=== PATIENT | male | born 1955 | race Caucasian/White ===

== ENCOUNTER 2022-12-28 07:20 | Emergency (ER) | payer MEDICARE, SELFPAY ==
[2022-12-28] VITALS (40 sets, daily range): BP systolic 107–147; BP diastolic 65–103; PULSE 97; RESP 18; TEMP 36.5–36.9; O2SAT 88–98
--- NOTE | ~2022-12-28 | XR_ITS ---
Portable chest x-ray Comparison: 05/01/2015 Clinical History: Difficulty swallowing Findings: Lungs are clear, without focal consolidation or pleural effusion. Possible COPD. Cardiomed iastinal silhouette is stable. Bones and soft tissues are unremarkable. Impression: Clear lungs. Possible COPD. Reviewed, dictated and finalized at location . Impression: Clear lungs. Possible COPD.
--- NOTE | ~2022-12-28 | CT_ITS ---
CT scan of the Neck Technique: 2.5 mm axial scans were obtained through the neck after intravenous administration of 75 c c Omnipaque 350. Coronal and sagittal reconstructions of the neck were obtained. Dose reduction techn ique was used on this scan by utilizing automated exposure control and iterative reconstruction techn ique. The dose-length product (DLP) was 557.41 mGy-cm. Clinical History: Difficulty following. 2 days status post neck surgery. Findings: There is soft tissue gas/emphysema at the anterior neck in the midline and left neck, from the level of the thyroid gland extending superiorly to the level of the hyoid bone, both deep and superficial t o the left sternocleidomastoid muscle. Parotid and submandibular glands are unremarkable. Parapharyng eal fat preserved bilaterally. No definite cervical lymphadenopathy identified. There is prominent re tropharyngeal fluid (axial images 46-62, sagittal image 44 for example). No soft tissue mass evident. The thyroid gland appears normal. Images of the lung apices reveal no abnormalities. Impression: Prominent retropharyngeal fluid, which exerts mass effect upon the posterior aspect of the oropharynx /larynx, which are narrowed. This could reflect reactive fluid due to recent surgery. No prominent pe ripheral enhancement evident, however abscess is an additional consideration. Correlate clinically fo r signs/symptoms of infection. Soft tissue gas in the left neck and anterior neck, consistent with sequelae recent surgery. Reviewed, dictated and finalized at [facility]. Impression: Prominent retropharyngeal fluid, which exerts mass effect upon the posterior as pect of the oropharynx/larynx, which are narrowed. This could reflect reactive fluid due to recent surgery. No prominent peripheral enhancement evident, howev er abscess is an additional consideration. Correlate clinically for signs/sympt oms of infection. Soft tissue gas in the left neck and anterior neck, consistent with sequelae re cent surgery.
--- NOTE | 2022-12-28 07:33 | ED.GENADULT ---
HPI - General Adult General Chief complaint: Unspecified Stated complaint: difficulty swallowing Time Seen by Provider: 12/28/22 07:32 Source: patient and family Mode of arrival: ambulatory Limitations: no limitations History of Present Illness HPI narrative: 67 years old white male came to the emergency room with difficulty swallowing since having surgery 2 days ago, got worse at 6:00 this morning. Patient is able to swallow his saliva without difficulty also was able to swallow some fluids with difficulty. Patient status post cervical disc surgery 2 days ago. He denies any fever, chills, nausea, vomiting, difficulty breathing or painful swallowing. Patient currently on Crivitz and Flexeril. Related Data Home Medications Medication Instructions Recorded Confirmed albuterol sulfate 90 mcg/actuation 1 inh inhalation Q4H 05/05/22 05/09/22 aerosol inhaler (ProAir HFA) amitriptyline 25 mg tablet 25 mg PO QHS 05/05/22 05/09/22 aspirin 81 mg chewable tablet 81 mg PO DAILY 05/05/22 05/09/22 diclofenac sodium 75 mg 75 mg PO BID 05/05/22 05/09/22 tablet,delayed release ezetimibe 10 mg tablet (Zetia) 10 mg PO DAILY 05/05/22 05/09/22 fenofibrate 160 mg tablet 160 mg PO DAILY 05/05/22 05/09/22 fluticasone 500 mcg-salmeterol 50 1 inh inhalation Q12H 05/05/22 05/09/22 mcg/dose blistr powdr for inhalation (Advair Diskus) hydrochlorothiazide 25 mg tablet 25 mg PO DAILY 05/05/22 05/09/22 insulin degludec 200 unit/mL (3 20 unit subcut DAILY 05/05/22 05/09/22 mL) subcutaneous pen (Tresiba FlexTouch U-200 insulin) losartan 100 mg tablet 100 mg PO DAILY 05/05/22 05/09/22 metformin 1,000 mg tablet 1,000 mg PO DAILY 05/05/22 05/09/22 metoprolol succinate 50 mg 50 mg PO DAILY 05/05/22 05/09/22 tablet,extended release 24 hr omeprazole 40 mg capsule,delayed 40 mg PO DAILY 05/05/22 05/09/22 release quetiapine 50 mg tablet 50 mg PO QHS 05/05/22 05/09/22 rosuvastatin 40 mg tablet 40 mg PO DAILY 05/05/22 05/09/22 semaglutide 0.25 mg or 0.5 mg (2 0.25 mg subcut WEEKLY 05/05/22 05/09/22 mg/1.5 mL) subcutaneous pen injector (Ozempic) Allergies Allergy/AdvReac Type Severity Reaction Status Date / Time glimepiride Allergy Mild Rash Verified 12/28/22 07:45 Penicillins Allergy Mild Rash Verified 12/28/22 07:45 trazodone Allergy Mild Vomiting Verified 12/28/22 07:45 Review of Systems Review of Systems: All systems reviewed & are unremarkable except as noted in HPI and below PMFSH Past Medical History Medical History COPD (chronic obstructive pulmonary disease) Diabetes Fatty liver GERD (gastroesophageal reflux disease) Hyperlipidemia Kidney stone Obesity Surgical History Surgical History Colon polyp H/O heart artery stent H/O knee surgery Family History Family History Other Heart disease Social History Social History (Updated 12/28/22 @ 14:06 by Lisa Torres NP) Social History: 3c Smoking status: Current every day smoker Alcohol intake: never Substance use: never Substance use type: does not use Lack of Transportation: No Lack of Food: Never True Current Housing: I Have Housing Concerned About Future Housing: No Difficulty Paying Gas/Electric Bills: No Difficulty Paying for Meds: No Currently Unemployed: No Education: Decline to Answer Difficulty w/ Childcare or Family Care: Decline to Answer Living arrangements: with family Occupation/Education: occupation Exam Narrative: General appearance: Well-developed, well-nourished Skin: Normal color Head: Normocephalic, nontraumatic Eyes: Clear conjunctiva ENT: Oropharynx normal, ears normal, nose normal Neck: Supple, surgical scar left side of lower neck anteriorly, swelling, dry and clean Chest and respiratory: Airway patent, no respiratory distress, no access
[2022-12-28 07:53] LABS: Basophils Percent Auto 0.5 % (0.2-1.2); Eosinophils Absolute Auto 0.1 K/mm3 (0-0.3); Eosinophils Percent Auto 0.6 % (0-4.4); Hematocrit 40.5 % (42.0-52.0); Hemoglobin 13.6 g/dL (14.0-18.0); Immature Granulocyte Absolute 0.05 K/mm3 (0.00-0.031); Immature Granulocyte Percent A 0.6 % (0-0.5); Lymphocytes Absolute Auto 2.02 K/mm3 (0.9-3.2); Mean Corpuscular HGB Conc 33.6 g/dl (32-36); Mean Corpuscular Hemoglobin 29.6 pg (26-34); Mean Corpuscular Volume 88.2 fl (80-100); Mean Platelet Volume 11.2 fl (7.4-10.4); Monocytes Absolute Auto 0.9 K/mm3 (0.1-0.6); Monocytes Percent Auto 10.5 % (2.6-8.5); Neutrophils Absolute Auto 5.7 K/mm3 (1.3-6.7); Neutrophils Percent Auto 64.8 % (45.5-73.1); Platelet Count Result 155 k/mm3 (150-375); Red Blood Count 4.59 M/mm3 (4.6-6.20); Red Cell Distribution Width 12.8 % (11.5-14.5); White Blood Count 8.8 K/mm3 (4.5-10.0)
[2022-12-28] MEDS: MORPHINE SULFATE (*CRX) 4 MG/ML INJ IV PUSH (07:59)
[2022-12-28] MEDS: ONDANSETRON INJ 4 MG/2 ML VIAL IV PUSH ×2 (07:59→17:05)
[2022-12-28 08:04] LABS: Alanine Aminotransferase 25 U/L (6-50); Albumin Level 4.2 g/dL (3.5-5.1); Alkaline Phosphatase 63 U/L (38-126); Anion Gap 9 mmol/L (8-16); Aspartate Amino Transferase 28 U/L (17-59); Bilirubin,Total 0.5 mg/dL (0.2-1.3); Blood Urea Nitrogen 19 mg/dL (9-20); Calcium 10.2 mg/dL (8.4-10.2); Carbon Dioxide 32 mmol/L (22-30); Chloride 93 mmol/L (98-107); Estimated CRCL calculation 91 ml/min; Estimated Glomerular Filt Rate > 60; Glucose 220 mg/dL (65-110); Potassium 3.7 mmol/L (3.4-5.0); Sodium 134 mmol/L (137-145)
[2022-12-28 10:57] LABS: Glucose Point of Care 228 mg/dl (65-105)
--- NOTE | 2022-12-28 14:05 | PM.IMHP ---
H&P: HPI History of Present Illness Date/Time: 12/28/22 14:05 [facility] Past Medical History Medical History COPD (chronic obstructive pulmonary disease) Diabetes Fatty liver GERD (gastroesophageal reflux disease) Hyperlipidemia Kidney stone Obesity Surgical History Surgical History Colon polyp H/O heart artery stent H/O knee surgery Family History Family History Other Heart disease Social History Social History (Updated 12/28/22 @ 14:06 by Lisa Torres NP) Social History: 3c Smoking status: Current every day smoker Alcohol intake: never Substance use: never Substance use type: does not use Lack of Transportation: No Lack of Food: Never True Current Housing: I Have Housing Concerned About Future Housing: No Difficulty Paying Gas/Electric Bills: No Difficulty Paying for Meds: No Currently Unemployed: No Education: Decline to Answer Difficulty w/ Childcare or Family Care: Decline to Answer Living arrangements: with family Occupation/Education: occupation Meds Home Medications and Allergies Home Medications Medication Instructions Recorded Confirmed Type albuterol sulfate 90 mcg/actuation 1 inh inhalation Q4H 05/05/22 05/09/22 History aerosol inhaler (ProAir HFA) amitriptyline 25 mg tablet 25 mg PO QHS 05/05/22 05/09/22 History aspirin 81 mg chewable tablet 81 mg PO DAILY 05/05/22 05/09/22 History diclofenac sodium 75 mg 75 mg PO BID 05/05/22 05/09/22 History tablet,delayed release ezetimibe 10 mg tablet (Zetia) 10 mg PO DAILY 05/05/22 05/09/22 History fenofibrate 160 mg tablet 160 mg PO DAILY 05/05/22 05/09/22 History fluticasone 500 mcg-salmeterol 50 1 inh inhalation Q12H 05/05/22 05/09/22 History mcg/dose blistr powdr for inhalation (Advair Diskus) hydrochlorothiazide 25 mg tablet 25 mg PO DAILY 05/05/22 05/09/22 History insulin degludec 200 unit/mL (3 20 unit subcut DAILY 05/05/22 05/09/22 History mL) subcutaneous pen (Tresiba FlexTouch U-200 insulin) losartan 100 mg tablet 100 mg PO DAILY 05/05/22 05/09/22 History metformin 1,000 mg tablet 1,000 mg PO DAILY 05/05/22 05/09/22 History metoprolol succinate 50 mg 50 mg PO DAILY 05/05/22 05/09/22 History tablet,extended release 24 hr omeprazole 40 mg capsule,delayed 40 mg PO DAILY 05/05/22 05/09/22 History release quetiapine 50 mg tablet 50 mg PO QHS 05/05/22 05/09/22 History rosuvastatin 40 mg tablet 40 mg PO DAILY 05/05/22 05/09/22 History semaglutide 0.25 mg or 0.5 mg (2 0.25 mg subcut WEEKLY 05/05/22 05/09/22 History mg/1.5 mL) subcutaneous pen injector (Ozempic) gabapentin 300 mg capsule 300 mg PO DIRECTED #120 tabs 05/09/22 Rx Allergies Allergy/AdvReac Type Severity Reaction Status Date / Time glimepiride Allergy Mild Rash Verified 12/28/22 07:45 Penicillins Allergy Mild Rash Verified 12/28/22 07:45 trazodone Allergy Mild Vomiting Verified 12/28/22 07:45 Vital Signs Vital Signs - 24 hr 12/28/22 07:27 12/28/22 07:47 12/28/22 08:02 Temperature 36.5 C Pulse Rate 97 Respiratory Rate 18 Blood Pressure 124/71 120/70 118/66 Pulse Oximetry 98 95 95 Oxygen Delivery Room Air 12/28/22 10:30 Temperature 36.9 C Pulse Rate Respiratory Rate Blood Pressure Pulse Oximetry Oxygen Delivery H&P: Results Labs Labs: Short CBC 12/28/22 Range/Units 07:45 WBC 8.8 (4.5-10.0) K/mm3 Hgb 13.6 L (14.0-18.0) g/dL Hct 40.5 L (42.0-52.0) % Plt Count 155 (150-375) k/mm3 BMP 12/28/22 07:45 Sodium 134 L Potassium 3.7 Chloride 93 L Carbon Dioxide 32 H BUN 19 Creatinine 0.90 Glucose 220 H Calcium 10.2 Liver Function 12/28/22 Range/Units 07:45 Total Bilirubin 0.5 (0.2-1.3) mg/dL AST 28 (17-59) U/L ALT 25 (6-50) U/L Alkaline Phosphatase 63 (
[2022-12-28] MEDS: VANCOMYCIN 1,250 MG/NS 250 ML 1,250 MG/250 ML BAG 166.67 MG IVPB (15:03)
--- NOTE | 2022-12-28 16:51 | WPDNEUROSGCN ---
Assessment and Plan Assessment and plan (1) Status post cervical spinal fusion: Code(s): Z98.1 - Arthrodesis status Status: Acute (2) Difficulty in swallowing: Qualifiers: Dysphagia type: oropharyngeal phase Qualified Code(s): R13.12 - Dysphagia, oropharyngeal phase Code(s): R13.10 - Dysphagia, unspecified Status: Acute Plan Mr. Pettit is a 67-year-old male who had an ACDF C4-5 two days ago at [facility] with Dr. Marshall who presents with a sore throat and some difficulty swallowing. He describes being unable to swallow fried chicken and rice as well as having some difficulty with liquids. He does not have any shortness of breath or difficulty breathing, and he is currently on room air. He does have some swelling at the surgical site which is expected this soon after surgery. While his CT scan does show prevertebral swelling and a hypodense fluid collection around the hardware, I believe this likely represents some residual irrigation. I do not see any hyperdensity within the fluid or soft tissue that would be concerning for a hematoma. He is able to swallow liquids. I do think it is reasonable to observe him overnight and start him on decadron 4mg q 6 hours for the edema. I do not believe that he needs ICU monitoring given that he does not have any airway concerns at this time. Dr. Marshall is aware and has been updated about his condition Consult date: 12/28/22 HPI: Cat Pettit is a 67 year old male who underwent ACDF C4-5 two days ago at [facility] by Dr. Marshall for pre-operative right arm radicular pain who presented to the ER this morning with concern for swallowing difficulty. The patient was discharged from [facility] yesterday. Since surgery, he describes difficulty swallowing foods like fried chicken and rice. This morning, he felt he was having difficulty with fluids as well. He complains of a sore throat and diffuse soreness throughout the body. His right arm pain has resolved, but he currently feels some pain into the left shoulder. He denies any shortness of breath or difficulty breathing. PMFSH Past Medical History Medical History COPD (chronic obstructive pulmonary disease) Diabetes Fatty liver GERD (gastroesophageal reflux disease) Hyperlipidemia Kidney stone Obesity Surgical History Surgical History Colon polyp H/O heart artery stent H/O knee surgery Family History Family History Other Heart disease Social History Social History (Updated 12/28/22 @ 14:06 by Lisa Torres NP) Social History: 3c Smoking status: Current every day smoker Alcohol intake: never Substance use: never Substance use type: does not use Lack of Transportation: No Lack of Food: Never True Current Housing: I Have Housing Concerned About Future Housing: No Difficulty Paying Gas/Electric Bills: No Difficulty Paying for Meds: No Currently Unemployed: No Education: Decline to Answer Difficulty w/ Childcare or Family Care: Decline to Answer Living arrangements: with family Occupation/Education: occupation Meds Home Medications and Allergies Home Medications Medication Instructions Recorded Confirmed Type albuterol sulfate 90 mcg/actuation 1 inh inhalation Q4H 05/05/22 05/09/22 History aerosol inhaler (ProAir HFA) amitriptyline 25 mg tablet 25 mg PO QHS 05/05/22 05/09/22 History aspirin 81 mg chewable tablet 81 mg PO DAILY 05/05/22 05/09/22 History diclofenac sodium 75 mg 75 mg PO BID 05/05/22 05/09/22 History tablet,delayed release ezetimibe 10 mg tablet (Zetia) 10 mg PO DAILY 05/05/22 05/09/22 History fenofibrate 160 mg tablet 160 mg PO DAILY 05/05/22 05/09/22 History fluticasone 500 mcg-salmeterol 50 1 inh inhalation Q12H 05/05/22 05/09/22 History mcg/dose blistr powdr for
[2022-12-28] MEDS: HYDROmorphone HCL INJ (*CRX) 1 MG/ML SYR 2 MG IV PUSH (17:05)
[2022-12-28 17:17] LABS: Glucose Point of Care 300 mg/dl (65-105)
--- NOTE | 2022-12-28 17:38 | PC.NURSE ---
Report called to Jen Guerra.
== END 2022-12-29 00:23 | disposition short-term general hospital (02) ==
PROVIDERS: Emergency Provider Emergency Medicine; PCP Family Medicine Sports Medicine
DX: R13.10 Dysphagia, unspecified (principal); Z98.890 Other specified postprocedural states; Z98.1 Arthrodesis status; J44.9 Chronic obstructive pulmonary disease, unspecified; E11.9 Type 2 diabetes mellitus without complications; K21.9 Gastro-esophageal reflux disease without esophagitis; E78.5 Hyperlipidemia, unspecified; E66.9 Obesity, unspecified; Z68.31 Body mass index [BMI] 31.0-31.9, adult; F17.200 Nicotine dependence, unspecified, uncomplicated; Z95.5 Presence of coronary angioplasty implant and graft; Z87.442 Personal history of urinary calculi; Z86.010 Personal history of colon polyps; Z79.82 Long term (current) use of aspirin; Z79.84 Long term (current) use of oral hypoglycemic drugs; Z79.85 Long-term (current) use of injectable non-insulin antidiabetic drugs; Z79.4 Long term (current) use of insulin
CPT/HCPCS: 36415; 70491; 71045; 80053; 82948; 85025; 96365; 96366; 96375; 99285; J1100; J1170; J2270; J2405; J3370; Q9967

== ENCOUNTER 2023-01-10 16:09 | Outpatient (CLI) | payer MEDICARE, SELFPAY ==
--- NOTE | ~2023-01-10 | XR_ITS ---
Cervical Spine: AP, lateral, open-mouth views Clinical History: Arthrodesis Findings: There is anterior fusion hardware from C4-C5. There is mild reversal normal cervical lordos is. There is severe degenerative disc narrowing at C5-C6 and C6-C7. There is moderate to advanced deg enerative disc narrowing at C3-C4. Pre-vertebral soft tissues are unremarkable. Impression: Anterior fusion from C4 to C5. Moderate to advanced degenerative change, as above. Reviewed, dictated and finalized at location M. Impression: Anterior fusion from C4 to C5. Moderate to advanced degenerative change, as above.
== END 2023-01-10 16:10 | disposition home or self-care (01) ==
PROVIDERS: PCP Family Medicine Sports Medicine; Visit Provider Neurological Surgery
DX: M50.30 Other cervical disc degeneration, unspecified cervical region (principal); Z98.1 Arthrodesis status
CPT/HCPCS: 72040

== ENCOUNTER → 2023-01-11 10:54 | Outpatient (CLI) | payer MEDICARE, SELFPAY ==
--- NOTE | ~2023-01-11 | MR_ITS ---
EXAMINATION: MR cervical spine wo con DATE: 01/11/2023 11:36 INDICATION: Cervical arthrodesis. TECHNIQUE: Magnetic resonance imaging (MRI) of the cervical spine was performed without intravenous c ontrast. Sequences included sagittal T2-weighted FSE, sagittal T2-weighted FS FSE, sagittal T1-weight ed FSE, axial MERGE, and axial T2-weighted FSE. COMPARISON: Cervical spine radiographs 01/10/2023 FINDINGS: There is 3 degrees levocurvature of cervicothoracic spine. There is mild kyphosis of cervic al spine. There is mild chronic anterior wedging of T3 vertebral body. There are changes of anterior fusion procedure at C4-C5 with interbody device and anterior plate and screws. There is severely decr eased disc height at C5-C6 with interbody fusion. There is moderately decreased disc height at C6-C7. The spinal cord signal intensity is normal. The following disc levels are specifically discussed: C2-C3: The disc does not extend beyond the endplate margin. There is mild bilateral uncovertebral magnus nt osteoarthritis. There is severe right and mild left facet joint osteoarthritis. There is moderate right neural foraminal stenosis. There is no central canal stenosis. C3-C4: The disc is bulging. There is moderate and mild left uncovertebral joint osteoarthritis. There is severe right and moderate left facet joint osteoarthritis. There is severe right and mild left ne ural foraminal stenosis. There is mild central canal stenosis. C4-C5: There is severe bilateral uncovertebral joint hypertrophy. There is moderate bilateral facet j oint osteoarthritis. There is moderate bilateral neural foraminal stenosis. There is moderate central canal stenosis with ventral and dorsal indentation of spinal cord. C5-C6: The disc does not extend beyond the endplate margin. There is moderate bilateral uncovertebral joint hypertrophy. There is mild bilateral facet joint osteoarthritis. There is mild right and moder ate left neural foraminal stenosis. There is no central canal stenosis. C6-C7: The disc is bulging. There is severe bilateral uncovertebral joint osteoarthritis. There is mi ld bilateral facet joint osteoarthritis. There is moderate bilateral neural foraminal stenosis. There is mild central canal stenosis. C7-T1: There is a central extrusion. There is mild left uncovertebral joint osteoarthritis. There is severe bilateral facet joint osteoarthritis. There is mild bilateral neural foraminal stenosis. There is no central canal stenosis. IMPRESSION: 1. Anterior fusion procedure at C4-C5. 2. Severe cervical spondylosis. Reviewed, dictated and finalized at location A.
== END ==
PROVIDERS: PCP Family Medicine Sports Medicine; Visit Provider Neurological Surgery
DX: M47.892 Other spondylosis, cervical region (principal); Z98.1 Arthrodesis status
CPT/HCPCS: 72141

== ENCOUNTER 2024-09-18 09:48 | Inpatient (IN) | payer MEDICARE, SELFPAY ==
[2024-09-18] VITALS (25 sets, daily range): BP systolic 104–139; BP diastolic 54–74; PULSE 98–121; RESP 15–24; TEMP 36.3–36.6; O2SAT 91–99; BMI 31.4
--- NOTE | ~2024-09-18 | XR_ITS ---
EXAMINATION: XR chest 1V portable Exam Date/Time: 09/21/2024 16:32 CDT HISTORY: COUGH/SOB/HX OF COPD Comparison: 09/18/2024. RESULT: Lines, tubes, and devices: Cervical fusion hardware. Lungs and pleura: Subsegmental left basilar opacity with partial loss of the left hemidiaphragm shad ow. Cardiomediastinal silhouette: Stable. Other: No acute osseous or upper abdominal finding. IMPRESSION: Subsegmental left basilar atelectasis/consolidation. Reviewed, dictated and finalized at location K.
--- NOTE | ~2024-09-18 | XR_ITS ---
EXAMINATION: XR chest 2V 09/18/2024 11:46 INDICATION: Shortness of breath and cough PROCEDURE: 2 view chest COMPARISON: Comparison to multiple prior studies sequentially, with oldest reviewed study dated 09/2004. FINDINGS: The lungs are clear. The cardiomediastinal silhouette is within normal limits. There are no pleural effusions. There is no pneumothorax suspected. IMPRESSION: 1: NO ACUTE CARDIOPULMONARY DISEASE. Reviewed, dictated and finalized at location B.
--- NOTE | ~2024-09-18 | CT_ITS ---
Clinical Indication: Shortness of breath CT Scan of the Chest with Contrast: Technique: Contiguous sections were acquired throughout the chest after intravenous administration of 100 cc of Omnipaque 350. Dose reduction technique was used on this scan by utilizing automated expos ure control and iterative reconstruction technique. The dose-length product (DLP) was 751.09 mGy-cm. Findings: There is no evidence of any significant mediastinal, hilar or axillary lymphadenopathy. There is no f illing defect in the pulmonary arterial tree to suggest pulmonary embolus. There is no evidence of ao rtic dissection or aneurysm. There is no evidence of pleural or pericardial effusion. The lungs are clear. No pulmonary nodules or infiltrates are noted. Mild emphysema noted in the upper lobes. Images through the upper abdomen reveal no abnormalities. Impression: No evidence of pulmonary embolus, aortic dissection, or aortic aneurysm. Clear lungs. Mild bilateral upper lobe emphysema. Reviewed, dictated and finalized at [facility]. Impression: No evidence of pulmonary embolus, aortic dissection, or aortic aneurysm. Clear lungs. Mild bilateral upper lobe emphysema.
--- OUTSIDE RECORDS SUMMARY | 2024-09-18 10:22 | XMS_ITS | Data Portability ---
Author Organization [place] - [facility], Formerly [facility] Address [address] [place] [id number] Assessment No assessment recorded. Plan of Treatment Reminders Order Date Submit Date Provider Last Modified By Organization Details Last Modified Time Details Appointments None recorded. Lab urinalysis panel, auto 2022 023 [email or web address] [facility], [address] [place] [address], [address], 12:50:25 PT/PTT, plasma 2022 023 [facility], [address], [place], [address], 12:08:52 PT/INR [email or web address] [facility], [address], [place], [address], 14:09:40 CBC w/ auto diff [address] [facility], [address], [place], [address], 14:10:01 BMP, serum or plasma 2022 023 [facility], [address], [place], [address], 16:41:15 CBC w/ auto diff 2022 023 [facility], [address] [place], [address], 3 14:22:45 PT/INR 2022 023 [email or web address] [facility], [address] [place], [address], 3 12:31:10 urinalysis, complete 2022 023 [facility], [address] [place], [address], 3 19:45:05 CMP, serum or plasma 2022 023 [facility], [address] [place], [address], 3 19:45:06 SARS CoV 2 RNA panel, probe, respiratory specimen [address], [address] [place] [address], [address], 17:20:53 Referral None recorded. Procedures None recorded. Surgeries None recorded. Imaging None recorded. Medication Orders dexamethaso ne [address] [facility] [place], [place], [address] [place], [address], 2 16:51:14 Zithromax Z-Enoch [address] [facility] [place], [address] [place], [address], 1 16:31:55 ivermectin 3 mg tablet 2020 022 [place], [place], [address], [place], [address], 16:51:14 Patient TargetsNo targets recorded. Patient InstructionsNo instructions recorded. Reason for Referral None Reported. Results Created Date Observation Date Name Description Value Unit Range Abnormal Flag Note LastModifiedBy Organization Detail LastModifiedTime 01/11/20 21 01/10/2021 SARS CoV 2 RNA panel , probe , respi rator y speci men sars-cov-2 POSITI VE abnormal Not Available [address], [place], [address], 01/10/2021 15:40:57 11/22/19 23 11/21/2022 URINA LYSIS (COMP LETE) color Yellow Not Available [facility] [address] [place], [address], 11/21/2022 19:45:05 11/22/19 23 11/21/2022 URINA LYSIS (COMP LETE) clarity Clear Not Available [facility] [address] [place], [address], 11/21/2022 19:45:05 11/22/19 23 11/21/2022 URINA LYSIS (COMP LETE) leukocytes Negati ve negati ve Not Available [facility] [address] [place], [address], 11/21/2022 19:45:05 11/22/19 23 11/21/2022 URINA LYSIS (COMP LETE) nitrites Negati ve negati ve Not Available [facility] [address] [place], [address], 11/21/2022 19:45:05 11/22/19 23 11/21/2022 URINA LYSIS (COMP LETE) urobilinogen 0.2 E.U./d L mg/dL 0.2 - 1.0 Not Available [facility] [address] [place], [address], 11/21/2022 19:45:05 11/22/19 23 11/21/2022 URINA LYSIS (COMP LETE) protein Negati ve negati ve Not Available [facility] [address] [place], [address], 11/21/2022 19:45:05 11/22/19 23 11/21/2022 URINA LYSIS (COMP LETE) pH 6.0 5.0 - 8.0 Not Available [facility] [address] [place], [address], 11/21/2022 19:45:05 11/22/19 23 11/21/2022 URINA LYSIS (COMP LETE) blood Negati ve negati ve Not Available [facility] [address] [place], [address], 11/21/2022 19:45:05 11/22/19 23 11/21/2022 URINA LYSIS (COMP LETE) specific gravity 1.015 1.005 - 1.030 Not Available [facility] [address] [place], [address], 11/21/2022 19:45:05 11/22/19 23 11/21/2022 URINA LYSIS (COMP LETE) ketones Negati ve negati ve Not Available [facility] [address] [place], [address], 11/21/2022 19:45:05 11/22/19 23 11/21/2022 URINA LYSIS (COMP LETE) bilirubin Negati ve negati ve Not Available [facility] [address] [place], [address], 11/21/2022 19:45:05 11/22/19 23 11/21/2022 URINA LYSIS (COMP LETE) glucose Negati ve negati ve Not Available [facility] [address] [place], [address], 11/21/2022 19:45:05 11/22/19 23 11/21/2022 URINA LYSIS (COMP LETE) urine WBC 0-3 /hpf 0-trac e / hpf abnormal Not Available [facility] [address] [place], [address], 11/21/2022 19:45:05 11/22/19 23 11/21/2022 URINA LYSIS (COMP LETE) urine RBC None Seen /hpf 0-trac e / hpf Not Available [facility] [address] [place], [address], 11/21/2022 19:45:05 11/22/19 23 11/21/2022 URINA LYSIS (COMP LETE) urine epithelials 3-5 /hpf 0-trac e/ hpf abnormal Not Available [facility] [address] [place], [address], 11/21/2022 19:45:05 11/22/19 23 11/21/2022 URINA LYSIS (COMP LETE) urine bacteria None Seen /hpf negati ve Not Available [facility] [address] [place], [address], 11/21/2022 19:45:05 11/22/19 23 11/21/2022 URINA LYSIS (COMP LETE) urine casts None Seen /hpf negati ve Not Available [facility] [address] [place], [address], 11/21/2022 19:45:05 11/22/19 23 11/21/2022 URINA LYSIS (COMP LETE) urine crystals None Seen /hpf negati ve Not Available [facility] [address] [place], [address], 11/21/2022 19:45:05 11/22/19 23 11/21/2022 COMPR EHENS SAILAJA METAB OLIC PANEL (CMP) albumin 4.5 g/dL 3.5 - 5.0 Not Available [facility] [address] [place], [address], 11/21/2022 19:45:06 11/22/19 23 11/21/2022 COMPR EHENS SAILAJA METAB OLIC PANEL (CMP) chloride 95 mmol/ L 98 - 107 low Not Available [facility] [address] [place], [address], 11/21/2022 19:45:06 11/22/19 23 11/21/2022 COMPR EHENS SAILAJA METAB OLIC PANEL (CMP) creatinine 1.13 mg/dL 0.66 - 1.25 Not Available [facility] [address] [place], [address], 11/21/2022 19:45:06 11/22/19 23 11/21/2022 COMPR EHENS SAILAJA METAB OLIC PANEL (CMP) eco2 33 mmol/ L 22 - 30 high Not Available [facility] [address] [place], [address], 11/21/2022 19:45:06 11/22/19 23 11/21/2022 COMPR EHENS SAILAJA METAB OLIC PANEL (CMP) glucose 124 mg/dL 74 - 106 high Not Available [facility] [address] [place], [address], 11/21/2022 19:45:06 11/22/19 23 11/21/2022 COMPR EHENS SAILAJA METAB OLIC PANEL (CMP) potassium 4.30 mmol/ L 3.50 - 5.10 Not Available [facility] [address] [place], [address], 11/21/2022 19:45:06 11/22/19 23 11/21/2022 COMPR EHENS SAILAJA METAB OLIC PANEL (CMP) alkaline phos 74 U/L 38 - 126 Not Available [facility] [address] [place], [address], 11/21/2022 19:45:06 11/22/19 23 11/21/2022 COMPR EHENS SAILAJA METAB OLIC PANEL (CMP) sodium 140.0 mmol/ L 137.0 - 145.0 Not Available [facility] [address] [place], [address], 11/21/2022 19:45:06 11/22/19 23 11/21/2022 COMPR EHENS SAILAJA METAB OLIC PANEL (CMP) total bilirubin 0.5 mg/dL 0.2 - 1.3 Not Available [facility] [address] [place], [address], 11/21/2022 19:45:06 11/22/19 23 11/21/2022 COMPR EHENS SAILAJA METAB OLIC PANEL (CMP) total protein 7.2 g/dL 6.3 - 8.2 Not Available [facility] [address] [place], [address], 11/21/2022 19:45:06 11/22/19 23 11/21/2022 COMPR EHENS SAILAJA METAB OLIC PANEL (CMP) ALT 27 U/L 0 - 50 Not Available [facility] [address] [place], [address], 11/21/2022 19:45:06 11/22/19 23 11/21/2022 COMPR EHENS SAILAJA METAB OLIC PANEL (CMP) BUN/urea 18 mg/dL 9 - 20 Not Available [facility] [address] [place], [address], 11/21/2022 19:45:06 11/22/19 23 11/21/2022 COMPR EHENS SAILAJA METAB OLIC PANEL (CMP) eGFR 69 mL/mi n/1.7 3m2 >60 *eGFR Refer ence Value s Adri l: >60 mL/mi n/1.7 3m2 Abnor mal: < 60 mL/mi n/1.7 3m2 *eGFR Refer ence Value s Adri l: >60 mL/mi n/1.7 3m2 Abnor mal: < 60 mL/mi n/1.7 3m2 Not Available [facility] [address] [place], [address], 11/21/2022 19:45:06 11/22/19 23 11/21/2022 COMPR EHENS SAILAJA METAB OLIC PANEL (CMP) A/G ratio 1.7 (calc ) 1.0 - 2.5 Not Available [facility] [address] [place], [address], 11/21/2022 19:45:06 11/22/19 23 11/21/2022 COMPR EHENS SAILAJA METAB OLIC PANEL (CMP) globulin 2.7 g/dL_ (calc ) 1.9 - 3.7 Not Available [facility] [address] [place], [address], 11/21/2022 19:45:06 11/22/19 23 11/21/2022 COMPR EHENS SAILAJA METAB OLIC PANEL (CMP) calcium 10.3 mg/dL 8.9 - 10.7 Not Available [facility] [address] [place], [address], 11/21/2022 19:45:06 11/22/19 23 11/21/2022 COMPR EHENS SAILAJA METAB OLIC PANEL (CMP) AST 32 U/L 17 - 59 Not Available [facility] [address] [place], [address], 11/21/2022 19:45:06 11/22/19 23 11/21/2022 COMPR EHENS SAILAJA METAB OLIC PANEL (CMP) BUN/crea ratio 16 (calc ) 6 - 22 Not Available [facility] [address] [place], [address], 11/21/2022 19:45:06 11/22/19 23 11/22/2022 CBC (INCL UDES DIFF/ PLT) (REFL ) absolute basophils 83 cells /uL 0-200 normal Not Available [facility] [address] [place], [address], 11/22/2022 14:22:45 11/22/19 23 11/22/2022 CBC (INCL UDES DIFF/ PLT) (REFL ) absolute eosinophils 160 cells /uL 15-500 normal Not Available [facility] [address] [place], [address], 11/22/2022 14:22:45 11/22/19 23 11/22/2022 CBC (INCL UDES DIFF/ PLT) (REFL ) absolute lymphocytes 1815 cells /uL 850-39 00 normal Not Available [facility] [address] [place], [address], 11/22/2022 14:22:45 11/22/19 23 11/22/2022 CBC (INCL UDES DIFF/ PLT) (REFL ) absolute monocytes 572 cells /uL 200-95 0 normal Not Available [facility] [address] [place], [address], 11/22/2022 14:22:45 11/22/19 23 11/22/2022 CBC (INCL UDES DIFF/ PLT) (REFL ) absolute neutrophils 2871 cells /uL 1500-7 800 normal Not Available [facility] [address] [place], [address], 11/22/2022 14:22:45 11/22/19 23 11/22/2022 CBC (INCL UDES DIFF/ PLT) (REFL ) basophils 1.5 % normal Not Available [facility] [address] [place], [address], 11/22/2022 14:22:45 11/22/19 23 11/22/2022 CBC (INCL UDES DIFF/ PLT) (REFL ) eosinophils 2.9 % normal Not Available [facility] [address] [place], [address], 11/22/2022 14:22:45 11/22/19 23 11/22/2022 CBC (INCL UDES DIFF/ PLT) (REFL ) hematocrit 46.1 % 38.5-5 0.0 normal Not Available [facility] [address] [place], [address], 11/22/2022 14:22:45 11/22/19 23 11/22/2022 CBC (INCL UDES DIFF/ PLT) (REFL ) hemoglobin 15.0 g/dL 13.2-1 7.1 normal Not Available [facility] [address] [place], [address], 11/22/2022 14:22:45 11/22/19 23 11/22/2022 CBC (INCL UDES DIFF/ PLT) (REFL ) lymphocytes 33.0 % normal Not Available [facility] [address] [place], [address], 11/22/2022 14:22:45 11/22/19 23 11/22/2022 CBC (INCL UDES DIFF/ PLT) (REFL ) MCH 28.9 pg 27.0-3 3.0 normal Not Available [facility] [address] [place], [address], 11/22/2022 14:22:45 11/22/19 23 11/22/2022 CBC (INCL UDES DIFF/ PLT) (REFL ) MCHC 32.5 g/dL 32.0-3 6.0 normal Not Available [facility] [address] [place], [address], 11/22/2022 14:22:45 11/22/19 23 11/22/2022 CBC (INCL UDES DIFF/ PLT) (REFL ) MCV 88.8 fL 80.0-1 00.0 normal Not Available [facility] [address] [place], [address], 11/22/2022 14:22:45 11/22/19 23 11/22/2022 CBC (INCL UDES DIFF/ PLT) (REFL ) monocytes 10.4 % normal Not Available [facility] [address] [place], [address], 11/22/2022 14:22:45 11/22/19 23 11/22/2022 CBC (INCL UDES DIFF/ PLT) (REFL ) MPV 11.4 fL 7.5-12 .5 normal Not Available [facility] [address] [place], [address], 11/22/2022 14:22:45 11/22/19 23 11/22/2022 CBC (INCL UDES DIFF/ PLT) (REFL ) neutrophils 52.2 % normal Not Available [facility] [address] [place], [address], 11/22/2022 14:22:45 11/22/19 23 11/22/2022 CBC (INCL UDES DIFF/ PLT) (REFL ) platelet count 155 thous and/u L 140-40 0 normal Not Available [facility] [address] [place], [address], 11/22/2022 14:22:45 11/22/19 23 11/22/2022 CBC (INCL UDES DIFF/ PLT) (REFL ) RDW 13.2 % 11.0-1 5.0 normal Not Available [facility] [address] [place], [address], 11/22/2022 14:22:45 11/22/19 23 11/22/2022 CBC (INCL UDES DIFF/ PLT) (REFL ) red blood cell count 5.19 quirino on/uL 4.20-5 .80 normal Not Available [facility] [address] [place], [address], 11/22/2022 14:22:45 11/22/19 23 11/22/2022 CBC (INCL UDES DIFF/ PLT) (REFL ) white blood cell count 5.5 thous and/u L 3.8-10 .8 normal Not Available [facility] [address] [place], [address], 11/22/2022 14:22:45 11/22/19 23 11/22/2022 PROTH ROMBI N W/INR + PARTI AL THROM BOPLA STIN TIMES INR 1.0 normal Refer ence Range 0.9-1 .1 Moder ate-i ntens ity Warfa rin Thera py 2.0-3 .0 Highe r-int ensit y Warfa rin Thera py 3.0-4 .0 Not Available [facility] [address] [place], [address], 11/22/2022 14:22:45 11/22/19 23 11/22/2022 PROTH ROMBI N W/INR + PARTI AL THROM BOPLA STIN TIMES partial thromboplast in time, activated 29 sec 23-32 normal This test has not been valid ated for monit oring unfra ction ated hepar in thera py. For testi ng that is valid ated for this type of thera py, ponce talbot refer to the Hepar in Anti- Xa assay (test code 34904 ). For addit ional ponce lópez refer to http: //jaida Hester gnost ics.c om/fa q/FAQ 159 (This link is being provi ded for nimisha pina nal/e solange maravilla purpo ses only. ) Not Available [facility] [address] [place], [address], 11/22/2022 14:22:45 11/22/19 23 11/22/2022 PROTH ROMBI N W/INR + PARTI AL THROM BOPLA STIN TIMES PT 10.3 sec 9.0-11 .5 normal Not Available [facility] [address] [place], [address], 11/22/2022 14:22:45 03/29/20 23 03/29/2023 CBC WBC 5.4 x10(3 )/uL 2.6 - 8.8 Not Available [facility] [address] [place], [address], 03/29/2023 16:41:15 03/29/20 23 03/29/2023 CBC RBC 4.77 x10(6 )/uL 3.60 - 5.30 Not Available [facility] [address] [place], [address], 03/29/2023 16:41:15 03/29/2003/29/2023 CBC HGB 14.0 g/dL 11.3 - 15.7 Not Available [facility] [address] [place], [address], 03/29/2023 16:41:15 03/29/2003/29/2023 CBC HCT 41.7 % 32.6 - 47.5 Not Available [facility] [address] [place], [address], 03/29/2023 16:41:15 03/29/2003/29/2023 CBC MCV 87.4 fL 80.3 - 103.4 Not Available [facility] [address] [place], [address], 03/29/2023 16:41:15 03/29/2003/29/2023 CBC MCH 29.4 pg 26.0 - 34.4 Not Available [facility] [address] [place], [address], 03/29/2023 16:41:15 03/29/2003/29/2023 CBC MCHC 33.6 g/dL 31.8 - 36.3 Not Available [facility] [address] [place], [address], 03/29/2023 16:41:15 03/29/2003/29/2023 CBC platelet count 169 % 134 - 377 Not Available [facility] [address] [place], [address], 03/29/2023 16:41:15 03/29/2003/29/2023 CBC neut% 60.7 % 38.3 - 69.0 Not Available [facility] [address] [place], [address], 03/29/2023 16:41:15 03/29/2003/29/2023 CBC lymph% 28.8 % 17.5 - 47.9 Not Available [facility] [address] [place], [address], 03/29/2023 16:41:15 03/29/2003/29/2023 CBC mxd% 10.5 % 1.9 - 24.6 Not Available [facility] [address] [place], [address], 03/29/2023 16:41:15 03/29/2003/29/2023 CBC neut# 3.2 x10(3 )/uL 1.2 - 5.3 Not Available [facility] [address] [place], [address], 03/29/2023 16:41:15 03/29/2003/29/2023 CBC lymph# 1.6 x10(3 )/uL 0.8 - 2.7 Not Available [facility] [address], [address], 03/29/2023 16:41:15 03/29/2003/29/2023 CBC mxd# 0.6 x10(3 )/uL 0.1 - 1.5 Not Available [facility] [address] [place], [address], 03/29/2023 16:41:15 03/29/2003/29/2023 CBC RDW-SD 42.5 fL 33.4 - 49.2 Not Available [facility] [address] [place], [address], 03/29/2023 16:41:15 03/29/2003/29/2023 CBC RDW-CV 12.3 % 10.8 - 14.9 Not Available [facility] [address] [place], [address], 03/29/2023 16:41:15 03/29/2003/29/2023 CBC MPV 10.6 fL 8.1 - 12.4 Not Available [facility] [address] [place], [address], 03/29/2023 16:41:15 03/29/2003/29/2023 BASIC METAB LOLIC PANEL (BMP) sodium 138.1 mmol/ L 137.0 - 145.0 Not Available [facility] [address] [place], [address], 03/29/2023 16:41:15 03/29/2003/29/2023 BASIC METAB LOLIC PANEL (BMP) potassium 3.90 mmol/ L 3.50 - 5.10 Not Available [facility] [address] [place], [address], 03/29/2023 16:41:15 03/29/2003/29/2023 BASIC METAB LOLIC PANEL (BMP) chloride 101 mmol/ L 98 - 107 Not Available [facility] [address] [place], [address], 03/29/2023 16:41:15 03/29/2003/29/2023 BASIC METAB LOLIC PANEL (BMP) eco2 27 mmol/ L 22 - 30 Not Available [facility] [address] [place], [address], 03/29/2023 16:41:15 03/29/2003/29/2023 BASIC METAB LOLIC PANEL (BMP) BUN/urea 12 mg/dL 9 - 20 Not Available [facility] [address] [place], [address], 03/29/2023 16:41:15 03/29/20 23 03/29/2023 BASIC METAB LOLIC PANEL (BMP) creatinine 0.82 mg/dL 0.66 - 1.25 Not Available [facility] [address] [place], [address], 03/29/2023 16:41:15 03/29/2003/29/2023 BASIC METAB LOLIC PANEL (BMP) glucose 229 mg/dL 74 - 106 high Not Available [facility] [address] [place], [address], 03/29/2023 16:41:15 03/29/2003/29/2023 BASIC METAB LOLIC PANEL (BMP) calcium 10.0 mg/dL 8.9 - 10.7 Not Available [facility] [address] [place], [address], 03/29/2023 16:41:15 03/29/2003/29/2023 BASIC METAB LOLIC PANEL (BMP) eGFR 96 mL/mi n/1.7 3m2 >60 *eGFR Refer ence Value s Adri l: >60 mL/mi n/1.7 3m2 Abnor mal: < 60 mL/mi n/1.7 3m2 *eGFR Refer ence Value s Adri l: >60 mL/mi n/1.7 3m2 Abnor mal: < 60 mL/mi n/1.7 3m2 Not Available [facility] [address] [place], [address], 03/29/2023 16:41:15 03/29/20 23 03/30/2023 PROTH ROMBI N W/INR + PARTI AL THROM BOPLA STIN TIMES INR 0.9 normal Refer ence Range 0.9-1 .1 Moder ate-i ntens ity Warfa rin Thera py 2.0-3 .0 Highe r-int ensit y Warfa rin Thera py 3.0-4 .0 Not Available [facility] [address] [place], [address], 03/30/2023 12:08:52 03/29/2003/30/2023 PROTH ROMBI N W/INR + PARTI AL THROM BOPLA STIN TIMES partial thromboplast in time, activated 31 sec 23-32 normal This test has not been valid ated for monit oring unfra ction ated hepar in thera py. For testi ng that is valid ated for this type of thera py, ponce talbot refer to the Hepar in Anti- Xa assay (test code 99915 ). For addit ional ponce lópez e refer to http: //[facility] evelina gongora.José stDia [employer].c om/fa q/FAQ 159 (This link is being provi ded for nimisha pina nal/e [employer] purpo ses only. ) Not Available [facility] [address] [place], [address], 03/30/2023 12:08:52 03/29/2003/30/2023 PROTH ROMBI N W/INR + PARTI AL THROM BOPLA STIN TIMES PT 9.9 sec 9.0-11 .5 normal Not Available [facility] [address] [place], [address], 03/30/2023 12:08:52 03/29/2003/29/2023 urina lysis panel , auto glucose NEGATI VE normal Not Available [facility] [place], [address], 03/29/2023 10:36:30 03/29/2003/29/2023 urina lysis panel , auto bilirubin NEGATI VE normal Not Available [address], [address], 03/29/2023 10:36:30 03/29/2003/29/2023 urina lysis panel , auto ketone NEGATI VE normal Not Available [address], [address], 03/29/2023 10:36:30 03/29/2003/29/2023 urina lysis panel , auto specific gravity 1.020 normal Not Available [address], [address], 03/29/2023 10:36:30 03/29/2003/29/2023 urina lysis panel , auto blood NEGATI VE normal Not Available [address], [address], 03/29/2023 10:36:30 03/29/2003/29/2023 urina lysis panel , auto pH 5.5 normal Not Available [address], [address], 03/29/2023 10:36:30 03/29/2003/29/2023 urina lysis panel , auto protein NEGATI VE normal Not Available [address], [address], 03/29/2023 10:36:30 03/29/2003/29/2023 urina lysis panel , auto urobilinogen 0.2 E.U./ dL normal Not Available [address], [address], 03/29/2023 10:36:30 03/29/2003/29/2023 urina lysis panel , auto nitrite NEGATI VE normal Not Available [address], [address], 03/29/2023 10:36:30 03/29/2003/29/2023 urina lysis panel , auto leukocytes NEGATI VE normal Not Available [address], [address], 03/29/2023 10:36:30 03/29/2003/29/2023 urina lysis panel , auto color NOT ENTERE D normal Not Available [address], [address], 03/29/2023 10:36:30 03/29/2003/29/2023 urina lysis panel , auto clarity NOT ENTERE D normal Not Available [address], [address], 03/29/2023 10:36:30 Result Notes None recorded. Procedures Surgical History Date Name Laterality Status Provider Name and Address Organization Details Recorded Time reconstruction of anterior cruciate ligament of knee joint completed [facility] 01/10/2021 15:28:45 Imaging Results None recorded. Procedure Notes None recorded. Medical Equipment None Reported. Allergies Allergen ID Allergen Name Allergen Category Reaction Reaction Severity Criticality Documentation Date Start Date Code Code System Note Provider Name and Address Organization Details Recorded Time 19992 Product containin g penicilli n (product) medicatio n Not available Not available Not available 01/10/2021 47907 [id number] SNOMED Not Available Not Available Not Available 66063 glimepiri de medicatio n Not available Not available Not available 01/10/2021 24233 RxNorm Not Available Not Available Not Available Medications Name Sig Start Date Stop Date Status Note LastModified by Organization Details LastModified Time ivermectin 3 mg tablet Take 4 tablets every day by oral route for 5 days. 08/09/ 2021 06/20 /2022 completed Not Available Not Available Not Available metoprolol succinate ER 50 mg tablet,exte nded release 24 hr Take 1 tablet every day by oral route. active Not Available Not Available No t Available dexamethaso ne 6 mg tablet Take 1 tablet twice a day by oral route for 10 days. 11/21 completed Not Available Not Available Not Available Zithromax Z-Enoch 250 mg tablet TAKE 2 TABLETS (500 MG) BY ORAL ROUTE ONCE DAILY FOR 1 DAY THEN 1 TABLET (250 MG) BY ORAL ROUTE ONCE DAILY FOR 4 DAYS 2020 active Not Available Not Available Not Avai lable omeprazole 40 mg capsule,del ayed release Take 1 capsule every day by oral route. active Not Available Not Available No t Available losartan 100 mg tablet Take 1 tablet every day by oral route. active Not Available Not Available No t Available Zetia 10 mg tablet Take 1 tablet every day by oral route. active Not Available Not Available No t Available fenofibrate 160 mg tablet Take 1 tablet every day by oral route. active Not Available Not Available No t Available rosuvastati n active Not Available Not Available Not Available Seroquel 50 mg tablet Take 1 tablet every day by oral route. active Not Available Not Available No t Available hydrochloro thiazide 12.5 mg tablet Take 1 tablet every day by oral route. active Not Available Not Available No t Available Vascepa 1 gram capsule Take 2 capsules twice a day by oral route. active Not Available Not Available No t Available Jardiance 25 mg tablet Take 1 tablet every day by oral route. active Not Available Not Available No t Available Tresiba FlexTouch U-200 insulin 200 unit/mL (3 mL) subcutaneou s pen Inject 40 units every day by subcutane ous route. active Not Available Not Available No t Available albuterol sulf 90 mcg/actuati on breath activated powder inhaler,sen sor Inhale 2 puffs every 4 hours by inhalatio n route. active Not Available Not Available No t Available Paxlovid 300 mg (150 mg x 2)-100 mg tablets in a dose pack Take 1 tablet twice a day by oral route for 5 days. 2021 active Not Available Not Available Not Avai lable Vitals Date Recorded Body temperature Heart rate Oxygen saturation Oxygen saturation in Arterial blood by Pulse oximetry Respiratory rate Systolic blood pressure Diastolic blood pressure Provider Name and Address Organization Details Last Updated DateTime 97.6 [degF] 88 /min 95 % 95 % 18 /min 132 mm[Hg] 78 mm[Hg] Lilly Perez [facility] 15:56:59 Social History Question Answer Notes LastModified by Organizat ion Details LastModified Time Tobacco Smoking Status Current Every Day Smoker Brenda Winters [facility] 01/10/2021 15:34:23 Do You Have An Advance Directive? No Information not available 01/10/2021 What Is Your Level Of Alcohol Consumption? Moderate Information not available 01/10/2021 Do You Wear A Helmet When Biking? No Information not available 01/10/2021 Are You Blind Or Do You Have Difficulty Seeing? No Information not available 01/10/2021 Is Blood Transfusion Acceptable In An Emergency? Yes Information not available 01/10/2021 What Is Your Level Of Caffeine Consumption? Moderate Information not available 01/10/2021 In The 14 Days Before Symptom Onset, Have You Had Close Contact With A Laboratory-confir med COVID-19 While That Case Was Ill? No Information not available 01/10/2021 In The 14 Days Before Symptom Onset, Have You Had Close Contact With A Person Who Is Under Investigation For COVID-19 While That Person Was Ill? No Information not available 01/10/2021 Have You Been To An Area Known To Be High Risk For COVID-19? Yes Information not available 01/10/2021 Are You Currently Employed? No Retired Information not available 01/10/2021 Are You Deaf Or Do You Have Serious Difficulty Hearing? No Information not available 01/10/2021 What Type Of Diet Are You Following? REGULAR Information not available 01/10/2021 Have You Processed Blood Or Body Fluids From An Ebola Virus Disease Patient Without Appropriate PPE? No Information not available 01/10/2021 What Is The Highest Grade Or Level Of School You Have Completed Or The Highest Degree You Have Received? [id number] Information not available 01/10/2021 How Many Days Of Moderate To Strenuous Exercise, Like A Brisk Walk, Did You Do In The Last 7 Days? 0 Information not available 01/10/2021 Have You Ever Been Tested For Hepatitis C No Information not available 01/10/2021 Have You Had A Blood Transfusion Before 1991? No Information not available 01/10/2021 Have You Had Receiving Checker Dialysis? No Information not available 01/10/2021 Have You Ever Used Injectable Drugs, Even Once? No Information no t available 01/10/2021 Do You Have Tattoos Or Body Piercings? No Information not available 01/10/2021 Have You Had Close Contact With An Individual With Hepatitis C? No Information not available 01/10/2021 Have You Ever Had Sex For Drugs Or Money? No Information not available 01/10/2021 Have You Ever Had Unprotected Sex? Yes Information not available 01/10/2021 Have You Been Incarcerated For Longer Than 6 Months? No Information not available 01/10/2021 Have You Tested Positive For HIV? No Information no t available 01/10/2021 Do You Have A History Of Fist Fighting Or Combat Experience? No Information not available 01/10/2021 Medication List Reconciled Yes Information not available 01/10/2021 Sexual Orientation Straight Or Heterosexual Information not available 01/10/2021 Gender Identity Male Informat ion not available 01/10/2021 Do You Feel Safe Yes Informa tion not available 01/10/2021 What Was The Date Of Your Most Recent Tobacco Screening? 01/10/2021 Information not available 01/10/2021 How Many Children Do You Have? 2 Information not available 01/10/2021 What Is Your Relationship Status? Information not available 01/10/2021 Do You Use Your Seat Belt Or Car Seat Routinely? Yes Information not available 01/10/2021 Are You Sexually Active? No Information not available 01/10/2021 How Much Tobacco Do You Smoke? 1 PPD Information not available 01/10/2021 What Types Of Sporting Activities Do You Participate In? Golf Information not available 01/10/2021 Do You Feel Stressed (tense, Restless, Nervous, Or Anxious, Or Unable To Sleep At Night)? DI52294-3 Information not available 01/10/2021 Do You Use Any Illicit Or Recreational Drugs? No Information not available 01/10/2021 Do You Or Have You Ever Used Any Other Forms Of Tobacco Or Nicotine? No Information not available 01/10/2021 Sex: Male Functional Status Question Answer Note LastModified by Organizat ion Details LastModified Time Do you have difficulty walking or climbing stairs? No Information not available 01/10/2021 Do you have transportation difficulties? No Information not available 01/10/2021 Are you able to walk? YESWOREST Information not available 01/10/2021 Do you have difficulty doing errands alone? No Information not available 01/10/2021 Are you able to care for yourself? Yes Information n ot available 01/10/2021 Do you have difficulty dressing or bathing? No Information not available 01/10/2021 What is your exercise level? Occasional Information not available 01/10/2021 Mental Status Question Answer Note LastModified by Organization D etails LastModified Time Do you have difficulty concentrating, remembering or making decisions? No Information no t available 01/10/2021 Family History Relationship Description Onset Age of this Age Resolved Age Notes LastModified by Organization Details LastModified Time Father Malignant neoplastic disease tgrandstaff Not available 02/2021 15:29:34 Father Heart disease tgrandstaff Not available 02/2021 15:29:50 Father Hypercholest erolemia tgrandstaff Not available 02/2021 15:30:03 Sister Heart disease tgrandstaff Not available 02/2021 15:29:50 Mother Hypercholest erolemia tgrandstaff Not available 02/2021 15:30:03 Medical History Condition Response Other N Gout N Blood Diseases N Kidney Stones N Hyperthyroidism N Blood Transfusion N Depression N COPD N Incontinence N Edema N Endocrine Disorders Y Anxiety Disorder N Muscle, Joint, or Bone Problems N Obesity N Vision or Eye Problems N Arthritis N Auditory Hallucinations N Infertility N Cancer N Varicosities N Stroke N Headaches N Fibromyalgia N Kidney Disease N Abnormal Bleeding N Reproductive System Problems N Ear or Hearing Problems N Hospitalizations N Learning Disorder N Eating Disorder N Skin Problems N MRSA exposure N Constipation N Urinary Problems N Brain Injury N Visual Hallucinations N Tuberculosis N AIDS/HIV N Back Problems N Asthma N GERD/Reflux N Hepatitis N Pulmonary Embolism N Chronic Ear Infections N Chicken Pox N Autism Spectrum Disorder (ASD) N Thrombophilias N Thyroid Disease N Breast Cancer N Lung Disease N Hypothyroidism N Developmental or Behavioral Disorders N Defects or Inherited Disease N Breast Problem N Difficulty Swallowing N Anesthesia Complications N Deep Vein Thrombosis N Meniere's disease N Hearing Loss N Head Injury/Concussion N Congenital Anomalies N Abnormal Pap Smear N Endometriosis N Bladder or Kidney Problems N High Cholesterol N Liver Disease N Nervous System Disorder N Psychiatric/Mental Health Condition N Schizophrenia N Allergies/Hayfever N Parkinson's Disease N GI Problems N ADD/ADHD N Anemia N Colon Polyps N Heart Attack (SD) Y Diabetes Y Ovarian Cancer N Bedwetting N Seizures/Epilepsy N Amnesia N Congestive Heart Failure (CHF) N Eczema N Dementia N Diverticulitis N Abuse/Domestic Violence N Cardiovascular Y Tourette Syndrome N Hypertension N Pre-Eclampsia N Osteoporosis N Past Encounters Encounter ID Performer Location Encounter Start Date Encounter Closed Date Diagnosis/Indication Diagnosis SNOMED-CT Code Diagnosis ICD10 Code Diagnosis Note [id number] GERALD AKBAR CP JACQUARD LOOM [employer]EDDL[employer] TIER-PC, [employer], [facility] [address] [place] [address] 01/10/2021 14:45:53 01/10/2021 16:50:23 Suspected COVID-19 [id number] Z03.89 COVID-19 [id number] U07.1 Reviewed positive rapid COVID result with patientRev iewed HPI and physical exam findingsRe viewed current symptomsDi scussed red flags - patient has a pulse oximeter and will monitor his oxygen level.Advi sed attention to respirator y status, hydration, and observe for symptoms of blood clotsWill treat preventive ly as below due to comorbidit ies. Patient verbalizes understand ing that medication is being used off label for covid but verbalizes desire for medication .Advised Tylenol and increased water intake Reviewed symptoms that would necessitat e ER assessment Call, RTC, or go to ER for any new or worsening symptomsDi scussed quarantine guidelines Discussed contagious nature of illness - advised frequent handwashin g, using separate bathroom from others in household, cleaning of common surface areas, etcDiscuss ed expected course of illness and expected outcome Discussed counts include [facility] beds at the [facility] will contact patient for informatio n for contact tracing and will determine quarantine release date Patient verbalized understand ing of all the above and is agreeable to plan of care [id number] Nadiya Ornelas NP [facility] [address] [place] [address] 11/21/2022 10:06:22 11/22/2022 09:19:19 Pre-surgery testing [id number] Z01.89 [id number] GOPAL KWAN NP [facility] [address] [place] [address] 03/29/2023 09:47:49 03/29/2023 17:27:14 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 Health Concerns Section Related Observation LastModified by Organization Detai ls LastModified Time None Recorded Concern Status LastModified by Organization Details LastModified Time None Recorded Advance Directives Directive N: Payers Encounter Date Sequence Insurance Name Policy Number Policy Martinez Covered Member ID Martinez Member ID Guarantor Name 01/10/2021 1 MEDICARE [place]: [facility] Cat Pettit [id number] 1 Cat Pettit 01/10/2021 2 [employer] PLAN G Cat Pettit [id number] Cat Pettit 11/21/2022 1 MEDICARE [place]: [facility] Cat Pettit [id number] Cat Pettit 11/21/2022 2 [employer] (MEDICARE SUPPLEMENT) Cat Pettit [id number] Cat Pettit 03/29/2023 1 MEDICARE [place]: [employer] Cat Pettit [id number] 1 Cat Pettit 03/29/2023 2 [employer] (MEDICARE SUPPLEMENT) Cat Pettit [id number] Cat Pettit Notes Date Note Type Note Provider Name and Address Organization Details Recorded Time 01/10/2021 text/html Patient presents for a sick visit.His symptoms include a sore throat, cough, congestion, and body aches for the past 2 days.His has been sick as well.Denies any shortness of breath, chest pain, or fever.Unknown if they have been exposed to covid, had both pfizer vaccines. YOUSUF ALFONSO-PC , [employer], [facility] [address], [address], [facility] 01/10/2021 16:44:38
--- OUTSIDE RECORDS SUMMARY | 2024-09-18 10:22 | XMS_ITS | Clinical Summary ---
Author Organization [facility] Address [address] [place] [address] Care Team Providers Care Animal Technician Name Role Phone Devyn Dee MD Primary Care Provider Source Comments [facility],non-owned Affiliates and Associated Physician Practices is amultiple site organization consisting of ambulatory clinics and hospital sitesin [place], [place]. This disclosure is being madepursuant to the Care Everywhere program and may not contain all information available regarding this patient. Last updated 18.[facility] Allergies Active Allergy Reactions Criticality Noted Date Comments Glimepiride Rash Medium 04/27/2021 Penicillins Rash Medium 04/27/2021 Medications * Be aware that medications may not be up to date on this document. Alwaysverify current medications with the patient. albuterol HFA (PROVENTIL; VENTOLIN; PROAIR) 108 (90 Base) MCG/ACT inhaler Inhale 2 puffs by mouth every 6 hours as needed 04/12/20 21 Active vitamin D3 (CHOLECALCIFEROL) 125 MCG (5000 UT) capsule Take 5,000 Units by mouth once daily 04/06/20 20 Active dapagliflozin propanediol (FARXIGA) 10 MG tablet Take 10 mg by mouth once daily 10/20/19 21 Active ezetimibe (ZETIA) 10 MG tablet Take 10 mg by mouth once daily 03/09/20 21 Active fenofibrate (LOFIBRA) 160 MG tablet fenofibrate 160 mg tablet 12/10/19 20 Active hydroCHLOROthiazid e (MICROZIDE) 12.5 MG capsule Take 12.5 mg by mouth once daily 04/22/20 Active insulin degludec (TRESIBA FLEXTOUCH) 100 UNIT/ML pen Inject 46 Units subcutaneously once daily 10/21/19 21 Active losartan (COZAAR) 25 MG tablet Take 25 mg by mouth once daily 02/29/20 21 Active metFORMIN (GLUCOPHAGE) 1000 MG tablet Take 1,000 mg by mouth 2 times daily with morning and evening meal 12/25/19 21 Active metoprolol tartrate (LOPRESSOR) 25 MG tablet Take 50 mg by mouth once daily 09/03/19 21 Active omeprazole (PRILOSEC) 40 MG capsule Take 40 mg by mouth daily before breakfast 03/22/20 Active QUEtiapine (SEROQUEL) 50 MG tablet Take 50 mg by mouth at bedtime 04/06/20 20 Active rosuvastatin (CRESTOR) 40 MG tablet Take 40 mg by mouth once daily 03/09/20 21 Active OZEMPIC, 0.25 OR 0.5 MG/DOSE, 2 MG/1.5ML pen sunday09/07/19 Active umeclidinium (INCRUSE ELLIPTA) 62.5 MCG/INH inhaler Incruse Ellipta 62.5 mcg/actuation blister with device 10/19/19 Active umeclidinium (INCRUSE ELLIPTA) 62.5 MCG/INH inhaler Inhale 1 puff by mouth once daily Active oxyCODONE-acetamin ophen (PERCOCET) 5-325 MG tabletIndications: Primary osteoarthritis of right knee Take 1 (one) tablet by mouth every 4 hours as needed 15 tablet 05/04/20 21 Active acetaminophen (TYLENOL) 325 MG tabletIndications: Primary osteoarthritis of right knee Take 2 (two) tablets by mouth every 4 hours as needed for Fever (For temperature GREATER than 101 ) Maximum allowable Acetaminophen amount = 4 Grams (4000 mg) / 24 hours. 05/04/20 21 Active diazePAM (VALIUM) 5 MG tabletIndications: Primary osteoarthritis of right knee Take 0.5 (one-half) tablet by mouth 3 times daily as needed for Spasms 10 tablet 05/04/20 21 Active gabapentin (NEURONTIN) 300 MG capsuleIndications :Primary osteoarthritis of right knee Take 1 (one) capsule by mouth at bedtime 3 capsule 05/04/20 21 Active aspirin EC (ECOTRIN) 81 MG tablet Take 1 (one) tablet by mouth once daily Take after a meals, after finishing the 12 days of the other blood thinner ( xarelto) go back to the full dose of aspirin twice a day for 2.5 weeks, then back to the once daily full dose Aspirin. 30 tablet 05/04/20 21 Active rivaroxaban (XARELTO) 10 MG tabletIndications: Primary osteoarthritis of right knee Take 1 (one) tablet by mouth once daily 12 tablet 05/05/20 21 Active Active Problems Problem Noted Date Diagnosed Date Primary osteoarthritis of right knee 05/03/2021 Immunizations Immunization Administration Dates Next Due Insmed primary monoval ent 12+ yr 0.3mL Purple cap 08/20/2020,08/01/2020 Family History Medical History Relation Name Comments Cancer - Lung Father Diabetes - Type 2 Father Hypertension Father Diabetes - Type 2 Sister Hypertension Sister Relation Name Status Comments Father Sister Social History Tobacco Use Types Packs/Day Years Used Date Smoking Tobacco: Every Day Cigarettes 0.8 51 Started: 09/16/1973 Smokeless Tobacco: Never Tobacco Cessation:Ready to Q uit: No Alcohol Use Standard Drinks/Week Comments Yes 10 (1 standard drink = 0.6 oz pu re alcohol) AUDIT-C Answer Date Recorded Q1: How often do you have a drink containing alcohol? 4 or more times a week 05/03/2021 Q2: How many drinks containi ng alcohol do you have on a typical day when you are drinking? 5 or 6 Q3: How often do you have si x or more drinks on one occasion? Less than monthly 05/03/2021 Sex and Gender Information Value Date Recorded Sex Assigned at Not on file Legal Sex Male 6:57 AM ECOLOGICAL TECHNICAL OFFICER Gender Identity Not on file Sexual Orientation Not on file Last Filed Vital Signs Vital Sign Reading Time Taken Comments Blood Pressure 93/53 05/04/2021 11:32 AM ECOLOGICAL TECHNICAL OFFICER Pulse 66 05/04/2021 11:32 AM ECOLOGICAL TECHNICAL OFFICER Temperature 36.5 C (97.7 F) 05/04/2021 11:32 AM ECOLOGICAL TECHNICAL OFFICER Respiratory Rate 18 05/04/2021 11:32 AM ECOLOGICAL TECHNICAL OFFICER Oxygen Saturation 92% 05/04/2021 11:32 AM ECOLOGICAL TECHNICAL OFFICER Inhaled Oxygen Concentration - - Weight 113.4 kg (250 lb) 05/03/2021 9:25 AM ECOLOGICAL TECHNICAL OFFICER Height 185.4 cm (6' 1 ) 05/03/2021 9:25 AM ECOLOGICAL TECHNICAL OFFICER Body Mass Index 32.98 05/03/2021 9:25 AM ECOLOGICAL TECHNICAL OFFICER Plan of Treatment Health Maintenance Due Date Last Done Comments COLOGUARD (AGES 45-75) - COL ON CA SCREENING 1955 COLON MONITORING 1955 COLONOSCOPY - COLON CA SCREENING 1955 CT COLONOGRAPHY - COLON CA SCREENING 1955 Colorectal Cancer Screening 1955 FIT - COLON CA SCREENING 1955 FLEX SIG - COLON CA SCREENING 1955 HEPATITIS C SCREENING 10/25/1973 DTAP/TDAP/TD VACCINES (1 - Tdap) 10/29/1974 PNEUMOCOCCAL VACCINE 50+ (1 of 2 - PCV) 10/29/1974 LUNG CANCER SCREENING 10/29/2005 ZOSTER VACCINE (1 of 2) 10/29/2005 AAA SCREENING 10/29/2020 COVID-19 VACCINE (3 - 2023-2 5 season) 2024 08/20/2020, 08/01/2020 DEPRESSION SCREENING 06/04/2024 INFLUENZA VACCINE (Season Ended) 2025 Respiratory Syncytial Virus (RSV) Vaccine Pt: or over 60 yrs (1 - 1-dose 75+ series) 10/29/2030 HEPATITIS B VACCINE Aged Out No longe r eligible based on patient's age to complete this topic HIB VACCINE Aged Out No longer eligi ble based on patient's age to complete this topic HPV VACCINE Aged Out No longer eligi ble based on patient's age to complete this topic MENINGOCOCCAL (Group B) VACCINE SHARED DECISION-MAKING Aged Out No longer eligible based on patient's age to complete this topic MENINGOCOCCAL GROUPS A/C/Y/W VACCINE Aged Out No longer eligible b ased on patient's age to complete this topic Medical Devices Implanted Type Area Campus Monitor Device Identifier Shelf Expiration Date Model / Serial / Lot 8 Rt Cr Femoral Implanted:Qty: 1 on 05/03/2021 by Orion Grossman MD at [facility] Right: Knee [employer] 02/18/2026 [id number] / / [id number] 8x9mm Cs Tibial Bearing Insert Implanted:Qty: 1 on 05/03/2021 by Orion Grossman MD at [facility] Right: Knee [employer] 01/19/2026 [id number] / / [id number] Tibial Component Implanted:Qty: 1 on 05/03/2021 by Orion Grossman MD at [facility] Right: Knee [employer] 01/11/2026 [id number] / / [id number] Insurance MEDICARE AETNA Advance Directives * Full Code (Latest Code Status on File) Date Activated Date Inactivated Comments 05/03/2021 2:14 PM 05/04/2021 4:44 PM Care Teams Animal Technician Relationship Specialty Start Date End Date Devyn Dee MD [facility] [place] [address] PCP - General Family Medicine 05/03/21
--- OUTSIDE RECORDS SUMMARY | 2024-09-18 10:22 | XMS_ITS | Clinical Summary ---
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 Sewer Name Role Phone Adrien Branch MD Unavailable [phone] Matthew Mendenhall MD Primary Care Provider [phone] Allergies Active Allergy Reactions Criticality Noted Date Comments Atorvastatin Other (See comments),Muscle pain Medium 0 01/20/2014 Glimepiride Rash Medium 12/16/2018 Penicillins Rash Medium 11/21/2018 Medications PROAIR HFA 90 mcg/actuation inhaler Inhale 2 puffs 2 (two) times a day 11/02/19 19 Active ezetimibe (ZETIA) 10 mg tablet Take 1 tablet (10 mg total) by mouth daily 10/23/19 19 Active losartan (COZAAR) 100 mg tablet Take 1 tablet (100 mg total) by mouth daily 10/24/19 19 Active QUEtiapine (SEROquel) 50 mg tablet Take 1 tablet (50 mg total) by mouth daily 08/28/19 19 Active rosuvastatin (CRESTOR) 40 mg tablet Take 1 tablet (40 mg total) by mouth daily 11/15/19 19 Active aspirin 325 mg tablet Take 1 tablet (325 mg total) by mouth daily Active aclidinium (TUDORZA) 400 mcg/actuation inhaler Inhale 1 puff 2 (two) times a day Active diclofenac DR (VOLTAREN) 75 mg EC tablet Take 1 tablet (75 mg total) by mouth 2 (two) times a day 08/12/19 21 Active fenofibrate (TRIGLIDE) 160 mg tabletIndications :Hyperlipidemia associated with type 2 diabetes mellitus (HCC) Take 1 tablet (160 mg total) by mouth daily 90 tablet 3 05/02/20 21 Active Advair Diskus 500-50 mcg/dose diskus inhaler TAKE 1 PUFF TWICE A DAY 04/13/20 22 Active metoprolol XL (TOPROL-XL) 50 mg extended release tablet Take 1 tablet (50 mg total) by mouth daily 04/10/20 22 Active hydroCHLOROthiazi de (HYDRODIURIL) 25 mg tablet Take 1 tablet (25 mg total) by mouth daily 04/14/20 22 Active pen needle, diabetic (BD Ultra-Fine Edwige Pen Needle) 32 gauge x needleIndications :Type 2 diabetes mellitus with hyperglycemia, with long-term current use of insulin ([facility]) 4 x daily 360 each 3 05/01/20 22 Active omeprazole (PriLOSEC) 40 mg capsule Take by mouth daily 08/01/19 23 Active cyclobenzaprine (FLEXERIL) 10 mg tabletIndications :Cervical radiculopathy Take 1 tablet (10 mg total) by mouth 3 (three) times a day as needed for muscle spasms 90 tablet 2 09/14/19 23 Active traMADoL (ULTRAM) 50 mg tabletIndications :Cervical radiculopathy Take 1 tablet (50 mg total) by mouth 3 (three) times a day as needed for pain 21 tablet 09/14/19 23 Active lancets 33 gauge miscIndications:T ype 2 diabetes mellitus with hyperglycemia, with long-term current use of insulin ([facility]) One Touch Verio Lancets Use 4 times daily to check blood sugar Dx: E11.65 400 each 3 01/13/20 23 Active budesonide-formot Dave (Symbicort) 160-4.5 mcg/actuation inhaler Symbicort 160-4.5 mcg/actuatio n HFA aerosol inhaler Active cholecalciferol (VITAMIN D-3) 5,000 unit capsule Take by mouth 04/06/20 20 Active dapagliflozin propanediol (Farxiga) 10 mg tablet Farxiga 10 mg tablet Active Trelegy Ellipta 100-62.5-25 mcg inhaler INHALE 1 PUFF ONCE DAILY FOR 30 DAYS 03/27/20 24 Active insulin aspart niacinamide (FIASP) 100 unit/mL (3 mL) pen for injectionIndicati ons:Type 2 diabetes mellitus with hyperglycemia, with long-term current use of insulin ([facility]) Inject 10-20 Units under the skin 3 (three) times a day 54 mL 3 04/22/20 24 Active insulin degludec (TRESIBA) 200 unit/mL (3 mL) pen for injectionIndicati ons:Type 2 diabetes mellitus with hyperglycemia, with long-term current use of insulin ([facility]) Inject 0.2 mL (40 Units total) under the skin nightly 18 mL 3 04/22/20 24 025 Active tamsulosin (FLOMAX) 0.4 mg extended release capsule 07/29/19 25 Active blood glucose diagnostic stripIndications: Type 2 diabetes mellitus with hyperglycemia, with long-term current use of insulin ([facility]) One Touch Verio Test Strips Use to test blood sugar 4 times a day Dx: E11.65 400 strip 3 07/30/19 25 Active semaglutide (OZEMPIC) 1 mg/dose (4 mg/3 mL) pen injector injectionIndicati ons:type 2 diabetes mellitus Inject 1 mg under the skin every 7 days 9 mL 3 07/30/19 25 026 Active insulin lispro (HumaLOG) 100 unit/mL pen for injectionIndicati ons:Type 2 diabetes mellitus with hyperglycemia, with long-term current use of insulin ([facility]) Inject 10-20 Units under the skin 3 (three) times a day 54 mL 3 08/08/19 25 Active Dexcom G7 Bingo Manager miscIndications:T ype 2 diabetes mellitus with hyperglycemia, with long-term current use of insulin ([facility]) As directed 1 each 08/08/19 25 Active metFORMIN (GLUCOPHAGE) 1,000 mg tabletIndications :Type 2 diabetes mellitus with hyperglycemia, with long-term current use of insulin ([facility]) TAKE 1 TABLET BY MOUTH TWICE DAILY WITH MEALS 180 tablet 3 08/21/19 25 Active OneTouch Verio Flex meter miscIndications:T ype 2 diabetes mellitus with hyperglycemia, with long-term current use of insulin ([facility]) USE TO CHECK GLUCOSE 4 TIMES DAILY 1 each 08/21/19 25 Active metFORMIN (GLUCOPHAGE) 1,000 mg tabletIndications :Type 2 diabetes mellitus with hyperglycemia, with long-term current use of insulin ([facility]) TAKE 1 TABLET BY MOUTH TWICE DAILY WITH MEALS 180 tablet 07/04/19 025 Discontinued blood-glucose meter kitIndications:Ty pe 2 diabetes mellitus with hyperglycemia, with long-term current use of insulin (HCC) One Touch Verio Meter Use daily to check blood sugars Dx: E11.65 1 kit 07/30/19 025 Discontinued Active Problems Problem Noted Date Diagnosed Date Cervical radiculopathy 05/19/2022 Cervicalgia 05/19/2022 Degenerative disc disease, cervical 05/19/2022 Degenerative cervical spinal stenosis 05/19/2022 Insomnia secondary to chronic pain 05/19/2022 Class 1 obesity due to exces s calories with serious comorbidity and body mass index (BMI) of 34.0 to 34.9 in adult 03/08/2020 Assessment & Plan (04/14/2024 12:39 PM PANEL MACHINE SETTER): Chronic, worsening Discussed about healthy lifestyle habits advise to work on healthy diet, avoid processed foods , increase vegetables and protein and cut back on carb portions and also avoid fruit juices and regular soda and desserts Increase physical activity , recommend at least 150 min of aerobic activity per week and include resistance training 2 x weekly Assessment & Plan (10/17/2023 9:50 PM CDT): Counseled on healthy lifestyle habits Assessment & Plan (07/12/2023 8:03 AM PANEL MACHINE SETTER): Counseled on diet and exercise Assessment & Plan (09/04/2022 12:13 PM CDT): Chronic, worsening Discussed about healthy lifestyle habits advise to work on healthy diet, avoid processed foods , increase vegetables and protein and cut back on carb portions and also avoid fruit juices and regular soda and desserts Increase physical activity , recommend at least 150 min of aerobic activity per week and include resistance training 2 x weekly Assessment & Plan (06/15/2022 10:04 AM PANEL MACHINE SETTER): Chronic problem. Discussed healthy diet and importance of regular physical activity (20- 30min/day, 150min/wk). Assessment & Plan (05/01/2022 1:35 PM PANEL MACHINE SETTER): Chronic, worsening Discussed about healthy lifestyle habits advise to work on healthy diet, avoid processed foods , increase vegetables and protein and cut back on carb portions and also avoid fruit juices and regular soda and desserts Increase physical activity , recommend at least 150 min of aerobic activity per week and include resistance training 2 x weekly Assessment & Plan (07/11/2021 1:02 PM PANEL MACHINE SETTER): Chronic, improving with lifestyle modifications Discussed about healthy lifestyle habits advise to work on healthy diet, avoid processed foods , increase vegetables and protein and cut back on carb portions and also avoid fruit juices and regular soda and desserts Increase physical activity , recommend at least 150 min of aerobic activity per week and include resistance training 2 x weekly Assessment & Plan (05/02/2021 10:19 AM PANEL MACHINE SETTER): Chronic, slowly improving Counseled on diet and exercise Assessment & Plan (09/06/2020 8:36 PM CDT): Chronic, worsening Discussed about healthy lifestyle habits advise to work on healthy diet, avoid processed foods , increase vegetables and protein and cut back on carb portions and also avoid fruit juices and regular soda and desserts Increase physical activity , recommend at least 150 min of aerobic activity per week and include resistance training 2 x weekly Assessment & Plan (03/08/2020 1:31 PM CDT): Chronic, unchanged Discussed about healthy lifestyle habits advise to work on healthy diet, avoid processed foods , increase vegetables and protein and cut back on carb portions and also avoid fruit juices and regular soda and desserts Increase physical activity , recommend at least 150 min of aerobic activity per week and include resistance training 2 x weekly Hypertriglyceridemia 05/23/2019 Assessment & Plan (06/14/2022 3:30 PM PANEL MACHINE SETTER): Chronic problem, uncontrolled but improving. Component Latest Ref Rng & Units 11/21/2018 12/01/2019 11/16/2020 04/25/2022 Triglycerides <=149 mg/dL 422 (H) 287 (H) 279 (H) Continue current regimen: Rosuvastatin 40mg, fenofibrate 160mg daily, zetia 10mg daily. Discussed healthy diet and importance of regular physical activity (20- 30min/day, 150min/wk). Assessment & Plan (09/06/2020 8:36 PM CDT): Chronic, uncontrolled Advise low carb diet Advised weight loss On full-dose statin therapy C/w fenofibrate therapy Assessment & Plan (03/08/2020 1:28 PM CDT): Chronic, uncontrolled Advise low carb diet Advised weight loss On full-dose statin therapy C/w fenofibrate therapy Assessment & Plan (12/01/2019 3:21 PM CDT): Chronic, uncontrolled Advise low carb diet Advised weight loss On full-dose statin therapy - start Vascepa 1 g - oral Twice daily with meals ( for high triglycerides ) Vitamin D deficiency 05/23/2019 Assessment & Plan (07/30/2024 12:16 PM PANEL MACHINE SETTER): Chronic problem. Currently using liquid vitamin D x10 gtts but not certain of actual dose. Will repeat D level today as well as CMP (was left off when he had labs done recently). Verified that he uses [employer]. Aware to check results/results letter in [employer]. Will contact by phone if needed. Assessment & Plan (05/23/2019 9:13 AM PANEL MACHINE SETTER): Pt on replacement dose Will recheck levels Hypercalcemia 02/24/2019 Assessment & Plan (10/17/2023 9:49 PM CDT): Asymptomatic elevation in serum calcium levels Recheck ionized calcium levels, and further lab work has been ordered Assessment & Plan (03/08/2020 1:29 PM CDT): Recent work showed normal ionized calcium with normal PTH intact levels and Vitamin D 25 (OH) levels Assessment & Plan (12/01/2019 3:21 PM CDT): Recheck labs , further plans based on the results Advised good oral hydration Assessment & Plan (05/23/2019 9:10 AM PANEL MACHINE SETTER): Recheck labs , further plans based on the results Advised good oral hydration Assessment & Plan (02/24/2019 1:39 PM CDT): Noted random Hypercalcemia in last pt labs from November 2018 Ordered labs at that time, Pt did not get Them done Advised to do labs VAISHALI Advise good oral hydration Type 2 diabetes mellitus wit h hyperglycemia, with long-term current use of insulin 11/22/2018 Assessment & Plan (07/30/2024 12:15 PM PANEL MACHINE SETTER): Chronic problem, A1c near goal. A1c improved from 8.1% 04/14/24 to now 7.2%. Has not been checking BG TID nor wearing Dexcom. Discussed risk of hypoglycemia with new Ozempic added. Asked that he either check TID or wear CGM. Discussed that he may need to decrease insulin to avoid lows. He is to call if he notes low Bgs persistently or overnoc. Current medications: Metformin 1000 mg twice daily with meals Ozempic 0.5 mg SQ weekly Tresiba 40 units daily Fiasp pen 16 three times with meals + below correctional scale 151 - 200 + 2 units 201 - 250 + 4 units 251 - 300 + 6 units 301 - 350 + 8 units Over 351 + 10 units UTD on DM eye exam 11/07/22 no DMR UTD on labs Discussed with Cat Pettit: Strive for regular exercise (30min most days) and diet (get at least 4-5 servings of fruit and veggies daily, avoid processed foods, increase lean protein intake and decrease carb portions as well as fruit juices, regular soda & desserts). Watch carbs and simple sugars. Check the blood sugar: Dexcom G6. Check the feet daily for skin breakdown and infection. Assessment & Plan (04/14/2024 12:40 PM PANEL MACHINE SETTER): Chronic, uncontrolled, slight worsening Hemoglobin A1c 8.1% Goal A1c at least less than 7.5% without hypoglycemia Continue current dose of metformin insulin regimen Restart Ozempic 0.25 mg subQ weekly for 2 weeks then increase to 0.5 mg subQ weekly Gave samples Advised patient to cut back on feet has been insulin dose to 8-10 units with meals plus correctional sliding scale once he is off of steroids and restarted his Ozempic Up-to-date with eye exam Daily foot care Follow-up in 3 months Assessment & Plan (10/17/2023 9:49 PM CDT): Chronic, uncontrolled, stable A1c 7.3% goal A1c less than 7% without hypoglycemia Continue current insulin regimen, continue current dose of metformin and Mounjaro Counseled on healthy lifestyle habits Recommend annual dilated eye exam Reviewed and discussed patient's recent lab results Assessment & Plan (07/12/2023 8:04 AM PANEL MACHINE SETTER): Chronic, uncontrolled, slightly worsening A1c today - 7.3 % Counseled on diet and exercise Continue Metformin 1000 mg twice daily Tresiba 40 units daily Fiasp pen 8-10 units three times with meals + below correctional scale 151 - 200 + 2 units 201 - 250 + 4 units 251 - 300 + 6 units 301 - 350 + 8 units Over 351 + 10 units Gave Ozempic 0.5 gm SQ weekly samples ( sent script for Mounjaro 2.5 mg Sq weekly to pharmacy- advise pt to check the cost ) As tresiba and weekly GLP-1 agonist is high cost - if this continue to be a problem will plan to switch to soliqua Plan to switch CGM to freestyle Jeremy 3 Assessment & Plan (09/04/2022 12:14 PM CDT): Chronic problem, significant improvement in control A1c today - 6.7 % Counseled on diet and exercise Continue Metformin 1000 mg twice daily Increase to Ozempic 1 mg SQ weekly Decrease Tresiba to 40 units daily Decrease Fiasp pen 8-10 units three times with meals + below correctional scale 151 - 200 + 2 units 201 - 250 + 4 units 251 - 300 + 6 units 301 - 350 + 8 units Over 351 + 10 units If having overnight low and poultry 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 He had Fiasp SSI sent 04/2022 as BG were not decreasing. Has since greatly improved BG/A1c. To take Fiasp prior to eating. Current medications: Metformin 1000 mg bid Ozempic 0.5 mg SQ weekly Tresiba 52 units daily Fiasp pen 14 units three times with meals + below correctional scale 151 - 200 + 2 units 201 - 250 + 4 units 251 - 300 + 6 units 301 - 350 + 8 units Over 351 + 10 units Please have quantum send eye exam when you go again in October 2022. Reviewed CGM readings with Mr Wilver, great improvement. He watches Dexcom now when he eats to see what certain foods are doing to BG Assessment & Plan (05/01/2022 1:37 PM PANEL MACHINE SETTER): Chronic, out of control Worsening A1c 11.5 % Suspect post prandial hyperglycemia Counseled on diet and exercise Start Fiasp pen 10 units three times with meals + below correctional scale 151 - 200 + 2 units 201 - 250 + 4 units 251 - 300 + 6 units 301 - 350 + 8 units Over 351 + 10 units Continue rest all the meds the same Will try to get pt on Dexcom G 6 CGM advised good oral hydration Follow up in 6 weeks Assessment & Plan (07/11/2021 1:03 PM PANEL MACHINE SETTER): Chronic, improving control A1c today 6.2% No hypoglycemia noted Continue current medication regimen Labs before next appointment Annual dilated eye exam Advised to cut back on insulin by 5-10 units if having any blood sugars less than 80 Follow-up in 6 months Assessment & Plan (05/02/2021 10:18 AM PANEL MACHINE SETTER): Chronic, uncontrolled, improving slowly A1c - 7.7 % - c/w Ozempic 0.5 mg SQ weekly - increase Tresiba to 50 units SQ daily - continue rest all the meds same - increase physical activity - work on loosing some weight - keep up with your eye exam appt - follow up in 3 months Assessment & Plan (09/06/2020 8:35 PM CDT): Chronic, uncontrolled, worsening A1c - 8.2 % - start Ozempic 0.25 mg SQ weekly for 2 weeks than increase to 0.5 mg SQ weekly - continue rest all the meds same - increase physical activity -work on loosing some weight - keep up with your eye exam appt - do labs before next appt - fasting - follow up in 3 months Assessment & Plan (03/08/2020 1:27 PM CDT): Chronic, improving A1c 7.0% - Work Back on portion , carb controlled diet - increase physical activity - continue current medications - keep checking blood sugars twice a day before breakfast and before dinner Daily foot care - advise good oral hydration Follow-up in 6 months Assessment & Plan (12/01/2019 3:20 PM CDT): Chronic, worsening A1c 7.5% - Work Back on portion , carb controlled diet - increase physical activity And try to loose 10 lbs in next 3 months - continue current medications - start checking blood sugars twice a day before breakfast and before dinner Advised to make an eye doctor appointment Daily feet care - do labs Follow-up in 3 months Assessment & Plan (05/23/2019 9:09 AM PANEL MACHINE SETTER): Chronic, improving BS control A1c today - 6.1 % continue current medication regimen , except stop Januvia once done with supply Advised to work on portion controlled diet and increase physical activity and healthy weight loss Daily foot care atleast annual dilated eye exam Advised good oral hydration Follow up in 6 months with BS log Assessment & Plan (02/24/2019 1:37 PM CDT): Chronic, improving BS control A1c today - 6.0 % continue current medication regimen Advised to work on portion controlled diet and increase physical activity and healthy weight loss Daily foot care atleast annual dilated eye exam Advised good oral hydration Follow up in 4 months with BS log Assessment & Plan (12/16/2018 8:32 PM CDT): Chronic, improving BS control Noted post prandial hyperglycemia Increase Januvia to 100 mg oral daily Start Jardiance 25 mg oral daily C/w Tresiba 36 units SQ daily at bedtime and Metformin Advised to cut back on Insulin by 4 units if fasting BS are less than 90 Advised to work on portion controlled diet and increase physical activity and healthy weight loss Daily foot care atleast annual dilated eye exam Advised good oral hydration Follow up in 2 months with BS log Assessment & Plan (11/22/2018 7:12 PM CDT): Diabetes is worsening. - HbA1c - 9.9 % - - discussed about DM type 2, - patho physiology, short and jail complications of uncontrolled DM, diet and exercise , importance on of BS monitoring, medications options - discussed goal BS and A1c targets - advise to start checking BS - before Meals and bedtime - advise to work on healthy diet, avoid processed foods , increase vegetables and protein and cut back on carb portions and also avoid fruit juices and regular soda and desserts - Start Tresiba 36 units SQ daily at bedtime - Start glimepiride 2 mg oral twice daily With meals ( with breakfast and dinner ) - continue Metformin and Januvia - Start checking Blood sugars - 2 x daily - before breakfast and before dinner - advise good oral hydration - Do labs today - follow up in 4 weeks Reminded to bring in blood sugar diary at next visit. Dietary recommendations for ADA diet. Regular aerobic exercise. Discussed ways to avoid symptomatic hypoglycemia. Discussed sick day management. Discussed foot care. Reminded to get yearly retinal exam. Medication changes per orders. Diabetes will be reassessed in 1 month. Hypertension associated with diabetes 11/22/2018 Assessment & Plan (07/30/2024 11:47 AM PANEL MACHINE SETTER): Chronic problem. Controlled on current losartan 100mg daily, metoprolol XL 50mg daily, HCTZ 25mg daily. Assessment & Plan (04/14/2024 12:39 PM PANEL MACHINE SETTER): Chronic, well controlled Continue losartan, hydrochlorothiazide, metoprolol Assessment & Plan (10/17/2023 9:50 PM CDT): Chronic, well controlled Continue losartan, hydrochlorothiazide, metoprolol Assessment & Plan (07/12/2023 8:03 AM PANEL MACHINE SETTER): Chronic, well controlled Continue current medications Assessment & Plan (09/04/2022 12:13 PM CDT): Chronic, well controlled Continue current medications Assessment & Plan (06/15/2022 10:03 AM PANEL MACHINE SETTER): Chronic problem, well controlled on current regimen. No changes at this time Assessment & Plan (05/01/2022 1:36 PM PANEL MACHINE SETTER): Chronic, well controlled Continue current medications Assessment & Plan (07/11/2021 1:02 PM PANEL MACHINE SETTER): Chronic, well controlled Continue current medications Assessment & Plan (05/02/2021 10:18 AM PANEL MACHINE SETTER): Chronic, well controlled Continue current medications Assessment & Plan (09/06/2020 8:34 PM CDT): Chronic, well controlled Continue current medications Assessment & Plan (03/08/2020 1:27 PM CDT): Chronic, well controlled Continue current medications Assessment & Plan (12/01/2019 3:21 PM CDT): Chronic, well controlled Continue current medications Assessment & Plan (05/23/2019 9:11 AM PANEL MACHINE SETTER): Chronic, well controlled Continue current medications Assessment & Plan (02/24/2019 1:36 PM CDT): Chronic, well controlled Continue current medications Hyperlipidemia associated with type 2 diabetes uri dawson 11/22/2018 Assessment & Plan (07/30/2024 11:47 AM PANEL MACHINE SETTER): Chronic problem. Currently taking Rosuvastatin 40mg, fenofibrate 160mg daily, zetia 10mg daily. Last lipid panel: 07/28/24 LDL=8, QH=923. Assessment & Plan (04/14/2024 12:39 PM PANEL MACHINE SETTER): On Zetia and Crestor - on fenofibrate Assessment & Plan (10/17/2023 9:50 PM CDT): On Zetia and Crestor - on fenofibrate Assessment & Plan (07/12/2023 8:03 AM PANEL MACHINE SETTER): On Zetia and Crestor - on fenofibrate Advised low carb diet and increase physical activity and work on healthy weight loss Assessment & Plan (09/04/2022 12:13 PM CDT): On Zetia and Crestor - on fenofibrate Advised low carb diet and increase physical activity and work on healthy weight loss Assessment & Plan (06/14/2022 3:30 PM PANEL MACHINE SETTER): Chronic problem, LDL=7 when last checked 04/2022. Rosuvastatin 40mg, fenofibrate 160mg daily, zetia 10mg daily. Assessment & Plan (05/01/2022 1:36 PM PANEL MACHINE SETTER): On Zetia and Crestor High TG's - on fenofibrate Advised low carb diet and increase physical activity and work on healthy weight loss Assessment & Plan (07/11/2021 1:02 PM PANEL MACHINE SETTER): On Zetia and Crestor High TG's - on fenofibrate Advised low carb diet and increase physical activity and work on healthy weight loss Assessment & Plan (05/02/2021 10:18 AM PANEL MACHINE SETTER): On Zetia and Crestor High TG's - on fenofibrate Advised low carb diet and increase physical activity and work on healthy weight loss Assessment & Plan (09/06/2020 8:34 PM CDT): On Zetia and Crestor High TG's - on fenofibrate Advised low carb diet and increase physical activity and work on healthy weight loss Assessment & Plan (03/08/2020 1:28 PM CDT): On Zetia and Crestor High TG's - on fenofibrate Advised low carb diet and increase physical activity and work on healthy weight loss Assessment & Plan (12/01/2019 3:21 PM CDT): On Zetia and Crestor High TG's - added Vascepa Advised low carb diet and increase physical activity and work on healthy weight loss Assessment & Plan (05/23/2019 9:11 AM PANEL MACHINE SETTER): On Zetia and Crestor High TG's - recheck labs to follow up If still high TG 's than consider to add Vascepa Advised low carb diet and increase physical activity and work on healthy weight loss Assessment & Plan (02/24/2019 1:37 PM CDT): On Zetia and Crestor Encounters Date Type Department Care Team Description 08/19/2024 Telephone [facility] [address] [place] [phone] Karen Lauren NP Med Refill 08/15/2024 Telephone [facility] [address] [place] [phone] Silvio Nguyen MD Forms/questionnaires (Wendy ELMORE for CGM Supplies) 08/13/2024 Orders Only [facility] [address] [place] [phone] Jenni Justice MD 08/05/2024 Results Follow-Up [facility] [address] [place] [phone] Karen Lauren NP Hypercalcemia (Primary Dx); Type 2 diabetes mellitus with hyperglycemia, with long-term current use of insulin (HCC) 08/01/2024 Results Follow-Up [facility] [address] [phone] Silvio Nguyen MD 08/01/2024 Telephone [facility] [address] [place] [phone] Karen Lauren NP Forms/questionnaires (Wendy/) 07/30/2024 12:15 PM PANEL MACHINE SETTER Lab [facility] at [address] [phone] Hypertension associated with diabetes (HCC) (Primary Dx) 07/30/2024 12:04 PM PANEL MACHINE SETTER - 07/30/2024 11:59 PM PANEL MACHINE SETTER Hospital Encounter [address] [address] Vitamin D deficiency; Type 2 diabetes mellitus with hyperglycemia, with long-term current use of insulin (HCC) Discharge Disposition: Discharge to home or self care 07/30/2024 11:30 AM PANEL MACHINE SETTER Office Visit [facility] [address] [place] [phone] Karen Lauren NP Type 2 diabetes mellitus with hyperglycemia, with long-term current use of insulin (HCC) (Primary Dx); Hypertension associated with diabetes (HCC); Hyperlipidemia associated with type 2 diabetes mellitus (HCC); Vitamin D deficiency 07/28/2024 11:15 AM PANEL MACHINE SETTER Lab [facility] at [address] [phone] Hyperlipidemia associated with type 2 diabetes mellitus (HCC) (Primary Dx) 07/28/2024 11:09 AM PANEL MACHINE SETTER - 07/28/2024 11:59 PM PANEL MACHINE SETTER Hospital Encounter [address] [address] Type 2 diabetes mellitus with hyperglycemia, with long-term current use of insulin (HCC); Hyperlipidemia associated with type 2 diabetes mellitus (HCC); Hypertension associated with diabetes (HCC) Discharge Disposition: Discharge to home or self care from Last 3 Months Surgical History Surgery Date Site/Laterality Comments KNEE ARTHROSCOPY W/ ACL RECONSTRUCTION CORONARY ANGIOPLASTY KIDNEY STONE SURGERY BREAST LUMPECTOMY Right REPLACEMENT TOTAL KNEE Right NECK SURGERY 06/04/2022 - 06/03/2023 EYE SURGERY 06/04/2023 - 06/03/2024 Medical History Medical History Date Comments Type 2 diabetes mellitus (HCC) COPD (chronic obstructive pulmonary disease) (HC C) Hyperlipidemia Heart attack (HCC) ACL tear right Family History Medical History Relation Name Comments Diabetes Father Hypertension Father Lung cancer Father Diabetes Sister Hypertension Sister Relation Name Status Comments Father Sister Social History Tobacco Use Types Packs/Day Years Used Date Smoking Tobacco: Every Day Cigarettes Smokeless Tobacco: Never Alcohol Use Standard Drinks/Week Comments Yes 0 (1 standard drink = 0.6 oz pur e alcohol) PHQ-2 Answer Date Recorded PHQ-2 Total Score (If total score is 3 or more points, staff should administer the PHQ-9) 0 10/17/2023 Sex and Gender Information Value Date Recorded Sex Assigned at Not on file Legal Sex Male 2:27 AM PANEL MACHINE SETTER Gender Identity Not on file Sexual Orientation Not on file Obstetrics History Last Filed Vital Signs Vital Sign Reading Time Taken Comments Blood Pressure 108/60 07/30/2024 11:30 AM PANEL MACHINE SETTER Pulse 85 07/30/2024 11:30 AM PANEL MACHINE SETTER Temperature 36.2 C (97.1 F) 09/26/2022 1:59 PM CDT Respiratory Rate 16 07/30/2024 11:30 AM PANEL MACHINE SETTER Oxygen Saturation 96% 09/26/2022 2:20 PM CDT Inhaled Oxygen Concentration - - Weight 108.4 kg (239 lb) 07/30/2024 11:30 AM PANEL MACHINE SETTER Height 182.9 cm (6' 0.01 ) 07/30/2024 11:[address] Body Mass Index 32.41 07/30/2024 11:30 AM PANEL MACHINE SETTER Plan of Treatment Health Maintenance Due Date Last Done Comments Colon Cancer Screening-Colonoscopy 1955 Hepatitis C Screening 1955 Prostate Cancer Screening-PSA 1955 DTaP/Tdap/Td Vaccine (1 - Tdap) 10/29/1966 Hepatitis B Screening 10/29/1973 Pneumococcal vaccine 65+ (1 of 2 - PCV) 10/29/1974 Zoster Vaccine (1 of 2) 10/29/2005 Abdominal Aortic Aneurysm (A AA) Screen 10/29/2020 Well Visit 65+ 10/29/2020 Covid-19 Vaccine (4 - 2023-2 5 season) 2024 05/24/2021, 08/20/2020, 08/01/2020 Depression Screening 10/16/2024 10/17/2023, 09/13/2022, 09/13/2022, Additional history exists Fall Risk Assessment 10/16/2024 10/17/2023, 07/11/19 24 Hemoglobin A1C 01/27/2025 07/30/2024, 04/04, 10/17/2023, Additional history exists Influenza Vaccine (Season Ended) 2025 04/07/2020, 03/13/2019, 03/13/2019, Additional history exists Dilated Eye Exam 04/14/2025 04/14/2024, 11/2022, 10/05/2020, Additional history exists Foot Exam 04/14/2025 04/14/2024, 10/02, 07/11/2023, Additional history exists Albumin Creatinine Ratio, Urine 07/28/2025 07/28/2024, 07/11/2023, 04/25/2022, Additional history exists Lipid Panel 07/28/2025 07/28/2024, 12/2023, 04/25/2022, Additional history exists eGFR 07/30/2025 07/30/2024, 03/06, 07/11/2023, Additional history exists Goals Goal Patient Goal Type Associated Problems Recent Progress Patient-Stated? Author [facility] Meg Sage, JIM Note: Patient will describe how unrelieved pain will be managed. Procedures Procedure Name Priority Date/Time Associated Diagnosis Comments EGFR Routine 07/30/2024 12:04 PM PANEL MACHINE SETTER Type 2 diabetes mellitus with hyperglycemia, with long-term current use of insulin (HCC) COMPREHENSIVE METABOLIC PANEL Routine 07/30/2024 12:04 PM PANEL MACHINE SETTER Type 2 diabetes mellitus with hyperglycemia, with long-term current use of insulin (HCC) VITAMIN D 25 HYDROXY Routine 07/30/2024 12:04 PM PANEL MACHINE SETTER Vitamin D deficiency POCT GLUCOSE Routine 07/30/2024 11:35 AM PANEL MACHINE SETTER Type 2 diabetes mellitus with hyperglycemia, with long-term current use of insulin ([facility]) POCT HEMOGLOBIN A1C Routine 07/30/2024 1 1:35 AM PANEL MACHINE SETTER Type 2 diabetes mellitus with hyperglycemia, with long-term current use of insulin (HCC) ALBUMIN CREATININE RATIO, URINE Routine 07/28/2024 11:09 AM PANEL MACHINE SETTER Type 2 diabetes mellitus with hyperglycemia, with long-term current use of insulin (HCC) Hypertension associated with diabetes (HCC) THYROID FUNCTION CASCADE Routine 07/28/2024 10:19 AM PANEL MACHINE SETTER Type 2 diabetes mellitus with hyperglycemia, with long-term current use of insulin (HCC) LIPID PANEL Routine 07/28/2024 10:19 AM PANEL MACHINE SETTER Type 2 diabetes mellitus with hyperglycemia, with long-term current use of insulin (HCC) Hyperlipidemia associated with type 2 diabetes mellitus (HCC) HM DIABETES EYE EXAM Routine 04/14/2024 8:51 AM PANEL MACHINE SETTER from Last 3 Months or Most Recently Relevant to Health Maintenance Results * eGFR (07/30/2024 12:04 PM PANEL MACHINE SETTER) eGFR 69 >=60 mL/min/1. 73 m2 Comment: Interpretive Data Reference Interval Normal >/= 90 mL/min/1.73m2 Mildly decreased* 60 - 89 mL/min/1.73m2 Mildly to moderately decreased 45 - 59 mL/min/1.73m2 Moderately to severely decreased 30 - 44 mL/min/1.73m2 Severely decreased 15 - 29 mL/min/1.73m2 Kidney Failure < 15 mL/min/1.73m2 *Relative to young adult level Estimated glomerular filtration rate is determined by the 2020 CKD-EPI equation recommended by the National Kidney Foundation (A Unifying Approach to GFR Estimation: Recommendations of the NKF-ASK Task Force on Reassessing the Inclusion of Race in Diagnosing Kidney Disease, JASN 202). The CKD-EPI equation should not be used for patients with unstable renal function and has not been validated in children and those over 70. Current interpretive data was last reviewed 2021. Blood 07/30/2024 12:0 4 PM PANEL MACHINE SETTER 07/30/2024 8:26 PM PANEL MACHINE SETTER us Karen Lauren NP LAB BLOOD ORDERABLES Yamila l Result [facility] [id number] Department [place] [address] * (ABNORMAL) Vitamin D 25 hydroxy (07/30/2024 12:04 PM PANEL MACHINE SETTER) Vitamin D 25-OH 98(H) 30 - 80 ng/mL Blood 07/30/2024 12:0 4 PM PANEL MACHINE SETTER 07/30/2024 8:06 PM PANEL MACHINE SETTER us Karen Lauren SEWER DIGGER LAB BLOOD ORDERABLES Yamila l Result [facility] [address] Department [place] [address] * (ABNORMAL) Comprehensive metabolic panel (07/30/2024 12:04 PM PANEL MACHINE SETTER) Sodium 139 135 - 145 mmol/L Potassium, pl 4.2 3.3 - 4.9 mmol/L [facility] Chloride 98 97 - 110 mmol/L [facility] CO2 27 22 - 32 mmol/L [facility] Anion gap 14 2 - 15 mmol/L [facility] BUN 23 6 - 25 mg/dL [facility] Creatinine 1.15 0.80 - 1.30 mg/dL [facility] Glucose 88 70 - 199 mg/dL [facility] Comment: Interpretive Data Fasting glucose >/= 126 mg/dl is diagnostic for diabetes. Fasting is defined as no caloric intake for at least 8 hours. Fasting glucose between 100 mg/dl to 125 mg/dl is diagnostic of prediabetes. In a patient with classic symptoms of hyperglycemia or hyperglycemic crisis, a random glucose >/= 200 mg/dl is diagnostic for diabetes. In the absence of unequivocal hyperglycemia, results should be confirmed by repeat testing. The classification and Diagnosis of Diabetes Diabetes Care 202; 46: S19-S40. Current interpretive data was last revised 2022. Calcium 11.4(H) 8.5 - 10.3 mg/dL [facility] Bilirubin, total 0.6 0.1 - 1.2 mg/dL [facility] Protein, pl 7.6 6.5 - 8.5 g/dL [facility] Albumin 4.6 3.5 - 5.0 g/dL [facility] Alk phos 70 40 - 130 Units/L [facility] ALT 16 7 - 55 Units/L [facility] AST 25 10 - 50 Units/L [facility] Blood 07/30/2024 12:0 4 PM PANEL MACHINE SETTER 07/30/2024 8:06 PM PANEL MACHINE SETTER us Karen Lauren SEWER DIGGER LAB BLOOD ORDERABLES Yamila l Result [facility] [id number] Department [place] [address] * (ABNORMAL) POCT hemoglobin A1c (07/30/2024 11:35 AM PANEL MACHINE SETTER) Hemoglobin A1C, POC 7.2 4.0 - 5.6 % Blood 07/30/2024 11:3 5 AM PANEL MACHINE SETTER us Karen Lauren SEWER DIGGER POINT OF CARE TEST ORDERA BLES Final Result * POCT glucose (07/30/2024 11:35 AM PANEL MACHINE SETTER) Pathologist [facility] Glucose Blood, POC 109 mg/dL Blood 07/30/2024 11:3 5 AM PANEL MACHINE SETTER us Karen Lauren SEWER DIGGER POINT OF CARE TEST ORDERA BLES Final Result * Albumin Creatinine Ratio, Urine (07/28/2024 11:09 AM PANEL MACHINE SETTER) Pathologist [facility] Albumin Ur <12.0 mg/L Comment: Interpretive Data No reference range established. Current interpretive data was last revised 2018. Creatinine Ur 195.3 mg/dL [facility] Comment: Interpretive Data No reference range established. Current interpretive data was last revised 2018. Albumin Creatinine Ratio, Ur <20 1 - 29 mg/g [facility] Urine 07/28/2024 11:0 9 AM PANEL MACHINE SETTER 07/28/2024 9:41 PM PANEL MACHINE SETTER us Silvio Siddiqui MD LAB URINE ORDERABLE S Final Result [facility] [id number] Department [place] [address] * Thyroid Function [place] (07/28/2024 10:19 AM PANEL MACHINE SETTER) TSH 2.36 0.30 - 4.20 mcIUnit/mL Blood 07/28/2024 10:1 9 AM PANEL MACHINE SETTER 07/28/2024 9:41 PM PANEL MACHINE SETTER Silvio Siddiqui MD LAB BLOOD ORDERABLE S Final Result Performing Organization Address [facility] Co de Phone Number [facility] [id number] Department [place] [address] * (ABNORMAL) Lipid panel (07/28/2024 10:19 AM PANEL MACHINE SETTER) Cholesterol 81 30 - 199 mg/dL Comment: Interpretive Data Ages < or = 19 years Acceptable: <170 mg/dL Borderline high: 170-199 mg/dL High: >or= 200 mg/dL Ages > or = 20 years Desirable: <200 mg/dL Borderline high: 200-239 mg/dL High: >or= 240 mg/dL Literature References: 1. Expert Panel on Integrated Guidelines for Cardiovascular Health and Risk Reduction in Children and Adolescents. Pediatrics 2011;128:S213 2. NCEP Expert Panel. Circulation 2004;110:227 Current Interpretive Data was last revised on 2018. Triglycerides 296(H) <=149 mg/dL [facility] Comment: Interpretive Data Ages < or = 9 years Acceptable: <75 mg/dL Borderline high: 75-99 mg/dL High: >or= 100 mg/dL Ages 10 to 20 years Acceptable: <90 mg/dL Borderline high: 90-129 mg/dL High: >or= 130 mg/dL Ages > or = 20 years Desirable: <150 mg/dL Borderline high: 150-199 mg/dL High: 200-499 mg/dL Very high: >or= 499 mg/dL Literature References: 1. Expert Panel on Integrated Guidelines for Cardiovascular Health and Risk Reduction in Children and Adolescents. Pediatrics 2011;128:S213 2. NCEP Expert Panel. Circulation 2004;110:227 Current Interpretive Data was last revised on 2018. HDL 31(L) >=40 mg/dL [facility] Comment: Interpretive Data Ages < or = 19 years Acceptable: >45 mg/dL Borderline low: 40-45 mg/dL Low: <40 mg/dL Ages > or = 20 years Desirable: >or= 60 mg/dL Low: <40 mg/dL Literature References: 1. Expert Panel on Integrated Guidelines for Cardiovascular Health and Risk Reduction in Children and Adolescents. Pediatrics 2011;128:S213 2. NCEP Expert Panel. Circulation 2004;110:227 Current Interpretive Data was last revised on 2018. LDL, calculated 8 <=129 mg/dL [facility] Comment: Interpretive Data Ages < or = 19 years Acceptable: <110 mg/dL Borderline high: 110-129 mg/dL High: >or= 130 mg/dL Ages > or = 20 years Optimal: <100 mg/dL Near optimal: 100-129 mg/dL Borderline high: 130-159 mg/dL High: >160 mg/dL Calculated using the Francisco Javier LDL-C estimating equation. This equation was implemented on 2024. Prior to this date LDL-C was estimated using the Friedewald equation. Literature References: 1. Expert Panel on Integrated Guidelines for Cardiovascular Health and Risk Reduction in Children and Adolescents. Pediatrics 2011;128:S213 2. NCEP Expert Panel. Circulation 2004;110:227 3. Francisco Javier Mullins et al. ALISTAIR Cardiol. 2020 October 02;5(5):540-548. doi: 10.1001/jamacardio.2020.0013 Current Interpretive Data was last revised on 2024. Non-HDL Cholesterol 50 mg/dL [facility] Comment: Interpretive Data Ages < or = 19 years Acceptable: <120 mg/dL Borderline high: 120-144 mg/dL High: >145 mg/dL Ages > or = 20 years When triglycerides are >200 mg/dL, Non-HDL cholesterol is a secondary target of therapy with treatment goals that are 30 mg/dL greater than the LDL cholesterol target. Literature References: 1. Expert Panel on Integrated Guidelines for Cardiovascular Health and Risk Reduction in Children and Adolescents. Pediatrics 2011;128:S213 2. NCEP Expert Panel. Circulation 2004;110:227 Current Interpretive Data was last revised on 2018. Chol/HDL ratio 3 [facility] Blood 07/28/2024 10:1 9 AM PANEL MACHINE SETTER 07/28/2024 9:41 PM PANEL MACHINE SETTER Silvio Siddiqui MD LAB BLOOD ORDERABLE S Final Result [facility] [address] Department [place] [address] * DIABETES EYE EXAM (04/14/2024 8:51 AM PANEL MACHINE SETTER) us Historical Provider HEALTH MAINTENANCE Final Result from Last 3 Months or Most Recently Relevant to Health Maintenance Insurance MEDICARE [employer] Care Teams Hand Shoes Sewer Relationship Specialty Start Date End Date Matthew Mendenhall MD [address] [place] [address] PCP - General Family Medicine 10/17/23 Adrien Branch MD [address] [place] [address] [address] Anesthesiologist Pain Management 05/19/22
--- OUTSIDE RECORDS SUMMARY | 2024-09-18 10:22 | XMS_ITS | Encounter Summary ---
Author Organization [facility] Healthcare Address [address] [place] [address] Care Team Providers Care Stained Glass Installer Name Role Phone Adrien Branch MD Unavailable [phone] Matthew Mendenhall MD Primary Care Provider [phone] Encounter Details Date Type Department Care Team (Late st Contact Info) Description 08/01/2024 Results Follow-Up [facility] [id number] [place] [phone] [place] [id number] [address] Social History Tobacco Use Types Packs/Day Years [...] on file Legal Sex Male 2: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 Author [facility] No Meg Sage, RN Note: Patient will describe how unrelieved pain will be managed. documented as of this encounter Visit Diagnoses Not on filedocumented in this encounter Care Teams Stained Glass Installer Relationship Specialty Start Date End Date Matthew Mendenhall MD [facility] [place] [address] PCP - General Family Medicine 10/17/23 Adrien Branch MD [address] [place] [id number] Anesthesiologist Pain Management 05/19/22 documented as of this encounter
--- OUTSIDE RECORDS SUMMARY | 2024-09-18 10:22 | XMS_ITS | Referral Summary ---
Author Organization [facility] Physician Office Building [address] [place] [id number] Care Team Providers Care Sales Representative Groceries Name Role Phone Adrien Branch MD Unavailable [phone] Matthew Mendenhall MD Primary Care Provider [phone] Encounters Date Type Department Care Team Description 08/19/2024 Telephone [facility] Diabetes and Endocrinology [address] [place] [phone] Karen Lauren NP Med Refill 08/15/2024 Telephone [facility] Diabetes and Endocrinology [address] [place] [phone] Silvio Nguyen MD [facility] 08/13/2024 Orders Only [facility] Diabetes and Endocrinology [address] [place] [phone] ProviderJenni MD 08/05/2024 Results Follow-Up [facility] Diabetes and Endocrinology [address] [place] [phone] Karen Lauren NP Hypercalcemia (Primary Dx); Type 2 diabetes mellitus with hyperglycemia, with long-term current use of insulin (HCC) 08/01/2024 Results Follow-Up [facility] [id number] [place] [address] [address] [address] Silvio Nguyen MD 08/01/2024 Telephone [facility] Diabetes and Endocrinology [address] [place] [phone] Karen Lauren NP Forms/questionnaires ([employer]/) 07/30/2024 12:04 PM PATIENT CARE SECRETARY - 07/30/2024 11:59 PM PATIENT CARE SECRETARY Hospital Encounter [address] [address] Vitamin D deficiency; Type 2 diabetes mellitus with hyperglycemia, with long-term current use of insulin (HCC) Discharge Disposition: Discharge to home or self care 07/30/2024 12:15 PM PATIENT CARE SECRETARY Lab [facility] Outpatient Lab at [address] [phone] Hypertension associated with diabetes (HCC) (Primary Dx) 07/30/2024 11:30 AM PATIENT CARE SECRETARY Office Visit [facility] Diabetes and Endocrinology [address] [place] [phone] Karen Lauren NP Type 2 diabetes mellitus with hyperglycemia, with long-term current use of insulin (HCC) (Primary Dx); Hypertension associated with diabetes (HCC); Hyperlipidemia associated with type 2 diabetes mellitus (HCC); Vitamin D deficiency 07/28/2024 11:09 AM PATIENT CARE SECRETARY - 07/28/2024 11:59 PM PATIENT CARE SECRETARY Hospital Encounter [address] [address] Type 2 diabetes mellitus with hyperglycemia, with long-term current use of insulin (HCC); Hyperlipidemia associated with type 2 diabetes mellitus (HCC); Hypertension associated with diabetes (HCC) Discharge Disposition: Discharge to home or self care 07/28/2024 11:15 AM PATIENT CARE SECRETARY Lab [facility] Outpatient Lab at [address] [phone] Hyperlipidemia associated with type 2 diabetes mellitus (HCC) (Primary Dx) from Last 3 Months Allergies Active Allergy Reactions Criticality Noted Date [...] with long-term current use of insulin (HCC) 4 x daily 360 each 3 05/01/20 [...] hyperglycemia, with long-term current use of insulin ([facility]) One Touch Verio Lancets Use 4 times daily to check blood sugar Dx: E11.65 400 each 3 01/13/20 23 Active budesonide-formot Dave (Symbicort) 160-4.5 mcg/actuation inhaler Symbicort 160-4.5 mcg/actuatio n HFA aerosol inhaler Active cholecalciferol (VITAMIN D-3) 5,000 unit capsule Take by mouth 04/06/20 Active dapagliflozin propanediol (Farxiga) 10 mg tablet Farxiga 10 mg tablet Active Trelegy Ellipta 100-62.5-25 mcg inhaler INHALE 1 PUFF ONCE DAILY FOR 30 DAYS 03/27/20 24 Active insulin aspart niacinamide (FIASP) 100 unit/mL (3 mL) pen for injectionIndicati ons:Type 2 diabetes mellitus with hyperglycemia, with long-term current use of insulin ([facility]) Inject 10-20 Units under the skin 3 (three) times a day 54 mL 3 04/22/20 24 Active insulin degludec (TRESIBA) 200 unit/mL (3 mL) pen for injectionIndicati ons:Type 2 diabetes mellitus with hyperglycemia, with long-term current use of insulin ([facility]) Inject 0.2 mL (40 Units total) under the skin nightly 18 mL 3 04/22/20 24 025 Active tamsulosin (FLOMAX) 0.4 mg extended release capsule 07/29/19 25 Active blood glucose diagnostic stripIndications: Type 2 diabetes mellitus with hyperglycemia, with long-term current use of insulin ([facility]) One Touch Verio Test Strips Use to [...] hyperglycemia, with long-term current use of insulin ([facility]) Inject 10-20 Units under the skin 3 (three) times a day 54 mL 3 08/08/19 25 Active Dexcom G7 Frog Catcher miscIndications:T ype 2 diabetes mellitus with hyperglycemia, with long-term current use of insulin ([facility]) As directed 1 each 08/08/19 25 Active metFORMIN (GLUCOPHAGE) 1,000 mg tabletIndications :Type 2 diabetes mellitus with hyperglycemia, with long-term current use of insulin ([facility]) TAKE 1 TABLET BY MOUTH TWICE DAILY WITH MEALS 180 tablet 3 08/21/19 25 Active OneTouch Verio Flex meter miscIndications:T ype 2 diabetes mellitus with hyperglycemia, with long-term current use of insulin ([facility]) USE TO CHECK GLUCOSE 4 TIMES DAILY 1 each 08/21/19 25 Active metFORMIN (GLUCOPHAGE) 1,000 mg tabletIndications :Type 2 diabetes mellitus with hyperglycemia, with long-term current use of insulin ([facility]) TAKE 1 TABLET BY MOUTH TWICE DAILY WITH MEALS 180 tablet 07/04/19 25 025 Discontinued blood-glucose meter kitIndications:Ty pe 2 diabetes mellitus with hyperglycemia, with long-term current use of insulin ([facility]) One Touch Verio Meter Use daily to check blood sugars Dx: E11.65 1 kit 07/30/19 25 025 Discontinued Active Problems Problem Noted Date Diagnosed Date Cervical radiculopathy 05/19/2022 Cervicalgia 05/19/2022 Degenerative disc disease, cervical 05/19/2022 Degenerative cervical spinal stenosis 05/19/2022 Insomnia secondary to chronic pain 05/19/2022 Class 1 obesity due to exces s calories with serious comorbidity and body mass index (BMI) of 34.0 to 34.9 in adult 03/08/2020 Assessment & Plan (04/14/2024 12:39 PM PATIENT CARE SECRETARY): Chronic, worsening Discussed about healthy lifestyle habits [...] habits Assessment & Plan (07/12/2023 8:03 AM PATIENT CARE SECRETARY): Counseled on diet and exercise Assessment & [...] weekly Assessment & Plan (06/15/2022 10:04 AM PATIENT CARE SECRETARY): Chronic problem. Discussed healthy diet and importance of regular physical activity (20- 30min/day, 150min/wk). Assessment & Plan (05/01/2022 1:35 PM PATIENT CARE SECRETARY): Chronic, worsening Discussed about healthy lifestyle habits [...] weekly Assessment & Plan (07/11/2021 1:02 PM PATIENT CARE SECRETARY): Chronic, improving with lifestyle modifications Discussed about [...] weekly Assessment & Plan (05/02/2021 10:19 AM PATIENT CARE SECRETARY): Chronic, slowly improving Counseled on diet and [...] 05/23/2019 Assessment & Plan (06/14/2022 3:30 PM PATIENT CARE SECRETARY): Chronic problem, uncontrolled but improving. Component Latest [...] 05/23/2019 Assessment & Plan (07/30/2024 12:16 PM PATIENT CARE SECRETARY): Chronic problem. Currently using liquid vitamin D x10 gtts but not certain of actual dose. Will repeat D level today as well as CMP (was left off when he had labs done recently). Verified that he uses mychart. Aware to check results/results letter in [facility]. Will contact by phone if needed. Assessment & Plan (05/23/2019 9:13 AM PATIENT CARE SECRETARY): Pt on replacement dose Will recheck levels [...] hydration Assessment & Plan (05/23/2019 9:10 AM PATIENT CARE SECRETARY): Recheck labs , further plans based on [...] 11/22/2018 Assessment & Plan (07/30/2024 12:15 PM PATIENT CARE SECRETARY): Chronic problem, A1c near goal. A1c improved [...] infection. Assessment & Plan (04/14/2024 12:40 PM PATIENT CARE SECRETARY): Chronic, uncontrolled, slight worsening Hemoglobin A1c 8.1% [...] results Assessment & Plan (07/12/2023 8:04 AM PATIENT CARE SECRETARY): Chronic, uncontrolled, slightly worsening A1c today - [...] 10 units If having overnight low and attendant lodging facilities low blood sugars decrease your tresiba dose by 4-6 units If having low blood sugars during day time, your short acting insulin by 2-4 units Assessment & Plan (06/15/2022 10:43 AM PATIENT CARE SECRETARY): Chronic problem, not controlled at this time [...] October 2022. Reviewed CGM readings with Mr Pettit, great improvement. He watches Dexcom now when he eats to see what certain foods are doing to BG Assessment & Plan (05/01/2022 1:37 PM PATIENT CARE SECRETARY): Chronic, out of control Worsening A1c 11.5 [...] weeks Assessment & Plan (07/11/2021 1:03 PM PATIENT CARE SECRETARY): Chronic, improving control A1c today 6.2% No hypoglycemia noted Continue current medication regimen Labs before next appointment Annual dilated eye exam Advised to cut back on insulin by 5-10 units if having any blood sugars less than 80 Follow-up in 6 months Assessment & Plan (05/02/2021 10:18 AM PATIENT CARE SECRETARY): Chronic, uncontrolled, improving slowly A1c - 7.7 [...] months Assessment & Plan (05/23/2019 9:09 AM PATIENT CARE SECRETARY): Chronic, improving BS control A1c today - [...] type 2, - patho physiology, short and retirement complications of uncontrolled DM, diet and exercise [...] 11/22/2018 Assessment & Plan (07/30/2024 11:47 AM PATIENT CARE SECRETARY): Chronic problem. Controlled on current losartan 100mg daily, metoprolol XL 50mg daily, HCTZ 25mg daily. Assessment & Plan (04/14/2024 12:39 PM PATIENT CARE SECRETARY): Chronic, well controlled Continue losartan, hydrochlorothiazide, metoprolol Assessment & Plan (10/17/2023 9:50 PM CDT): Chronic, well controlled Continue losartan, hydrochlorothiazide, metoprolol Assessment & Plan (07/12/2023 8:03 AM PATIENT CARE SECRETARY): Chronic, well controlled Continue current medications Assessment & Plan (09/04/2022 12:13 PM CDT): Chronic, well controlled Continue current medications Assessment & Plan (06/15/2022 10:03 AM PATIENT CARE SECRETARY): Chronic problem, well controlled on current regimen. No changes at this time Assessment & Plan (05/01/2022 1:36 PM PATIENT CARE SECRETARY): Chronic, well controlled Continue current medications Assessment & Plan (07/11/2021 1:02 PM PATIENT CARE SECRETARY): Chronic, well controlled Continue current medications Assessment & Plan (05/02/2021 10:18 AM PATIENT CARE SECRETARY): Chronic, well controlled Continue current medications Assessment & Plan (09/06/2020 8:34 PM CDT): Chronic, well controlled Continue current medications Assessment & Plan (03/08/2020 1:27 PM CDT): Chronic, well controlled Continue current medications Assessment & Plan (12/01/2019 3:21 PM CDT): Chronic, well controlled Continue current medications Assessment & Plan (05/23/2019 9:11 AM PATIENT CARE SECRETARY): Chronic, well controlled Continue current medications Assessment & Plan (02/24/2019 1:36 PM CDT): Chronic, well controlled Continue current medications Hyperlipidemia associated with type 2 diabetes uri [email or web address] 11/22/2018 Assessment & Plan (07/30/2024 11:47 AM PATIENT CARE SECRETARY): Chronic problem. Currently taking Rosuvastatin 40mg, fenofibrate 160mg daily, zetia 10mg daily. Last lipid panel: 07/28/24 LDL=8, ID=[id number]. Assessment & Plan (04/14/2024 12:39 PM PATIENT CARE SECRETARY): On Zetia and Crestor - on fenofibrate Assessment & Plan (10/17/2023 9:50 PM CDT): On Zetia and Crestor - on fenofibrate Assessment & Plan (07/12/2023 8:03 AM PATIENT CARE SECRETARY): On Zetia and Crestor - on fenofibrate Advised low carb diet and increase physical activity and work on healthy weight loss Assessment & Plan (09/04/2022 12:13 PM CDT): On Zetia and Crestor - on fenofibrate Advised low carb diet and increase physical activity and work on healthy weight loss Assessment & Plan (06/14/2022 3:30 PM PATIENT CARE SECRETARY): Chronic problem, LDL=7 when last checked 04/2022. Rosuvastatin 40mg, fenofibrate 160mg daily, zetia 10mg daily. Assessment & Plan (05/01/2022 1:36 PM PATIENT CARE SECRETARY): On Zetia and Crestor High TG's - on fenofibrate Advised low carb diet and increase physical activity and work on healthy weight loss Assessment & Plan (07/11/2021 1:02 PM PATIENT CARE SECRETARY): On Zetia and Crestor High TG's - on fenofibrate Advised low carb diet and increase physical activity and work on healthy weight loss Assessment & Plan (05/02/2021 10:18 AM PATIENT CARE SECRETARY): On Zetia and Crestor High TG's - [...] loss Assessment & Plan (05/23/2019 9:11 AM PATIENT CARE SECRETARY): On Zetia and Crestor High TG's - recheck labs to follow up If still high TG 's than consider to add Vascepa Advised low carb diet and increase physical activity and work on healthy weight loss Assessment & Plan (02/24/2019 1:37 PM CDT): On Zetia and Crestor Social History Tobacco Use Types Packs/Day Years [...] on file Legal Sex Male 2:27 AM PATIENT CARE SECRETARY Gender Identity Not on file Sexual Orientation Not on file Last Filed Vital Signs Vital Sign Reading Time Taken Comments Blood Pressure 108/60 07/30/2024 11:30 AM PATIENT CARE SECRETARY Pulse 85 07/30/2024 11:30 AM PATIENT CARE SECRETARY Temperature 36.2 C (97.1 F) 09/26/2022 1:59 PM CDT Respiratory Rate 16 07/30/2024 11:30 AM PATIENT CARE SECRETARY Oxygen Saturation 96% 09/26/2022 2:20 PM CDT Inhaled Oxygen Concentration - - Weight 108.4 kg (239 lb) 07/30/2024 11:30 AM PATIENT CARE SECRETARY Height 182.9 cm (6' 0.01 ) 07/30/2024 11:[address] Body Mass Index 32.41 07/30/2024 11:30 AM PATIENT CARE SECRETARY Plan of Treatment Not on file Goals Goal Patient Goal Type Associated Problems Recent Progress Patient-Stated? Author [facility] No Meg Sage, JIM Note: Patient will describe how unrelieved pain will be managed. Procedures Procedure Name Priority Date/Time Associated Diagnosis Comments EGFR Routine 07/30/2024 12:04 PM PATIENT CARE SECRETARY Type 2 diabetes mellitus with hyperglycemia, with long-term current use of insulin ([facility]) COMPREHENSIVE METABOLIC PANEL Routine 07/30/2024 12:04 PM PATIENT CARE SECRETARY Type 2 diabetes mellitus with hyperglycemia, with long-term current use of insulin ([facility]) VITAMIN D 25 HYDROXY Routine 07/30/2024 12:04 PM PATIENT CARE SECRETARY Vitamin D deficiency POCT GLUCOSE Routine 07/30/2024 11:35 AM PATIENT CARE SECRETARY Type 2 diabetes mellitus with hyperglycemia, with long-term current use of insulin ([facility]) POCT HEMOGLOBIN A1C Routine 07/30/2024 1 1:35 AM PATIENT CARE SECRETARY Type 2 diabetes mellitus with hyperglycemia, with long-term current use of insulin ([facility]) ALBUMIN CREATININE RATIO, URINE Routine 07/28/2024 11:09 AM PATIENT CARE SECRETARY Type 2 diabetes mellitus with hyperglycemia, with long-term current use of insulin ([facility]) Hypertension associated with diabetes ([facility]) THYROID FUNCTION CASCADE Routine 07/28/2024 10:19 AM PATIENT CARE SECRETARY Type 2 diabetes mellitus with hyperglycemia, with long-term current use of insulin (HCC) LIPID PANEL Routine 07/28/2024 10:19 AM PATIENT CARE SECRETARY Type 2 diabetes mellitus with hyperglycemia, with long-term current use of insulin (HCC) Hyperlipidemia associated with type 2 diabetes mellitus (HCC) HM DIABETES EYE EXAM Routine 04/14/2024 8:51 AM PATIENT CARE SECRETARY from Last 3 Months or Most Recently Relevant to Health Maintenance Results * eGFR (07/30/2024 12:04 PM PATIENT CARE SECRETARY) eGFR 69 >=60 mL/min/1. 73 m2 Comment: [...] of Race in Diagnosing Kidney Disease, JASN 2020). The CKD-EPI equation should not be used for patients with unstable renal function and has not been validated in children and those over 70. Current interpretive data was last reviewed 2021. Blood 07/30/2024 12:0 4 PM PATIENT CARE SECRETARY 07/30/2024 8:26 PM PATIENT CARE SECRETARY us Karen Lauren NP LAB BLOOD ORDERABLES Yamila van Result DORI [id number] Department [place] [address] * (ABNORMAL) Vitamin D 25 hydroxy (07/30/2024 12:04 PM PATIENT CARE SECRETARY) Vitamin D 25-OH 98(H) 30 - 80 ng/mL Blood 07/30/2024 12:0 4 PM PATIENT CARE SECRETARY 07/30/2024 8:06 PM PATIENT CARE SECRETARY us Karen Lauren NP LAB BLOOD ORDERABLES Yamila van Result DORI [id number] Department [place] [address] * (ABNORMAL) Comprehensive metabolic panel (07/30/2024 12:04 PM PATIENT CARE SECRETARY) Pathologist [facility] Sodium 139 135 - 145 mmol/L Potassium, pl 4.2 3.3 - 4.9 mmol/L [facility] Chloride 98 97 - 110 mmol/L [facility] CO2 27 22 - 32 mmol/L [facility] Anion gap 14 2 - 15 mmol/L [facility] BUN 23 6 - 25 mg/dL [facility] Creatinine 1.15 0.80 - 1.30 mg/dL [facility] Glucose 88 70 - 199 mg/dL [facility] Comment: Interpretive Data Fasting glucose >/= 126 [...] classification and Diagnosis of Diabetes Diabetes Care 2021; 46: S19-S40. Current interpretive data was last revised 2022. Calcium 11.4(H) 8.5 - 10.3 mg/dL [facility] Bilirubin, total 0.6 0.1 - 1.2 mg/dL [facility] Protein, pl 7.6 6.5 - 8.5 g/dL [facility] Albumin 4.6 3.5 - 5.0 g/dL [facility] Alk phos 70 40 - 130 Units/L [facility] ALT 16 7 - 55 Units/L [facility] AST 25 10 - 50 Units/L [facility] Blood 07/30/2024 12:0 4 PM PATIENT CARE SECRETARY 07/30/2024 8:06 PM PATIENT CARE SECRETARY us Karen Lauren ACID LEVELER LAB BLOOD ORDERABLES Yamila l Result DORI ECHEVARRIA [id number] [place] [address] * (ABNORMAL) POCT hemoglobin A1c (07/30/2024 11:35 AM PATIENT CARE SECRETARY) [facility] Hemoglobin A1C, POC 7.2 4.0 - 5.6 % Blood 07/30/2024 11:3 5 AM PATIENT CARE SECRETARY us Karen Lauren ACID LEVELER POINT OF CARE TEST ORDERA BLES Final Result * POCT glucose (07/30/2024 11:35 AM PATIENT CARE SECRETARY) [facility] Glucose Blood, POC 109 mg/dL Blood 07/30/2024 11:3 5 AM PATIENT CARE SECRETARY us Karen Lauren NP POINT OF CARE TEST ORDERA BLES Final Result * Albumin Creatinine Ratio, Urine (07/28/2024 11:09 AM PATIENT CARE SECRETARY) [facility] Albumin Ur <12.0 mg/L Comment: Interpretive Data No reference range established. Current interpretive data was last revised 2018. Creatinine Ur 195.3 mg/dL [facility] Comment: Interpretive Data No reference range established. Current interpretive data was last revised 2018. Albumin Creatinine Ratio, Ur <20 1 - 29 mg/g [facility] Urine 07/28/2024 11:0 9 AM PATIENT CARE SECRETARY 07/28/2024 9:41 PM PATIENT CARE SECRETARY us Silvio Siddiqui MD LAB URINE ORDERABLE S Final Result DORI ECHEVAR[facility]A [id number] Department of [employer] [place], [place] [id number] * Thyroid Function [place] (07/28/2024 10:19 AM PATIENT CARE SECRETARY) TSH 2.36 0.30 - 4.20 mcIUnit/mL Blood 07/28/2024 10:1 9 AM PATIENT CARE SECRETARY 07/28/2024 9:41 PM PATIENT CARE SECRETARY us Silvio Siddiqui MD LAB BLOOD ORDERABLE S Final Result DORI [id number] Department [place] [address] * (ABNORMAL) Lipid panel (07/28/2024 10:19 AM PATIENT CARE SECRETARY) Cholesterol 81 30 - 199 mg/dL Comment: [...] on 2018. Triglycerides 296(H) <=149 mg/dL [facility] EC[facility]VARRIA Comment: Interpretive Data Ages [...] on 2024. Non-HDL Cholesterol 50 mg/dL [facility] Comment: Interpretive Data Ages < [...] revised on 2018. Chol/HDL ratio 3 [facility] Blood 07/28/2024 10:1 9 AM PATIENT CARE SECRETARY 07/28/2024 9:41 PM PATIENT CARE SECRETARY us Supraja Artur Siddiqui Siddiqui MD LAB BLOOD ORDERABLE S Final Result DORI [facility]VAR[facility]A [id number] Department [place] [address] * DIABETES EYE EXAM (04/14/2024 8:51 AM PATIENT CARE SECRETARY) Historical Provider HEALTH MAINTENANCE Final Result from Last 3 Months or Most Recently Relevant to Health Maintenance Insurance MEDICARE [employer] S[employer] Care Teams Sales Representative Groceries Relationship Specialty Start Date End Date Matthew Mendenhall MD [facility] [place] [address] PCP - General Family Medicine 10/17/23 Adrien Branch MD [address] [facility] [address] [place] [address] [place] [id number] Anesthesiologist Pain Management 05/19/22
--- OUTSIDE RECORDS SUMMARY | 2024-09-18 10:25 | XMS_ITS | Clinical Summary ---
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 06/01/2022 Active omeprazole (PRILOSEC) 40 MG capsule Take 1 capsule (40 mg total) by mouth daily. 08/01/2022 Active losartan (COZAAR) 100 MG tablet Take 1 tablet (100 mg total) by mouth daily. Active albuterol sulfate HFA 108 (90 Base) MCG/ACT inhaler Inhale 2 puffs into the lungs every 6 (six) hours as needed for Wheezing. Active rosuvastatin (CRESTOR) 40 MG tablet Take 1 tablet (40 mg total) by mouth nightly at bedtime. Active tamsulosin (FLOMAX) 0.4 MG Cap Take 1 capsule (0.4 mg total) by mouth daily. Active insulin degludec (TRESIBA FLEXTOUCH) 200 UNIT/ML injection (PEN) Inject 30 Units into the skin nightly at bedtime. Active metoprolol succinate ER (TOPROL-XL) 50 MG 24 hr tablet Take 1 tablet (50 mg total) by mouth daily. Active SEROQUEL 50 MG tablet Take 1 tablet (50 mg total) by mouth nightly at bedtime. Active semaglutide (OZEMPIC 0.25/0.5 MG/DOSE) 2 MG/1.5ML injection (PEN) Inject 0.25 mg into the skin every 7 days. Active Fluticasone-Ume clidin-Vilant (TRELEGY ELLIPTA) 100-62.5-25 MCG/ACT AEROSOL POWDER, BREATH ACTIVATED Active ezetimibe (ZETIA) 10 MG tablet Take 1 tablet (10 mg total) by mouth daily. Active Active Problems Problem Noted Date Diagnosed Date Spondylosis without myelopat hy or radiculopathy, cervical region 04/16/2023 Difficulty swallowing 12/29/2022 Dysphagia 12/28/2022 Cervical spondylosis 12/26/2022 Immunizations Immunization Administration Dates Next Due Fluad influenza vaccine, Jordan drivalent (aIIV4), Inactivated, adjuvanted, preservative free, 0.5 mL,IM use 04/26/2022 Influenza Adult (Generic) 04/07/2020,03/2019,04/23/2018,2016,04/05/2016,04/08/2015 PFIZER COVID-19 (ORIGINAL FORMULATION, PURPLE CAP) mRNA, LNP-S, PF, 30 MCG/0.3 ML DOSE 05/24/2021,08/20/2020,08/01/2020 Pneumococcal (Prevnar 20) 04/26/2022 Family History Medical History Relation Comments Cancer Father lung Heart Father Relation Status Comments Father Mother Alive Social History Tobacco Use Types Packs/Day Years Used Date Smoking Tobacco: Every Day Cigarettes Smokeless Tobacco: Never Tobacco Cessation:Ready to Q uit: Not Asked; Counseling Given: Not Answered Alcohol Use Standard Drinks/Week Comments Yes 20 (1 standard drink = 0.6 oz pu re alcohol) [facility] Utilities Answer Date Recorded In the past 12 months has e [employer], [employer], oil, or water [employer] P[employer] threatened to shut off services in your home? No 04/16/2023 Humiliation, Afraid, Rape, and Kick questionnair e Answer Date Recorded Within the last year, have y ou been afraid of your partner or ex-partner? No 04/16/2023 Within the last year, have y ou been humiliated or emotionally abused in other ways by your partner or ex-partner? No Within the last year, have y ou been kicked, hit, slapped, or otherwise physically hurt by your partner or ex-partner? No 04/16/2023 Within the last year, have y ou been raped or forced to have any kind of sexual activity by your partner or ex-partner? No 04/16/2023 Social Connection and Isolation Panel [NHANES] A nswer Date Recorded In a typical week, how many times do you talk on the phone with family, friends, or neighbors? Twice a week 12/28/2022 How often do you get together with friends or re latives? Once a week 12/28/2022 How often do you attend latter day or moravian serv ices? Never 12/28/2022 Do you belong to any clubs o r organizations such as latter day groups, unions, fraternal or athletic groups, or school groups? No 12/28/2022 How often do you attend meet ings of the clubs or organizations you belong to? Never 12/28/2022 Are you , , di vorced, , never , or living with a partner? 12/28/2022 AUDIT-C Answer Date Recorded Q1: How often do you have a drink containing alc ohol? 2-3 times a week 12/28/2022 Q2: How many drinks containi ng alcohol do you have on a typical day when you are drinking? 1 or 2 12/28/2022 Q3: How often do you have si x or more drinks on one occasion? Never 12/28/2022 Overall Financial Resource Strain (CARDIA) Answe r Date Recorded How hard is it for you to pa y for the very basics like food, housing, medical care, and heating? Not hard at all 04/16/2023 [facility] - Occupational Stress Questionnaire Answer Date Recorded Do you feel stress - tense, restless, nervous, or anxious, or unable to sleep at night because your mind is troubled all the time - these days? Not at all 04/16/2023 Exercise Vital Sign Answer Date Recorde d On average, how many days pe r week do you engage in moderate to strenuous exercise (like a brisk walk)? 0 days 04/16/2023 On average, how many minutes do you engage in exercise at this level? 0 min 04/16/2023 Hunger Vital Sign Answer Date Recorded Within the past 12 months, y ou worried that your food would run out before you got the money to buy more. Never true 04/16/20 23 Within the past 12 months, t he food you bought just didn't last and you didn't have money to get more. Never true 04/16/2023 PRAPARE - Transportation Answer Date Re corded In the past 12 months, has l ack of transportation kept you from medical appointments or from getting medications? No 04/04 In the past 12 months, has l ack of transportation kept you from meetings, work, or from getting things needed for daily living? No 04/16/2023 Housing Stability Vital Sign Answer Billy e Recorded In the last 12 months, was t here a time when you were not able to pay the mortgage or rent on time? No 04/16/2023 In the last 12 months, how many places have you lived? 1 04/16/2023 In the last 12 months, was t here a time when you did not have a steady place to sleep or slept in a alf (including now)? No 04/16/2023 Sex and Gender Information Value Date Recorded Sex Assigned at Not on file Legal Sex Male 10:46 PM CDT Gender Identity Not on file Sexual Orientation Not on file Last Filed Vital Signs Vital Sign Reading Time Taken Comments Blood Pressure 113/53 04/17/2023 12:16 PM [employer] Pulse 80 04/17/2023 12:16 PM [employer] Temperature 36.7 C (98.1 F) 04/17/2023 12:16 PM [employer] Respiratory Rate 18 04/17/2023 12:1 6 PM [employer] Oxygen Saturation 98% 04/17/2023 12: 16 PM [employer] Inhaled Oxygen Concentration - - Weight 107.2 kg (236 lb 5.3 oz) 04/16/2023 7:45 AM [employer] Height 185.4 cm (6' 1 ) 04/16/2023 7:45 AM [employer] Body Mass Index 31.18 04/16/2023 7:45 AM [employer] Plan of Treatment Health Maintenance Due Date Last Done Comments Colorectal Cancer Screening Colonoscopy (10 Years) 1955 Hepatitis C 10/29/1973 DTaP, Tdap and Td Vaccines ( 1 - Tdap) 10/29/1974 Zoster Vaccines (1 of 2) 10/29/2005 Annual Medicare Wellness Visit 10/29/2020 COVID-19 Vaccine (4 - 2023-2 5 season) 2024 05/24/2021, 08/20/2020, 08/01/2020 RSV Immunization or 60+ Years (1 - 1-dose 75+ series) 10/29/2030 Pneumococcal Vaccine: 50+ Years Completed 04/26/2022 Meningococcal B Vaccine Aged Out No l onger eligible based on patient's age to complete this topic Meningococcal Vaccine Aged Out No sola vivek eligible based on patient's age to complete this topic RSV Immunizations Under 20 Months Aged Out No longer eligible b ased on patient's age to complete this topic Goals Goal Patient Goal Type Associated Problems Recent Progress Patient-Stated? 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 Devices Implanted Type Area Glass Cut Off Supervisor Device Identifier Shelf Expiration Date Model / Serial / Lot Graft Bone I Factor 1cc Allograft Putty Syringe - [id number] Implanted:Qty : 1 on 12/26/2022 by Gabby Marshall MD at [facility] Bone N/A: Spine Cervical [employer] [id number] 05/03/2025 700-010 / / [id number] Tamra 39-Rf-Yh-Tamra Implanted:Qty : 1 on 04/16/2023 by Gabby Marshall MD at [facility] Tamra N/A: Spine Cervical [employer] TAMRA 26-CC-PB -TAMRA / / Surgalign 26 Set Screw Implanted:Qty : 6 on 04/16/2023 by Gabby Marshall MD at [facility] Screw N/A: Spine Cervical [employer] 26-SETSC REW / / [id number] Screw Implanted:Qty : 6 on 04/16/2023 by Gabby Marshall MD at [facility] Screw N/A: Spine Cervical [employer] 26-PA-35 -14 / / Tissue Surgiflo 8ml - [id number] Implanted:Qty : 1 on 12/26/2022 by Gabby Marshall MD at [facility] Sealant N/A: Spine Cervical [employer] 02/02/2024 2991 / / [id number] Agent Hemostatic Thrombin Sterile Kit Matrix Surgiflo 8ml - [id number] Implanted:Qty : 2 on 04/16/2023 by Gabby Marshall MD at [facility] Sealant N/A: Spine Cervical [employer] 05/03/2024 2994 / / [id number] Cervical Cage Implanted:Qty : 1 on 12/26/2022 by Gabby Marshall MD at [facility] N/A: Spine Cervical 20-0608 / / Description:ZAVATION Plate Implanted:Qty : 1 on 12/26/2022 by Gabby Marshall MD at [facility] N/A: Spine Cervical 30-0114 / / Description:zavation Variable Screw Implanted:Qty : 2 on 12/26/2022 by Gabby Marshall MD at [facility] N/A: Spine Cervical 31-4014 / / Description:zavation Fixed Screw Implanted:Qty : 2 on 12/26/2022 by Gabby Marshall MD at [facility] N/A: Spine Cervical 32-4014 / / Description:zavation Insurance MEDICARE AET[employer] Advance Directives * Full Code (Latest Code Status on File) Date Activated Date Inactivated Comments 12/28/2022 8:50 PM 12/29/2022 8:39 PM Care Teams 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
--- OUTSIDE RECORDS SUMMARY | 2024-09-18 10:25 | XMS_ITS | CONTINUITY OF CARE DOCUMENT ---
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 , reversible with bronchodilators active Joseph Rios MD Shortness of breath active Vito Ibarra HTN essential--echo EF 50%, DD, 11/2020 active Joseph Rios MD Tobacco abuse active Joseph Rios MD Hyperaldosteronism completed - Joseph Rios MD Diabetes mellitus active Joseph Rios MD Obesity active Joseph Rios MD CAD Cath 2013 patent cypher stent distal rca , 20% LAD, 30% d1, ef 55% active Joseph Rios MD ENCOUNTERS Date Type Provider Location Encounter Diag nosis - In-person encounter Office Visit Joseph Rios MD [facility] - In-person encounter Office Visit Joseph Rios MD [facility] - In-person encounter Office Visit Joseph Rios MD [facility] HTN essential--echo EF 50%, DD, 11/2020 - In-person encounter Office Visit Joseph Rios MD [facility] - In-person encounter Office Visit Joseph Rios MD [facility] - In-person encounter Office Visit Joseph Rios MD [facility] - In-person encounter Office Visit Joseph Rios MD [facility] Diabetes mellitusObesity - In-person encounter Office Visit Joseph Rios MD [facility] - In-person encounter Office Visit Joseph Rios MD [facility] Hyperaldosteronism - In-person encounter Office Visit Joseph Rios MD [facility] - In-person encounter Office Visit Joseph Rios MD [facility] - In-person encounter Office Visit Joseph Rios MD [facility] - In-person encounter Office Visit Joseph Rios MD [facility] CAD Cath 2013 patent cypher stent distal rca , 20% LAD, 30% d1, ef 55%HTN essential--echo EF 50%, DD, 11/2020Tobacco abuse VITAL SIGNS Date Observation Value Provider Body Mass Index (Ratio) 30.55 kg/m2 Susanne Jiménez blood pressure, cuff size regular Ja rr blood pressure, diastolic 78 mm[Hg] Ja rret blood pressure, systolic 128 mm[Hg] Jar ret pulse rate 88 /min Bart y respiratory rate E&M 12 /min Bart oxygen saturation, oximetry 97 % Bart weight E&M 238 [lb_av] Bart y height E&M 74 [in_i] Bart Jeisonerda y Body Mass Index (Ratio) 32.94 kg/m2 Storm Rios MD blood pressure, diastolic 99 mm[Hg] Li nkLogic blood pressure, systolic 136 mm[Hg] Maria M kLogic blood pressure, diastolic 99 mm[Hg] St debbie Emeterio blood pressure, systolic 136 mm[Hg] Sta cy Emeterio oxygen saturation, oximetry 96 % Lizeth Emeterio pulse rate 99 /min Lizeth Emeterio weight E&M 256.6 [lb_av] Lizeth Emetreio respiratory rate E&M 18 /min Lizeth D marjan height E&M 74 [in_i] Lizeth Emeterio Body Mass Index (Ratio) 32.99 kg/m2 Storm Rios MD blood pressure, diastolic 84 mm[Hg] Li nkLogic blood pressure, systolic 122 mm[Hg] Maria M kLogic blood pressure, diastolic 84 mm[Hg] Ca therine Nampa blood pressure, systolic 122 mm[Hg] Cat herine [place] oxygen saturation, oximetry 96 % Mally [place]ampa respiratory rate E&M 18 /min Catheri ne Torrey pulse rate 99 /min Mally Torrey weight E&M 257 [lb_av] Mally Torrey height E&M 74 [in_i] Mally [place]ampa Body Mass Index (Ratio) 34.92 kg/m2 Storm Rios MD blood pressure, cuff size large Ke rri Gruenenfeldnatalia blood pressure, diastolic 68 mm[Hg] Ke rri Gruenenfelder blood pressure, systolic 122 mm[Hg] Ker ri Troyuenenfeldnatalia oxygen saturation, oximetry 98 % Miriam Bandanenfelder respiratory rate E&M 16 /min Miriam Duane ruenenfelder pulse rate 101 /min Miriam Solonenfe lder weight E&M 272 [lb_av] Miriam Solonenfe lder height E&M 74 [in_i] Miriam Troykortneynenfe er Body Mass Index (Ratio) 33.51 kg/m2 Storm Rios MD blood pressure, cuff size large Ke rri Troyuenenfeldnatalia blood pressure, diastolic 70 mm[Hg] Ke rri Solonenfeldnatalia blood pressure, systolic 120 mm[Hg] Michaela ri Jessy oxygen saturation, oximetry 96 % Miriam Jessy respiratory rate E&M 18 /min Miriam Zepeda aleksnfelder pulse rate 84 /min Miriam Riberae [facility] weight E&M 261 [lb_av] Miriam Troykortneyperlaantione [facility] height E&M 74 [in_i] Miriam Soloperlaantione [facility] Body Mass Index (Ratio) 32.74 kg/m2 Storm Rios MD blood pressure, cuff size regular Cy irlanda Amaya blood pressure, diastolic 70 mm[Hg] Cy irlanda Amaya blood pressure, systolic 124 mm[Hg] Terri Amaya oxygen saturation, oximetry 97 % Shannan Amaya respiratory rate E&M 16 /min Shannan Amaya pulse rate 75 /min Shannan van weight E&M 255 [lb_av] Shannan Hydebel l height E&M 74 [in_i] Shannan Dominguez l Body Mass Index (Ratio) 33.94 kg/m2 Storm Rios MD blood pressure, diastolic 72 mm[Hg] Marco Munoz blood pressure, systolic 120 mm[Hg] Maggi Munoz pulse rate 77 /min Davina Munoz oxygen saturation, oximetry 97 % Davina Munoz respiratory rate E&M 20 /min Davina Munoz weight E&M 264.4 [lb_av] Davina Munoz blood pressure, cuff size regular Marco Munoz height E&M 74 [in_i] Davina Munoz Body Mass Index (Ratio) 33.64 kg/m2 Storm Rios MD blood pressure, diastolic 76 mm[Hg] Opal Chapman blood pressure, systolic 150 mm[Hg] Kim Chapman oxygen saturation, oximetry 97 % Mera Chapman respiratory rate E&M 18 /min Myrna Chapman pulse rate 44 /min Mera meade weight E&M 262 [lb_av] Mera meade height E&M 74 [in_i] Mera meade Body Mass Index (Ratio) 35.82 kg/m2 Storm Rios MD blood pressure, resting No Елена Chapman blood pressure, diastolic 89 mm[Hg] Opal Chapman blood pressure, systolic 154 mm[Hg] Kim Chapman oxygen saturation, oximetry 98 % Mera Chapman respiratory rate E&M 18 /min Myrna Chapman pulse rate 81 /min Mera Patel ednaon weight E&M 279.0 [lb_av] Mera Gabriel lilia height E&M 74 [in_i] Mera meade blood pressure, diastolic 86 mm[Hg] Opal Chapman blood pressure, systolic 150 mm[Hg] Kim Chapman pulse rate 91 /min Mera meade oxygen saturation, oximetry 98 % Mera Chapman respiratory rate E&M 16 /min Myrna Chapman Body Mass Index (Ratio) 33.40 kg/m2 Елена Chapman weight E&M 260.2 [lb_av] Mera rodrigues Body Mass Index (Ratio) 32.09 kg/m2 Skinner i Jessy blood pressure, diastolic 88 mm[Hg] Ke rri Jessy blood pressure, systolic 149 mm[Hg] Ker ri Jessy pulse rate 16 /min Miriam Michael lder oxygen saturation, oximetry 97 % Miriam Jessy respiratory rate E&M 16 /min Miriam G janice weight E&M 250 [lb_av] Miriam Solonemohinie lder Body Mass Index (Ratio) 31.97 kg/m2 Anea aimee Robbin blood pressure, diastolic 92 mm[Hg] An eatris Robbin blood pressure, systolic 155 mm[Hg] Ane atris Robbin pulse rate 83 /min Aneatris Robbin oxygen saturation, oximetry 98 % Aneatris Robbin respiratory rate E&M 17 /min Aneatri s Robbin weight E&M 249 [lb_av] Aneatris Brown height E&M 74 [in_i] Sai Siegel ALLERGIES Allergy Name Onset Date Reaction Criticality Status GLIMEPRIDE Low Criticality active LIPITOR muscle aches Low Criticality active PCN High Criticality active RESULTS Date Observation Value Provider Reference Range Interpretation Location mean platelet volume 11.5 fL [facility] 7.5-12.5 Normal platelet count 199 THOUSAND/UL [facility] 140-400 Normal red blood cell distribution width 12.4 % [facility] 11.0-15.0 Normal mean corpuscular hemoglobin concentration, RBC 32.7 G/DL [facility] 32.0-36.0 Normal mean corpuscular hemoglobin, RBC 29.4 pg [facility] 27.0-33.0 Normal mean corpuscular volume, RBC 89.8 fL [facility] 80.0-100.0 Normal hematocrit, blood 48.3 % [facility] 38.5-50.0 Normal hemoglobin electrophoresis, blood 15.8 [facility] 13.2-17.1 Normal erythrocyte (RBC) count 5.38 MILLION/UL [facility] 4.20-5.80 Normal leukocyte (white blood cells) count, blood 5.7 THOUSAND/UL [facility] 3.8-10.8 Normal alanine aminotransferase (SGPT), serum 66 1/L [facility] 9-46 High aspartate aminotransferase (SGOT), serum 47 1/L [facility] 10-35 High alkaline phosphatase, serum 63 1/L [facility] 35-144 Normal bilirubin, serum, total 0.5 mg/dL [facility] 0.2-1.2 Normal albumin/globulin ratio, serum 1.8 (calc) [facility] 1.0-2.5 Normal globulins, serum, total 2.6 G/DL (CALC) [facility] 1.9-3.7 Normal albumin, serum 4.7 g/dL [facility] 3.6-5.1 Normal protein, total, serum 7.3 g/dL [facility] 6.1-8.1 Normal calcium, serum 10.9 mg/dL [facility] 8.6-10.3 High carbon dioxide, venous blood 29 mmol/L [facility] 20-32 Normal chloride, serum 98 mmol/L [facility] 98-110 Normal potassium, serum 4.0 mmol/L [facility] 3.5-5.3 Normal sodium, serum 136 mmol/L [facility] 135-146 Normal urea nitrogen/creatinine ratio, serum NOT APPLICABLE (calc) [facility] 6-22 Estimated Glomerular Filtration Rate (calc) 87 mL/min/{1.73_ m2} LinkLogic > OR = 60 Normal creatinine, serum 1.04 mg/dL [facility] 0.70-1.25 Normal urea nitrogen, blood 15 mg/dL [facility] 7-25 Normal blood glucose, random 155 mg/dL [facility] 65-99 High cholesterol, non-HDL, total 73 MG/DL (CALC) [facility] <130 Normal cholesterol/HDL ratio, serum, percent 3.1 (calc) [facility] <5.0 Normal LDL cholesterol, serum 39 MG/DL (CALC) [facility] Normal triglyceride, serum, fasting 287 mg/dL [facility] <150 High HDL cholesterol, serum 35 mg/dL [facility] > OR = 40 Low cholesterol, serum 108 mg/dL [facility] <200 Normal ferritin, serum 97 ng/mL [facility] 24-380 Normal basophils as percent of blood leukocytes 1.4 % [facility] Normal eosinophils as percent of blood leukocytes 1.6 % [facility] Normal monocyte count, blood 8.6 % [facility] Normal lymphocyte count, blood 27.5 % [facility] Normal neutrophils as percent of blood leukocytes 60.9 % [facility] Normal basophils, absolute, manual 113 cells/mcL [facility] 0-200 Normal eosinophils, absolute, manual 130 cells/mcL [facility] 15-500 Normal monocytes, absolute, manual 697 cells/mcL [facility] 200-950 Normal lymphocytes, absolute 2228 CELLS/UL [facility] 850-3900 Normal Absolute Neutrophil count 4933 cells/mcL [facility] 0823-3049 Normal mean platelet volume 12.2 fL [facility] 7.5-12.5 Normal platelet count 189 THOUSAND/UL [facility] 140-400 Normal red blood cell distribution width 12.2 % [facility] 11.0-15.0 Normal mean corpuscular hemoglobin concentration, RBC 33.6 G/DL [facility] 32.0-36.0 Normal mean corpuscular hemoglobin, RBC 30.2 pg [facility] 27.0-33.0 Normal mean corpuscular volume, RBC 89.8 fL [facility] 80.0-100.0 Normal hematocrit, blood 47.3 % [facility] 38.5-50.0 Normal hemoglobin electrophoresis, blood 15.9 [facility] 13.2-17.1 Normal erythrocyte (RBC) count 5.27 MILLION/UL [facility] 4.20-5.80 Normal leukocyte (white blood cells) count, blood 8.1 THOUSAND/UL [facility] 3.8-10.8 Normal alanine aminotransferase (SGPT), serum 31 1/L [facility] 9-46 Normal aspartate aminotransferase (SGOT), serum 29 1/L [facility] 10-35 Normal alkaline phosphatase, serum 60 1/L [facility] 35-144 Normal bilirubin, serum, total 0.7 mg/dL [facility] 0.2-1.2 Normal albumin/globulin ratio, serum 1.8 (calc) [facility] 1.0-2.5 Normal globulins, serum, total 2.6 G/DL (CALC) [facility] 1.9-3.7 Normal albumin, serum 4.8 g/dL [facility] 3.6-5.1 Normal protein, total, serum 7.4 g/dL [facility] 6.1-8.1 Normal calcium, serum 11.2 mg/dL [facility] 8.6-10.3 High carbon dioxide, venous blood 28 mmol/L [facility] 20-32 Normal chloride, serum 99 mmol/L [facility] 98-110 Normal potassium, serum 4.3 mmol/L [facility] 3.5-5.3 Normal sodium, serum 138 mmol/L [facility] 135-146 Normal urea nitrogen/creatinine ratio, serum NOT APPLICABLE (calc) [facility] 6-22 Estimated Glomerular Filtration Rate (calc) 102 mL/min/{1.73_ m2} Link[facility]ic > OR = 60 Normal creatinine, serum 0.92 mg/dL [facility] 0.70-1.25 Normal urea nitrogen, blood 16 mg/dL [facility] 7-25 Normal blood glucose, random 113 mg/dL [facility] 65-99 High iron saturation percent, serum 27 % (CALC) [facility] 20-48 Normal iron binding capacity, total 458 MCG/DL (CALC) [facility] 250-425 High iron, serum 125 ug/dL [facility] 50-180 Normal thyroid stimulating hormone, serum 1.49 u[IU]/mL [facility] 0.40-4.50 Normal free thyroxine index 2.2 [facility] 1.4-3.8 Normal thyroxine, serum, total 8.0 ug/dL [facility] 4.9-10.5 Normal triiodothyronine resin uptake 28 % [facility] 22-35 Normal cholesterol, non-HDL, total 96 MG/DL (CALC) [facility]ic <130 Normal cholesterol/HDL ratio, serum, percent 3.3 (calc) [facility]ic <5.0 Normal LDL cholesterol, serum 57 MG/DL (CALC) LinkLogic Normal triglyceride, serum, fasting 367 mg/dL [facility]ic <150 High HDL cholesterol, serum 42 mg/dL LinkLogic > OR = 40 Normal cholesterol, serum 138 mg/dL [facility]ic <200 Normal hemoglobin A1C, blood, as % of total hemoglobin 9.3 % [facility] LDL cholesterol, serum 97 mg/dL [facility] leukocyte esterase, urine, by dipstick NEGATIVE LinkLogic NEGATIVE Normal nitrite, urine, semiquantitative NEGATIVE LinkLogic NEGATIVE Normal protein, urine, semiquantitative (dipstick) NEGATIVE [facility] NEGATIVE Normal blood in urine (hemoglobin) by dipstick NEGATIVE Link[facility]ic NEGATIVE Normal ketones, urine, by test strip NEGATIVE [facility]ic NEGATIVE Normal bilirubin, urine NEGATIVE Link[facility]ic NEGATIVE Normal glucose, urine, semiquantitative 2+ LinkLogic NEGATIVE Abnormal pH, urine, semiquantitative 6.0 LinkLogic 5.0-8.0 Normal specific gravity, urine 1.013 [facility] 1.001-1.035 Normal appearance, urine CLEAR [facility] CLEAR Normal urine color YELLOW [facility]Logic YELLOW Normal hemoglobin A1C, blood, as % of total hemoglobin 8.8 % OF TOTAL HGB [facility] <5.7 High basophils as percent of blood leukocytes 1.1 % [facility] Normal eosinophils as percent of blood leukocytes 2.2 % [facility] Normal monocyte count, blood 8.9 % [facility] Normal lymphocyte count, blood 33.8 % [facility] Normal neutrophils as percent of blood leukocytes 54 % [facility] Normal basophils, absolute, manual 41 cells/mcL [facility] 0-200 Normal eosinophils, absolute, manual 81 cells/mcL [facility] 15-500 Normal monocytes, absolute, manual 329 cells/mcL [facility] 200-950 Normal lymphocytes, absolute 1251 CELLS/UL [facility] 850-3900 Normal Absolute Neutrophil count 1998 cells/mcL [facility] 1860-1458 Normal 2018/09 /11 mean platelet volume 11.3 fL [facility] 7.5-12.5 Normal platelet count 159 THOUSAND/UL [facility] 140-400 Normal red blood cell distribution width 12.1 % [facility] 11.0-15.0 Normal mean corpuscular hemoglobin concentration, RBC 34.9 G/DL [facility] 32.0-36.0 Normal mean corpuscular hemoglobin, RBC 30.3 pg [facility] 27.0-33.0 Normal mean corpuscular volume, RBC 86.9 fL [facility] 80.0-100.0 Normal hematocrit, blood 41.0 % [facility] 38.5-50.0 Normal hemoglobin electrophoresis, blood 14.3 [facility] 13.2-17.1 Normal erythrocyte (RBC) count 4.72 MILLION/UL [facility]Log[facility] 4.20-5.80 Normal leukocyte (white blood cells) count, blood 3.7 THOUSAND/UL [facility] 3.8-10.8 Low alanine aminotransferase (SGPT), serum 87 1/L [facility] 9-46 High aspartate aminotransferase (SGOT), serum 60 1/L [facility] 10-35 High alkaline phosphatase, serum 97 1/L [facility] 40-115 Normal bilirubin, serum, total 0.5 mg/dL [facility] 0.2-1.2 Normal albumin/globulin ratio, serum 1.7 (calc) [facility] 1.0-2.5 Normal globulins, serum, total 2.7 G/DL (CALC) [facility] 1.9-3.7 Normal albumin, serum 4.5 g/dL [facility] 3.6-5.1 Normal protein, total, serum 7.2 g/dL [facility] 6.1-8.1 Normal calcium, serum 10.5 mg/dL [facility] 8.6-10.3 High carbon dioxide, venous blood 28 mmol/L [facility] 20-32 Normal chloride, serum 99 mmol/L [facility] 98-110 Normal potassium, serum 4.1 mmol/L [facility] 3.5-5.3 Normal sodium, serum 135 mmol/L [facility] 135-146 Normal urea nitrogen/creatinine ratio, serum NOT APPLICABLE (calc) [facility] 6-22 Estimated Glomerular Filtration Rate (calc) 107 mL/min/{1.73_ m2} Link[facility] > OR = 60 Normal creatinine, serum 0.88 mg/dL [facility] 0.70-1.25 Normal urea nitrogen, blood 13 mg/dL [facility] 7-25 Normal blood glucose, random 226 mg/dL [facility] 65-99 High cholesterol, non-HDL, total 191 MG/DL (CALC) [facility] <130 High cholesterol/HDL ratio, serum, percent 5.2 (calc) [facility] <5.0 High LDL cholesterol, serum 139 MG/DL (CALC) [facility] High triglyceride, serum, fasting 335 mg/dL [facility] <150 High HDL cholesterol, serum 45 mg/dL [facility] >40 Normal cholesterol, serum 236 mg/dL [facility] <200 High red blood cell distribution width, size density 41.9 fL [facility] - immature granulocytes, percentage of total cells, blood 0.3 % [facility] - nucleated red blood cells as percent of blood leukocytes 0.0 % [facility] - red blood cell (erythrocyte) count, per high power field 0.0 10*3/UL LinkLog[facility] - eosinophils as percent of blood leukocytes 3.1 % [facility] - neutrophils as percent of blood leukocytes 58.4 % [facility] - Absolute Neutrophils 3.4 CELLS/UL [facility] 1.5 - 7.8 basophils as percent of blood leukocytes 1.4 % [facility] - Absolute Basophils 0.1 CELLS/UL [facility] 0.0 - 0.2 monocytes as percent of blood leukocytes 11.0 % [facility] - Absolute Monocytes 0.6 CELLS/UL [facility] 0.2 - 1.0 lymphocytes as percent of blood leukocytes 25.8 % [facility] - Absolute Lymphocytes 1.5 CELLS/UL [facility] 0.9 - 3.9 mean platelet volume 12.2 (?) LinkLogic - platelet count 207.0 THOUSAND/UL [facility] 100.0 - 400.0 mean corpuscular hemoglobin concentration, RBC 35.4 G/DL [facility] 31.0 - 38.0 mean corpuscular hemoglobin, RBC 32.9 pg [facility] 25.0 - 35.0 mean corpuscular volume, RBC 92.9 fL [facility] 75.0 - 100.0 hematocrit, blood 45.5 % [facility] 35.0 - 55.0 hemoglobin, blood 16.1 g/dL [facility] 11.5 - 16.5 erythrocyte count, whole blood 4.9 MILLION/UL [facility] 3.5 - 5.5 hemoglobin A1C, blood, as % of total hemoglobin 9.0 % [facility] 4.0 - 6.0 High very low density lipoproteins 79.0 mg/dL [facility] 5.0 - 40.0 High LDL/HDL (low-density lipoprotein/high-de nsity lipoprotein) ratio 3.9 RATIO [facility] - HDL cholesterol, serum 38.0 mg/dL [facility] 35.0 - 55.0 cholesterol, serum 267.0 mg/dL [facility] 0.0 - 200.0 High Triglycerides-direc t 395.0 mg/dL [facility] 0.0 - 150.0 High anion gap, serum 18.7 Link[facility] - albumin/globulin ratio, serum 2.5 g/dL [facility] 1.1 - 2.5 High globulin, serum 3.2 [facility] 2.3 - 3.8 urea nitrogen/creatinine ratio, serum 11.8 [facility] - Estimated Glomerular Filtration Rate (calc) 72.8 (?) [facility] 59.0 - chloride, serum 94.3 mmol/L [facility] 98.0 - 107.0 Low potassium, serum 4.5 mmol/L [facility] 3.5 - 5.1 sodium, serum 139.0 mmol/L [facility] 136.0 - 145.0 creatinine, serum 1.1 mg/dL [facility] 0.7 - 1.2 carbon dioxide, venous blood 26.0 mmol/L [facility] 22.0 - 29.0 albumin, serum 4.4 g/dL [facility] 3.5 - 5.2 calcium, serum 10.7 mg/dL [facility] 8.6 - 10.2 High aspartate aminotransferase (SGOT), serum 31.0 1/L [facility] 0.0 - 40.0 alkaline phosphatase, serum 166.0 1/L [facility] 40.0 - 130.0 High alanine aminotransferase (SGPT), serum 55.0 1/L [facility] 0.0 - 41.0 High protein, total, serum 7.6 g/dL [facility] 6.6 - 8.7 urea nitrogen, blood 13.0 mg/dL [facility] 6.0 - 20.0 Glucose Urine 267.0 mg/dL [facility] 74.0 - 99.0 High bilirubin, serum, total 0.5 mg/dL [facility] 0.0 - 1.2 HISTORY OF MEDICATION USE Medication Status Instructions Dates Provider Indications Com ments Symbicort 160-4.5 mcg/actuation HFA aerosol inhaler active INHALE 2 PUFFS BY MOUTH TWICE DAILY Joseph Rios MD rosuvastatin 40 mg tablet active Take 1 tablet by mouth every evening 07/24 Miriam Jiménez Fiasp FlexTouch U-100 Insulin 100 unit/mL (3 mL) insulin pen active Akash Conrad Ozempic 1 mg/dose (4 mg/3 mL) pen injector active Akash Conrad Trelegy Ellipta 100-62.5-25 mcg blister with device active Akash Conrad nicotine 21 mg/24 hr patch 24 hour active 1 patch to skin once a day 06/18 Akash Conrad rosuvastatin 40 mg tablet completed TAKE 1 TABLET DAILY AT BEDTIME 08/23 - 07/24 Miriam Jiménez hydrochlorothiazi de 12.5 mg capsule active TAKE 1 CAPSULE BY MOUTH EVERY DAY 07/15 Miriam Jiménez Farxiga 10 mg tablet active Akash Conrad quetiapine 50 mg tablet active TAKE 1 TABLET BY MOUTH ONCE A DAY Akash Conrad albuterol sulfate 90 mcg/actuation HFA aerosol inhaler active Akash Conrad fenofibrate 160 mg tablet active 1 tablet once a day 10/18 Miriam Jiménez Incruse Ellipta 62.5 mcg/actuation blister with device completed once a day 10/18 - 07/24 Akash Conrad Ozempic 0.25 mg or 0.5 mg(2 mg/1.5 mL) pen injector completed inject 0.25mg subcutaneously once weekly x4 weeks, then increase to 0.5mg subcutaneously weekly reduces risk of major CV events 10/18 - 07/24 Akash Conrad Vascepa 1 gram capsule completed 2 capsule by mouth twice a day 06/08 - 06/19 Joseph Rios MD [facility] STARTING MONTH BOX completed TAKE DIRECTED PER PACKAGE INSTRUCTIONS 06/06 - Miriam Jiménez cholecalciferol (vitamin D3) 125 mcg (5,000 unit) capsule active 1 tablet by mouth once a day 06/06 Miriam Jiménez VITAMIN C TABLET CHEWABLE active 2 once a day 06/06 Miriam Jiménez Tresiba FlexTouch U-100 100 unit/mL (3 mL) insulin pen active Inject 3 unit once a day Shannan Amaya Jardiance 25 mg tablet completed once a day - 06/19 Miriam Jiménez Crestor 40 mg tablet completed Take 1 tablet every night 09/02 - 08/23 nEid Urban ProAir HFA 90 mcg/actuation HFA aerosol inhaler active Use as needed 07/29 Davina Munoz #25, 90 days supply, Prescribed by BALTAZAR PAL, Filled 07/29/2018 Trulicity 0.75 mg/0.5 mL pen injector active Inject once a week 08/14 Davina Tammy #2, 28 days supply, Prescribed by ADAM, Filled 08/14/2018 hydrochlorothiazi de 12.5 mg capsule completed Take 1 tablet once a day 07/24 - 07/15 Jasmyne Hutton RN Called into [facility] in [place] [phone] Zetia 10 mg tablet completed 1 tablet every night 02/12 - 07/29 Vineet Vargas RN CHANTIX STARTING MONTH RADHA 0.5 MG X 11 & 1 MG X 42 ORAL TABLET completed One Pack. Take as directed. 10/01 - 08/27 Davina Munoz losartan 100 mg tablet active Take 1 tablet by mouth once a day 08/08 Joseph Rios MD Patient needs appt metformin 1,000 mg tablet active twice a day Mera Chapman JANUVIA 100 MG ORAL TABLET completed once daily - Mera Chapman VICODIN TABLET completed 5-325 mg as needed - Mera Chapman FLEXERIL 10 MG completed as needed - Miriam Jiménez IBUPROFEN 800 MG ORAL TABLET completed as needed - Joseph Rios MD Seroquel 50 mg tablet active once a day 06/06 Miriam Jiménez LEVAQUIN 500 MG ORAL TABLET completed ONE TABLET DAILY 02/16 - 02/23 Jasmyne Tejada ZITHROMAX Z-RADHA 250 MG ORAL TABLET completed TAKE DIRECTED 02/16 - 005 Miriam Jiménez MELOXICAM 7.5 MG ORAL TABLET completed 1tab twice daily - 0 Mera Chapman TRICOR 145 MG ORAL TABLET completed one tab daily - 08/08 Joseph Rios MD MAGNESIUM 250 MG ORAL TABLET completed one tab daily - 0 Mera Chapman ZOLPIDEM TARTRATE ER 12.5 MG ORAL TABLET EXTENDED RELEASE completed one tab at bedtime - Mera Chapman CALCIUM + D3 TABLET completed one tab daily - Mera Chapman PRAVACHOL 80 MG ORAL TABLET completed one tab daily at bedtime 02/12 - 09/02 Esperanza Crowe RN metoprolol succinate 50 mg tablet extended release 24 hr active 1 tablet once a day 0 Miriam Jiménez aspirin 325 mg tablet active 1 tablet once a day Mally Torrey omeprazole 40 mg capsule,delayed release(DR/EC) active 1 tablet once a day Mally Nampa HYDROCODONE-ACETA MINOPHEN TABLET completed prn - 0 Miriam Jiménez NAPROSYN 500 MG ORAL TABLET completed 1 tab twice daily - 0 Miriam Jiménez CYCLOBENZAPRINE HCL 10 MG ORAL TABLET completed 1 tab 3x daily - 0 Mera Chapman SOCIAL HISTORY Date Observation Value Provider alcohol use, average drinks per day 2 /d [facility] alcohol use yes [facility] smoking, year quit 2020 [facility] number of years as a smoker 40 a [facility] smoking, date started 1976 Akash Akira [facility] smoking history, tot al pack/year 42 [facility] smoking history, tot al pack/day 1 ppd [facility] cigarette use yes [facility] smoking status Former smoker Akash Beck i social history E&M S moking History: Edilson connell is a former smoker. Joseph Rios MD smoking, year quit 2020 Lizethrizwana Hawkins is number of years as a smoker 40 a Lizeth Storm smoking, date started 1976 Lizethrizwana Storm smoking history, tot al pack/year 42 Lizethrizwana Storm smoking history, tot al pack/day 1 ppd Lizethrizwana Storm cigarette use yes Lizethrizwana Storm smoking status Former smoker Lizethrizwana Storm social history reviewed E&M revi ewed - no changes required Joseph Rios MD smoking, year quit 2020 Mally Torrey number of years as a smoker 40 a Mally [place]ampa smoking, date started 1976 Cather ine Torrey smoking history, tot al pack/year 42 Mally Torrey smoking history, tot al pack/day 1 ppd Mally [place] cigarette use yes Mally Torrey smoking status Former smoker Mally Ot is social history reviewed E&M revi ewed - no changes required Akash Conrad social history E&M S moking History: Edilson connell is a former smoker. Joseph Rios MD social history reviewed E&M revi ewed - no changes required Joseph Rios MD number of years as a smoker 40 a Miriam Jiménez smoking history, tot al pack/day 1 ppd Miriam Owener smoking, year quit 2020 Miriam steve cigarette use yes Miriam sanchez smoking status Former smoker Miriam lopezer social history E&M S moking History: Edilson connell currently smokes every day. P becki has been counseled to quit. Nash Sathish social history reviewed E&M revi ewed - no changes required Nash Bower smoking/tobacco cess ation, patient education and counseling yes Miriam Jiménez number of years as a smoker 42 a Miriam Jiménez smoking, date started 1976 Miriam Owennatalia smoking history, tot al pack/year 42 Miriam Owener smoking history, tot al pack/day 1 Miriam Owener cigarette use yes Miriam sanchez smoking status Current every day smoker K mary jo Jiménez social history reviewed E&M revi ewed - no changes required Joseph Rios MD social history reviewed E&M revi ewed - no changes required Joseph Rios MD smoking/tobacco cess ation, patient education and counseling yes Shannan Amaya number of years as a smoker 42 a Joseph Rios MD smoking, date started 1976 Susie Amaya smoking history, tot al pack/year 42 Shannan Amaya smoking history, tot al pack/day 1 Joseph Rios MD cigarette use yes Shannan chew smoking status Current every day smoker C jefferson Amaya smoking history, tot al pack/year 42 Esperanza Crowe RN social history E&M S moking History: Edilson connell currently smokes every day. P becki has been counseled to quit. Joseph Rios MD social history reviewed E&M revi ewed - no changes required Joseph Rios MD alcohol use, average drinks per day 2 /d Davina Munoz smoking/tobacco cess ation, patient education and counseling yes Davina Munoz alcohol use yes Davina Munoz number of years as a smoker 30 a Davina Munoz smoking, date started 1976 Davina Vázquezby smoking history, tot al pack/year 40 Davina Vázquezby smoking history, tot al pack/day 1/2 Davina Vázquezby cigarette use yes Davina Vázquezby smoking status Current every day smoker Soledad Munoz social history E&M Smoking Histo ry: P atjackelyn currently smokes every day. P atjackelyn has been counseled to quit. Joseph Rios MD social history reviewed E&M revi ewed - no changes required Joseph Rios MD alcohol use, average drinks per day 2 /d Mear Chapman smoking/tobacco cess ation, patient education and counseling yes Mera Chapman alcohol use yes Mera bishopon number of years as a smoker 30 a Mera Chapman smoking, date started 1976 Ashley Riosenson smoking history, tot al pack/year 40 Mera Chapman smoking history, tot al pack/day 1/2 Joseph Rios MD cigarette use yes Mera rodrigues smoking status Current every day smoker M Raymundo Chapman social history reviewed E&M revi ewed - no changes required Joseph Rios MD alcohol use, average drinks per day 2 /d Mera Chapman smoking/tobacco cess ation, patient education and counseling yes Mera Chapman alcohol use yes Mera Patel nson number of years as a smoker 30 a Mera Riosenson smoking, date started 1976 ЕленаEl denisse Chapman smoking history, tot al pack/year 40 Mera Chapman smoking history, tot al pack/day 1 Mera Chapman cigarette use yes Mera Rios enson smoking status Current every day smoker M arLeticia Chapman smoking history, tot al pack/year 40 Joseph Rios MD social history reviewed E&M revi ewed - no changes required Joseph Rios MD alcohol use, average drinks per day 2 /d Mera Chapman smoking/tobacco cess ation, patient education and counseling yes Mera Chapman alcohol use yes Mera Sweeney nson number of years as a smoker 30 a Mera Chapman smoking, date started 1976 Ashley Chapman smoking history, tot al pack/year 38 Mera Chapman smoking history, tot al pack/day 1 Mera Chapman cigarette use yes Mera rodrigues smoking status Current every day smoker M Raymundo Chapman smoking history, tot al pack/year 38 Joseph Rios MD social history reviewed E&M revi ewed - no changes required Joseph Rios MD smoking/tobacco cess ation, patient education and counseling yes Joseph Rios MD alcohol use, average drinks per day 2 /d Miriam Jiménez alcohol use yes Miriam palacios number of years as a smoker 30 a Miriam Jiménez smoking history, tot al pack/day 1 Miriam Jiménez cigarette use yes Miriam sanchez smoking status Current every day smoker K mary jo Jessy social history reviewed E&M revi ewed - no changes required Joseph Rios MD smoking/tobacco cess ation, patient education and counseling yes Joseph Rios MD smoking, date started 1976 Gregorio Siegel smoking history, tot al pack/day 1 Sai Siegel cigarette use yes Sai Siegel smoking status Current every day smoker A vikash Siegel FUNCTIONAL STATUS Date Observation Value Provider HRA, CV Assess/Plan, Angina (inactive) Management Plan continue current therapy Akash Conrad HRA, CV Assess/Plan, Angina (inactive) Management Plan continue current therapy Akash Conrad HRA, CV Assess/Plan, Angina (inactive) Management Plan continue current therapy Joseph Rios MD HRA, CV Assess/Plan, Angina (inactive) Management Plan continue current therapy Joseph Rios MD HRA, CV Assess/Plan, Angina (inactive) Management Plan continue current therapy Joseph Rios MD HRA, CV Assess/Plan, Angina (inactive) Management Plan continue current therapy Joseph Rios MD FAMILY HISTORY Family Member Condition Mother Family History Unkno wn Father Family History of Hy pertension: INSURANCE PROVIDERS Payer name Policy type / Coverage type [place] red libertarian ID [place] [employer] Medicare [employer] S[employer]IOR [employer] 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 [id number] [place] [id number] ADVANCE DIRECTIVES Name Date DISCUSSED - NO DECISION MADE TREATMENT PLAN Date Name Performer [id number],SAkash i [id number],SAkash i [id number],S, Akash Beck i [id number],S, Akash Beck i [id number],SAkash i [id number],SJoseph MD [id number],SJoseph MD [id number],BJoseph MD [id number],SJoseph MD [id number],SJoseph MD [id number],SAkash i [id number],SAkash i [id number],S, Akash Ahmedza i [id number],S, Akash Ahmedza i [id number],S, Akash Ahmedza i Cardiology Akash Ahmedzai Cardiology Akash Ahmedzai Cardiology Akash Ahmedzai Cardiology Akash Ahmedzai Cardiology Akash Ahmedzai Cardiology Akash Ahmedzai Telehealth Akash Ahmedzai Telehealth Akash Ahmedzai Telehealth Akash Ahmedzai Telehealth Akash Ahmedzai Telehealth Akash Ahmedzai Cardiology Joseph Rios MD Cardiology Joseph Rios MD Cardiology Joseph Rios MD Cardiology Joseph Rios MD Cardiology Joseph Rios MD Cardiology Akahs Ahmedzai Cardiology Akash Ahmedzai Cardiology Akash Ahmedzai Cardiology Akash Ahmedzai Cardiology Akash Ahmedzai Cardiology Follow up Joseph perkins MD Cardiology Follow up Joseph perkins MD Cardiology Follow up Joseph perkins MD Cardiology Follow up Joseph perkins MD Cardiology Follow up Joseph perkins MD Telehealth Joseph Rios MD Telehealth Joseph Rios MD Telehealth Joseph Rios MD Telehealth Joseph Rios MD Telehealth Joseph Rios MD Cardiology Follow up Joseph perkins MD Cardiology Follow up Joseph perkins MD Cardiology Follow up Joseph perkins MD Cardiology Follow up Joseph perkins MD TeleHealth imyd - 6 month visit Joseph Rios MD TeleHealth imyd - 6 month visit Joseph Rios MD TeleHealth imyd - 6 month visit Joseph Rios MD TeleHealth imyd - 6 month visit Joseph Rios MD TeleHealth imyd - 6 month visit Joseph Rios MD Cardiology follow up Joseph perkins MD Cardiology follow up Joseph perkins MD Cardiology follow up :Last HgA1c 6.0% per patient. Joseph Rios MD Cardiology follow up :LDL in August was 94. Switched from Pravachol to Rosuvastatin (goal is LDL below 70). Will request recent labwork. Joseph Rios MD Cardiology follow up :Down 10 lb s. Joseph Rios MD Cardiology follow up :Encouraged pt to quit. Joseph Rios MD Cardiology:The Patie nt was reencouraged to stop smoking. Joseph Rios MD Cardiology Joseph Rios MD Cardiology Joseph Rios MD Cardiology Joseph Rios MD Cardiology Joseph Rios MD Cardiology Joseph Rios MD Cardiology Joseph Rios MD Cardiology Joseph Rios MD Cardiology Joseph Rios MD Cardiology Joseph Rios MD Cardiology:Counseled to quit smo mayur. Start Chantix. Joseph Rios MD Cardiology Josehp Rios MD Cardiology Joseph Rios MD Cardiology Joseph Rios MD Cardiology Joseph Rios MD Cardiology Joseph Rios MD Cardiology:increase metoprolol t o once daily Joseph Rios MD Cardiology:1/2-3/4 pack Joseph mayo MD Cardiology Joseph Rios MD Cardiology:uses inhaler occasion ally , counselled Joseph Rios MD Cardiology Joseph Rios MD Hospital Follow up : H is updated medication list for this problem includes: Metoprolol Tartrate 25 Mg Tabs (Metoprolol tartrate) ..... 1/2 tab daily Aspirin 325 Mg Tabs (Aspirin) ..... One tab. daily BP today: 149/88 P rior BP: 155/92 (01/20/2014) Joseph Rios MD Hospital Follow up : H is updated medication list for this problem includes: Tricor 145 Mg Tabs (Fenofibrate) ..... One tab daily Pravastatin Sodium 40 Mg Tabs (Pravastatin sodium) ..... One tab daily Metoprolol Tartrate 25 Mg Tabs (Metoprolol tartrate) ..... 1/2 tab daily Aspirin 325 Mg Tabs (Aspirin) ..... One tab. daily Joseph Rios MD Hospital Follow up : H is updated medication list for this problem includes: Magnesium 250 Mg Tabs (Magnesium) ..... One tab daily Calcium + D3 Tabs (Calcium carb-cholecalciferol tabs) ..... One tab daily Metoprolol Tartrate 25 Mg Tabs (Metoprolol tartrate) ..... 1/2 tab daily Aspirin 325 Mg Tabs (Aspirin) ..... One tab. daily Joseph Rios MD follow up: H is updated medication list for this problem includes: Metoprolol Tartrate 25 Mg Tabs (Metoprolol tartrate) ..... 1/2 tab daily Aspirin 325 Mg Tabs (Aspirin) ..... One tab. daily Joseph Rios MD follow up Joseph Rios MD Date Name Stress Regadenoson Stress Regadenoson CBC (H/H, RBC, INDIC ES, WBC, PLT) LIPID PANEL COMPREHENSIVE METABO LIC PANEL, W/EGFR Complete Echo IRON AND TOTAL IRON BINDING CAPACITY FERRITIN CBC (INCLUDES DIFF/P LT) TSH, free T4, total T3 LIPID PANEL COMPREHENSIVE METABO LIC PANEL, W/EGFR Arterial Duplex Bi-L ower EX URINALYSIS, REFLEX TSH, 3RD GENERATION W/REFLEX TO FT4 HEMOGLOBIN A1c CBC (INCLUDES DIFF/P LT) LIPID PANEL B TYPE NATRIURETIC P EPTIDE (BNP) COMPREHENSIVE METABO LIC PANEL, W/EGFR HEMOGLOBIN A1c LIPID PANEL COMPREHENSIVE METABO LIC PANEL W/EGFR CBC (INCLUDES DIFF/P LT) DLCO Order - [id number] FRC Order - [id number] FVC Order - [id number] HISTORY OF PROCEDURES Procedure Date Procedure Name Provider Procedure Notes S tatus EKG Joseph Rios MD completed EKG Joseph Rios MD completed EKG Joseph Rios MD completed EKG Joseph Rios MD completed EKG Joseph Rios MD completed Stress EKG Timothy Martinez MD completed Regadenoson, 4 units Joseph Rios MD completed Cardiolite, 2 units Joseph Rios MD completed SPECT Images Nazario Alarcon MD compl eted SNOMED-CT: 38147228 Physical Exam, Performed: Pulse Exam of Foot Joseph Rios MD completed EKG Joseph Rios MD completed SNOMED-CT: 024714956 011998 Current Medications Documented Joseph Rios MD completed SNOMED-CT: 817380508 Smoking Cessation Counseling Joseph Rios MD completed SNOMED-CT: 66472246 Physical Exam, Performed: Pulse Exam of Foot Joseph Rios MD completed EKG Joseph Rios MD completed SNOMED-CT: 545640483 845773 Current Medications Documented Joseph Rios MD completed BLOOD COUNT HEMOGLOBIN Joseph Rios MD completed EKG Joseph Rios MD completed
--- OUTSIDE RECORDS SUMMARY | 2024-09-18 10:25 | XMS_ITS | Patient Health Record ---
Author Organization [facility] Address [address] [place] [address] Care Team Providers Care Silviculturist Name Role Phone Dr. Trino Urias Unavailable [phone] Gabby Marshall Unavailable Unavailable Reason For Referral No Information Problems Problem Type SNOMED Code ICD Code Onset Dates Problem Status W/U Status Risk Notes Problem Carpal tunnel syndrome (15878716) Carpal tunnel syndrome, right upper limb (G56.01) Active confirmed Problem Lesion of ulnar nerve (195309050) Lesion of ulnar nerve, right upper limb (G56.21) Active confirmed Problem Lesion of ulnar nerve (088498739) Lesion of ulnar nerve, left upper limb (G56.22) Active confirmed Plan Of Treatment No Information Insurance Providers Payer Name Payer Address Payer Phone Subscriber Number Group Number Insured Name Patient Relationship to Insured Coverage Start Date Coverage End Date [employer] (Medicare) Attention Claims [address] [place] [address] [id number] Cat Pettit Self - patient is the insured Counts Include [address] [facility] [address] [address] [place] [phone] [id number] Cat Riojas Self - patient is the insured
--- NOTE | 2024-09-18 11:16 | ECG_ITS ---
Test Date: 2024-09-18 11:24:23 Measurements Intervals [place] Rate: 101 P: 98 [place]: 158 QRS: -72 QRSD: 95 T: 59 QT: 332 QTc: 432 Interpretive Statements SINUS TACHYCARDIA LEFT AXIS DEVIATION INCOMPLETE RIGHT BUNDLE BRANCH BLOCK POOR R WAVE PROGRESSION CONSIDER INFERIOR INFARCT, AGE INDETERMINATE BASELINE ARTIFACT- I, II, III, AVR, AVL, AVF, V1-V3 ABNORMAL ECG No previous ECG available for comparison Electronically Signed On 09-18-2024 11:43:12 CDT by Ky Castro D.O.
[2024-09-18 11:40] LABS: Basophils Absolute Auto 0.1 K/mm3 (0.0-0.1); Basophils Percent Auto 0.5 % (0.2-1.2); Eosinophils Absolute Auto 0.1 K/mm3 (0-0.3); Eosinophils Percent Auto 0.5 % (0-4.4); Hematocrit 41.2 % (42.0-52.0); Hemoglobin 13.5 g/dL (14.0-18.0); Immature Granulocyte Absolute 0.06 K/mm3 (0.00-0.031); Immature Granulocyte Percent A 0.6 % (0-0.5); Lymphocytes Percent Auto 8.1 % (18.3-44.2); Mean Corpuscular HGB Conc 32.8 g/dl (32-36); Mean Corpuscular Hemoglobin 28.2 pg (26-34); Mean Platelet Volume 10.1 fl (7.4-10.4); Monocytes Absolute Auto 0.6 K/mm3 (0.1-0.6); Monocytes Percent Auto 6.2 % (2.6-8.5); Neutrophils Absolute Auto 8.3 K/mm3 (1.3-6.7); Neutrophils Percent Auto 84.1 % (45.5-73.1); Platelet Count Result 214 k/mm3 (150-375); Red Blood Count 4.79 M/mm3 (4.6-6.20); Red Cell Distribution Width 12.6 % (11.5-14.5); White Blood Count 9.9 K/mm3 (4.5-10.0)
[2024-09-18 11:50] LABS: Alanine Aminotransferase 35 U/L (6-50); Albumin Level 4.5 g/dL (3.5-5.1); Alkaline Phosphatase 141 U/L (38-126); Anion Gap 15 mmol/L (4-12); Aspartate Amino Transferase 34 U/L (17-59); Bilirubin,Total 0.4 mg/dL (0.2-1.3); Blood Urea Nitrogen 23 mg/dL (9-20); Calcium 10.7 mg/dL (8.4-10.2); Carbon Dioxide 27 mmol/L (22-30); Chloride 97 mmol/L (98-107); Estimated CRCL calculation 80 ml/min; Estimated Glomerular Filt Rate > 60; Glucose 155 mg/dL (65-110); Potassium 3.9 mmol/L (3.4-5.0); Sodium 139 mmol/L (137-145)
[2024-09-18 12:16] LABS: Influenza A QL RT-PCR Negative (Negative); Influenza B QL RT-PCR Negative (Negative); RSV RNA, RT-PCR Negative (Negative); SARS-CoV-2 RNA PCR Negative (Negative)
--- OUTSIDE RECORDS SUMMARY | 2024-09-18 12:34 | XMS_ITS | Clinical Summary ---
Author Organization [facility] [address] [place] [id number] Care Team Providers Care Tree Shear Operator Name Role Phone Adrien Branch MD Unavailable [phone] Matthew Mendenhall MD Primary Care Provider [phone] Allergies Active Allergy Reactions Criticality Noted Date [...] with long-term current use of insulin ([facility]) 4 x daily 360 each 3 05/01/20 [...] with long-term current use of insulin ([facility]) One Touch Verio Lancets Use [...] with long-term current use of insulin ([facility]) Inject 10-20 Units under the skin 3 (three) times a day 54 mL 3 04/22/20 24 Active insulin degludec (TRESIBA) 200 unit/mL (3 mL) pen for injectionIndicati ons:Type 2 diabetes mellitus with hyperglycemia, with long-term current use of insulin ([facility]) Inject 0.2 mL (40 Units total) under the skin nightly 18 mL 3 04/22/20 24 025 Active tamsulosin (FLOMAX) 0.4 mg extended release capsule 07/29/19 25 Active blood glucose diagnostic stripIndications: Type 2 diabetes mellitus with hyperglycemia, with long-term current use of insulin ([facility]) One Touch Verio Test Strips [...] with long-term current use of insulin ([facility]) Inject 10-20 Units under the skin 3 (three) times a day 54 mL 3 08/08/19 25 Active Dexcom G7 Portuguese Tutor miscIndications:T ype 2 diabetes mellitus with hyperglycemia, with long-term current use of insulin ([facility]) As directed 1 each 08/08/19 25 Active metFORMIN (GLUCOPHAGE) 1,000 mg tabletIndications :Type 2 diabetes mellitus with hyperglycemia, with long-term current use of insulin ([facility]) TAKE 1 TABLET BY MOUTH TWICE DAILY WITH MEALS 180 tablet 3 08/21/19 25 Active OneTouch Verio Flex meter miscIndications:T ype 2 diabetes mellitus with hyperglycemia, with long-term current use of insulin ([facility]) USE TO CHECK GLUCOSE 4 TIMES DAILY 1 each 08/21/19 25 Active metFORMIN (GLUCOPHAGE) 1,000 mg tabletIndications :Type 2 diabetes mellitus with hyperglycemia, with long-term current use of insulin ([facility]) TAKE 1 TABLET BY MOUTH [...] 03/08/2020 Assessment & Plan (04/14/2024 12:39 PM DIAGNOSTICS TECH): Chronic, worsening Discussed about healthy lifestyle habits [...] habits Assessment & Plan (07/12/2023 8:03 AM DIAGNOSTICS TECH): Counseled on diet and exercise Assessment & [...] weekly Assessment & Plan (06/15/2022 10:04 AM DIAGNOSTICS TECH): Chronic problem. Discussed healthy diet and importance of regular physical activity (20- 30min/day, 150min/wk). Assessment & Plan (05/01/2022 1:35 PM DIAGNOSTICS TECH): Chronic, worsening Discussed about healthy lifestyle habits [...] weekly Assessment & Plan (07/11/2021 1:02 PM DIAGNOSTICS TECH): Chronic, improving with lifestyle modifications Discussed about [...] weekly Assessment & Plan (05/02/2021 10:19 AM DIAGNOSTICS TECH): Chronic, slowly improving Counseled on diet and [...] 05/23/2019 Assessment & Plan (06/14/2022 3:30 PM DIAGNOSTICS TECH): Chronic problem, uncontrolled but improving. Component Latest [...] 05/23/2019 Assessment & Plan (07/30/2024 12:16 PM DIAGNOSTICS TECH): Chronic problem. Currently using liquid vitamin D x10 gtts but not certain of actual dose. Will repeat D level today as well as CMP (was left off when he had labs done recently). Verified that he uses [employer]. Aware to check results/results letter in dooub. Will contact by phone if needed. Assessment & Plan (05/23/2019 9:13 AM DIAGNOSTICS TECH): Pt on replacement dose Will recheck levels [...] hydration Assessment & Plan (05/23/2019 9:10 AM DIAGNOSTICS TECH): Recheck labs , further plans based on the results Advised good oral hydration Assessment & Plan (02/24/2019 1:39 PM CDT): Noted random Hypercalcemia in last pt labs from November 2018 Ordered labs at that time, Pt did not get Them done Advised to do labs VAISHAIL Advise good oral hydration Type 2 diabetes mellitus wit h hyperglycemia, with long-term current use of insulin 11/22/2018 Assessment & Plan (07/30/2024 12:15 PM DIAGNOSTICS TECH): Chronic problem, A1c near goal. A1c improved [...] infection. Assessment & Plan (04/14/2024 12:40 PM DIAGNOSTICS TECH): Chronic, uncontrolled, slight worsening Hemoglobin A1c 8.1% [...] results Assessment & Plan (07/12/2023 8:04 AM DIAGNOSTICS TECH): Chronic, uncontrolled, slightly worsening A1c today - [...] 10 units If having overnight low and early breastfeeding care specialist low blood sugars decrease your tresiba dose by 4-6 units If having low blood sugars during day time, your short acting insulin by 2-4 units Assessment & Plan (06/15/2022 10:43 AM DIAGNOSTICS TECH): Chronic problem, not controlled at this time [...] BG Assessment & Plan (05/01/2022 1:37 PM DIAGNOSTICS TECH): Chronic, out of control Worsening A1c 11.5 [...] weeks Assessment & Plan (07/11/2021 1:03 PM DIAGNOSTICS TECH): Chronic, improving control A1c today 6.2% No hypoglycemia noted Continue current medication regimen Labs before next appointment Annual dilated eye exam Advised to cut back on insulin by 5-10 units if having any blood sugars less than 80 Follow-up in 6 months Assessment & Plan (05/02/2021 10:18 AM DIAGNOSTICS TECH): Chronic, uncontrolled, improving slowly A1c - 7.7 [...] months Assessment & Plan (05/23/2019 9:09 AM DIAGNOSTICS TECH): Chronic, improving BS control A1c today - [...] type 2, - patho physiology, short and group home complications of uncontrolled DM, diet and exercise [...] 11/22/2018 Assessment & Plan (07/30/2024 11:47 AM DIAGNOSTICS TECH): Chronic problem. Controlled on current losartan 100mg daily, metoprolol XL 50mg daily, HCTZ 25mg daily. Assessment & Plan (04/14/2024 12:39 PM DIAGNOSTICS TECH): Chronic, well controlled Continue losartan, hydrochlorothiazide, metoprolol Assessment & Plan (10/17/2023 9:50 PM CDT): Chronic, well controlled Continue losartan, hydrochlorothiazide, metoprolol Assessment & Plan (07/12/2023 8:03 AM DIAGNOSTICS TECH): Chronic, well controlled Continue current medications Assessment & Plan (09/04/2022 12:13 PM CDT): Chronic, well controlled Continue current medications Assessment & Plan (06/15/2022 10:03 AM DIAGNOSTICS TECH): Chronic problem, well controlled on current regimen. No changes at this time Assessment & Plan (05/01/2022 1:36 PM DIAGNOSTICS TECH): Chronic, well controlled Continue current medications Assessment & Plan (07/11/2021 1:02 PM DIAGNOSTICS TECH): Chronic, well controlled Continue current medications Assessment & Plan (05/02/2021 10:18 AM DIAGNOSTICS TECH): Chronic, well controlled Continue current medications Assessment & Plan (09/06/2020 8:34 PM CDT): Chronic, well controlled Continue current medications Assessment & Plan (03/08/2020 1:27 PM CDT): Chronic, well controlled Continue current medications Assessment & Plan (12/01/2019 3:21 PM CDT): Chronic, well controlled Continue current medications Assessment & Plan (05/23/2019 9:11 AM DIAGNOSTICS TECH): Chronic, well controlled Continue current medications Assessment & Plan (02/24/2019 1:36 PM CDT): Chronic, well controlled Continue current medications Hyperlipidemia associated with type 2 diabetes uri dawson 11/22/2018 Assessment & Plan (07/30/2024 11:47 AM DIAGNOSTICS TECH): Chronic problem. Currently taking Rosuvastatin 40mg, fenofibrate 160mg daily, zetia 10mg daily. Last lipid panel: 07/28/24 LDL=8, NC=962. Assessment & Plan (04/14/2024 12:39 PM DIAGNOSTICS TECH): On Zetia and Crestor - on fenofibrate Assessment & Plan (10/17/2023 9:50 PM CDT): On Zetia and Crestor - on fenofibrate Assessment & Plan (07/12/2023 8:03 AM DIAGNOSTICS TECH): On Zetia and Crestor - on fenofibrate Advised low carb diet and increase physical activity and work on healthy weight loss Assessment & Plan (09/04/2022 12:13 PM CDT): On Zetia and Crestor - on fenofibrate Advised low carb diet and increase physical activity and work on healthy weight loss Assessment & Plan (06/14/2022 3:30 PM DIAGNOSTICS TECH): Chronic problem, LDL=7 when last checked 04/2022. Rosuvastatin 40mg, fenofibrate 160mg daily, zetia 10mg daily. Assessment & Plan (05/01/2022 1:36 PM DIAGNOSTICS TECH): On Zetia and Crestor High TG's - on fenofibrate Advised low carb diet and increase physical activity and work on healthy weight loss Assessment & Plan (07/11/2021 1:02 PM DIAGNOSTICS TECH): On Zetia and Crestor High TG's - on fenofibrate Advised low carb diet and increase physical activity and work on healthy weight loss Assessment & Plan (05/02/2021 10:18 AM DIAGNOSTICS TECH): On Zetia and Crestor High TG's - [...] loss Assessment & Plan (05/23/2019 9:11 AM DIAGNOSTICS TECH): On Zetia and Crestor High TG's - recheck labs to follow up If still high TG 's than consider to add Vascepa Advised low carb diet and increase physical activity and work on healthy weight loss Assessment & Plan (02/24/2019 1:37 PM CDT): On Zetia and Crestor Encounters Date Type Department Care Team Description 08/19/2024 Telephone [facility] [address] [place] [phone] Karen Lauren NP Med Refill 08/15/2024 Telephone [facility] [address] [place] [phone] Silvio Nguyen MD Forms/questionnaires (Wendy ELMORE for CGM Supplies) 08/13/2024 Orders Only [facility] [address] [place] [phone] Jenni Justice MD 08/05/2024 Results Follow-Up [facility] [address] [place] [phone] Karen Lauren NP Hypercalcemia (Primary Dx); Type 2 diabetes mellitus with hyperglycemia, with long-term current use of insulin (HCC) 08/01/2024 Results Follow-Up [facility] [address] [phone] Silvio Nguyen MD 08/01/2024 Telephone [facility] [address] [place] [phone] Karen Lauren NP Forms/questionnaires (Wendy/) 07/30/2024 12:15 PM DIAGNOSTICS TECH Lab [facility] at [address] [phone] Hypertension associated with diabetes (HCC) (Primary Dx) 07/30/2024 12:04 PM DIAGNOSTICS TECH - 07/30/2024 11:59 PM DIAGNOSTICS TECH Hospital Encounter [address] [address] Vitamin D deficiency; Type 2 diabetes mellitus with hyperglycemia, with long-term current use of insulin (HCC) Discharge Disposition: Discharge to home or self care 07/30/2024 11:30 AM DIAGNOSTICS TECH Office Visit [facility] [address] [place] [phone] Karen Lauren NP Type 2 diabetes mellitus with hyperglycemia, with long-term current use of insulin (HCC) (Primary Dx); Hypertension associated with diabetes (HCC); Hyperlipidemia associated with type 2 diabetes mellitus (HCC); Vitamin D deficiency 07/28/2024 11:15 AM DIAGNOSTICS TECH Lab [facility] at [address] [phone] Hyperlipidemia associated with type 2 diabetes mellitus (HCC) (Primary Dx) 07/28/2024 11:09 AM DIAGNOSTICS TECH - 07/28/2024 11:59 PM DIAGNOSTICS TECH Hospital Encounter [address] [address] Type 2 diabetes mellitus with hyperglycemia, with [...] on file Legal Sex Male 2:27 AM DIAGNOSTICS TECH Gender Identity Not on file Sexual Orientation Not on file Obstetrics History Last Filed Vital Signs Vital Sign Reading Time Taken Comments Blood Pressure 108/60 07/30/2024 11:30 AM DIAGNOSTICS TECH Pulse 85 07/30/2024 11:30 AM DIAGNOSTICS TECH Temperature 36.2 C (97.1 F) 09/26/2022 1:59 PM CDT Respiratory Rate 16 07/30/2024 11:30 AM DIAGNOSTICS TECH Oxygen Saturation 96% 09/26/2022 2:20 PM CDT Inhaled Oxygen Concentration - - Weight 108.4 kg (239 lb) 07/30/2024 11:30 AM DIAGNOSTICS TECH Height 182.9 cm (6' 0.01 ) 07/30/2024 11:[address] Body Mass Index 32.41 07/30/2024 11:30 AM DIAGNOSTICS TECH Plan of Treatment Health Maintenance Due Date [...] Diagnosis Comments EGFR Routine 07/30/2024 12:04 PM DIAGNOSTICS TECH Type 2 diabetes mellitus with hyperglycemia, with long-term current use of insulin (HCC) COMPREHENSIVE METABOLIC PANEL Routine 07/30/2024 12:04 PM DIAGNOSTICS TECH Type 2 diabetes mellitus with hyperglycemia, with long-term current use of insulin (HCC) VITAMIN D 25 HYDROXY Routine 07/30/2024 12:04 PM DIAGNOSTICS TECH Vitamin D deficiency POCT GLUCOSE Routine 07/30/2024 11:35 AM DIAGNOSTICS TECH Type 2 diabetes mellitus with hyperglycemia, with long-term current use of insulin ([facility]) POCT HEMOGLOBIN A1C Routine 07/30/2024 1 1:35 AM DIAGNOSTICS TECH Type 2 diabetes mellitus with hyperglycemia, with long-term current use of insulin (HCC) ALBUMIN CREATININE RATIO, URINE Routine 07/28/2024 11:09 AM DIAGNOSTICS TECH Type 2 diabetes mellitus with hyperglycemia, with long-term current use of insulin (HCC) Hypertension associated with diabetes (HCC) THYROID FUNCTION CASCADE Routine 07/28/2024 10:19 AM DIAGNOSTICS TECH Type 2 diabetes mellitus with hyperglycemia, with long-term current use of insulin (HCC) LIPID PANEL Routine 07/28/2024 10:19 AM DIAGNOSTICS TECH Type 2 diabetes mellitus with hyperglycemia, with long-term current use of insulin (HCC) Hyperlipidemia associated with type 2 diabetes mellitus (HCC) HM DIABETES EYE EXAM Routine 04/14/2024 8:51 AM DIAGNOSTICS TECH from Last 3 Months or Most Recently Relevant to Health Maintenance Results * eGFR (07/30/2024 12:04 PM DIAGNOSTICS TECH) eGFR 69 >=60 mL/min/1. 73 m2 Comment: [...] reviewed 2021. Blood 07/30/2024 12:0 4 PM DIAGNOSTICS TECH 07/30/2024 8:26 PM DIAGNOSTICS TECH us Karen Lauren NP LAB BLOOD ORDERABLES Yamila l Result [facility] [id number] [address] Department [place] [employer] [place] [address] * (ABNORMAL) Vitamin D 25 hydroxy (07/30/2024 12:04 PM DIAGNOSTICS TECH) Vitamin D 25-OH 98(H) 30 - 80 ng/mL Blood 07/30/2024 12:0 4 PM DIAGNOSTICS TECH 07/30/2024 8:06 PM DIAGNOSTICS TECH us Karen Lauren TIRE TESTER LAB BLOOD ORDERABLES Yamila l Result [facility] [id number] [address] Department [place] [address] * (ABNORMAL) Comprehensive metabolic panel (07/30/2024 12:04 PM DIAGNOSTICS TECH) Sodium 139 135 - 145 mmol/L Potassium, pl 4.2 3.3 - 4.9 mmol/L [facility] Chloride 98 97 - 110 mmol/L [facility] CO2 27 22 - 32 mmol/L [facility] Anion gap 14 2 - 15 mmol/L [facility] BUN 23 6 - 25 mg/dL [facility] Creatinine 1.15 0.80 - 1.30 mg/dL [facility] Glucose 88 70 - 199 mg/dL [facility] Comment: Interpretive Data Fasting glucose [...] CH ALT 16 7 - 55 Units/L [facility] AST 25 10 - 50 Units/L [facility] Blood 07/30/2024 12:0 4 PM DIAGNOSTICS TECH 07/30/2024 8:06 PM DIAGNOSTICS TECH us Karen Lauren TIRE TESTER LAB BLOOD ORDERABLES Yamila l Result [facility] [id number] [address] [place] [address] * (ABNORMAL) POCT hemoglobin A1c (07/30/2024 11:35 AM DIAGNOSTICS TECH) Hemoglobin A1C, POC 7.2 4.0 - 5.6 % Blood 07/30/2024 11:3 5 AM DIAGNOSTICS TECH us Karen Lauren TIRE TESTER POINT OF CARE TEST ORDERA BLES Final Result * POCT glucose (07/30/2024 11:35 AM DIAGNOSTICS TECH) Pathologist [facility] Glucose Blood, POC 109 mg/dL Blood 07/30/2024 11:3 5 AM DIAGNOSTICS TECH us Karen Lauren TIRE TESTER POINT OF CARE TEST ORDERA BLES Final Result * Albumin Creatinine Ratio, Urine (07/28/2024 11:09 AM DIAGNOSTICS TECH) Pathologist [facility] Albumin Ur <12.0 mg/L Comment: Interpretive Data No reference range established. Current interpretive data was last revised 2018. Creatinine Ur 195.3 mg/dL [facility] Comment: Interpretive Data No reference range established. Current interpretive data was last revised 2018. Albumin Creatinine Ratio, Ur <20 1 - 29 mg/g [facility] Urine 07/28/2024 11:0 9 AM DIAGNOSTICS TECH 07/28/2024 9:41 PM DIAGNOSTICS TECH us Silvio Siddiqui MD LAB URINE ORDERABLE S Final Result [facility] [address] [place] [address] * Thyroid Function Upson (07/28/2024 10:19 AM DIAGNOSTICS TECH) TSH 2.36 0.30 - 4.20 mcIUnit/mL Blood 07/28/2024 10:1 9 AM DIAGNOSTICS TECH 07/28/2024 9:41 PM DIAGNOSTICS TECH Silvio Siddiqui MD LAB BLOOD ORDERABLE S Final Result Performing Organization Address [facility] Co de Phone Number [facility] [address] [address] [address] [place] [address] * (ABNORMAL) Lipid panel (07/28/2024 10:19 AM DIAGNOSTICS TECH) Cholesterol 81 30 - 199 mg/dL Comment: [...] [facility] EC[facility]A Blood 07/28/2024 10:1 9 AM DIAGNOSTICS TECH 07/28/2024 9:41 PM DIAGNOSTICS TECH Silvio Siddiqui MD LAB BLOOD ORDERABLE S Final Result [facility] [id number] [place] [address] * DIABETES EYE EXAM (04/14/2024 8:51 AM DIAGNOSTICS TECH) us Historical Provider HEALTH MAINTENANCE Final Result from Last 3 Months or Most Recently Relevant to Health Maintenance Insurance MEDICARE [employer] SENIOR SUPPLEMENT Care Teams Tree Shear Operator Relationship Specialty Start Date End Date Matthew Mendenhall MD [address] [place] [address] PCP - General Family Medicine 10/17/23 Adrien Branch MD [address] [place] [address] [address] Anesthesiologist Pain Management 05/19/22
--- OUTSIDE RECORDS SUMMARY | 2024-09-18 12:34 | XMS_ITS | Clinical Summary ---
Author Organization [facility] Address [address] [place] [address] Care Team Providers Care Sludge Filtration Operator Name Role Phone Devyn Dee MD Primary Care Provider [phone] Source Comments [facility],non-owned Affiliates and Associated Physician Practices is amultiple site organization consisting of ambulatory clinics and hospital sitesin [place], [place], [place] and [place]. This disclosure is being madepursuant to the Care Everywhere program and may not contain all information available regarding this patient. Last updated 18.[facility] Allergies Active Allergy Reactions Criticality Noted Date [...] 05/03/2021 Immunizations Immunization Administration Dates Next Due [employer] primary monoval ent 12+ yr 0.3mL Purple [...] on file Legal Sex Male 6:57 AM STERILISATION TECHNICIAN Gender Identity Not on file Sexual Orientation Not on file Last Filed Vital Signs Vital Sign Reading Time Taken Comments Blood Pressure 93/53 05/04/2021 11:32 AM STERILISATION TECHNICIAN Pulse 66 05/04/2021 11:32 AM STERILISATION TECHNICIAN Temperature 36.5 C (97.7 F) 05/04/2021 11:32 AM STERILISATION TECHNICIAN Respiratory Rate 18 05/04/2021 11:32 AM STERILISATION TECHNICIAN Oxygen Saturation 92% 05/04/2021 11:32 AM STERILISATION TECHNICIAN Inhaled Oxygen Concentration - - Weight 113.4 kg (250 lb) 05/03/2021 9:25 AM STERILISATION TECHNICIAN Height 185.4 cm (6' 1 ) 05/03/2021 9:25 AM STERILISATION TECHNICIAN Body Mass Index 32.98 05/03/2021 9:25 AM STERILISATION TECHNICIAN Plan of Treatment Health Maintenance Due Date [...] this topic Medical Devices Implanted Type Area Business Transformation Consultant Device Identifier Shelf Expiration Date Model / Serial / Lot 8 Rt Cr Femoral Implanted:Qty: 1 on 05/03/2021 by Orion Grossman MD at [facility] Right: Knee [employer] 02/18/2026 5517-F-802 / / [id number] 8x9mm Cs Tibial Bearing Insert Implanted:Qty: 1 on 05/03/2021 by Orion Grossman MD at [facility] Right: Knee [employer] 01/19/2026 5531-G-809- [id number] / / [id number] Tibial Component Implanted:Qty: 1 on 05/03/2021 by Orion Grossman MD at [facility] Right: Knee [employer] 01/11/2026 [id number] / / [id number] Insurance MEDICARE A[employer] Advance Directives * Full Code (Latest Code Status on File) Date Activated Date Inactivated Comments 05/03/2021 2:14 PM 05/04/2021 4:44 PM Care Teams Sludge Filtration Operator Relationship Specialty Start Date End Date Devyn Dee MD [facility] [place] [address] PCP - General Family Medicine 05/03/21
--- OUTSIDE RECORDS SUMMARY | 2024-09-18 12:35 | XMS_ITS | Clinical Summary ---
Author Organization [facility] Address [address] [place] [address] Care Team Providers Care Shipyard Painter Helper Name Role Phone Devyn Dee MD Primary Care Provider [phone] Joseph Rios MD Unavailable [phone] Silvio Siddiqui MD Unavailable Allergies Active Allergy Reactions Criticality Noted Date [...] drink = 0.6 oz pu re alcohol) [facility] Utilities Answer Date Recorded In the past 12 months has e QED | [employer], rag & bone, oil, or water [employer] threatened to shut off services in your [...] week 12/28/2022 How often do you attend methodist or gnosticism serv ices? Never 12/28/2022 Do you belong to any clubs o r organizations such as methodist groups, unions, fraternal or athletic groups, or [...] and heating? Not hard at all 04/16/2023 [facility] [place] [facility] Occupat ional Health - Occupational Stress [...] place to sleep or slept in a long term (including now)? No 04/16/2023 Sex and Gender Information Value Date Recorded Sex Assigned at Not on file Legal Sex Male 10:46 PM CDT Gender Identity Not on file Sexual Orientation Not on file Last Filed Vital Signs Vital Sign Reading Time Taken Comments Blood Pressure 113/53 04/17/2023 12:16 PM [facility] Pulse 80 04/17/2023 12:16 PM [facility] Temperature 36.7 C (98.1 F) 04/17/2023 12:16 PM [facility] Respiratory Rate 18 04/17/2023 12:1 6 PM [facility] Oxygen Saturation 98% 04/17/2023 12: 16 PM [facility] Inhaled Oxygen Concentration - - Weight 107.2 kg (236 lb 5.3 oz) 04/16/2023 7:45 AM [facility] Height 185.4 cm (6' 1 ) 04/16/2023 7:45 AM [facility] Body Mass Index 31.18 04/16/2023 7:45 AM [facility] Plan of Treatment Health Maintenance Due Date [...] and discharge planning Lifestyle No Marina Roberts, RADIO COMMENTATORfundraising specialist Devices Implanted Type Area Kennel Staff Member Device Identifier Shelf Expiration Date Model / Serial / Lot Graft Bone I Factor 1cc Allograft Putty Syringe - [id number] Implanted:Qty : 1 on 12/26/2022 by Gabby Marshall MD at [facility] Bone N/A: Spine Cervical [employer] [id number] 05/03/2025 700-010 / / [id number] Tamra 12-Sz-De-Tamra Implanted:Qty : 1 on 04/16/2023 by Gabby Marshall MD at [facility] Tamra N/A: Spine Cervical [employer] TAMRA 26-CC-PB -TAMRA / / Surgalign 26 Set Screw Implanted:Qty : 6 on 04/16/2023 by Gabby Marshall MD at [facility] Screw N/A: Spine Cervical [employer] 26-SETSC REW / / 3.5x14 Screw Implanted:Qty : 6 on 04/16/2023 by Gabby Marshall MD at [facility] Screw N/A: Spine Cervical [employer] 26-PA-35 -14 / / Tissue Surgiflo 8ml - [id number] Implanted:Qty : 1 on 12/26/2022 by Gabby Marshall MD at [facility] Sealant N/A: Spine Cervical [employer] 02/02/2024 2991 / / [id number] Agent Hemostatic Thrombin Sterile Kit Matrix Surgiflo 8ml - [id number] Implanted:Qty : 2 on 04/16/2023 by Gabby Marshall MD at [facility] Sealant N/A: Spine Cervical [employer] 05/03/2024 2994 / / [id number] Cervical Cage Implanted:Qty : 1 on 12/26/2022 by Gabby Marshall MD at [facility] N/A: Spine Cervical 20-0608 / / Description:ZAVATION Plate Implanted:Qty : 1 on 12/26/2022 by Gabby Marshall MD at [facility] N/A: Spine Cervical 30-0114 / / Description:zavation Variable Screw Implanted:Qty : 2 on 12/26/2022 by Gabby Marshall MD at [facility] N/A: Spine Cervical 31-4014 / / Description:zavation Fixed Screw Implanted:Qty : 2 on 12/26/2022 by Gabby Marshall MD at [facility] N/A: Spine Cervical 32-4014 / / Description:zavation Insurance MEDICARE AETNA Advance Directives * Full Code (Latest Code Status on File) Date Activated Date Inactivated Comments 12/28/2022 8:50 PM 12/29/2022 8:39 PM Care Teams Shipyard Painter Helper Relationship Specialty Start Date End Date Devyn Dee MD [address] [place] [address] PCP - General FAMILY MEDIC[facility] SPORTS MEDICINE 04/22/21 [place] [address] [place] [address] CARDIOVASCULAR DISEASE 12/06/22 [place] [address] [place] [address] ENDOCRINOLOGY 04/06/23"
--- OUTSIDE RECORDS SUMMARY | 2024-09-18 12:35 | XMS_ITS | CONTINUITY OF CARE DOCUMENT ---
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 02/15 , reversible with bronchodilators active Joseph Rios MD Shortness of breath active Vito Wyliz CAD Cath 2013 patent cypher stent distal rca , 20% LAD, 30% d1, ef 55% active Joseph Rios MD HTN essential--echo EF 50%, DD, 11/2020 active Joseph Rios MD Tobacco abuse active Joseph Rios MD Hyperaldosteronism completed - Joseph Rios MD Diabetes mellitus active Joseph Rios MD Obesity active Joseph Rios MD ENCOUNTERS Date Type Provider Location Encounter Diag nosis - In-person encounter Office Visit Joseph Rios MD [facility] - In-person encounter Office Visit Joseph Rios MD [facility] - In-person encounter Office Visit Joseph Rios MD [facility] HTN essential--echo EF 50%, DD, 11/2020 - In-person encounter Office Visit Joseph Rios MD [facility] - In-person encounter Office Visit Joseph Rios MD [facility] - In-person encounter Office Visit Joseph Rios MD [facility] - In-person encounter Office Visit Joseph Rios MD [facility] Diabetes mellitusObesity - In-person encounter Office Visit Joseph Rios MD [facility] - In-person encounter Office Visit Joseph Rios MD [facility] Hyperaldosteronism - In-person encounter Office Visit Joseph Rios MD [facility] - In-person encounter Office Visit Joseph Rios MD [facility] - In-person encounter Office Visit Joseph Rios MD [facility] - In-person encounter Office Visit Joseph Rios MD [facility] CAD Cath 2013 patent cypher stent [...] Lizeth Emeterio weight E&M 256.6 [lb_av] Lizeth Emeterio respiratory rate E&M 18 /min Lizeth D marjan height E&M 74 [in_i] Lizeth Emeterio Body Mass Index (Ratio) 32.99 kg/m2 Storm Rios MD blood pressure, diastolic 84 mm[Hg] Li nkLogic blood pressure, systolic 122 mm[Hg] Maria M kLogic blood pressure, diastolic 84 mm[Hg] Ca therine Sierraville blood pressure, systolic 122 mm[Hg] Cat herine Sierrav[place] oxygen saturation, oximetry 96 % Mally Sierraville respiratory rate E&M 18 /min Catheri ne Torrey pulse rate 99 /min Mally Torrey weight E&M 257 [lb_av] Mally Torrey height E&M 74 [in_i] Mally Sierraville Body Mass Index (Ratio) 34.92 kg/m2 Storm [...] aleksnfelder pulse rate 84 /min Miriam Riberae [facility] weight E&M 261 [lb_av] Miriam Troykortneyperlaantione [facility] height E&M 74 [in_i] Miriam Soloperlaantione [facility] Body Mass Index (Ratio) 32.74 kg/m2 Storm [...] regular Marco Munoz height E&M 74 [in_i] Davnia Munoz Body Mass Index (Ratio) 33.64 kg/m2 [...] Normal Absolute Neutrophil count 4933 cells/mcL [facility] [id number] Normal mean platelet volume 12.2 fL LinkLogic [...] as % of total hemoglobin 9.3 % [facility] LDL cholesterol, serum 97 mg/dL [facility] leukocyte esterase, urine, by dipstick NEGATIVE LinkLogic [...] Normal Absolute Neutrophil count 1998 cells/mcL [facility] [id number] Normal 2018/09 /11 mean platelet volume 11.3 [...] day 06/08 - 06/19 Joseph Rios MD [facility] STARTING MONTH BOX completed TAKE DIRECTED PER PACKAGE INSTRUCTIONS 06/06 - Miriam Jiménez cholecalciferol (vitamin D3) 125 mcg (5,000 unit) capsule active 1 tablet by mouth once a day 06/06 Miriam Jiménez VITAMIN C TABLET CHEWABLE active 2 once a day 06/06 Miriam Jiménez Tresiba FlexTouch U-100 100 unit/mL (3 mL) insulin pen active Inject 3 unit once a day Shannan mAaya Jardiance 25 mg tablet completed once a day - 06/19 Miriam Jiménez Crestor 40 mg tablet completed Take 1 tablet every night 09/02 - 08/23 Enid Urban ProAir HFA 90 mcg/actuation HFA aerosol [...] - 07/15 Jasmyne Hutton RN Called into [facility] in [place] Zetia 10 mg tablet completed 1 tablet [...] 10 MG completed as needed - Miriam Jiménze IBUPROFEN 800 MG ORAL TABLET completed as [...] active 1 tablet once a day Mally Sierraville HYDROCODONE-ACETA MINOPHEN TABLET completed prn - 0 Miriam Jiménez NAPROSYN 500 MG ORAL TABLET completed 1 tab twice daily - 0 Miriam Jiménez CYCLOBENZAPRINE HCL 10 MG ORAL TABLET completed 1 tab 3x daily - 0 Mera Chapman SOCIAL HISTORY Date Observation Value Provider alcohol use, average drinks per day 2 /d [facility] alcohol use yes [facility] smoking, year quit 2020 [facility] number of years as a smoker 40 a [facility] smoking, date started 1976 Akash Akira [facility] smoking history, tot al pack/year 42 [facility] smoking history, tot al pack/day 1 ppd [facility] cigarette use yes [facility] smoking status Former smoker Akash Beck i social history E&M S moking History: Edilson connell is a former smoker. Joseph Rios MD smoking, year quit 2020 Lizethrizwana Hawkins is number of years as a smoker 40 a Lizeth Storm smoking, date started 1976 Lizethrizwana Storm smoking history, tot al pack/year 42 Lizethrizwana tSorm smoking history, tot al pack/day 1 ppd Lizethrizwana Storm cigarette use yes Lizethrizwana Storm smoking status Former smoker Lizethrizwana Storm social history reviewed E&M revi ewed - no changes required Joseph Rios MD smoking, year quit 2020 Mally Torrey number of years as a smoker 40 a Mally Sierraville smoking, date started 1976 Cather ine Torrey smoking history, tot al pack/year 42 Mally Torrey smoking history, tot al pack/day 1 ppd Mally Sierraville cigarette use yes Mally Torrey smoking status [...] Payer name Policy type / Coverage type Jasper red constitution party ID [place] Medicare AETNA SENIOR SUPPLEMENTAL 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 [id number] [place] [id number] ADVANCE DIRECTIVES Name Date DISCUSSED - NO DECISION MADE TREATMENT PLAN Date Name Performer [id number],SAkash i [id number],SAkash i [id number],S, Akash Beck i [id number],S, Akash Beck i [id number],SAkash i [id number],SJoseph MD [id number],SJoseph MD [id number],BJoseph MD [id number],SJoseph MD [id number],SJoseph MD [id number],SAkash i [id number],SAkash i [id number],S, Akash Ahmedza i [id number],S, Akash Ahmedza i [id number],S, Akash Ahmedza i Cardiology Akash Ahmedzai Cardiology Akash Ahmedzai Cardiology Akash Ahmedzai Cardiology Akash Ahmedzai Cardiology Akash Ahmedzai Cardiology Akash Ahmedzai Telehealth Akash Ahmedzai Telehealth Akash Ahmedzai Telehealth Akash Ahmedzai Telehealth Akash Ahmedzai Telehealth Akash Ahmedzai Cardiology Joseph Rios MD Cardiology Joseph Rios MD Cardiology Joseph Rios MD Cardiology Joseph Rios MD Cardiology Joseph Rios MD Cardiology Akash Ahmedzai Cardiology Akash Ahmedzai Cardiology [...] mayur. Start Chantix. Joseph Rios MD Cardiology Joseph Rios MD [...] CBC (INCLUDES DIFF/P LT) DLCO Order - [id number] FRC Order - [id number] FVC Order - [id number] HISTORY OF PROCEDURES Procedure Date Procedure Name [...] Images Nazario Alarcon MD compl eted SNOMED-CT: 46161590 Physical Exam, Performed: Pulse Exam of Foot Joseph Rios MD completed EKG Joseph Rios MD completed SNOMED-CT: 244032687 740444 Current Medications Documented Joseph Rios MD completed SNOMED-CT: 333324948 Smoking Cessation Counseling Joseph Rios MD completed SNOMED-CT: 02071321 Physical Exam, Performed: Pulse Exam of Foot Joseph Rios MD completed EKG Joseph Rios MD completed SNOMED-CT: 917904409 758995 Current Medications Documented Joseph Rios MD completed BLOOD COUNT HEMOGLOBIN Joseph Rios MD completed EKG Joseph Rios MD completed
--- OUTSIDE RECORDS SUMMARY | 2024-09-18 12:35 | XMS_ITS | Encounter Summary ---
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
--- OUTSIDE RECORDS SUMMARY | 2024-09-18 12:35 | XMS_ITS | Continuity of Care Document ---
Author Organization [facility] Address [address] [place] [address] Phone Care Team Providers Care Bow Maker Custom Name Role Phone Pau Meek MD Unavailable Unavailable Advance Directives Directive Yes / No Effective Date File Name No Information Encounters Encounter Description Practice Location Reason(s) For Visit Diagnoses Date Provider Providers Copied on Encounter [facility], [address], [place], [place], [id number], tel:[phone] [facility] No Information Gaviota Mai. [address] [place] [address], [id number], [place]. tel:[phone] Referring Provider: Matthew Mendenhall, [facility], [place], [address]. tel:[phone] Family History Family Member Type Diagnosis Age At Onset No Information Payers Payer name Insurance type Covered republican ID Authoriza tion(s) [facility] [id number] Social History Type Description Quantity Date Captured Comments Sex Male Smoking Status No Information Chief Complaint And Reason For Visit No Information Reason For Referral Reason For Referral No Information History Of Present Illness Encounter Date Complaint History Of Prese nt Illness No Information Functional Status Date Functional Assessmen t No Information Instructions Date Instruction Additional Infor mation No Information Assessments Type Assessment Date No Information Patient Care Teams Name Effective Dates (start - stop) Status Members No Information
--- OUTSIDE RECORDS SUMMARY | 2024-09-18 12:35 | XMS_ITS | Referral Summary ---
Author Organization [facility] Physician Office Building [address] [place] [phone] Care Team Providers Care System Programmer Name Role Phone Adrien Branch MD Unavailable [phone] Matthew Mendenhall MD Primary Care Provider [phone] Encounters Date Type Department Care Team Description 08/19/2024 Telephone [facility] Diabetes and Endocrinology [address] [place] [phone] Karen Lauren NP Med Refill 08/15/2024 Telephone [facility] Diabetes and Endocrinology [address] [place] [phone] Silvio Nguyen MD [facility]na[facility] 08/13/2024 Orders Only [facility] Diabetes and Endocrinology [address] [place] [phone] ProviderJenni MD 08/05/2024 Results Follow-Up [facility] Diabetes and Endocrinology [address] [place] [phone] Karen Lauren NP Hypercalcemia (Primary Dx); Type 2 diabetes mellitus with hyperglycemia, with long-term current use of insulin (HCC) 08/01/2024 Results Follow-Up [facility] [id number] [place] [address] [address] [address] Silvio Nguyen MD 08/01/2024 Telephone [facility] Diabetes and Endocrinology [address] [place] [phone] Karen Lauren NP Forms/questionnaires ([employer]/) 07/30/2024 12:04 PM LINE PREP COOK - 07/30/2024 11:59 PM LINE [facility]P [facility]OOK Hospital Encounter [address] [address] Vitamin D deficiency; Type 2 diabetes mellitus with hyperglycemia, with long-term current use of insulin (HCC) Discharge Disposition: Discharge to home or self care 07/30/2024 12:15 PM [facility]OOK Lab [facility] Outpatient Lab at [address] [phone] Hypertension associated with diabetes (HCC) (Primary Dx) 07/30/2024 11:30 AM LINE PREP COOK Office Visit [facility] Diabetes and Endocrinology [address] [place] [phone] Karen Lauren NP Type 2 diabetes mellitus with hyperglycemia, with long-term current use of insulin (HCC) (Primary Dx); Hypertension associated with diabetes (HCC); Hyperlipidemia associated with type 2 diabetes mellitus (HCC); Vitamin D deficiency 07/28/2024 11:09 AM LINE PREP COOK - 07/28/2024 11:59 PM LINE PREP COOK Hospital Encounter [address] [address] Type 2 diabetes mellitus with hyperglycemia, with long-term current use of insulin (HCC); Hyperlipidemia associated with type 2 diabetes mellitus (HCC); Hypertension associated with diabetes (HCC) Discharge Disposition: Discharge to home or self care 07/28/2024 11:15 AM LINE PREP COOK Lab [facility] Medical [facility] Outpatient Lab at [address] [phone] Hyperlipidemia associated with type 2 diabetes mellitus [...] hyperglycemia, with long-term current use of insulin ([facility]) One Touch Verio Lancets Use 4 [...] hyperglycemia, with long-term current use of insulin ([facility]) Inject 10-20 Units under the skin 3 (three) times a day 54 mL 3 04/22/20 24 Active insulin degludec (TRESIBA) 200 unit/mL (3 mL) pen for injectionIndicati ons:Type 2 diabetes mellitus with hyperglycemia, with long-term current use of insulin ([facility]) Inject 0.2 mL (40 Units total) under the skin nightly 18 mL 3 04/22/20 24 025 Active tamsulosin (FLOMAX) 0.4 mg extended release capsule 07/29/19 25 Active blood glucose diagnostic stripIndications: Type 2 diabetes mellitus with hyperglycemia, with long-term current use of insulin ([facility]) One Touch Verio Test Strips Use [...] hyperglycemia, with long-term current use of insulin ([facility]) Inject 10-20 Units under the skin 3 (three) times a day 54 mL 3 08/08/19 25 Active Dexcom G7 Workforce Management Consultant miscIndications:T ype 2 diabetes mellitus with hyperglycemia, with long-term current use of insulin ([facility]) As directed 1 each 08/08/19 25 Active metFORMIN (GLUCOPHAGE) 1,000 mg tabletIndications :Type 2 diabetes mellitus with hyperglycemia, with long-term current use of insulin ([facility]) TAKE 1 TABLET BY MOUTH TWICE DAILY WITH MEALS 180 tablet 3 08/21/19 25 Active OneTouch Verio Flex meter miscIndications:T ype 2 diabetes mellitus with hyperglycemia, with long-term current use of insulin ([facility]) USE TO CHECK GLUCOSE 4 TIMES DAILY 1 each 08/21/19 25 Active metFORMIN (GLUCOPHAGE) 1,000 mg tabletIndications :Type 2 diabetes mellitus with hyperglycemia, with long-term current use of insulin ([facility]) TAKE 1 TABLET BY MOUTH TWICE DAILY WITH MEALS 180 tablet 07/04/19 25 025 Discontinued blood-glucose meter kitIndications:Ty pe 2 diabetes mellitus with hyperglycemia, with long-term current use of insulin ([facility]) One Touch Verio Meter Use daily [...] 03/08/2020 Assessment & Plan (04/14/2024 12:39 PM LINE PREP COOK): Chronic, worsening Discussed about healthy lifestyle habits [...] habits Assessment & Plan (07/12/2023 8:03 AM LINE PREP COOK): Counseled on diet and exercise Assessment & [...] weekly Assessment & Plan (06/15/2022 10:04 AM LINE PREP COOK): Chronic problem. Discussed healthy diet and importance of regular physical activity (20- 30min/day, 150min/wk). Assessment & Plan (05/01/2022 1:35 PM LINE PREP COOK): Chronic, worsening Discussed about healthy lifestyle habits [...] weekly Assessment & Plan (07/11/2021 1:02 PM LINE PREP COOK): Chronic, improving with lifestyle modifications Discussed about [...] weekly Assessment & Plan (05/02/2021 10:19 AM LINE PREP COOK): Chronic, slowly improving Counseled on diet and [...] 05/23/2019 Assessment & Plan (06/14/2022 3:30 PM LINE PREP COOK): Chronic problem, uncontrolled but improving. Component Latest [...] 05/23/2019 Assessment & Plan (07/30/2024 12:16 PM LINE PREP COOK): Chronic problem. Currently using liquid vitamin D x10 gtts but not certain of actual dose. Will repeat D level today as well as CMP (was left off when he had labs done recently). Verified that he uses mychart. Aware to check results/results letter in Scrip-t. Will contact by phone if needed. Assessment & Plan (05/23/2019 9:13 AM LINE PREP COOK): Pt on replacement dose Will recheck levels [...] hydration Assessment & Plan (05/23/2019 9:10 AM LINE PREP COOK): Recheck labs , further plans based on [...] 11/22/2018 Assessment & Plan (07/30/2024 12:15 PM LINE PREP COOK): Chronic problem, A1c near goal. A1c improved [...] infection. Assessment & Plan (04/14/2024 12:40 PM LINE PREP COOK): Chronic, uncontrolled, slight worsening Hemoglobin A1c 8.1% [...] results Assessment & Plan (07/12/2023 8:04 AM LINE PREP COOK): Chronic, uncontrolled, slightly worsening A1c today - [...] 10 units If having overnight low and documentum consultant low blood sugars decrease your tresiba dose by 4-6 units If having low blood sugars during day time, your short acting insulin by 2-4 units Assessment & Plan (06/15/2022 10:43 AM LINE PREP COOK): Chronic problem, not controlled at this time [...] BG Assessment & Plan (05/01/2022 1:37 PM LINE PREP COOK): Chronic, out of control Worsening A1c 11.5 [...] weeks Assessment & Plan (07/11/2021 1:03 PM LINE PREP COOK): Chronic, improving control A1c today 6.2% No hypoglycemia noted Continue current medication regimen Labs before next appointment Annual dilated eye exam Advised to cut back on insulin by 5-10 units if having any blood sugars less than 80 Follow-up in 6 months Assessment & Plan (05/02/2021 10:18 AM LINE PREP COOK): Chronic, uncontrolled, improving slowly A1c - 7.7 [...] months Assessment & Plan (05/23/2019 9:09 AM LINE PREP COOK): Chronic, improving BS control A1c today - [...] type 2, - patho physiology, short and halfway complications of uncontrolled DM, diet and exercise [...] 11/22/2018 Assessment & Plan (07/30/2024 11:47 AM LINE PREP COOK): Chronic problem. Controlled on current losartan 100mg daily, metoprolol XL 50mg daily, HCTZ 25mg daily. Assessment & Plan (04/14/2024 12:39 PM LINE PREP COOK): Chronic, well controlled Continue losartan, hydrochlorothiazide, metoprolol Assessment & Plan (10/17/2023 9:50 PM CDT): Chronic, well controlled Continue losartan, hydrochlorothiazide, metoprolol Assessment & Plan (07/12/2023 8:03 AM LINE PREP COOK): Chronic, well controlled Continue current medications Assessment & Plan (09/04/2022 12:13 PM CDT): Chronic, well controlled Continue current medications Assessment & Plan (06/15/2022 10:03 AM LINE PREP COOK): Chronic problem, well controlled on current regimen. No changes at this time Assessment & Plan (05/01/2022 1:36 PM LINE PREP COOK): Chronic, well controlled Continue current medications Assessment & Plan (07/11/2021 1:02 PM LINE PREP COOK): Chronic, well controlled Continue current medications Assessment & Plan (05/02/2021 10:18 AM LINE PREP COOK): Chronic, well controlled Continue current medications Assessment & Plan (09/06/2020 8:34 PM CDT): Chronic, well controlled Continue current medications Assessment & Plan (03/08/2020 1:27 PM CDT): Chronic, well controlled Continue current medications Assessment & Plan (12/01/2019 3:21 PM CDT): Chronic, well controlled Continue current medications Assessment & Plan (05/23/2019 9:11 AM LINE PREP COOK): Chronic, well controlled Continue current medications Assessment & Plan (02/24/2019 1:36 PM CDT): Chronic, well controlled Continue current medications Hyperlipidemia associated with type 2 diabetes uri dawson 11/22/2018 Assessment & Plan (07/30/2024 11:47 AM LINE PREP COOK): Chronic problem. Currently taking Rosuvastatin 40mg, fenofibrate 160mg daily, zetia 10mg daily. Last lipid panel: 07/28/24 LDL=8, BH=481. Assessment & Plan (04/14/2024 12:39 PM LINE PREP COOK): On Zetia and Crestor - on fenofibrate Assessment & Plan (10/17/2023 9:50 PM CDT): On Zetia and Crestor - on fenofibrate Assessment & Plan (07/12/2023 8:03 AM LINE PREP COOK): On Zetia and Crestor - on fenofibrate Advised low carb diet and increase physical activity and work on healthy weight loss Assessment & Plan (09/04/2022 12:13 PM CDT): On Zetia and Crestor - on fenofibrate Advised low carb diet and increase physical activity and work on healthy weight loss Assessment & Plan (06/14/2022 3:30 PM LINE PREP COOK): Chronic problem, LDL=7 when last checked 04/2022. Rosuvastatin 40mg, fenofibrate 160mg daily, zetia 10mg daily. Assessment & Plan (05/01/2022 1:36 PM LINE PREP COOK): On Zetia and Crestor High TG's - on fenofibrate Advised low carb diet and increase physical activity and work on healthy weight loss Assessment & Plan (07/11/2021 1:02 PM LINE PREP COOK): On Zetia and Crestor High TG's - on fenofibrate Advised low carb diet and increase physical activity and work on healthy weight loss Assessment & Plan (05/02/2021 10:18 AM LINE PREP COOK): On Zetia and Crestor High TG's - [...] loss Assessment & Plan (05/23/2019 9:11 AM LINE PREP COOK): On Zetia and Crestor High TG's - [...] on file Legal Sex Male 2:27 AM LINE PREP COOK Gender Identity Not on file Sexual Orientation Not on file Last Filed Vital Signs Vital Sign Reading Time Taken Comments Blood Pressure 108/60 07/30/2024 11:30 AM LINE PREP COOK Pulse 85 07/30/2024 11:30 AM LINE PREP COOK Temperature 36.2 C (97.1 F) 09/26/2022 1:59 PM CDT Respiratory Rate 16 07/30/2024 11:30 AM LINE PREP COOK Oxygen Saturation 96% 09/26/2022 2:20 PM CDT Inhaled Oxygen Concentration - - Weight 108.4 kg (239 lb) 07/30/2024 11:30 AM LINE PREP COOK Height 182.9 cm (6' 0.01 ) 07/30/2024 11:[address] Body Mass Index 32.41 07/30/2024 11:30 AM LINE PREP COOK Plan of Treatment Not on file Goals Goal Patient Goal Type Associated Problems Recent Progress Patient-Stated? Author [facility] No Meg Sage, JIM Note: Patient will describe how unrelieved pain will be managed. Procedures Procedure Name Priority Date/Time Associated Diagnosis Comments EGFR Routine 07/30/2024 12:04 PM LINE PREP COOK Type 2 diabetes mellitus with hyperglycemia, with long-term current use of insulin ([facility]) COMPREHENSIVE METABOLIC PANEL Routine 07/30/2024 12:04 PM LINE PREP COOK Type 2 diabetes mellitus with hyperglycemia, with long-term current use of insulin ([facility]) VITAMIN D 25 HYDROXY Routine 07/30/2024 12:04 PM LINE PREP COOK Vitamin D deficiency POCT GLUCOSE Routine 07/30/2024 11:35 AM LINE PREP COOK Type 2 diabetes mellitus with hyperglycemia, with long-term current use of insulin ([facility]) POCT HEMOGLOBIN A1C Routine 07/30/2024 1 1:35 AM LINE PREP COOK Type 2 diabetes mellitus with hyperglycemia, with long-term current use of insulin ([facility]) ALBUMIN CREATININE RATIO, URINE Routine 07/28/2024 11:09 AM LINE PREP COOK Type 2 diabetes mellitus with hyperglycemia, with long-term current use of insulin ([facility]) Hypertension associated with diabetes ([facility]) THYROID FUNCTION CASCADE Routine 07/28/2024 10:19 AM LINE PREP COOK Type 2 diabetes mellitus with hyperglycemia, with long-term current use of insulin (HCC) LIPID PANEL Routine 07/28/2024 10:19 AM LINE PREP COOK Type 2 diabetes mellitus with hyperglycemia, with long-term current use of insulin (HCC) Hyperlipidemia associated with type 2 diabetes mellitus (HCC) HM DIABETES EYE EXAM Routine 04/14/2024 8:51 AM LINE PREP COOK from Last 3 Months or Most Recently Relevant to Health Maintenance Results * eGFR (07/30/2024 12:04 PM LINE PREP COOK) eGFR 69 >=60 mL/min/1. 73 m2 Comment: [...] reviewed 2021. Blood 07/30/2024 12:0 4 PM LINE PREP COOK 07/30/2024 8:26 PM LINE PREP COOK us Karen Lauren NP LAB BLOOD ORDERABLES Yamila van Result DORI [id number] Department [place] [address] * (ABNORMAL) Vitamin D 25 hydroxy (07/30/2024 12:04 PM LINE PREP COOK) Vitamin D 25-OH 98(H) 30 - 80 ng/mL Blood 07/30/2024 12:0 4 PM LINE PREP COOK 07/30/2024 8:06 PM LINE PREP COOK us Karen Lauren NP LAB BLOOD ORDERABLES Yamila van Result DORI [id number] Department [place] [address] * (ABNORMAL) Comprehensive metabolic panel (07/30/2024 12:04 PM LINE PREP COOK) Pathologist [facility] Sodium 139 [...] CERNER CH Blood 07/30/2024 12:0 4 PM LINE PREP COOK 07/30/2024 8:06 PM LINE PREP COOK us Karen Lauren COMMUNITY CHEST OFFICER LAB BLOOD ORDERABLES Yamila l Result DORI ECHEVARRIA [id number] [place] [address] * (ABNORMAL) POCT hemoglobin A1c (07/30/2024 11:35 AM LINE PREP COOK) [facility] Hemoglobin A1C, POC 7.2 4.0 - 5.6 % Blood 07/30/2024 11:3 5 AM LINE PREP COOK us Karen Lauren COMMUNITY CHEST OFFICER POINT OF CARE TEST ORDERA BLES Final Result * POCT glucose (07/30/2024 11:35 AM LINE PREP COOK) [facility] Glucose Blood, POC 109 mg/dL Blood 07/30/2024 11:3 5 AM LINE PREP COOK us Karen Lauren NP POINT OF CARE TEST ORDERA BLES Final Result * Albumin Creatinine Ratio, Urine (07/28/2024 11:09 AM LINE PREP COOK) [facility] Albumin Ur <12.0 mg/L Comment: Interpretive Data No reference range established. Current interpretive data was last revised 2018. Creatinine Ur 195.3 mg/dL [facility] Comment: Interpretive Data No reference range established. Current interpretive data was last revised 2018. Albumin Creatinine Ratio, Ur <20 1 - 29 mg/g [facility] Urine 07/28/2024 11:0 9 AM LINE PREP COOK 07/28/2024 9:41 PM LINE PREP COOK us Silvio Siddiqui MD LAB URINE ORDERABLE S Final Result DORI ECHEVAR[facility]A [id number] Department of [facility] [place], [place] [id number] * Thyroid Function [place] (07/28/2024 10:19 AM LINE PREP COOK) TSH 2.36 0.30 - 4.20 mcIUnit/mL Blood 07/28/2024 10:1 9 AM LINE PREP COOK 07/28/2024 9:41 PM LINE PREP COOK us Silvio Siddiqui MD LAB BLOOD ORDERABLE S Final Result DORI [id number] Department [place] [address] * (ABNORMAL) Lipid panel (07/28/2024 10:19 AM LINE PREP COOK) Cholesterol 81 30 - 199 mg/dL Comment: [...] 3 DORI Blood 07/28/2024 10:1 9 AM LINE PREP COOK 07/28/2024 9:41 PM LINE PREP COOK us Supraja Artur Siddiqui Siddiqui MD LAB BLOOD ORDERABLE S Final Result DORI [place] [id number] Department [place] [address] * DIABETES EYE EXAM (04/14/2024 8:51 AM LINE PREP COOK) Historical Provider HEALTH MAINTENANCE Final Result from Last 3 Months or Most Recently Relevant to Health Maintenance Insurance MEDICARE [employer] Care Teams System Programmer Relationship Specialty Start Date End Date Matthew Mendenhall MD [facility] [place] [address] PCP - General Family Medicine 10/17/23 Adrien Branch MD [address] [facility] [address] [place] [address] [place] [phone] Anesthesiologist Pain Management 05/19/22
--- NOTE | 2024-09-18 12:47 | ED.GENADULT ---
HPI - General Adult General Chief complaint: Shortness of Breath/Dyspnea Stated complaint: sob, cough Time Seen by Provider: 09/18/24 11:57 History of Present Illness HPI narrative: 68-year-old male presents to the emergency department for evaluation for worsening shortness of breath that is been ongoing for the last 10-12 days. Patient does have a history of COPD does continue to smoke. Patient does have a prior history of [place] as well. Patient denies any associated chest pain with this. Patient reports he has had headache, sinus congestion, mucus production body aches and fatigue. Patient states he is also having some increased wheeze and exertional shortness of breath. Related Data Home Medications ?Medication ?Instructions ?Recorded ?Confirmed ?Last Taken ?Type albuterol sulfate 90 mcg/actuation 1 inh inhalation Q4H 05/05/22 09/18/24 Unknown History aerosol inhaler (ProAir HFA) aspirin 81 mg chewable tablet 81 mg PO DAILY 05/05/22 09/18/24 Unknown History diclofenac sodium 75 mg 75 mg PO Q12H PRN pain 05/05/22 09/18/24 Unknown History tablet,delayed release ezetimibe 10 mg tablet (Zetia) 10 mg PO DAILY 05/05/22 09/18/24 Unknown History hydrochlorothiazide 25 mg tablet 25 mg PO DAILY 05/05/22 09/18/24 Unknown History insulin degludec 200 unit/mL (3 20 unit subcut DAILY 05/05/22 09/18/24 Unknown History mL) subcutaneous pen (Tresiba FlexTouch U-200 insulin) losartan 100 mg tablet 100 mg PO DAILY 05/05/22 09/18/24 Unknown History metformin 1,000 mg tablet 1,000 mg PO BID 05/05/22 09/18/24 Unknown History metoprolol succinate 50 mg 50 mg PO DAILY 05/05/22 09/18/24 Unknown History tablet,extended release 24 hr omeprazole 40 mg capsule,delayed 40 mg PO DAILY 05/05/22 09/18/24 Unknown History release quetiapine 50 mg tablet 50 mg PO DAILY 05/05/22 09/18/24 Unknown History rosuvastatin 40 mg tablet 40 mg PO DAILY 05/05/22 09/18/24 Unknown History semaglutide 0.25 mg or 0.5 mg (2 0.25 mg subcut WEEKLY 12/07/2609/18/24 09/11/24 History mg/1.5 mL) subcutaneous pen injector (Ozempic) tamsulosin 0.4 mg capsule (Flomax) 0.4 mg PO DAILY 03/09/23 09/18/24 Unknown History insulin aspart 16 unit subcut TIDWMEAL 09/18/24 09/18/24 Unknown History (niacinamide)(U-100) 100 unit/mL(3 mL) subcutaneous pen (Fiasp FlexTouch U-100 Insulin) Allergies Allergy/AdvReac Type Severity Reaction Status Date / Time glimepiride Allergy Mild Rash Verified 03/09/23 14:01 Penicillins Allergy Mild Rash Verified 03/09/23 14:01 trazodone Allergy Mild Vomiting Verified 03/09/23 14:01 Review of Systems Review of Systems: All systems reviewed & are unremarkable except as noted in HPI and below PMFSH Past Medical History Medical History (Updated 09/18/24 @ 20:16 by Isabelle Hamm DO) Carotid artery disease BPH (benign prostatic hyperplasia) Cervical spondylosis Essential hypertension Hepatic steatosis Hyperlipidemia Obesity Diabetes COPD (chronic obstructive pulmonary disease) Kidney stone GERD (gastroesophageal reflux disease) Surgical History Surgical History (Updated 09/18/24 @ 20:13 by Isabelle Hamm DO) History of repair of ACL Status post cervical spinal fusion Status post cystoscopy with ureteral stent placement (07/2010) History of vasectomy Status post cataract extraction of both eyes with insertion of intraocular lens History of total right knee replacement History of coronary artery stent placement (~2005) History of colonoscopy with polypectomy H/O discectomy Family History Family History Father Lung cancer Diabetes mellitus Mother Hyperlipidemia Fibromyalgia Sibling Diabetes mellitus Heart disease Social History Social History (Updated 09/18/24 @ 20:14 by Isabelle Hamm DO) Social History: He lives in [place] with his . Code status: Full code Surrogate decision maker: Anisa () Years smoked: 45 Smoking status: Heavy tobacco smoker Second hand tobacco smoke exposure: No Alcohol intake: current Substance use: never Substance use type: does not use Do You Feel Safe in your Home?: Yes Lack of Transportation: No Lack of Food: Never True Current Housing: I Have Housing Concerned About Future Housing: No Difficulty Paying Gas/Electric Bills: No Difficulty Paying for Meds: No Currently Unemployed: No Education: Trade/Vocational Certificate Difficulty w/ Childcare or Family Care: No Living arrangements: with family Occupation/Education: retired 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 Gender identity (if verbalized by the patient): Male Spiritual care concerns: No Exam Narrative: APPEARANCE: Well appearing, no pain, no distress, well-nourished. HEAD: normocephalic, atraumatic. EYES: PERRLA/EOMI, conjunctivae clear. NOSE: Normal no drainage EARS:TMS clear with good light reflex. THROAT: Pharynx clear, no exudate. NECK: Supple. No adenopathy, no masses. RESPIRATORY: No increased work of breathing but does have expiratory wheeze bilaterally CARDIOVASCULAR: Regular rate and rhythm without murmurs rubs or gallops. ABDOMINAL: Soft, nontender, nondistended, normal bowel sounds MUSCULOSKELETAL: Moves all extremities. Strength/ROM intact, No edema, No calf tenderness. NEURO: Alert. Cranial nerves II through XII intact. Grossly intact SKIN: Warm, dry. Normal Color Course Vital Signs Vital signs: Vital Signs Temperature 97.8 F 09/18/24 10:04 Pulse Rate 113 H 09/18/24 10:04 Respiratory Rate 18 09/18/24 10:04 Blood Pressure 121/61 09/18/24 10:04 Pulse Oximetry 93 09/18/24 10:04 Oxygen Delivery Room Air 09/18/24 10:04 Temperature 97.4 F L 09/18/24 15:30 Pulse Rate 106 H 09/18/24 20:33 Respiratory Rate 18 09/18/24 20:33 Blood Pressure 124/58 L 09/18/24 16:01 Pulse Oximetry 93 09/18/24 20:29 Oxygen Delivery Nasal Cannula 09/18/24 20:29 Oxygen Flow Rate 2 09/18/24 20:29 Medical Decision Making [facility] Narrative Medical decision making narrative: 68-year-old male presents emergency department for evaluation for worsening shortness breath over the course of the last 10-12 days. Patient is currently afebrile with no leukocytosis and hemoglobin 13.5. Patient has no significant abnormalities on his CMP patient was negative for influenza RSV and for COVID and chest x-ray shows no acute cardiopulmonary abnormality. Patient was treated with 10 mg of nebulized albuterol but still was feeling short of breath. Patient does have a new O2 requirement as he decreased to 87% on room air. Low concern for pneumonia so patient was not started on antibiotics. Patient was discussed with the hospitalist and accepted for admission. Differential Diagnosis Differential Diagnosis: COVID, RSV, influenza, pneumonia, COPD Vital Signs Vital Signs: Vital Signs Temperature 97.8 F 09/18/24 10:04 Pulse Rate 113 H 09/18/24 10:04 Respiratory Rate 18 09/18/24 10:04 Blood Pressure 121/61 09/18/24 10:04 Pulse Oximetry 93 09/18/24 10:04 Oxygen Delivery Room Air 09/18/24 10:04 Temperature 97.4 F L 09/18/24 15:30 Pulse Rate 106 H 09/18/24 20:33 Respiratory Rate 18 09/18/24 20:33 Blood Pressure 124/58 L 09/18/24 16:01 Pulse Oximetry 93 09/18/24 20:29 Oxygen Delivery Nasal Cannula 09/18/24 20:29 Oxygen Flow Rate 2 09/18/24 20:29 Lab Data Lab results reviewed: Yes I reviewed the patient's lab results. 09/18/24 11:34 09/18/24 11:34 Labs: Lab Results 09/18/24 Range/Units 11:34 WBC 9.9 (4.5-10.0) K/mm3 RBC 4.79 (4.6-6.20) M/mm3 Hgb 13.5 L (14.0-18.0) g/dL Hct 41.2 L (42.0-52.0) % MCV 86.0 (80-100) fl MCH 28.2 (26-34) pg MCHC 32.8 (32-36) g/dl RDW 12.6 (11.5-14.5) % Plt Count 214 (150-375) k/mm3 MPV 10.1 (7.4-10.4) fl Immature Gran % (Auto) 0.6 H (0-0.5) % Neut % (Auto) 84.1 H (45.5-73.1) % Lymph % (Auto) 8.1 L (18.3-44.2) % [place] % (Auto) 6.2 (2.6-8.5) % Eos % (Auto) 0.5 (0-4.4) % Baso % (Auto) 0.5 (0.2-1.2) % Lymph # (Auto) 0.80 L (0.9-3.2) K/mm3 [place] # (Auto) 0.6 (0.1-0.6) K/mm3 Eos # (Auto) 0.1 (0-0.3) K/mm3 Baso # (Auto) 0.1 (0.0-0.1) K/mm3 Abs Immat Gran (auto) 0.06 H (0.00-0.031) K/mm3 Absolute Neuts (auto) 8.3 H (1.3-6.7) K/mm3 Absolute Nucleated RBC 0.000 (0.0-0.012) K/mm3 Nucleated RBC % 0.0 (0.0-0.2) % Sodium 139 (137-145) mmol/L Potassium 3.9 (3.4-5.0) mmol/L Chloride 97 L (98-107) mmol/L Carbon Dioxide 27 (22-30) mmol/L Anion Gap 15 H (4-12) mmol/L BUN 23 H (9-20) mg/dL Creatinine 1.04 (0.7-1.3) mg/dL Estim Creat Clear Calc 80 ml/min Estimated GFR > 60 (59 - ) Glucose 155 H (65-110) mg/dL Calcium 10.7 H (8.4-10.2) mg/dL Total Bilirubin 0.4 (0.2-1.3) mg/dL AST 34 (17-59) U/L ALT 35 (6-50) U/L Alkaline Phosphatase 141 H (38-126) U/L Total Protein 8.0 (6.3-8.2) g/dL Albumin 4.5 (3.5-5.1) g/dL Influenza A (RT-PCR) Negative (Negative) Influenza B (RT-PCR) Negative (Negative) RSV (RT-PCR) Negative (Negative) SARS-CoV-2 RNA (RT-PCR) Negative (Negative) Imaging Data Radiologist's impression: Impressions Chest X-Ray 09/18/24 11:47 IMPRESSION: 1: NO ACUTE CARDIOPULMONARY DISEASE. Discharge Plan Discharge Clinical Impression: Acute exacerbation of chronic obstructive pulmonary disease, Hypoxia Patient Disposition: Still a Patient Condition: Stable
[2024-09-18] MEDS: methylPREDNISolone SOD SUCC 125 MG VIAL IV PUSH (12:59)
[2024-09-18] MEDS: ALBUTEROL SULFATE NEB 2.5 MG/3 ML INH 10 MG INHALATION (13:09)
--- NOTE | 2024-09-18 13:55 | ECG_ITS ---
Test Date: 2024-09-18 14:08:24 Measurements Intervals [place] Rate: 117 P: 83 LA: 155 QRS: -84 QRSD: 97 T: 70 QT: 312 QTc: 436 Interpretive Statements SINUS TACHYCARDIA WITH OCCASIONAL VENTRICULAR PREMATURE COMPLEXES LEFT AXIS DEVIATION INCOMPLETE RIGHT BUNDLE BRANCH BLOCK BORDERLINE R WAVE PROGRESSION, ANTERIOR LEADS CONSIDER INFERIOR INFARCT, AGE INDETERMINATE BASELINE ARTIFACT- I, II, AVR, AVL, V1 ABNORMAL ECG Compared to ECG 09/18/2024 11:24:23 HEART RATE HAS INCREASED Electronically Signed On 09-18-2024 14:13:16 CDT by Ky Castro D.O.
[2024-09-18] MEDS: MORPHINE SULFATE (*CRX) 4 MG/ML INJ IV PUSH (14:01)
[2024-09-18] MEDS: CYCLOBENZAPRINE HCL 10 MG TABLET PO (14:02)
--- NOTE | 2024-09-18 15:03 | PC.NURSE ---
Pt was desating on the monitor at 87% RA. This RN placed NC at 2.5L and pt's O2 was brought up to 95%. Pt denies wearing oxygen at home and reports SOB for past week.
--- NOTE | 2024-09-18 15:47 | PC.NURSE ---
ordered patient heart healthy meal tray at [phone]
--- NOTE | 2024-09-18 16:44 | ADMGEN ---
This patient, Cat Pettit, was admitted to [facility] Surg Room 322-01. Patient/family oriented to hospital policies and general routines including ID bracelet, bed and alarms, visiting hours, pain management, procedures, bathroom and other care routines, personal items, smoking policy, room service/diet, and visiting hours. Information on how to activate the Rapid Response Team has been discussed. Patient/Family are encouraged to report perceived risks to care and to ask questions if they do not understand what they are told or what they should do.
[2024-09-18] MEDS: methylPREDNISolone SOD SUCC 125 MG VIAL 60 MG IV PUSH ×2 (18:57→23:55)
--- NOTE | 2024-09-18 20:01 | PM.IMHP ---
H&P: HPI History of Present Illness Date/Time: 09/18/24 20:01 Chief Complaint: Shortness of breath, cough Narrative: 68-year-old male with a past medical history of coronary artery disease, insulin-dependent diabetes mellitus, GERD, BPH, essential hypertension, hyperlipidemia, COPD and continued tobacco abuse who presented to the ER from home due to worsening shortness of breath. The patient reports that he has been having cough headache and generalized body aches accompanying is worsening shortness of breath for the last 10 days or so. He reports generalized chest tightness. He has been having some discomfort in the posterior right ribs more so when he takes a deep breath and coughs. He denies any actual chest pain or palpitations. He reports he has become so short of breath that he has had to sit up to sleep. He reports he been wheezing more than usual. He has been able to cough some mucus up but it is been more difficult to produce sputum. He has had moderately poor appetite. He denies any lower extremity swelling. He denies known history of CHF. He has continued to smoke but has cut back over the last week or so due to his symptoms. He reports the symptoms have not improved despite using his rescue inhaler 2 puffs every 2 hours with increasing frequency over the last several days. He denies any fevers or chills. His grand children had had recent viral symptoms about 3 weeks ago. Labs in the ER demonstrated hypercalcemia. Patient reports that he has had hypercalcemia for a couple of years and is thought to be due to vitamin-D deficiency. Review of Systems Review of Systems: 12 systems were reviewed with pertinent positives and negatives per HPI. Except as documented in the HPI, all other systems were reviewed and are negative. He reports chronic weak urinary stream due to history of BPH. He feels that he may have some incomplete bladder emptying. He denies dysuria or hematuria. [facility] Past Medical History Medical History (Updated 09/18/24 @ 20:16 by Isabelle Hamm DO) Carotid artery disease BPH (benign prostatic hyperplasia) Cervical spondylosis Essential hypertension Hepatic steatosis Hyperlipidemia Obesity Diabetes COPD (chronic obstructive pulmonary disease) Kidney stone GERD (gastroesophageal reflux disease) Surgical History Surgical History (Updated 09/18/24 @ 20:13 by Isabelle Hamm DO) History of repair of ACL Status post cervical spinal fusion Status post cystoscopy with ureteral stent placement (07/2010) History of vasectomy Status post cataract extraction of both eyes with insertion of intraocular lens History of total right knee replacement History of coronary artery stent placement (~2005) History of colonoscopy with polypectomy H/O discectomy Family History Family History Father Lung cancer Diabetes mellitus Mother Hyperlipidemia Fibromyalgia Sibling Diabetes mellitus Heart disease Social History Social History (Updated 09/19/24 @ 06:02 by Isabelle Hamm DO) Social History: He lives in [place] with his of approximately 50 years. His daughter son-in-law and 2 grandsons also live with them. He has smoked a little less than a pack of cigarettes per day since he was a teenager. He used to drink moderate amount of alcohol on a regular basis but only drinks alcohol about once a month now. He denies illicit substance use. Code status: Full code (however he would not want to be on ventilator long-term urge to have a long-term feeding tube) Surrogate decision maker: Anisa () Smoking packs per day: 1 Smoking cigarettes per day: 20.0 Years smoked: 49 Smoking pack-years: 49.00 Smoking status: Heavy tobacco smoker Second hand tobacco smoke exposure: No Alcohol intake: current Substance use: never Substance use type: does not use Do You Feel Safe in your Home?: Yes Lack of Transportation: No Lack of Food: Never True Current Housing: I Have Housing Concerned About Future Housing: No Difficulty Paying Gas/Electric Bills: No Difficulty Paying for Meds: No Currently Unemployed: No Education: Trade/Vocational Certificate Difficulty w/ Childcare or Family Care: No Living arrangements: with family Occupation/Education: retired 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 Gender identity (if verbalized by the patient): Male Spiritual care concerns: No Meds Home Medications and Allergies Home Medications ?Medication ?Instructions ?Recorded ?Confirmed ?Type albuterol sulfate 90 mcg/actuation 1 inh inhalation Q4H 05/05/22 09/18/24 History aerosol inhaler (ProAir HFA) aspirin 81 mg chewable tablet 81 mg PO DAILY 05/05/22 09/18/24 History diclofenac sodium 75 mg 75 mg PO Q12H PRN pain 05/05/22 09/18/24 History tablet,delayed release ezetimibe 10 mg tablet (Zetia) 10 mg PO DAILY 05/05/22 09/18/24 History hydrochlorothiazide 25 mg tablet 25 mg PO DAILY 05/05/22 09/18/24 History insulin degludec 200 unit/mL (3 20 unit subcut DAILY 05/05/22 09/18/24 History mL) subcutaneous pen (Tresiba FlexTouch U-200 insulin) losartan 100 mg tablet 100 mg PO DAILY 05/05/22 09/18/24 History metformin 1,000 mg tablet 1,000 mg PO BID 05/05/22 09/18/24 History metoprolol succinate 50 mg 50 mg PO DAILY 05/05/22 09/18/24 History tablet,extended release 24 hr omeprazole 40 mg capsule,delayed 40 mg PO DAILY 05/05/22 09/18/24 History release quetiapine 50 mg tablet 50 mg PO DAILY 05/05/22 09/18/24 History rosuvastatin 40 mg tablet 40 mg PO DAILY 05/05/22 09/18/24 History semaglutide 0.25 mg or 0.5 mg (2 0.25 mg subcut WEEKLY 05/05/22 09/18/24 History mg/1.5 mL) subcutaneous pen injector (Ozempic) tamsulosin 0.4 mg capsule (Flomax) 0.4 mg PO DAILY 03/09/23 09/18/24 History insulin aspart 16 unit subcut TIDWMEAL 09/18/24 09/18/24 History (niacinamide)(U-100) 100 unit/mL(3 mL) subcutaneous pen (Fiasp FlexTouch U-100 Insulin) Allergies Allergy/AdvReac Type Severity Reaction Status Date / Time glimepiride Allergy Mild Rash Verified 03/09/23 14:01 Penicillins Allergy Mild Rash Verified 03/09/23 14:01 trazodone Allergy Mild Vomiting Verified 03/09/23 14:01 Vital Signs Vital Signs - 24 hr 09/18/24 10:04 09/18/24 11:13 09/18/24 11:15 Temperature 97.8 F Pulse Rate 113 H 108 H Respiratory Rate 18 18 Blood Pressure 121/61 118/67 Pulse Oximetry 93 92 93 Oxygen Delivery Room Air Room Air Oxygen Flow Rate 09/18/24 11:17 09/18/24 11:31 09/18/24 11:32 Temperature Pulse Rate 103 H 107 H 104 H Respiratory Rate 17 20 18 Blood Pressure 104/66 139/74 Pulse Oximetry 94 Oxygen Delivery Oxygen Flow Rate 09/18/24 12:40 09/18/24 13:03 09/18/24 13:09 Temperature Pulse Rate 98 102 H 103 H Respiratory Rate 17 16 17 Blood Pressure 122/67 108/61 Pulse Oximetry 92 93 Oxygen Delivery Oxygen Flow Rate 09/18/24 13:15 09/18/24 13:31 09/18/24 14:02 Temperature Pulse Rate 99 110 H 121 H Respiratory Rate 16 18 18 Blood Pressure 128/67 115/60 Pulse Oximetry 99 99 99 Oxygen Delivery Oxygen Flow Rate 09/18/24 14:18 09/18/24 14:31 09/18/24 15:01 Temperature Pulse Rate 113 H 110 H Respiratory Rate 18 20 Blood Pressure 113/54 L Pulse Oximetry 91 Oxygen Delivery Nasal Cannula Oxygen Flow Rate 2 09/18/24 15:01 09/18/24 15:02 09/18/24 15:15 Temperature Pulse Rate 110 H 108 H 118 H Respiratory Rate 19 15 22 H Blood Pressure 109/60 Pulse Oximetry 94 96 94 Oxygen Delivery Oxygen Flow Rate 09/18/24 15:30 09/18/24 15:31 09/18/24 16:01 Temperature 97.4 F L Pulse Rate 105 H 113 H 106 H Respiratory Rate 20 24 H 18 Blood Pressure 120/59 L 114/59 L 124/58 L Pulse Oximetry 93 96 95 Oxygen Delivery Oxygen Flow Rate Exam Narrative: Weight 111 kg BMI 31.4 Const: Other: Obese, mildly ill-appearing, appears stated age HENMT: Other: Mucous membranes are tacky, no oral pharyngeal erythema, markedly crowded posterior oropharynx Eyes: Other: Pupils are equal and reactive, no scleral icterus, no conjunctival pallor Neck: Other: No JVD, no gross lymphadenopathy Resp: Other: Diffuse wheezing bilateral anterior and posterior lung [place], mild tachypnea with conversation Cardio: Other: Sinus tachycardia, 2+ bilateral radial and pedal pulses, no murmur GI: Other: Distended, nontender, normoactive bowel sounds Skin: Other: Mild pallor, non jaundice Neuro: Other: Alert oriented x4, speech is clear, no facial asymmetry, no localizing neurologic deficits noted during the course of conversation Extrem: Other: No cyanosis, no edema Psych: Other: Appropriate mood and affect, pleasant and cooperative, judgment and insight intact H&P: Results Labs Labs: Laboratory Tests 09/18/24 11:34 09/18/24 11:34 09/18/24 11:34 WBC 9.9 RBC 4.79 Hgb 13.5 L Hct 41.2 L MCV 86.0 MCH 28.2 MCHC 32.8 RDW 12.6 Plt Count 214 MPV 10.1 Immature Gran % (Auto) 0.6 H Neut % (Auto) 84.1 H Lymph % (Auto) 8.1 L [place] % (Auto) 6.2 Eos % (Auto) 0.5 Baso % (Auto) 0.5 Lymph # (Auto) 0.80 L [place] # (Auto) 0.6 Eos # (Auto) 0.1 Baso # (Auto) 0.1 Abs Immat Gran (auto) 0.06 H Absolute Neuts (auto) 8.3 H Absolute Nucleated RBC 0.000 Nucleated RBC % 0.0 Sodium 139 Potassium 3.9 Chloride 97 L Carbon Dioxide 27 Anion Gap 15 H BUN 23 H Creatinine 1.04 Estim Creat Clear Calc 80 Estimated GFR > 60 Glucose 155 H Calcium 10.7 H Total Bilirubin 0.4 AST 34 ALT 35 Alkaline Phosphatase 141 H Total Protein 8.0 Albumin 4.5 Influenza A (RT-PCR) Negative Influenza B (RT-PCR) Negative RSV (RT-PCR) Negative SARS-CoV-2 RNA (RT-PCR) Negative Impressions Chest X-Ray 09/18/24 11:47 IMPRESSION: 1: NO ACUTE CARDIOPULMONARY DISEASE. EKG:Test Date: 2024-09-18 14:08:24 Measurements Intervals [place] Rate: 117 P: 83 ME: 155 QRS: -84 QRSD: 97 T: 70 QT: 312 QTc: 436 Interpretive Statements SINUS TACHYCARDIA WITH OCCASIONAL VENTRICULAR PREMATURE COMPLEXES LEFT AXIS DEVIATION INCOMPLETE RIGHT BUNDLE BRANCH BLOCK BORDERLINE R WAVE PROGRESSION, ANTERIOR LEADS CONSIDER INFERIOR INFARCT, AGE INDETERMINATE BASELINE ARTIFACT- I, II, AVR, AVL, V1 ABNORMAL ECG Compared to ECG 09/18/2024 11:24:23 HEART RATE HAS INCREASED All imaging and EKGs personally reviewed and interpreted. And unless stated otherwise agree with radiologic and cardiology interpretation. 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 Patient been started on scheduled nebulizer treatments and IV steroids after loading dose of Solu-Medrol 125 was administered in the ER. Will increase the frequency of nebulizer treatments to q.4 hours. Will wean oxygen as tolerated. Smoking cessation has been strongly encouraged. Smoking cessation education provided. Nicotine patch is been made available as needed for symptoms of nicotine withdrawal. Will provide Mucinex scheduled for mucolytic effect. The patient does have type 2 diabetes mellitus is mildly hyperglycemic but I anticipate increased glucoses given steroid administration. Will resume the patient's long-acting insulin and will add mealtime bolus insulin of 6 units with meals as well as moderate sliding scale insulin with Accu-Cheks a.c. HS. Hypoglycemia protocol has been ordered as needed. Patient is mildly hypercalcemic given patient's tachycardia and recent illness I suspect some component of dehydration. Will give 1 L of IV fluids at 100 mL an hour and then will re-evaluate electrolyte panel in a.m.. Patient did receive a fluids prior to my evaluation before he told me that he had chronic hypercalcemia. Repeat CMP has been ordered as a Patient has been admitted as observation status. Quality VTE Prophylaxis VTE prophylaxis: pharmacologic ordered (Lovenox 40 mg subQ daily.) Hospitalist [facility] Advance Care Plan I have confirmed that the patient's Advanced Care Plan is present, code status is documented, or surrogate decision maker is listed in patient medical record.: Yes Medication Reconciliation I have utilized all available resources to obtain, update and review the patients current medications (includes all prescriptions, OTC, herbals, cannabis, and nutritional supplements).: Yes
[2024-09-18] MEDS: IPRATROPIUM 0.5 MG/ALBUTEROL SULFATE 2.5 MG AMPUL.NEB 3 ML INHALATION (20:23)
[2024-09-18] MEDS: SODIUM CHLORIDE 0.9% IV 1,000 ML 100 ML IV CONT (20:35)
[2024-09-18] MEDS: PANTOPRAZOLE 40 MG TABLET PO (20:36)
[2024-09-18] MEDS: guaiFENesin 12 HR 600 MG TABCR 1200 MG PO (20:37)
[2024-09-18] MEDS: INSULIN ASPART (*BKC) 100 UNITS/ML SUB-Q (20:41)
[2024-09-18 20:46] LABS: Glucose Point of Care 252 mg/dl (65-105)
[2024-09-19] VITALS (15 sets, daily range): BP systolic 112–140; BP diastolic 60–69; PULSE 80–117; RESP 18–20; TEMP 36.4–36.6; O2SAT 93–95
[2024-09-19] MEDS: IPRATROPIUM 0.5 MG/ALBUTEROL SULFATE 2.5 MG AMPUL.NEB 3 ML INHALATION ×4 (02:30→20:03)
[2024-09-19] MEDS: methylPREDNISolone SOD SUCC 125 MG VIAL 60 MG IV PUSH ×4 (06:21→23:22)
[2024-09-19 06:52] LABS: Albumin Level 4.5 g/dL (3.5-5.1); Alkaline Phosphatase 124 U/L (38-126); Anion Gap 11 mmol/L (4-12); Aspartate Amino Transferase 38 U/L (17-59); Bilirubin,Total 0.5 mg/dL (0.2-1.3); Blood Urea Nitrogen 27 mg/dL (9-20); Calcium 10.4 mg/dL (8.4-10.2); Carbon Dioxide 28 mmol/L (22-30); Chloride 95 mmol/L (98-107); Estimated CRCL calculation 81 ml/min; Estimated Glomerular Filt Rate > 60; Glucose 240 mg/dL (65-110); Potassium 3.9 mmol/L (3.4-5.0); Sodium 134 mmol/L (137-145)
[2024-09-19 06:58] LABS: Alanine Aminotransferase 40 U/L (6-50)
[2024-09-19 07:38] LABS: Glucose Point of Care 256 mg/dl (65-105)
[2024-09-19 08:15] LABS: Hemoglobin A1C 6.9 % (<5.7)
[2024-09-19] MEDS: ASPIRIN 81 MG CHEWABLE TABLET PO (08:34)
[2024-09-19] MEDS: metFORMIN HCL 500 MG TABLET 1000 MG PO ×2 (08:34→16:59)
[2024-09-19] MEDS: ROSUVASTATIN 20 MG TABLET 40 MG PO (08:35)
[2024-09-19] MEDS: LOSARTAN POTASSIUM 100 MG TABLET PO (08:35)
[2024-09-19] MEDS: METOPROLOL SUCCINATE EXT REL 50 MG TABCR PO (08:35)
[2024-09-19] MEDS: guaiFENesin 12 HR 600 MG TABCR 1200 MG PO ×2 (08:35→20:05)
[2024-09-19] MEDS: EZETIMIBE 10 MG TABLET PO (08:35)
[2024-09-19] MEDS: PANTOPRAZOLE 40 MG TABLET PO ×2 (08:35→16:59)
[2024-09-19] MEDS: QUEtiapine FUMARATE 25 MG TABLET 50 MG PO (08:35)
[2024-09-19] MEDS: TAMSULOSIN HCL 0.4 MG CAPSULE PO (08:36)
[2024-09-19] MEDS: ENOXAPARIN 40 MG/0.4 ML SYRINGE SUB-Q (08:36)
[2024-09-19] MEDS: INSULIN ASPART (*BKC) 100 UNITS/ML 6 UNITS SUB-Q ×3 (08:37→16:59)
[2024-09-19] MEDS: INSULIN ASPART (*BKC) 100 UNITS/ML SUB-Q ×4 (08:37→20:07)
[2024-09-19] MEDS: INSULIN GLARGINE (*BKC) 100 UNITS/ML 20 UNITS SUB-Q (08:39)
[2024-09-19] MEDS: DICLOFENAC SOD 75 MG TABLET.EC PO (10:48)
[2024-09-19 11:30] LABS: Glucose Point of Care 237 mg/dl (65-105)
[2024-09-19] MEDS: ACETAMINOPHEN 325 MG TABLET 650 MG PO (13:00)
[2024-09-19 16:48] LABS: Glucose Point of Care 244 mg/dl (65-105)
--- NOTE | 2024-09-19 17:41 | P.PNIM_ITS ---
Progress Note: A&P Assessment and Plan (1) Acute exacerbation of chronic obstructive pulmonary disease: Code(s): J44.1 - Chronic obstructive pulmonary disease with (acute) exacerbation Status: Acute (2) Acute hypoxic respiratory failure: Code(s): J96.01 - Acute respiratory failure with hypoxia Status: Acute (3) Continuous tobacco abuse: Code(s): Z72.0 - Tobacco use Status: Acute (4) Type 2 diabetes mellitus with hyperglycemia, with long-term current use of insulin: Code(s): E11.65 - Type 2 diabetes mellitus with hyperglycemia; Z79.4 - correction (current) use of insulin Status: Acute (5) Hypercalcemia: Code(s): E83.52 - Hypercalcemia Status: Acute Plan Patient has COPD exacerbation resulting in acute hypoxic respiratory failure. Patient been started on scheduled nebulizer treatments and IV steroids after loading dose of Solu-Medrol 125 was administered in the ER. Will increase the frequency of nebulizer treatments to q.4 hours. Will wean oxygen as tolerated. Smoking cessation has been strongly encouraged. Smoking cessation education provided. Nicotine patch is been made available as needed for symptoms of nicotine withdrawal. Will provide Mucinex scheduled for mucolytic effect. The patient does have type 2 diabetes mellitus is mildly hyperglycemic but I antici pérez increased glucoses given steroid administration. Will resume the patient's long-acting insulin and will add mealtime bolus insulin of 6 units with meals as well as moderate sliding scale insulin with Accu-Cheks a.c. HS. Hypoglycemia protocol has been ordered as needed. Patient is mildly hypercalcemic given patient's tachycardia and recent illness I suspect some component of dehydration. Will give 1 L of IV fluids at 100 mL an hour and then will re- evaluate electrolyte panel in a.m.. Patient did receive a fluids prior to my evaluation before he told me that he had chronic hypercalcemia. Repeat CMP has been ordered. Patient with the history of COPD presented with cough and shortness of breath is found to have exacerbation resulting in acute hypoxic respiratory failure.being treated with methylprednisone and up draft stats feels better compared to when he arrived will continue to monitor and sloane methylprednisone, patient with history of DM with A1c of 6.9 will continue home regiment and monitor with sliding scale, will have PT/OT evaluate the patient and further recommendation to follow. Patient has been admitted as observation status. Subjective Date/time seen: 09/19/24 17:41 Interval history: Shortness of breath, cough H&P-Narrative: 68-year-old male with a past medical history of coronary artery disease, insulin-dependent diabetes mellitus, GERD, BPH, essential hypertension, hyperlipidemia, COPD and continued tobacco abuse who presented to the ER from home due to worsening shortness of breath. The patient reports that he has been having cough headache and generalized body aches accompanying is worsening shortness of breath for the last 10 days or so. He reports generalized chest tightness. He has been having some discomfort in the posterior right ribs more so when he takes a deep breath and coughs. He denies any actual chest pain or palpitations. He reports he has become so short of breath that he has had to sit up to sleep. He reports he been wheezing more than usual. He has been able to cough some mucus up but it is been more difficult to produce sputum. He has had moderately poor appetite. He denies any lower extremity swelling. He denies known history of CHF. He has continued to smoke but has cut back over the last week or so due to his symptoms. He reports the symptoms have not improved despite using his rescue inhaler 2 puffs every 2 hours with increasing frequency over the last several days. He denies any fevers or chills. His grand children had had recent viral symptoms about 3 weeks ago. Labs in the ER demonstrated hypercalcemia. Patient reports that he has had hypercalcemia for a couple of years and is thought to be due to vitamin-D deficiency. Patient with the history of COPD presented with cough and shortness of breath is found to have exacerbation resulting in acute hypoxic respiratory failure.being treated with methylprednisone and up draft stats feels better compared to when he arrived will continue to monitor and sloane methylprednisone, patient with history of DM with A1c of 6.9 will continue home regiment and monitor with sliding scale, will have PT/OT evaluate the patient and further recommendation to follow. Review of Systems Review of Systems: 12 systems were reviewed with pertinent positives and negatives per HPI. Except as documented in the HPI, all other systems were reviewed and are negative. He reports chronic weak urinary stream due to history of BPH. He feels that he may have some incomplete bladder emptying. He denies dysuria or hematuria. Exam Narrative: Patient is comfortable, NAD HEENT: eyes are clear and none icteric LUNGS:CTA HEART: RR S1S2 ABD: BS+, Soft and nontender Lower extremities: no edema SKIN: nonjaundiced Neuro: grossly intact. Objective Data Vital Signs Vital Signs: Vital Signs - 24 hr 09/18/24 20:00 09/18/24 20:23 09/18/24 20:29 Temperature Pulse Rate 108 H 108 H Respiratory Rate 18 Blood Pressure Pulse Oximetry 99 93 Oxygen Delivery Nasal Cannula Nasal Cannula Oxygen Flow Rate 2 2 09/18/24 20:33 09/18/24 21:09 09/19/24 02:30 Temperature 36.4 C L Pulse Rate 106 H 111 H 108 H Respiratory Rate 18 18 18 Blood Pressure 139/66 Pulse Oximetry 99 Oxygen Delivery Oxygen Flow Rate 09/19/24 02:38 09/19/24 05:41 09/19/24 08:00 Temperature 36.5 C Pulse Rate 107 H 117 H Respiratory Rate 18 18 Blood Pressure 139/69 Pulse Oximetry 94 95 Oxygen Delivery Nasal Cannula Oxygen Flow Rate 2 09/19/24 08:35 09/19/24 09:17 09/19/24 09:17 Temperature Pulse Rate 80 104 H 104 H Respiratory Rate 20 20 Blood Pressure Pulse Oximetry 93 Oxygen Delivery Nasal Cannula Oxygen Flow Rate 1.5 09/19/24 09:24 09/19/24 14:00 09/19/24 14:17 Temperature 36.4 C Pulse Rate 111 H 91 92 Respiratory Rate 20 20 20 Blood Pressure 112/60 Pulse Oximetry 95 Oxygen Delivery Oxygen Flow Rate 09/19/24 14:24 Temperature Pulse Rate 90 Respiratory Rate 20 Blood Pressure Pulse Oximetry Oxygen Delivery Oxygen Flow Rate Intake/Output Intake/Output: Intake & Output 09/16/24 09/17/24 09/18/24 09/19/24 23:59 23:59 23:59 23:59 Intake Total 610 2798 Balance 610 2798 Meds/Results Medications: Active Medications Generic Name Dose Route Start Last Admin Trade Name Freq PRN Reason Stop Dose Admin Acetaminophen 650 mg 09/18/24 20:18 09/19/24 13:00 Acetaminophen 325 Mg Tablet PO 650 mg Q4H PRN Administration Mild Pain (1-3) or Fever Albuterol/Ipratropium 3 ml 09/19/24 08:00 09/19/24 14:16 Ipratropium 0.5 Mg/Albuterol Sulfate 2.5 Mg Ampul.Neb 3 Ml INHALATION Not Given Q4HRT [facility] Aspirin 81 mg 09/19/24 09:00 09/19/24 08:34 Aspirin 81 Mg Chewable Tablet PO 81 mg DAILY YESY Administration Dextrose 12.5 gm 09/18/24 19:56 Dextrose 50% 25 Gm/50 Ml Syringe IV PUSH PRN PRN Hypoglycemia Protocol Diclofenac Sodium 75 mg 09/18/24 19:54 09/19/24 10:48 Diclofenac Sod 75 Mg Tablet.Ec PO 75 mg Q12H PRN Administration Arthritis pain Ezetimibe 10 mg 09/19/24 09:00 09/19/24 08:35 Ezetimibe 10 Mg Tablet PO 10 mg DAILY YESY Administration Enoxaparin Sodium 40 mg 09/19/24 09:00 09/19/24 08:36 Enoxaparin 40 Mg/0.4 Ml Syringe SUB-Q 40 mg DAILY YESY Administration Glucagon 1 mg 09/18/24 19:56 Glucagon For Inj 1 Mg Vial IM PRN PRN Hypoglycemia Protocol Glucose 15 gm 09/18/24 19:56 Glucose Oral Gel 15 Gm Of Glucse In 37.5 Gm Tube PO PRN PRN Hypoglycemia Protocol Guaifenesin 1,200 mg 09/18/24 21:00 09/19/24 08:35 Guaifenesin 12 Hr 600 Mg Tabcr PO 1,200 mg Q12HR YESY Administration Dextrose 1,000 mls @ 100 mls/hr 09/18/24 19:56 Dextrose 5% 1,000 Ml IVPB PRN PRN Hypoglycemia Protocol Insulin Aspart 6 units 09/19/24 08:00 09/19/24 16:59 Insulin Aspart (*Bkc) 100 Units/Ml 0.05 units/kg (6 units) 6 units SUB-Q Administration TIDWM [facility] Insulin Aspart 3 - 6 units 09/19/24 08:00 09/19/24 17:00 Insulin Aspart (*Bkc) 100 Units/Ml SUB-Q 3 units TIDWM [facility] Administration Protocol Insulin Aspart 1 - 3 units 09/18/24 21:00 09/18/24 20:41 Insulin Aspart (*Bkc) 100 Units/Ml SUB-Q 2 units HS [facility] Administration Protocol Insulin Glargine 20 units 09/19/24 09:00 09/19/24 08:39 Insulin Glargine (*Bkc) 100 Units/Ml SUB-Q 20 units DAILY YESY Administration Losartan Potassium 100 mg 09/19/24 09:00 09/19/24 08:35 Losartan Potassium 100 Mg Tablet PO 100 mg DAILY YESY Administration Metformin HCl 1,000 mg 09/19/24 09:00 09/19/24 16:59 Metformin Hcl 500 Mg Tablet PO 1,000 mg BID YESY Administration Methylprednisolone Sodium Succinate 60 mg 09/18/24 18:00 09/19/24 13:09 Methylprednisolone Sod Succ 125 Mg Vial IV PUSH 60 mg Q6HR YESY Administration Metoprolol Succinate 50 mg 09/19/24 09:00 09/19/24 08:35 Metoprolol Succinate Ext Rel 50 Mg Tabcr PO 50 mg DAILY YESY Administration Nicotine 1 patch 09/18/24 20:15 Nicotine (*Pbkc) 21 Mg Patch TRANSDERM DAILY PRN Nicotine withdrawal Pantoprazole Sodium 40 mg 09/18/24 20:05 09/19/24 16:59 Pantoprazole 40 Mg Tablet PO 40 mg BID YESY Administration Quetiapine Fumarate 50 mg 09/19/24 09:00 09/19/24 08:35 Quetiapine Fumarate 25 Mg Tablet PO 50 mg DAILY YESY Administration Rosuvastatin Calcium 40 mg 09/19/24 09:00 09/19/24 08:35 Rosuvastatin 20 Mg Tablet PO 40 mg DAILY YESY Administration Tamsulosin HCl 0.4 mg 09/19/24 09:00 09/19/24 08:36 Tamsulosin Hcl 0.4 Mg Capsule PO 0.4 mg DAILY YESY Administration Radiology Results: ITS Impressions Chest X-Ray 09/18/24 11:47 IMPRESSION: 1: NO ACUTE CARDIOPULMONARY DISEASE. Labs Labs: Laboratory Results - last 24 hr 09/18/24 09/19/24 09/19/24 20:40 06:25 07:29 Sodium 134 L Potassium 3.9 Chloride 95 L Carbon Dioxide 28 Anion Gap 11 BUN 27 H Creatinine 1.03 Estim Creat Clear Calc 81 Estimated GFR > 60 Glucose 240 H POC Capillary Glucose 252 H 256 H Hemoglobin A1c 6.9 H Calcium 10.4 H Total Bilirubin 0.5 AST 38 ALT 40 Alkaline Phosphatase 124 Total Protein 8.0 Albumin 4.5 09/19/24 09/19/24 11:17 16:44 Sodium Potassium Chloride Carbon Dioxide Anion Gap BUN Creatinine Estim Creat Clear Calc Estimated GFR Glucose POC Capillary Glucose 237 H 244 H Hemoglobin A1c Calcium Total Bilirubin AST ALT Alkaline Phosphatase Total Protein Albumin Quality VTE Prophylaxis VTE prophylaxis: pharmacologic ordered (Lovenox 40 mg subQ daily.)
[2024-09-19] MEDS: MELATONIN 5 MG TABLET PO (20:59)
[2024-09-19 22:48] LABS: Glucose Point of Care 242 mg/dl (65-105)
[2024-09-20] VITALS (15 sets, daily range): BP systolic 117–152; BP diastolic 65–73; PULSE 89–100; RESP 16–22; TEMP 36.5–36.9; O2SAT 87–97
[2024-09-20] MEDS: IPRATROPIUM 0.5 MG/ALBUTEROL SULFATE 2.5 MG AMPUL.NEB 3 ML INHALATION ×5 (02:02→20:07)
--- NOTE | 2024-09-20 02:06 | PCRCNOTE ---
Patient's 0000 updraft tx not given till 0200, as pt wanted to get good sleep and not be awakened twice. Next treatment to resume at 0800.
[2024-09-20 06:18] LABS: Hematocrit 39.2 % (42.0-52.0); Hemoglobin 12.8 g/dL (14.0-18.0); Mean Corpuscular HGB Conc 32.7 g/dl (32-36); Mean Corpuscular Hemoglobin 28.4 pg (26-34); Mean Corpuscular Volume 87.1 fl (80-100); Mean Platelet Volume 10.3 fl (7.4-10.4); Platelet Count Result 235 k/mm3 (150-375); Red Cell Distribution Width 12.9 % (11.5-14.5); White Blood Count 20.6 K/mm3 (4.5-10.0)
[2024-09-20] MEDS: methylPREDNISolone SOD SUCC 125 MG VIAL 60 MG IV PUSH ×4 (06:30→23:45)
[2024-09-20 06:31] LABS: Magnesium 1.8 mg/dL (1.6-2.3)
[2024-09-20 07:43] LABS: Glucose Point of Care 224 mg/dl (65-105)
[2024-09-20] MEDS: NICOTINE (*PBKC) 21 MG PATCH 1 PATCH TRANSDERM (08:02)
[2024-09-20] MEDS: INSULIN GLARGINE (*BKC) 100 UNITS/ML 20 UNITS SUB-Q (08:02)
[2024-09-20] MEDS: DICLOFENAC SOD 75 MG TABLET.EC PO (08:02)
[2024-09-20] MEDS: ENOXAPARIN 40 MG/0.4 ML SYRINGE SUB-Q (08:03)
[2024-09-20] MEDS: PANTOPRAZOLE 40 MG TABLET PO ×2 (08:03→16:59)
[2024-09-20] MEDS: metFORMIN HCL 500 MG TABLET 1000 MG PO ×2 (08:03→16:59)
[2024-09-20] MEDS: METOPROLOL SUCCINATE EXT REL 50 MG TABCR PO (08:03)
[2024-09-20] MEDS: ASPIRIN 81 MG CHEWABLE TABLET PO (08:03)
[2024-09-20] MEDS: TAMSULOSIN HCL 0.4 MG CAPSULE PO (08:03)
[2024-09-20] MEDS: guaiFENesin 12 HR 600 MG TABCR 1200 MG PO ×2 (08:03→20:47)
[2024-09-20] MEDS: ROSUVASTATIN 20 MG TABLET 40 MG PO (08:03)
[2024-09-20] MEDS: EZETIMIBE 10 MG TABLET PO (08:03)
[2024-09-20] MEDS: LOSARTAN POTASSIUM 100 MG TABLET PO (08:03)
[2024-09-20 09:32] LABS: Anion Gap 11 mmol/L (4-12); Blood Urea Nitrogen 36 mg/dL (9-20); Calcium 10.1 mg/dL (8.4-10.2); Carbon Dioxide 30 mmol/L (22-30); Chloride 94 mmol/L (98-107); Estimated CRCL calculation 72 ml/min; Estimated Glomerular Filt Rate > 60; Glucose 243 mg/dL (65-110); Potassium 4.4 mmol/L (3.4-5.0); Sodium 135 mmol/L (137-145)
[2024-09-20 11:27] LABS: Glucose Point of Care 194 mg/dl (65-105)
[2024-09-20] MEDS: INSULIN ASPART (*BKC) 100 UNITS/ML 6 UNITS SUB-Q ×2 (11:47→16:59)
[2024-09-20] MEDS: oxyCODONE/ACETAMINOPHEN (*CRX) 5-325 MG TABLET 1 TABLET PO (11:48)
[2024-09-20] MEDS: SENNOSIDES 8.6 MG TABLET PO (11:48)
--- NOTE | 2024-09-20 13:32 | P.PNIM_ITS ---
Progress Note: A&P Assessment and Plan (1) Acute exacerbation of chronic obstructive pulmonary disease: Code(s): J44.1 - Chronic obstructive pulmonary disease with (acute) exacerbation Status: Acute (2) Acute hypoxic respiratory failure: Code(s): J96.01 - Acute respiratory failure with hypoxia Status: Acute (3) Continuous tobacco abuse: Code(s): Z72.0 - Tobacco use Status: Acute (4) Type 2 diabetes mellitus with hyperglycemia, with long-term current use of insulin: Code(s): E11.65 - Type 2 diabetes mellitus with hyperglycemia; Z79.4 - [facility] (current) use of insulin Status: Acute (5) Hypercalcemia: Code(s): E83.52 - Hypercalcemia Status: Acute Plan Patient has COPD exacerbation resulting in acute hypoxic respiratory failure. Patient been started on scheduled nebulizer treatments and IV steroids after loading dose of Solu-Medrol 125 was administered in the ER. Will increase the frequency of nebulizer treatments to q.4 hours. Will wean oxygen as tolerated. Smoking cessation has been strongly encouraged. Smoking cessation education provided. Nicotine patch is been made available as needed for symptoms of nicotine withdrawal. Will provide Mucinex scheduled for mucolytic effect. The patient does have type 2 diabetes mellitus is mildly hyperglycemic but I antici pérez increased glucoses given steroid administration. Will resume the patient's long-acting insulin and will add mealtime bolus insulin of 6 units with meals as well as moderate sliding scale insulin with Accu-Cheks a.c. HS. Hypoglycemia protocol has been ordered as needed. Patient is mildly hypercalcemic given patient's tachycardia and recent illness I suspect some component of dehydration. Will give 1 L of IV fluids at 100 mL an hour and then will re- evaluate electrolyte panel in a.m.. Patient did receive a fluids prior to my evaluation before he told me that he had chronic hypercalcemia. Repeat CMP has been ordered. Patient with the history of COPD presented with cough and shortness of breath is found to have exacerbation of CPOD resulting in acute hypoxic respiratory failure.being treated with methylprednisone and up draft today patient stats feels little better compared to when he arrived, he does have persistent cough, will give Tessalon and continue guaifenesin, will continue to monitor and solane methylprednisone, patient with history of DM with A1c of 6.9 will continue home regiment and monitor with sliding scale, will have PT/OT evaluate the patient and further recommendation to follow. patient is present in the room gave update, patient continue smoke will give nicotine patch. Patient has been admitted as observation status. Subjective Date/time seen: 09/20/24 13:32 Interval history: Shortness of breath, cough H&P-Narrative: 68-year-old male with a past medical history of coronary artery disease, insulin-dependent diabetes mellitus, GERD, BPH, essential hypertension, hyperlipidemia, COPD and continued tobacco abuse who presented to the ER from home due to worsening shortness of breath. The patient reports that he has been having cough headache and generalized body aches accompanying is worsening shortness of breath for the last 10 days or so. He reports generalized chest tightness. He has been having some discomfort in the posterior right ribs more so when he takes a deep breath and coughs. He denies any actual chest pain or palpitations. He reports he has become so short of breath that he has had to sit up to sleep. He reports he been wheezing more than usual. He has been able to cough some mucus up but it is been more difficult to produce sputum. He has had moderately poor appetite. He denies any lower extremity swelling. He denies known history of CHF. He has continued to smoke but has cut back over the last week or so due to his symptoms. He reports the symptoms have not improved despite using his rescue inhaler 2 puffs every 2 hours with increasing frequency over the last several days. He denies any fevers or chills. His grand children had had recent viral symptoms about 3 weeks ago. Labs in the ER demonstrated hypercalcemia. Patient reports that he has had hypercalcemia for a couple of years and is thought to be due to vitamin-D deficiency. Patient with the history of COPD presented with cough and shortness of breath is found to have exacerbation of CPOD resulting in acute hypoxic respiratory failure.being treated with methylprednisone and up draft today patient stats feels little better compared to when he arrived, he does have persistent cough, will give Tessalon and continue guaifenesin, will continue to monitor and sloane methylprednisone, patient with history of DM with A1c of 6.9 will continue home regiment and monitor with sliding scale, will have PT/OT evaluate the patient and further recommendation to follow. patient is present in the room gave update, patient continue smoke will give nicotine patch. Review of Systems Review of Systems: 12 systems were reviewed with pertinent positives and negatives per HPI. Except as documented in the HPI, all other systems were reviewed and are negative. He reports chronic weak urinary stream due to history of BPH. He feels that he may have some incomplete bladder emptying. He denies dysuria or hematuria. Exam Narrative: Patient is comfortable, NAD HEENT: eyes are clear and none icteric LUNGS:CTA HEART: RR S1S2 ABD: BS+, Soft and nontender Lower extremities: no edema SKIN: nonjaundiced Neuro: grossly intact. Objective Data Vital Signs Vital Signs: Vital Signs - 24 hr 09/19/24 14:00 09/19/24 14:17 09/19/24 14:24 Temperature 36.4 C Pulse Rate 91 92 90 Respiratory Rate 20 20 20 Blood Pressure 112/60 Pulse Oximetry 95 Oxygen Delivery Oxygen Flow Rate 09/19/24 20:00 09/19/24 20:03 09/19/24 20:10 Temperature Pulse Rate 94 94 Respiratory Rate 20 Blood Pressure Pulse Oximetry 94 94 Oxygen Delivery Nasal Cannula Nasal Cannula Oxygen Flow Rate 1.5 1.5 09/19/24 20:17 09/19/24 21:51 09/20/24 02:03 Temperature 36.6 C Pulse Rate 96 101 H 96 Respiratory Rate 20 20 20 Blood Pressure 140/69 Pulse Oximetry 94 Oxygen Delivery Oxygen Flow Rate 09/20/24 02:19 09/20/24 06:00 09/20/24 07:02 Temperature 36.8 C Pulse Rate 95 100 92 Respiratory Rate 20 19 20 Blood Pressure 136/68 Pulse Oximetry 95 Oxygen Delivery Oxygen Flow Rate 09/20/24 07:02 09/20/24 08:00 09/20/24 08:15 Temperature Pulse Rate 95 Respiratory Rate Blood Pressure Pulse Oximetry 94 87 L 93 Oxygen Delivery Nasal Cannula Nasal Cannula Nasal Cannula Oxygen Flow Rate 1.5 1.5 3 09/20/24 12:09 09/20/24 12:18 09/20/24 12:25 Temperature Pulse Rate 89 92 89 Respiratory Rate 16 16 16 Blood Pressure Pulse Oximetry 95 Oxygen Delivery Nasal Cannula Oxygen Flow Rate 2 Intake/Output Intake/Output: Intake & Output 09/17/24 09/18/24 09/19/24 09/20/24 23:59 23:59 23:59 23:59 Intake Total 610 2798 880 Balance 610 2798 880 Meds/Results Medications: Active Medications Generic Name Dose Route Start Last Admin Trade Name Freq PRN Reason Stop Dose Admin Acetaminophen 650 mg 09/18/24 20:18 09/19/24 13:00 Acetaminophen 325 Mg Tablet PO 650 mg Q4H PRN Administration Mild Pain (1-3) or Fever Albuterol/Ipratropium 3 ml 09/19/24 08:00 09/20/24 12:08 Ipratropium 0.5 Mg/Albuterol Sulfate 2.5 Mg Ampul.Neb 3 Ml INHALATION 3 ml Q4HRT YESY Administration Aspirin 81 mg 09/19/24 09:00 09/20/24 08:03 Aspirin 81 Mg Chewable Tablet PO 81 mg DAILY YESY Administration Dextrose 12.5 gm 09/18/24 19:56 Dextrose 50% 25 Gm/50 Ml Syringe IV PUSH PRN PRN Hypoglycemia Protocol Diclofenac Sodium 75 mg 09/18/24 19:54 09/20/24 08:02 Diclofenac Sod 75 Mg Tablet.Ec PO 75 mg Q12H PRN Administration Arthritis pain Ezetimibe 10 mg 09/19/24 09:00 09/20/24 08:03 Ezetimibe 10 Mg Tablet PO 10 mg DAILY YESY Administration Enoxaparin Sodium 40 mg 09/19/24 09:00 09/20/24 08:03 Enoxaparin 40 Mg/0.4 Ml Syringe SUB-Q 40 mg DAILY YESY Administration Glucagon 1 mg 09/18/24 19:56 Glucagon For Inj 1 Mg Vial IM PRN PRN Hypoglycemia Protocol Glucose 15 gm 09/18/24 19:56 Glucose Oral Gel 15 Gm Of Glucse In 37.5 Gm Tube PO PRN PRN Hypoglycemia Protocol Guaifenesin 1,200 mg 09/18/24 21:00 09/20/24 08:03 Guaifenesin 12 Hr 600 Mg Tabcr PO 1,200 mg Q12HR YESY Administration Dextrose 1,000 mls @ 100 mls/hr 09/18/24 19:56 Dextrose 5% 1,000 Ml IVPB PRN PRN Hypoglycemia Protocol Insulin Aspart 6 units 09/19/24 08:00 09/20/24 11:47 Insulin Aspart (*Bkc) 100 Units/Ml 0.05 units/kg (6 units) 6 units SUB-Q Administration TIDWM [facility] Insulin Aspart 3 - 6 units 09/19/24 08:00 09/20/24 11:41 Insulin Aspart (*Bkc) 100 Units/Ml SUB-Q Not Given TIDWM [facility] Protocol Insulin Aspart 1 - 3 units 09/18/24 21:00 09/19/24 20:07 Insulin Aspart (*Bkc) 100 Units/Ml SUB-Q 1 units HS YESY Administration Protocol Insulin Glargine 20 units 09/19/24 09:00 09/20/24 08:02 Insulin Glargine (*Bkc) 100 Units/Ml SUB-Q 20 units DAILY YESY Administration Losartan Potassium 100 mg 09/19/24 09:00 09/20/24 08:03 Losartan Potassium 100 Mg Tablet PO 100 mg DAILY YESY Administration Metformin HCl 1,000 mg 09/19/24 09:00 09/20/24 08:03 Metformin Hcl 500 Mg Tablet PO 1,000 mg BID YESY Administration Methylprednisolone Sodium Succinate 60 mg 09/18/24 18:00 09/20/24 11:47 Methylprednisolone Sod Succ 125 Mg Vial IV PUSH 60 mg Q6HR YESY Administration Metoprolol Succinate 50 mg 09/19/24 09:00 09/20/24 08:03 Metoprolol Succinate Ext Rel 50 Mg Tabcr PO 50 mg DAILY YESY Administration Nicotine 1 patch 09/18/24 20:15 09/20/24 08:02 Nicotine (*Pbkc) 21 Mg Patch TRANSDERM 1 patch DAILY PRN Administration Nicotine withdrawal Pantoprazole Sodium 40 mg 09/18/24 20:05 09/20/24 08:03 Pantoprazole 40 Mg Tablet PO 40 mg BID YESY Administration Quetiapine Fumarate 50 mg 09/19/24 21:00 09/19/24 20:58 Quetiapine Fumarate 25 Mg Tablet PO Not Given QHS [facility] Rosuvastatin Calcium 40 mg 09/19/24 09:00 09/20/24 08:03 Rosuvastatin 20 Mg Tablet PO 40 mg DAILY YESY Administration Senna 8.6 mg 09/20/24 11:33 09/20/24 11:48 Sennosides 8.6 Mg Tablet PO 8.6 mg DAILY PRN Administration Constipation Tamsulosin HCl 0.4 mg 09/19/24 09:00 09/20/24 08:03 Tamsulosin Hcl 0.4 Mg Capsule PO 0.4 mg DAILY YESY Administration Radiology Results: ITS Impressions Chest X-Ray 09/18/24 11:47 IMPRESSION: 1: NO ACUTE CARDIOPULMONARY DISEASE. Labs Labs: Laboratory Results - last 24 hr 09/19/24 09/19/24 09/20/24 16:44 19:44 06:07 WBC 20.6 H RBC 4.50 L Hgb 12.8 L Hct 39.2 L MCV 87.1 MCH 28.4 MCHC 32.7 RDW 12.9 Plt Count 235 MPV 10.3 Sodium 135 L Potassium 4.4 Chloride 94 L Carbon Dioxide 30 Anion Gap 11 BUN 36 H Creatinine 1.16 Estim Creat Clear Calc 72 Estimated GFR > 60 Glucose 243 H POC Capillary Glucose 244 H 242 H Calcium 10.1 Magnesium 1.8 09/20/24 09/20/24 07:37 11:24 WBC RBC Hgb Hct MCV MCH MCHC RDW Plt Count MPV Sodium Potassium Chloride Carbon Dioxide Anion Gap BUN Creatinine Estim Creat Clear Calc Estimated GFR Glucose POC Capillary Glucose 224 H 194 H Calcium Magnesium Quality VTE Prophylaxis VTE prophylaxis: pharmacologic ordered (Lovenox 40 mg subQ daily.)
[2024-09-20 16:25] LABS: Glucose Point of Care 206 mg/dl (65-105)
[2024-09-20] MEDS: INSULIN ASPART (*BKC) 100 UNITS/ML SUB-Q (16:59)
[2024-09-20] MEDS: traMADol HCL (*CRX) 50 MG TABLET PO (17:22)
[2024-09-20] MEDS: ACETAMINOPHEN 325 MG TABLET 650 MG PO (18:35)
[2024-09-20] MEDS: LIDOCAINE 5% PATCH 1 PATCH TRANSDERM (18:35)
[2024-09-20] MEDS: QUEtiapine FUMARATE 25 MG TABLET 50 MG PO (20:47)
[2024-09-20 22:18] LABS: Glucose Point of Care 182 mg/dl (65-105)
[2024-09-21] VITALS (20 sets, daily range): BP systolic 131–140; BP diastolic 63–67; PULSE 84–104; RESP 16–20; TEMP 36.5–36.6; O2SAT 90–98
[2024-09-21] MEDS: IPRATROPIUM 0.5 MG/ALBUTEROL SULFATE 2.5 MG AMPUL.NEB 3 ML INHALATION ×7 (01:04→23:32)
[2024-09-21 06:11] LABS: Hematocrit 40.5 % (42.0-52.0); Hemoglobin 12.8 g/dL (14.0-18.0); Mean Corpuscular HGB Conc 31.6 g/dl (32-36); Mean Corpuscular Hemoglobin 28.1 pg (26-34); Platelet Count Result 210 k/mm3 (150-375); Red Blood Count 4.55 M/mm3 (4.6-6.20); Red Cell Distribution Width 12.8 % (11.5-14.5)
[2024-09-21] MEDS: methylPREDNISolone SOD SUCC 125 MG VIAL 60 MG IV PUSH ×4 (06:18→23:32)
[2024-09-21 06:27] LABS: Anion Gap 6 mmol/L (4-12); Blood Urea Nitrogen 38 mg/dL (9-20); Calcium 10.1 mg/dL (8.4-10.2); Carbon Dioxide 33 mmol/L (22-30); Chloride 96 mmol/L (98-107); Estimated CRCL calculation 80 ml/min; Estimated Glomerular Filt Rate > 60; Glucose 223 mg/dL (65-110); Magnesium 2.4 mg/dL (1.6-2.3); Potassium 4.8 mmol/L (3.4-5.0); Sodium 135 mmol/L (137-145)
[2024-09-21 07:44] LABS: Glucose Point of Care 243 mg/dl (65-105)
[2024-09-21] MEDS: INSULIN ASPART (*BKC) 100 UNITS/ML 6 UNITS SUB-Q ×3 (08:11→17:04)
[2024-09-21] MEDS: INSULIN ASPART (*BKC) 100 UNITS/ML SUB-Q ×2 (08:12→12:08)
[2024-09-21] MEDS: INSULIN GLARGINE (*BKC) 100 UNITS/ML 20 UNITS SUB-Q (08:14)
[2024-09-21] MEDS: LIDOCAINE 5% PATCH 1 PATCH TRANSDERM (08:16)
[2024-09-21] MEDS: metFORMIN HCL 500 MG TABLET 1000 MG PO ×2 (08:17→17:05)
[2024-09-21] MEDS: ENOXAPARIN 40 MG/0.4 ML SYRINGE SUB-Q (08:17)
[2024-09-21] MEDS: ASPIRIN 81 MG CHEWABLE TABLET PO (08:17)
[2024-09-21] MEDS: guaiFENesin 12 HR 600 MG TABCR 1200 MG PO ×2 (08:17→20:58)
[2024-09-21] MEDS: ROSUVASTATIN 20 MG TABLET 40 MG PO (08:17)
[2024-09-21] MEDS: TAMSULOSIN HCL 0.4 MG CAPSULE PO (08:17)
[2024-09-21] MEDS: METOPROLOL SUCCINATE EXT REL 50 MG TABCR PO (08:18)
[2024-09-21] MEDS: EZETIMIBE 10 MG TABLET PO (08:18)
[2024-09-21] MEDS: LOSARTAN POTASSIUM 100 MG TABLET PO (08:20)
[2024-09-21] MEDS: PANTOPRAZOLE 40 MG TABLET PO ×2 (08:21→17:06)
[2024-09-21] MEDS: NICOTINE (*PBKC) 21 MG PATCH 1 PATCH TRANSDERM (08:28)
[2024-09-21] MEDS: SENNOSIDES 8.6 MG TABLET PO (08:34)
[2024-09-21 11:38] LABS: Glucose Point of Care 246 mg/dl (65-105)
[2024-09-21] MEDS: ACETAMINOPHEN 325 MG TABLET 650 MG PO (12:15)
--- NOTE | 2024-09-21 14:46 | P.PNIM_ITS ---
Progress Note: A&P Assessment and Plan (1) Acute exacerbation of chronic obstructive pulmonary disease: Code(s): J44.1 - Chronic obstructive pulmonary disease with (acute) exacerbation Status: Acute (2) Acute hypoxic respiratory failure: Code(s): J96.01 - Acute respiratory failure with hypoxia Status: Acute (3) Continuous tobacco abuse: Code(s): Z72.0 - Tobacco use Status: Acute (4) Type 2 diabetes mellitus with hyperglycemia, with long-term current use of insulin: Code(s): E11.65 - Type 2 diabetes mellitus with hyperglycemia; Z79.4 - [facility] (current) use of insulin Status: Acute (5) Hypercalcemia: Code(s): E83.52 - Hypercalcemia Status: Acute Plan Patient has COPD exacerbation resulting in acute hypoxic respiratory failure. Patient been started on scheduled nebulizer treatments and IV steroids after loading dose of Solu-Medrol 125 was administered in the ER. Will increase the frequency of nebulizer treatments to q.4 hours. Will wean oxygen as tolerated. Smoking cessation has been strongly encouraged. Smoking cessation education provided. Nicotine patch is been made available as needed for symptoms of nicotine withdrawal. Will provide Mucinex scheduled for mucolytic effect. The patient does have type 2 diabetes mellitus is mildly hyperglycemic but I antici pérez increased glucoses given steroid administration. Will resume the patient's long-acting insulin and will add mealtime bolus insulin of 6 units with meals as well as moderate sliding scale insulin with Accu-Cheks a.c. HS. Hypoglycemia protocol has been ordered as needed. Patient is mildly hypercalcemic given patient's tachycardia and recent illness I suspect some component of dehydration. Will give 1 L of IV fluids at 100 mL an hour and then will re- evaluate electrolyte panel in a.m.. Patient did receive a fluids prior to my evaluation before he told me that he had chronic hypercalcemia. Repeat CMP has been ordered. Patient with the history of COPD presented with cough and shortness of breath is found to have exacerbation of CPOD resulting in acute hypoxic respiratory failure.being treated with methylprednisone and up draft today patient stats feels little better compared to when he arrived, he does have persistent cough, will give Tessalon and continue guaifenesin, patient stats there is no significant change in his symptoms, will continue to monitor and will fig bar machine operator consult the patient, further recommendation to follow, patient with history of DM with A1c of 6.9 will continue home regiment and monitor with sliding scale, will have PT/OT evaluate the patient and further recommendation to follow. patient continue smoke will give nicotine patch. Patient has been admitted as observation status. Subjective Date/time seen: 09/21/24 14:46 Interval history: Shortness of breath, cough H&P-Narrative: 68-year-old male with a past medical history of coronary artery disease, insulin-dependent diabetes mellitus, GERD, BPH, essential hypertension, hyperlipidemia, COPD and continued tobacco abuse who presented to the ER from home due to worsening shortness of breath. The patient reports that he has been having cough headache and generalized body aches accompanying is worsening shortness of breath for the last 10 days or so. He reports generalized chest tightness. He has been having some discomfort in the posterior right ribs more so when he takes a deep breath and coughs. He denies any actual chest pain or palpitations. He reports he has become so short of breath that he has had to sit up to sleep. He reports he been wheezing more than usual. He has been able to cough some mucus up but it is been more difficult to produce sputum. He has had moderately poor appetite. He denies any lower extremity swelling. He denies known history of CHF. He has continued to smoke but has cut back over the last week or so due to his symptoms. He reports the symptoms have not improved despite using his rescue inhaler 2 puffs every 2 hours with increasing frequency over the last several days. He denies any fevers or chills. His grand children had had recent viral symptoms about 3 weeks ago. Labs in the ER demonstrated hypercalcemia. Patient reports that he has had hypercalcemia for a couple of years and is thought to be due to vitamin-D deficiency. Patient with the history of COPD presented with cough and shortness of breath is found to have exacerbation of CPOD resulting in acute hypoxic respiratory failure.being treated with methylprednisone and up draft today patient stats feels little better compared to when he arrived, he does have persistent cough, will give Tessalon and continue guaifenesin, patient stats there is no significant change in his symptoms, will continue to monitor and will fig bar machine operator consult the patient, further recommendation to follow, patient with history of DM with A1c of 6.9 will continue home regiment and monitor with sliding scale, will have PT/OT evaluate the patient and further recommendation to follow. patient continue smoke will give nicotine patch. Review of Systems Review of Systems: 12 systems were reviewed with pertinent positives and negatives per HPI. Except as documented in the HPI, all other systems were reviewed and are negative. He reports chronic weak urinary stream due to history of BPH. He feels that he may have some incomplete bladder emptying. He denies dysuria or hematuria. Exam Narrative: Patient is comfortable, NAD HEENT: eyes are clear and none icteric LUNGS:CTA HEART: RR S1S2 ABD: BS+, Soft and nontender Lower extremities: no edema SKIN: nonjaundiced Neuro: grossly intact. Objective Data Vital Signs Vital Signs: Vital Signs - 24 hr 09/20/24 20:07 09/20/24 20:10 09/20/24 20:27 Temperature Pulse Rate 89 89 97 Respiratory Rate 20 20 22 H Blood Pressure Pulse Oximetry 94 Oxygen Delivery Nasal Cannula Oxygen Flow Rate 2 Fraction of Inspired Oxygen 09/20/24 20:47 09/20/24 21:24 09/21/24 01:04 Temperature 36.9 C Pulse Rate 93 84 Respiratory Rate 20 20 Blood Pressure 152/73 H Pulse Oximetry 97 97 Oxygen Delivery Nasal Cannula Oxygen Flow Rate 2 Fraction of Inspired Oxygen 09/21/24 01:21 09/21/24 04:01 09/21/24 04:17 Temperature Pulse Rate 85 98 95 Respiratory Rate 20 20 20 Blood Pressure Pulse Oximetry Oxygen Delivery Oxygen Flow Rate Fraction of Inspired Oxygen 09/21/24 06:00 09/21/24 07:51 09/21/24 07:51 Temperature 36.6 C Pulse Rate 88 90 Respiratory Rate 18 20 Blood Pressure 131/66 Pulse Oximetry 97 94 Oxygen Delivery Nasal Cannula Oxygen Flow Rate 2 Fraction of Inspired Oxygen 28 09/21/24 07:59 09/21/24 08:00 09/21/24 08:18 Temperature Pulse Rate 95 104 H Respiratory Rate 20 Blood Pressure Pulse Oximetry 91 Oxygen Delivery Nasal Cannula Oxygen Flow Rate 3 Fraction of Inspired Oxygen 09/21/24 11:37 09/21/24 11:45 Temperature Pulse Rate 93 96 Respiratory Rate 18 20 Blood Pressure Pulse Oximetry Oxygen Delivery Oxygen Flow Rate Fraction of Inspired Oxygen Intake/Output Intake/Output: Intake & Output 09/18/24 09/19/24 09/20/24 09/21/24 23:59 23:59 23:59 23:59 Intake Total 610 2798 3380 880 Balance 610 2798 3380 880 Meds/Results Medications: Active Medications Generic Name Dose Route Start Last Admin Trade Name Freq PRN Reason Stop Dose Admin Acetaminophen 650 mg 09/18/24 20:18 09/21/24 12:15 Acetaminophen 325 Mg Tablet PO 650 mg Q4H PRN Administration Mild Pain (1-3) or Fever Albuterol/Ipratropium 3 ml 09/19/24 08:00 09/21/24 11:35 Ipratropium 0.5 Mg/Albuterol Sulfate 2.5 Mg Ampul.Neb 3 Ml INHALATION 3 ml Q4HRT YESY Administration Aspirin 81 mg 09/19/24 09:00 09/21/24 08:17 Aspirin 81 Mg Chewable Tablet PO 81 mg DAILY YESY Administration Dextrose 12.5 gm 09/18/24 19:56 Dextrose 50% 25 Gm/50 Ml Syringe IV PUSH PRN PRN Hypoglycemia Protocol Diclofenac Sodium 75 mg 09/18/24 19:54 09/20/24 08:02 Diclofenac Sod 75 Mg Tablet.Ec PO 75 mg Q12H PRN Administration Arthritis pain Ezetimibe 10 mg 09/19/24 09:00 09/21/24 08:18 Ezetimibe 10 Mg Tablet PO 10 mg DAILY YESY Administration Enoxaparin Sodium 40 mg 09/19/24 09:00 09/21/24 08:17 Enoxaparin 40 Mg/0.4 Ml Syringe SUB-Q 40 mg DAILY YESY Administration Glucagon 1 mg 09/18/24 19:56 Glucagon For Inj 1 Mg Vial IM PRN PRN Hypoglycemia Protocol Glucose 15 gm 09/18/24 19:56 Glucose Oral Gel 15 Gm Of Glucse In 37.5 Gm Tube PO PRN PRN Hypoglycemia Protocol Guaifenesin 1,200 mg 09/18/24 21:00 09/21/24 08:17 Guaifenesin 12 Hr 600 Mg Tabcr PO 1,200 mg Q12HR YESY Administration Dextrose 1,000 mls @ 100 mls/hr 09/18/24 19:56 Dextrose 5% 1,000 Ml IVPB PRN PRN Hypoglycemia Protocol Insulin Aspart 6 units 09/19/24 08:00 09/21/24 12:08 Insulin Aspart (*Bkc) 100 Units/Ml 0.05 units/kg (6 units) 6 units SUB-Q Administration TIDWM [facility] Insulin Aspart 3 - 6 units 09/19/24 08:00 09/21/24 12:08 Insulin Aspart (*Bkc) 100 Units/Ml SUB-Q 3 units TIDWM YESY Administration Protocol Insulin Aspart 1 - 3 units 09/18/24 21:00 09/20/24 21:00 Insulin Aspart (*Bkc) 100 Units/Ml SUB-Q Not Given HS [facility] Protocol Insulin Glargine 20 units 09/19/24 09:00 09/21/24 08:14 Insulin Glargine (*Bkc) 100 Units/Ml SUB-Q 20 units DAILY YESY Administration Lidocaine 1 patch 09/20/24 18:25 09/21/24 08:16 Lidocaine 5% Patch TRANSDERM 1 patch DAILY YESY Administration Losartan Potassium 100 mg 09/19/24 09:00 09/21/24 08:20 Losartan Potassium 100 Mg Tablet PO 100 mg DAILY YESY Administration Metformin HCl 1,000 mg 09/19/24 09:00 09/21/24 08:17 Metformin Hcl 500 Mg Tablet PO 1,000 mg BID YESY Administration Methylprednisolone Sodium Succinate 60 mg 09/18/24 18:00 09/21/24 12:08 Methylprednisolone Sod Succ 125 Mg Vial IV PUSH 60 mg Q6HR YESY Administration Metoprolol Succinate 50 mg 09/19/24 09:00 09/21/24 08:18 Metoprolol Succinate Ext Rel 50 Mg Tabcr PO 50 mg DAILY YESY Administration Nicotine 1 patch 09/18/24 20:15 09/21/24 08:28 Nicotine (*Pbkc) 21 Mg Patch TRANSDERM 1 patch DAILY PRN Administration Nicotine withdrawal Pantoprazole Sodium 40 mg 09/18/24 20:05 09/21/24 08:21 Pantoprazole 40 Mg Tablet PO 40 mg BID YESY Administration Quetiapine Fumarate 50 mg 09/19/24 21:00 09/20/24 20:47 Quetiapine Fumarate 25 Mg Tablet PO 50 mg QHS YESY Administration Rosuvastatin Calcium 40 mg 09/19/24 09:00 09/21/24 08:17 Rosuvastatin 20 Mg Tablet PO 40 mg DAILY YESY Administration Senna 8.6 mg 09/20/24 11:33 09/21/24 08:34 Sennosides 8.6 Mg Tablet PO 8.6 mg DAILY PRN Administration Constipation Tamsulosin HCl 0.4 mg 09/19/24 09:00 09/21/24 08:17 Tamsulosin Hcl 0.4 Mg Capsule PO 0.4 mg DAILY YESY Administration Tramadol HCl 50 mg 09/20/24 17:14 09/20/24 17:22 Tramadol Hcl (*Crx) 50 Mg Tablet PO 50 mg Q6H PRN Administration Pain Rated 4-6 Radiology Results: ITS Impressions Chest X-Ray 09/18/24 11:47 IMPRESSION: 1: NO ACUTE CARDIOPULMONARY DISEASE. Labs Labs: Laboratory Results - last 24 hr 09/20/24 09/20/24 09/21/24 16:18 20:26 05:57 WBC 15.0 H RBC 4.55 L Hgb 12.8 L Hct 40.5 L MCV 89.0 MCH 28.1 MCHC 31.6 L RDW 12.8 Plt Count 210 MPV 10.0 Sodium 135 L Potassium 4.8 Chloride 96 L Carbon Dioxide 33 H Anion Gap 6 BUN 38 H Creatinine 1.04 Estim Creat Clear Calc 80 Estimated GFR > 60 Glucose 223 H POC Capillary Glucose 206 H 182 H Calcium 10.1 Magnesium 2.4 H 09/21/24 09/21/24 07:31 11:29 WBC RBC Hgb Hct MCV MCH MCHC RDW Plt Count MPV Sodium Potassium Chloride Carbon Dioxide Anion Gap BUN Creatinine Estim Creat Clear Calc Estimated GFR Glucose POC Capillary Glucose 243 H 246 H Calcium Magnesium Quality VTE Prophylaxis VTE prophylaxis: pharmacologic ordered (Lovenox 40 mg subQ daily.)
[2024-09-21 16:40] LABS: Glucose Point of Care 197 mg/dl (65-105)
[2024-09-21] MEDS: QUEtiapine FUMARATE 25 MG TABLET 50 MG PO (20:58)
[2024-09-21 21:11] LABS: Glucose Point of Care 182 mg/dl (65-105)
[2024-09-22] VITALS (21 sets, daily range): BP systolic 124–146; BP diastolic 60–72; PULSE 72–102; RESP 16–20; TEMP 36.1–36.9; O2SAT 92–100
[2024-09-22] MEDS: IPRATROPIUM 0.5 MG/ALBUTEROL SULFATE 2.5 MG AMPUL.NEB 3 ML INHALATION ×5 (03:45→20:14)
[2024-09-22] MEDS: methylPREDNISolone SOD SUCC 125 MG VIAL 60 MG IV PUSH ×3 (05:38→17:26)
[2024-09-22 06:08] LABS: Hematocrit 42.9 % (42.0-52.0); Hemoglobin 13.5 g/dL (14.0-18.0); Mean Corpuscular HGB Conc 31.5 g/dl (32-36); Mean Corpuscular Hemoglobin 28.4 pg (26-34); Mean Corpuscular Volume 90.1 fl (80-100); Mean Platelet Volume 10.7 fl (7.4-10.4); Platelet Count Result 212 k/mm3 (150-375); Red Blood Count 4.76 M/mm3 (4.6-6.20); Red Cell Distribution Width 12.9 % (11.5-14.5); White Blood Count 13.3 K/mm3 (4.5-10.0)
[2024-09-22 07:40] LABS: Anion Gap 5 mmol/L (4-12); Blood Urea Nitrogen 42 mg/dL (9-20); Carbon Dioxide 37 mmol/L (22-30); Chloride 95 mmol/L (98-107); Estimated CRCL calculation 80 ml/min; Estimated Glomerular Filt Rate > 60; Glucose 240 mg/dL (65-110); Magnesium 2.5 mg/dL (1.6-2.3); Potassium 5.3 mmol/L (3.4-5.0); Sodium 137 mmol/L (137-145)
[2024-09-22 08:25] LABS: Glucose Point of Care 278 mg/dl (65-105)
[2024-09-22] MEDS: ENOXAPARIN 40 MG/0.4 ML SYRINGE SUB-Q (08:36)
[2024-09-22] MEDS: LOSARTAN POTASSIUM 100 MG TABLET PO (08:37)
[2024-09-22] MEDS: guaiFENesin 12 HR 600 MG TABCR 1200 MG PO ×2 (08:37→20:50)
[2024-09-22] MEDS: metFORMIN HCL 500 MG TABLET 1000 MG PO ×2 (08:37→17:28)
[2024-09-22] MEDS: PANTOPRAZOLE 40 MG TABLET PO ×2 (08:37→17:28)
[2024-09-22] MEDS: EZETIMIBE 10 MG TABLET PO (08:37)
[2024-09-22] MEDS: TAMSULOSIN HCL 0.4 MG CAPSULE PO (08:37)
[2024-09-22] MEDS: METOPROLOL SUCCINATE EXT REL 50 MG TABCR PO (08:38)
[2024-09-22] MEDS: ROSUVASTATIN 20 MG TABLET 40 MG PO (08:39)
[2024-09-22] MEDS: ASPIRIN 81 MG CHEWABLE TABLET PO (08:39)
[2024-09-22] MEDS: INSULIN GLARGINE (*BKC) 100 UNITS/ML 20 UNITS SUB-Q (08:45)
[2024-09-22] MEDS: INSULIN ASPART (*BKC) 100 UNITS/ML SUB-Q ×3 (08:46→17:27)
[2024-09-22] MEDS: INSULIN ASPART (*BKC) 100 UNITS/ML 6 UNITS SUB-Q ×3 (08:46→17:27)
[2024-09-22] MEDS: levoFLOXacin 750 MG/D5W 150 ML 750 MG/150 ML BAG 100 MG IVPB (11:19)
--- NOTE | 2024-09-22 11:23 | PCPTNOTE ---
Pt independent in the room. Spoke with current hospitalist - OK to removed therapy orders.
[2024-09-22] MEDS: SODIUM ZIRCONIUM CYCLOSILICATE 5 GM POWD.PACK PO (11:24)
[2024-09-22] MEDS: ACETAMINOPHEN 325 MG TABLET 650 MG PO (11:33)
[2024-09-22 12:16] LABS: Glucose Point of Care 220 mg/dl (65-105)
--- NOTE | 2024-09-22 16:35 | PM.IMPN ---
Progress Note: A&P Assessment and Plan (1) Acute exacerbation of chronic obstructive pulmonary disease: Code(s): J44.1 - Chronic obstructive pulmonary disease with (acute) exacerbation Status: Acute (2) Acute hypoxic respiratory failure: Code(s): J96.01 - Acute respiratory failure with hypoxia Status: Acute (3) Continuous tobacco abuse: Code(s): Z72.0 - Tobacco use Status: Acute (4) Type 2 diabetes mellitus with hyperglycemia, with long-term current use of insulin: Code(s): E11.65 - Type 2 diabetes mellitus with hyperglycemia; Z79.4 - [facility] ([facility] use of [facility] Status: Acute (5) Hypercalcemia: Code(s): E83.52 - Hypercalcemia Status: Acute Plan Patient has COPD exacerbation resulting in acute hypoxic respiratory failure. Patient been started on scheduled nebulizer treatments and IV steroids after loading dose of Solu-Medrol 125 was administered in the ER. Will increase the frequency of nebulizer treatments to q.4 hours. Will wean oxygen as tolerated. Smoking cessation has been strongly encouraged. Smoking cessation education provided. Nicotine patch is been made available as needed for symptoms of nicotine withdrawal. Will provide Mucinex scheduled for mucolytic effect. The patient does have type 2 diabetes mellitus is mildly hyperglycemic but I anticipate increased glucoses given steroid administration. Will resume the patient's long-acting insulin and will add mealtime bolus insulin of 6 units with meals as well as moderate sliding scale insulin with Accu-Cheks a.c. HS. Hypoglycemia protocol has been ordered as needed. Patient is mildly hypercalcemic given patient's tachycardia and recent illness I suspect some component of dehydration. Will give 1 L of IV fluids at 100 mL an hour and then will re-evaluate electrolyte panel in a.m.. Patient did receive a fluids prior to my evaluation before he told me that he had chronic hypercalcemia. Repeat CMP has been ordered. Patient with the history of COPD presented with cough and shortness of breath is found to have exacerbation of CPOD resulting in acute hypoxic respiratory failure.being treated with methylprednisone and up draft today patient stats feels little better compared to when he arrived, he does have persistent cough, will give Tessalon and continue guaifenesin, patient stats there is no significant change in his symptoms, however repeat chest x-ray shows consolidation, will start patient on Levaquin, will continue to monitor and will director of donor relations consult the patient, further recommendation to follow, patient with history of DM with A1c of 6.9 will continue home regiment and monitor with sliding scale, will have PT/OT evaluate the patient and further recommendation to follow. patient continue smoke will give nicotine patch. patient is present in the room gave updates. Subjective Date/time seen: 09/22/24 16:35 Interval history: Shortness of breath, cough H&P-Narrative: 68-year-old male with a past medical history of coronary artery disease, insulin-dependent diabetes mellitus, GERD, BPH, essential hypertension, hyperlipidemia, COPD and continued tobacco abuse who presented to the ER from home due to worsening shortness of breath. The patient reports that he has been having cough headache and generalized body aches accompanying is worsening shortness of breath for the last 10 days or so. He reports generalized chest tightness. He has been having some discomfort in the posterior right ribs more so when he takes a deep breath and coughs. He denies any actual chest pain or palpitations. He reports he has become so short of breath that he has had to sit up to sleep. He reports he been wheezing more than usual. He has been able to cough some mucus up but it is been more difficult to produce sputum. He has had moderately poor appetite. He denies any lower extremity swelling. He denies known history of CHF. He has continued to smoke but has cut back over the last week or so due to his symptoms. He reports the symptoms have not improved despite using his rescue inhaler 2 puffs every 2 hours with increasing frequency over the last several days. He denies any fevers or chills. His grand children had had recent viral symptoms about 3 weeks ago. Labs in the ER demonstrated hypercalcemia. Patient reports that he has had hypercalcemia for a couple of years and is thought to be due to vitamin-D deficiency. Patient with the history of COPD presented with cough and shortness of breath is found to have exacerbation of CPOD resulting in acute hypoxic respiratory failure.being treated with methylprednisone and up draft today patient stats feels little better compared to when he arrived, he does have persistent cough, will give Tessalon and continue guaifenesin, patient stats there is no significant change in his symptoms, however repeat chest x-ray shows consolidation, will start patient on Levaquin, will continue to monitor and will director of donor relations consult the patient, further recommendation to follow, patient with history of DM with A1c of 6.9 will continue home regiment and monitor with sliding scale, will have PT/OT evaluate the patient and further recommendation to follow. patient continue smoke will give nicotine patch. patient is present in the room gave updates. Review of Systems Review of Systems: 12 systems were reviewed with pertinent positives and negatives per HPI. Except as documented in the HPI, all other systems were reviewed and are negative. He reports chronic weak urinary stream due to history of BPH. He feels that he may have some incomplete bladder emptying. He denies dysuria or hematuria. Exam Narrative: Patient is comfortable, NAD HEENT: eyes are clear and none icteric LUNGS:CTA HEART: RR S1S2 ABD: BS+, Soft and nontender Lower extremities: no edema SKIN: nonjaundiced Neuro: grossly intact. Objective Data Vital Signs Vital Signs: Vital Signs - 24 hr 09/21/24 19:59 09/21/24 20:12 09/21/24 20:29 Temperature Pulse Rate 91 91 Respiratory Rate 16 16 Blood Pressure Pulse Oximetry 90 Oxygen Delivery Nasal Cannula Oxygen Flow Rate 3 Fraction of Inspired Oxygen 32 09/21/24 22:00 09/21/24 23:32 09/21/24 23:43 Temperature 36.6 C Pulse Rate 91 93 93 Respiratory Rate 20 16 16 Blood Pressure 134/63 Pulse Oximetry 98 Oxygen Delivery Oxygen Flow Rate Fraction of Inspired Oxygen 09/22/24 03:45 09/22/24 03:55 09/22/24 06:00 Temperature 36.1 C L Pulse Rate 93 93 89 Respiratory Rate 16 16 20 Blood Pressure 133/60 Pulse Oximetry 97 Oxygen Delivery Oxygen Flow Rate Fraction of Inspired Oxygen 09/22/24 07:59 09/22/24 08:00 09/22/24 08:01 Temperature Pulse Rate 89 89 Respiratory Rate 20 20 Blood Pressure Pulse Oximetry 92 96 Oxygen Delivery Nasal Cannula Nasal Cannula Oxygen Flow Rate 3 3 Fraction of Inspired Oxygen 09/22/24 08:08 09/22/24 08:38 09/22/24 12:20 Temperature Pulse Rate 88 95 89 Respiratory Rate 20 20 Blood Pressure Pulse Oximetry Oxygen Delivery Oxygen Flow Rate Fraction of Inspired Oxygen 09/22/24 12:29 Temperature Pulse Rate 90 Respiratory Rate 20 Blood Pressure Pulse Oximetry Oxygen Delivery Oxygen Flow Rate Fraction of Inspired Oxygen Intake/Output Intake/Output: Intake & Output 09/19/24 09/20/24 09/21/24 09/22/24 23:59 23:59 23:59 23:59 Intake Total 2798 3380 1820 240 Balance 2798 3380 1820 240 Meds/Results Medications: Active Medications Generic Name Dose Route Start Last Admin Trade Name Freq PRN Reason Stop Dose Admin Acetaminophen 650 mg 09/18/24 20:18 09/22/24 11:33 Acetaminophen 325 Mg Tablet PO 650 mg Q4H PRN Administration Mild Pain (1-3) or Fever Albuterol/Ipratropium 3 ml 09/19/24 08:00 09/22/24 16:34 Ipratropium 0.5 Mg/Albuterol Sulfate 2.5 Mg Ampul.Neb 3 Ml INHALATION 3 ml Q4HRT YESY Administration Aspirin 81 mg 09/19/24 09:00 09/22/24 08:39 Aspirin 81 Mg Chewable Tablet PO 81 mg DAILY YESY Administration Dextrose 12.5 gm 09/18/24 19:56 Dextrose 50% 25 Gm/50 Ml Syringe IV PUSH PRN PRN Hypoglycemia Protocol Diclofenac Sodium 75 mg 09/18/24 19:54 09/20/24 08:02 Diclofenac Sod 75 Mg Tablet.Ec PO 75 mg Q12H PRN Administration Arthritis pain Ezetimibe 10 mg 09/19/24 09:00 09/22/24 08:37 Ezetimibe 10 Mg Tablet PO 10 mg DAILY YESY Administration Enoxaparin Sodium 40 mg 09/19/24 09:00 09/22/24 08:36 Enoxaparin 40 Mg/0.4 Ml Syringe SUB-Q 40 mg DAILY YESY Administration Glucagon 1 mg 09/18/24 19:56 Glucagon For Inj 1 Mg Vial IM PRN PRN Hypoglycemia Protocol Glucose 15 gm 09/18/24 19:56 Glucose Oral Gel 15 Gm Of Glucse In 37.5 Gm Tube PO PRN PRN Hypoglycemia Protocol Guaifenesin 1,200 mg 09/18/24 21:00 09/22/24 08:37 Guaifenesin 12 Hr 600 Mg Tabcr PO 1,200 mg Q12HR YESY Administration Dextrose 1,000 mls @ 100 mls/hr 09/18/24 19:56 Dextrose 5% 1,000 Ml IVPB PRN PRN Hypoglycemia Protocol Levofloxacin/Dextrose 750 mg in 150 mls @ 100 mls/hr 09/22/24 09:50 09/22/24 11:19 Levaquin 750 Mg/D5w 150 Ml IVPB 100 mls/hr DAILY YESY Administration Insulin Aspart 6 units 09/19/24 08:00 09/22/24 12:33 Insulin Aspart (*Bkc) 100 Units/Ml 0.05 units/kg (6 units) 6 units SUB-Q Administration TIDWM YESY Insulin Aspart 3 - 6 units 09/19/24 08:00 09/22/24 12:34 Insulin Aspart (*Bkc) 100 Units/Ml SUB-Q 3 units TIDWM YESY Administration Protocol Insulin Aspart 1 - 3 units 09/18/24 21:00 09/21/24 20:55 Insulin Aspart (*Bkc) 100 Units/Ml SUB-Q Not Given [facility] Protocol Insulin Glargine 20 units 09/19/24 09:00 09/22/24 08:45 Insulin Glargine (*Bkc) 100 Units/Ml SUB-Q 20 units DAILY YESY Administration Lidocaine 1 patch 09/20/24 18:25 09/22/24 08:43 Lidocaine 5% Patch TRANSDERM Not Given DAILY YESY Losartan Potassium 100 mg 09/19/24 09:00 09/22/24 08:37 Losartan Potassium 100 Mg Tablet PO 100 mg DAILY YESY Administration Metformin HCl 1,000 mg 09/19/24 09:00 09/22/24 08:37 Metformin Hcl 500 Mg Tablet PO 1,000 mg BID YESY Administration Methylprednisolone Sodium Succinate 60 mg 09/18/24 18:00 09/22/24 12:32 Methylprednisolone Sod Succ 125 Mg Vial IV PUSH 60 mg Q6HR YESY Administration Metoprolol Succinate 50 mg 09/19/24 09:00 09/22/24 08:38 Metoprolol Succinate Ext Rel 50 Mg Tabcr PO 50 mg DAILY YESY Administration Nicotine 1 patch 09/18/24 20:15 09/21/24 08:28 Nicotine (*Pbkc) 21 Mg Patch TRANSDERM 1 patch DAILY PRN Administration Nicotine withdrawal Pantoprazole Sodium 40 mg 09/18/24 20:05 09/22/24 08:37 Pantoprazole 40 Mg Tablet PO 40 mg BID YESY Administration Quetiapine Fumarate 50 mg 09/19/24 21:00 09/21/24 20:58 Quetiapine Fumarate 25 Mg Tablet PO 50 mg QHS YESY Administration Rosuvastatin Calcium 40 mg 09/19/24 09:00 09/22/24 08:39 Rosuvastatin 20 Mg Tablet PO 40 mg DAILY YESY Administration Senna 8.6 mg 09/20/24 11:33 09/21/24 08:34 Sennosides 8.6 Mg Tablet PO 8.6 mg DAILY PRN Administration Constipation Sodium Zirconium Cyclosilicate 5 gm 09/22/24 10:00 09/22/24 11:24 Sodium Zirconium Cyclosilicate 5 Gm Powd.Pack PO 5 gm DAILY@1000 YESY Administration Tamsulosin HCl 0.4 mg 09/19/24 09:00 09/22/24 08:37 Tamsulosin Hcl 0.4 Mg Capsule PO 0.4 mg DAILY YESY Administration Tramadol HCl 50 mg 09/20/24 17:14 09/20/24 17:22 Tramadol Hcl (*Crx) 50 Mg Tablet PO 50 mg Q6H PRN Administration Pain Rated 4-6 Radiology Results: ITS Impressions Chest X-Ray 09/21/24 16:55 IMPRESSION: Subsegmental left basilar atelectasis/consolidation. Labs Labs: Laboratory Results - last 24 hr 09/21/24 09/21/24 09/22/24 16:24 20:37 05:50 WBC 13.3 H RBC 4.76 Hgb 13.5 L Hct 42.9 MCV 90.1 MCH 28.4 MCHC 31.5 L RDW 12.9 Plt Count 212 MPV 10.7 H Sodium Potassium Chloride Carbon Dioxide Anion Gap BUN Creatinine Estim Creat Clear Calc Estimated GFR Glucose POC Capillary Glucose 197 H 182 H Calcium Magnesium 09/22/24 09/22/24 09/22/24 06:46 08:03 11:57 WBC RBC Hgb Hct MCV MCH MCHC RDW Plt Count MPV Sodium 137 Potassium 5.3 H Chloride 95 L Carbon Dioxide 37 H Anion Gap 5 BUN 42 H Creatinine 1.04 Estim Creat Clear Calc 80 Estimated GFR > 60 Glucose 240 H POC Capillary Glucose 278 H 220 H Calcium 10.0 Magnesium 2.5 H Quality VTE Prophylaxis VTE prophylaxis: pharmacologic ordered (Lovenox 40 mg subQ daily.)
--- NOTE | 2024-09-22 16:39 | P.CONPL_ITS ---
Assessment and Plan Assessment and plan (1) Acute exacerbation of chronic obstructive pulmonary disease: Code(s): J44.1 - Chronic obstructive pulmonary disease with (acute) exacerbation Status: Acute Assessment and Plan: He was admitted September 18 after 10 days of increased shortness of breath, coughing, wheezing, had a clear CXR, main complaint was that he could not breathe, was treated for COPD exacerbation, feels much improved. He has developed new green sputum production with a chest x-ray September 21 showing atelectasis and volume loss in the left lower lobe. This is new, was not present on admission. His initial white blood cell count was normal 9.9 with increased monocytes 12%. WBC increased with steroids was 20.6k, now 13.3 September 22. This patient does not have frequent episodes of decompensation. He has not been on a ventilator. I do not see pulmonary function test in the system. I told him after discharge he can follow-up with us in the office, he will definitely need pulmonary function tests in 6-8 weeks, consideration for pulmonary rehab. (2) Acute hypoxic respiratory failure: Code(s): J96.01 - Acute respiratory failure with hypoxia Status: Acute Assessment and Plan: O2 is being weaned, now on 2 L/minute his ordered an oximeter, will provide information on how t use this More O2 and higher saturation is not better. Goal is sat up to 94% using supplemental O2. (3) Shortness of Breath: Code(s): R06.02 - Shortness of breath Status: Acute Assessment and Plan: This is being getting worse over the last several months. He has also had extreme fatigue. His says that for the last 6 months he has had no energy and worsening dyspnea. He has known COPD and is on Trelegy, has continued to smoke a pack per day. Prior to admission he was using his rescue inhaler 2 puffs every 2 hours, overuse. (4) Continuous tobacco abuse: Code(s): Z72.0 - Tobacco use Status: Acute Assessment and Plan: He has a nicotine patch on, currently is not having excessive cravings. He will need information on tobacco cessation prior to discharge to avoid relapse at home. Plan plan: 1) add Cornet vibratory treatment to bronchodilators to help loosen secretions in the left lower lobe 2) Levaquin was added, good choice for COPD with exacerbation. 3) CTA; he feels better but continues to have shortness of breath which really limits him, having difficulty walking 10 ft to the bathroom. He has mild swelling in the lower legs. CT a to evaluate for pulmonary emboli. 4) Echocardiogram; he has persistent shortness of berth, although he does feel better. Look for pulmonary hypertension, LV or RV dysfunction. 5) Home O2 study prior to discharge. 6) Tobacco cessation information prior to discharge. History of Present Illness History of Present Illness Consult date: 09/22/24 Requesting physician: Toby Carbajal MD Chief complaint: COPD Exacerbation/Hypoxia Narrative: Patient was seen September 22, 2024 at 20:00 in Room 320; Miriam was in the visit by phone. Primary care is Dr Matthew Mendenhall in [place] NEW: Cat Pettit is a 68 year-old man heavy smoker now at 1 ppd for the last 49 years; he was admitted 09/18 ER with increased shortness of breath for 10 days before presentation. He says that his primary care told him to go to Urgent Care several days earlier, he did not want to, so we increased use of his rescue inhaler 2 puffs every 2 hours in the days leading up to admission. He did not have fever, chills, but his home where he lives with his , daughter son-in-law and 2 grandchildren ages 10 in 15, the grandchildren had viral symptoms 3 weeks earlier. When he finally came in, he was extremely short of breath, could not walk any distance at all before having to stop. He says that he feels much improved compared to when he was initially admitted and his O2 requirement is lower. He did not have any vaccinations this year; normally gets vaccinated. He was admitted with a normal CXR on 09/18. Yesterday 09/21 he had atelectasis in the left base, although I could not see this because the chest x-ray cut off the left base. WBC is now normal, was 9.9 with 12 % monocytes on admission. He is now on 2 L for the last hour. Yesterday on 3 L. saturation was 91%; today on 3 L sat is 96% so this was weaned. He has not been on O2 at home. He developed greenish sputum since he has been in the hospital. He initially had antibiotics on admission but then did not have these continued. Dr Carbajal started antibiotics today with the green sputum. On admission he told the hospitalist that he had some pain in the right posterior ribs, worse with taking a deep breath and with coughing. He has never had a pulmonary embolism. He has been sitting up to breathe at home which is a new finding. His tells me he has been extremely fatigued for the last 6 months. His father of lung cancer at age 58, this is a big concern for her. She also tells me that the patient had some pulmonary nodules found on a chest CT about 8 or 9 years ago when he had a brief episode of hemoptysis. 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 He was exposed to solvents and dust. He was not in the . No other jobs, no other exposure. COPD: He has been on Trelegy for the last 2 years, uses albuterol infrequently. On a normal day he has some cough with small amount of sputum production. He wheezes at times, worse with exertion. Family history: Father age 58, lung cancer. PMH: coronary artery disease, [place] with stent placement 2005 in [facility] now followed by Dr Joseph Rios. Insulin- dependent diabetes mellitus for about the last 6 years, GERD, BPH, essential hypertension, hyperlipidemia, COPD and continued tobacco abuse who presented to the ER from home due to increased shortness of breath; anterior cervical diskectomy and fusion, C4-5; December 2022. DATA * 09/19/2024; CXR Subsegmental left basilar atelectasis/consolidation. * white blood cell count 13.3, hemoglobin 13.5, hematocrit 42.9%, platelets 212 k, sodium 137 potassium 5.3 chloride 95 carbon dioxide 37 BUN 42 creatinine 1.04 glucose 240, magnesium 2.5 * 09/18/2024; serology negative flu/RSV/ COVID * 09/18/2024 calcium 10.7, high , normal albumin 4.2. Dr Hamm commented on his mild hypercalcemia, not new, and now this has normalized. * 09/18/24; CXR ; no acute disease Review of Systems 2 Review of Systems: Due to shortness of breath he has been sitting up most of the day on the edge of the bed and his legs have been swelling more than usual. All systems reviewed & are unremarkable except as noted in HPI and below PMFSH Past Medical History Medical History (Updated 09/22/24 @ 21:09 by Debi Mckeon MD) Carotid artery disease BPH (benign prostatic hyperplasia) Cervical spondylosis Essential hypertension Hepatic steatosis Hyperlipidemia Obesity Diabetes COPD (chronic obstructive pulmonary disease) Kidney stone GERD (gastroesophageal reflux disease) Surgical History Surgical History (Updated 09/18/24 @ 20:13 by Isabelle Hamm DO) History of repair of ACL Status post cervical spinal fusion Status post cystoscopy with ureteral stent placement (07/2010) History of vasectomy Status post cataract extraction of both eyes with insertion of intraocular lens History of total right knee replacement History of coronary artery stent placement (~2005) History of colonoscopy with polypectomy H/O discectomy Family History Family History Father Lung cancer Diabetes mellitus Mother Hyperlipidemia Fibromyalgia Sibling Diabetes mellitus Heart disease Social History Social History (Updated 09/19/24 @ 06:02 by Isabelle Hamm DO) Social History: He lives in [place] with his of approximately 50 years. His daughter son-in-law and 2 grandsons also live with them. He has smoked a little less than a pack of cigarettes per day since he was a teenager. He used to drink moderate amount of alcohol on a regular basis but only drinks alcohol about once a month now. He denies illicit substance use. Code status: Full code (however he would not want to be on ventilator long-term urge to have a long-term feeding tube) Surrogate decision maker: Anisa () Smoking packs per day: 1 Smoking cigarettes per day: 20.0 Years smoked: 49 Smoking pack-years: 49.00 Smoking status: Heavy tobacco smoker Second hand tobacco smoke exposure: No Alcohol intake: current Substance use: never Substance use type: does not use Do You Feel Safe in your Home?: Yes Lack of Transportation: No Lack of Food: Never True Current Housing: I Have Housing Concerned About Future Housing: No Difficulty Paying Gas/Electric Bills: No Difficulty Paying for Meds: No Currently Unemployed: No Education: Trade/Vocational Certificate Difficulty w/ Childcare or Family Care: No Living arrangements: with family Occupation/Education: retired 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 Gender identity (if verbalized by the patient): Male Spiritual care concerns: No Meds Home Medications and Allergies Home Medications ?Medication ?Instructions ?Recorded ?Confirmed ?Type albuterol sulfate 90 mcg/actuation 1 inh inhalation Q4H 05/05/22 09/18/24 History aerosol inhaler (ProAir HFA) aspirin 81 mg chewable tablet 81 mg PO DAILY 05/05/22 09/18/24 History diclofenac sodium 75 mg 75 mg PO Q12H PRN pain 05/05/22 09/18/24 History tablet,delayed release ezetimibe 10 mg tablet (Zetia) 10 mg PO DAILY 05/05/22 09/18/24 History hydrochlorothiazide 25 mg tablet 25 mg PO DAILY 05/05/22 09/18/24 History insulin degludec 200 unit/mL (3 20 unit subcut DAILY 05/05/22 09/18/24 History mL) subcutaneous pen (Tresiba FlexTouch U-200 insulin) losartan 100 mg tablet 100 mg PO DAILY 05/05/22 09/18/24 History metformin 1,000 mg tablet 1,000 mg PO BID 05/05/22 09/18/24 History metoprolol succinate 50 mg 50 mg PO DAILY 05/05/22 09/18/24 History tablet,extended release 24 hr omeprazole 40 mg capsule,delayed 40 mg PO DAILY 05/05/22 09/18/24 History release quetiapine 50 mg tablet 50 mg PO DAILY 05/05/22 09/18/24 History rosuvastatin 40 mg tablet 40 mg PO DAILY 05/05/22 09/18/24 History semaglutide 0.25 mg or 0.5 mg (2 0.25 mg subcut WEEKLY 05/05/22 09/18/24 History mg/1.5 mL) subcutaneous pen injector (Ozempic) tamsulosin 0.4 mg capsule (Flomax) 0.4 mg PO DAILY 03/09/23 09/18/24 History insulin aspart 16 unit subcut TIDWMEAL 09/18/24 09/18/24 History (niacinamide)(U-100) 100 unit/mL(3 mL) subcutaneous pen (Fiasp FlexTouch U-100 Insulin) Allergies Allergy/AdvReac Type Severity Reaction Status Date / Time glimepiride Allergy Mild Rash Verified 03/09/23 14:01 Penicillins Allergy Mild Rash Verified 03/09/23 14:01 trazodone Allergy Mild Vomiting Verified 03/09/23 14:01 Vital Signs Vital Signs - 24 hr 09/21/24 19:59 09/21/24 20:12 09/21/24 20:29 Temperature Pulse Rate 91 91 Respiratory Rate 16 16 Blood Pressure Pulse Oximetry 90 Oxygen Delivery Nasal Cannula Oxygen Flow Rate 3 Fraction of Inspired Oxygen 32 09/21/24 22:00 09/21/24 23:32 09/21/24 23:43 Temperature 36.6 C Pulse Rate 91 93 93 Respiratory Rate 20 16 16 Blood Pressure 134/63 Pulse Oximetry 98 Oxygen Delivery Oxygen Flow Rate Fraction of Inspired Oxygen 09/22/24 03:45 09/22/24 03:55 09/22/24 06:00 Temperature 36.1 C L Pulse Rate 93 93 89 Respiratory Rate 16 16 20 Blood Pressure 133/60 Pulse Oximetry 97 Oxygen Delivery Oxygen Flow Rate Fraction of Inspired Oxygen 09/22/24 07:59 09/22/24 08:00 09/22/24 08:01 Temperature Pulse Rate 89 89 Respiratory Rate 20 20 Blood Pressure Pulse Oximetry 92 96 Oxygen Delivery Nasal Cannula Nasal Cannula Oxygen Flow Rate 3 3 Fraction of Inspired Oxygen 09/22/24 08:08 09/22/24 08:38 09/22/24 12:20 Temperature Pulse Rate 88 95 89 Respiratory Rate 20 20 Blood Pressure Pulse Oximetry Oxygen Delivery Oxygen Flow Rate Fraction of Inspired Oxygen 09/22/24 12:29 09/22/24 16:34 Temperature Pulse Rate 90 102 H Respiratory Rate 20 20 Blood Pressure Pulse Oximetry Oxygen Delivery Oxygen Flow Rate Fraction of Inspired Oxygen Exam 2 Narrative: GEN: Alert, oriented, not in distress. Nasal cannula 2 liters/minute saturation 96% HEENT: pupils are equal, EOMI, symmetrical face; oral membranes moist, Mallampati III airway, natural teeth. NECK: Trachea is midline CHEST: Equal air entry, symmetric excursion, decreased breath sounds, hyperinflated, expiratory wheezes, no crackles CV: Regular S1S2 no m/g/r; no additional sounds. ABD : (+) bowel sounds Extremities : no clubbing, no cyanosis, 1-2+edema in lower legs and feet; skin is warm and dry. PSYCH: normal thought and speech, gait is not tested. He is sitting on the side of the bed. He is not in distress. He can speak in sentences. Good historian. Results Laboratory Findings 09/22/24 05:50 09/22/24 06:46 Abnormal lab findings: Abnormal Labs 09/18/24 09/18/24 09/19/24 11:34 20:40 06:25 WBC RBC Hgb 13.5 L Hct 41.2 L MCHC MPV Immature Gran % (Auto) 0.6 H Neut % (Auto) 84.1 H Lymph % (Auto) 8.1 L Lymph # (Auto) 0.80 L Abs Immat Gran (auto) 0.06 H Absolute Neuts (auto) 8.3 H Sodium 134 L Potassium Chloride 97 L 95 L Carbon Dioxide Anion Gap 15 H BUN 23 H 27 H Glucose 155 H 240 H POC Capillary Glucose 252 H Hemoglobin A1c 6.9 H Calcium 10.7 H 10.4 H Magnesium Alkaline Phosphatase 141 H 09/19/24 09/19/24 09/19/24 07:29 11:17 16:44 WBC RBC Hgb Hct MCHC MPV Immature Gran % (Auto) Neut % (Auto) Lymph % (Auto) Lymph # (Auto) Abs Immat Gran (auto) Absolute Neuts (auto) Sodium Potassium Chloride Carbon Dioxide Anion Gap BUN Glucose POC Capillary Glucose 256 H 237 H 244 H Hemoglobin A1c Calcium Magnesium Alkaline Phosphatase 09/19/24 09/20/24 09/20/24 19:44 06:07 07:37 WBC 20.6 H RBC 4.50 L Hgb 12.8 L Hct 39.2 L MCHC MPV Immature Gran % (Auto) Neut % (Auto) Lymph % (Auto) Lymph # (Auto) Abs Immat Gran (auto) Absolute Neuts (auto) Sodium 135 L Potassium Chloride 94 L Carbon Dioxide Anion Gap BUN 36 H Glucose 243 H POC Capillary Glucose 242 H 224 H Hemoglobin A1c Calcium Magnesium Alkaline Phosphatase 09/20/24 09/20/24 09/20/24 11:24 16:18 20:26 WBC RBC Hgb Hct MCHC MPV Immature Gran % (Auto) Neut % (Auto) Lymph % (Auto) Lymph # (Auto) Abs Immat Gran (auto) Absolute Neuts (auto) Sodium Potassium Chloride Carbon Dioxide Anion Gap BUN Glucose POC Capillary Glucose 194 H 206 H 182 H Hemoglobin A1c Calcium Magnesium Alkaline Phosphatase 09/21/24 09/21/24 09/21/24 05:57 07:31 11:29 WBC 15.0 H RBC 4.55 L Hgb 12.8 L Hct 40.5 L MCHC 31.6 L MPV Immature Gran % (Auto) Neut % (Auto) Lymph % (Auto) Lymph # (Auto) Abs Immat Gran (auto) Absolute Neuts (auto) Sodium 135 L Potassium Chloride 96 L Carbon Dioxide 33 H Anion Gap BUN 38 H Glucose 223 H POC Capillary Glucose 243 H 246 H Hemoglobin A1c Calcium Magnesium 2.4 H Alkaline Phosphatase 09/21/24 09/21/24 09/22/24 16:24 20:37 05:50 WBC 13.3 H RBC Hgb 13.5 L Hct MCHC 31.5 L MPV 10.7 H Immature Gran % (Auto) Neut % (Auto) Lymph % (Auto) Lymph # (Auto) Abs Immat Gran (auto) Absolute Neuts (auto) Sodium Potassium Chloride Carbon Dioxide Anion Gap BUN Glucose POC Capillary Glucose 197 H 182 H Hemoglobin A1c Calcium Magnesium Alkaline Phosphatase 09/22/24 09/22/24 09/22/24 06:46 08:03 11:57 WBC RBC Hgb Hct MCHC MPV Immature Gran % (Auto) Neut % (Auto) Lymph % (Auto) Lymph # (Auto) Abs Immat Gran (auto) Absolute Neuts (auto) Sodium Potassium 5.3 H Chloride 95 L Carbon Dioxide 37 H Anion Gap BUN 42 H Glucose 240 H POC Capillary Glucose 278 H 220 H Hemoglobin A1c Calcium Magnesium 2.5 H Alkaline Phosphatase
[2024-09-22 17:10] LABS: Glucose Point of Care 206 mg/dl (65-105)
[2024-09-22] MEDS: QUEtiapine FUMARATE 25 MG TABLET 50 MG PO (20:50)
[2024-09-22] MEDS: traMADol HCL (*CRX) 50 MG TABLET PO (20:50)
[2024-09-23] VITALS (23 sets, daily range): BP systolic 108–140; BP diastolic 59–69; PULSE 78–98; RESP 16–20; TEMP 36.4–36.6; O2SAT 92–97
--- NOTE | 2024-09-23 | ECHO_ITS ---
Patient Info Name: Cat Pettit Age: 68 years : 1955 Gender: Male Ht: 74 in Wt: 244 lbs BSA: 2.43 m2 HR: 98 bpm BP: 108 / 59 mmHg Heart Rhythm: Sinus Rhythm Technical Quality: Poor Exam Date: 09/23/2024 11:26 AM Exam Location: Echo Lab Patient Status: Inpatient Admit Date: 09/19/2024 Staff Ordering Physician: Debi Mckeon MD Lead Person: Yokasta Dyer RDCS Attending Provider: Moise Luke MD Referring Physician: Linda GEIGER; Exam Type: CA echo dop color flow w con Study Info Indications R06.02 - Shortness of breath Complete two-dimensional, color flow and Doppler transthoracic echocardiogram is performed with contrast to opacify the left ventricle and to improve the deliniation of the left ventricle endocardial borders. Contrast/Agitated Saline Contrast/Ag. Saline: Definity Amount: 3.00 ml Administered By: Yokasta Dyer RDCS Existing IV Access: Yes IV Access Condition: patent with no signs of infiltration Summary 1. Technically difficult study with limited views. 2. Left ventricular chamber dimension is normal. 3. Left ventricular systolic function is lower limits of normal, estimated at 50-55%. 4. There is mildly increased left ventricular wall thickness. 5. The left ventricular diastolic function is grade I diastolic dysfunction. 6. Right ventricular systolic function is normal. 7. There is trivial posterior pericardial effusion. 8. No significant valvular disease. Left Ventricle Left ventricular chamber dimension is normal. Left ventricular systolic function is lower limits of normal, estimated at 50-55%. There is mildly increased left ventricular wall thickness. The left ventricular diastolic function is grade I diastolic dysfunction. Right Ventricle Right ventricular chamber dimension is normal. Right ventricular systolic function is normal. Left Atria Left atrial chamber dimension is normal. Right Atria Right atrial chamber dimension is normal. Atrial Septum Intact interatrial septum visualized by color flow imaging. Aortic Valve The aortic valve is not well visualized. There is no aortic valve stenosis. There is no aortic valve regurgitation. Pulmonic Valve The pulmonic valve is not well visualized. There is no pulmonic regurgitation. Mitral Valve There is trace mitral valve regurgitation. The mitral valve annulus is mildly calcified. Tricuspid Valve There is trace tricuspid valve regurgitation. Pericardium/Pleural The pericardium appears epicardial fat pad. There is trivial posterior pericardial effusion. Inferior Vena Cava Normal inferior vena cava with >50% collapse upon inspiration consistent with normal right atrial pressure, 3 mmHg. Aorta The aortic root size at the sinus of Valsalva is normal. Left Ventricular Outflow Tract Name Value Normal LVOT 2D LVOT Diameter 2.04 cm LVOT Doppler LVOT Peak Gradient 3 mmHg LVOT Mean Gradient 2 mmHg LVOT VTI 15.80 cm LVOT VTI/AV VTI Ratio 0.62 LVOT Stroke Volume 51.47 ml LVOT CO 4.18 l/min LVOT CI 1.72 L/min/m2 Mitral Valve Name Value Normal MV Doppler MV Decel [place] 604.30 cm/s2 MV PHT 0 s MV Area (PHT) 5.75 cm2 4.00-5.00 MV Diastolic Function MV E Peak Velocity 79.79 cm/s MV A Peak Velocity 96.79 cm/s MV E/A 0.82 MV Decel Time 0 s MV Annular TDI MV E/e' (Septal) 9.16 <=8.00 MV E/e' (Lateral) 6.16 <=8.00 MV E/e' (Average) 7.66 Tricuspid Valve Name Value Normal Estimated PAP/RSVP RA Pressure 3 mmHg <=5 Aorta Name Value Normal Ascending Aorta Ao Root Diameter (MM) 3.92 cm Ao Root Diam Index (MM) 1.61 cm/m2 Aortic Valve Name Value Normal AV Doppler AV Peak Velocity 129.49 cm/s AV Peak Gradient 7 mmHg AV Mean Gradient 4 mmHg AV VTI 25.46 cm AV Area (Cont Eq VTI) 2.02 cm2 >=3.00 AV Area (Cont Eq Myke) 2.35 cm2 AV Regurgitation 2D LVOT Area 3.26 cm2 Ventricles Name Value Normal LV Dimensions 2D/MM IVS Diastolic Thickness (2D) 0.83 cm 0.60-1.00 LVID Diastole (2D) 5.44 cm 4.20-5.80 LVIW Diastolic Thickness (2D) 0.84 cm 0.60-1.00 LVID Systole (2D) 3.55 cm 2.50-4.00 LVOT Diameter 2.04 cm LV Mass (2D Cubed) 165.06 g 88.00-224.00 LV Mass Index (2D Cubed) 0.01 g/cm2 0.00-0.01 Relative Wall Thickness (2D) 0.31 LV Fractional Shortening/Ejection Fraction 2D/MM LV Fractional Shortening (2D) 35 % 25-43 LV EF (2D Teicholz) 63 % 52-72 LV Diastolic Volume (4C MOD) 65.74 ml LV EF (4C MOD) 64 % LV Diastolic Volume (2C MOD) 68.30 ml LV EF (2C MOD) 53 % LV Diastolic Volume (BP MOD) 69.97 ml 62.00-150.00 LV Diastolic Volume Index (BP MOD) 0.03 l/m2 0.03-0.07 LV Systolic Volume (BP MOD) 28.92 ml 21.00-61.00 LV Systolic Volume Index (BP MOD) 0.01 l/m2 0.01-0.03 LV EF (BP MOD) 59 % 52-72 LV Diastolic Length (4C) 7.39 cm LV Systolic Length (4C) 6.37 cm LV Stroke Volume (4C MOD) 41.76 ml Atria Name Value Normal LA Dimensions LA Dimension (MM) 3.65 cm 3.00-4.10 LA Volume (4C A-L) 59.11 ml LA Volume (BP A-L) 62.49 ml RA Dimensions RA Area (4C) 16.05 cm2 <=18.00 Report Signatures
[2024-09-23 00:40] LABS: Glucose Point of Care 175 mg/dl (65-105)
[2024-09-23] MEDS: IPRATROPIUM 0.5 MG/ALBUTEROL SULFATE 2.5 MG AMPUL.NEB 3 ML INHALATION ×5 (04:50→20:13)
[2024-09-23 05:58] LABS: Hematocrit 43.5 % (42.0-52.0); Hemoglobin 14.1 g/dL (14.0-18.0); Mean Corpuscular HGB Conc 32.4 g/dl (32-36); Mean Corpuscular Volume 86.5 fl (80-100); Mean Platelet Volume 10.4 fl (7.4-10.4); Platelet Count Result 217 k/mm3 (150-375); Red Blood Count 5.03 M/mm3 (4.6-6.20); Red Cell Distribution Width 12.7 % (11.5-14.5); White Blood Count 9.1 K/mm3 (4.5-10.0)
[2024-09-23] MEDS: methylPREDNISolone SOD SUCC 125 MG VIAL 60 MG IV PUSH ×4 (06:07→17:19)
[2024-09-23 06:08] LABS: Anion Gap 9 mmol/L (4-12); Blood Urea Nitrogen 39 mg/dL (9-20); Calcium 10.2 mg/dL (8.4-10.2); Carbon Dioxide 32 mmol/L (22-30); Chloride 95 mmol/L (98-107); Estimated CRCL calculation 87 ml/min; Estimated Glomerular Filt Rate > 60; Glucose 186 mg/dL (65-110); Magnesium 2.3 mg/dL (1.6-2.3); Sodium 136 mmol/L (137-145)
[2024-09-23 08:04] LABS: Glucose Point of Care 185 mg/dl (65-105)
[2024-09-23] MEDS: metFORMIN HCL 500 MG TABLET 1000 MG PO ×2 (09:00→17:18)
[2024-09-23] MEDS: ASPIRIN 81 MG CHEWABLE TABLET PO (09:00)
[2024-09-23] MEDS: PANTOPRAZOLE 40 MG TABLET PO ×2 (09:00→17:18)
[2024-09-23] MEDS: TAMSULOSIN HCL 0.4 MG CAPSULE PO (09:00)
[2024-09-23] MEDS: ROSUVASTATIN 20 MG TABLET 40 MG PO (09:00)
[2024-09-23] MEDS: LOSARTAN POTASSIUM 100 MG TABLET PO (09:00)
[2024-09-23] MEDS: EZETIMIBE 10 MG TABLET PO (09:00)
[2024-09-23] MEDS: METOPROLOL SUCCINATE EXT REL 50 MG TABCR PO (09:00)
[2024-09-23] MEDS: guaiFENesin 12 HR 600 MG TABCR 1200 MG PO ×2 (09:00→20:02)
[2024-09-23] MEDS: ENOXAPARIN 40 MG/0.4 ML SYRINGE SUB-Q (09:01)
[2024-09-23] MEDS: levoFLOXacin 750 MG/D5W 150 ML 750 MG/150 ML BAG 100 MG IVPB (09:01)
[2024-09-23] MEDS: INSULIN GLARGINE (*BKC) 100 UNITS/ML 20 UNITS SUB-Q (09:01)
[2024-09-23] MEDS: INSULIN ASPART (*BKC) 100 UNITS/ML 6 UNITS SUB-Q ×3 (09:01→17:19)
[2024-09-23] MEDS: NICOTINE (*PBKC) 21 MG PATCH 1 PATCH TRANSDERM (09:14)
[2024-09-23] MEDS: PERFLUTREN LIPID MICROSPHERES 1.5 ML VIAL DILUTED TO 10 ML TOTAL VOLUME IV PUSH (11:50)
[2024-09-23 11:53] LABS: Glucose Point of Care 249 mg/dl (65-105)
--- NOTE | 2024-09-23 12:15 | IVDEFINITY ---
Prior to administration of IV Definity the patient was educated on the risks and benefits of the imaging enhancing agent including potential adverse side effects. The patient verbalized understanding. Allergies were verified. No exclusion criteria were identified and at least one of the following inclusion criteria were met: 1) physician request, 2) patient technically difficult to image (per the [place] [employer] guidelines of two or more segments not discernable within the apical view), or 3) questionable left ventricular function. ?
[2024-09-23] MEDS: INSULIN ASPART (*BKC) 100 UNITS/ML SUB-Q (12:24)
[2024-09-23] MEDS: SODIUM ZIRCONIUM CYCLOSILICATE 5 GM POWD.PACK PO (12:24)
--- NOTE | 2024-09-23 13:26 | PM.IMPN ---
Progress Note: A&P Assessment and Plan (1) Acute exacerbation of chronic obstructive pulmonary disease: Code(s): J44.1 - Chronic obstructive pulmonary disease with (acute) exacerbation Status: Acute (2) Acute hypoxic respiratory failure: Code(s): J96.01 - Acute respiratory failure with hypoxia Status: Acute (3) Continuous tobacco abuse: Code(s): Z72.0 - Tobacco use Status: Acute (4) Type 2 diabetes mellitus with hyperglycemia, with long-term current use of insulin: Code(s): E11.65 - Type 2 diabetes mellitus with hyperglycemia; Z79.4 - retirement (current) use of insulin Status: Acute (5) Hypercalcemia: Code(s): E83.52 - Hypercalcemia Status: Acute Plan Patient has COPD exacerbation resulting in acute hypoxic respiratory failure. Patient been started on scheduled nebulizer treatments and IV steroids after loading dose of Solu-Medrol 125 was administered in the ER. Will increase the frequency of nebulizer treatments to q.4 hours. Will wean oxygen as tolerated. Smoking cessation has been strongly encouraged. Smoking cessation education provided. Nicotine patch is been made available as needed for symptoms of nicotine withdrawal. Will provide Mucinex scheduled for mucolytic effect. The patient does have type 2 diabetes mellitus is mildly hyperglycemic but I anticipate increased glucoses given steroid administration. Will resume the patient's long-acting insulin and will add mealtime bolus insulin of 6 units with meals as well as moderate sliding scale insulin with Accu-Cheks a.c. HS. Hypoglycemia protocol has been ordered as needed. Patient is mildly hypercalcemic given patient's tachycardia and recent illness I suspect some component of dehydration. Will give 1 L of IV fluids at 100 mL an hour and then will re-evaluate electrolyte panel in a.m.. Patient did receive a fluids prior to my evaluation before he told me that he had chronic hypercalcemia. Repeat CMP has been ordered. 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 patient continue smoke will give nicotine patch. Subjective Date/time seen: 09/23/24 13:26 Interval history: Shortness of breath, cough H&P-Narrative: 68-year-old male with a past medical history of coronary artery disease, insulin-dependent diabetes mellitus, GERD, BPH, essential hypertension, hyperlipidemia, COPD and continued tobacco abuse who presented to the ER from home due to worsening shortness of breath. The patient reports that he has been having cough headache and generalized body aches accompanying is worsening shortness of breath for the last 10 days or so. He reports generalized chest tightness. He has been having some discomfort in the posterior right ribs more so when he takes a deep breath and coughs. He denies any actual chest pain or palpitations. He reports he has become so short of breath that he has had to sit up to sleep. He reports he been wheezing more than usual. He has been able to cough some mucus up but it is been more difficult to produce sputum. He has had moderately poor appetite. He denies any lower extremity swelling. He denies known history of CHF. He has continued to smoke but has cut back over the last week or so due to his symptoms. He reports the symptoms have not improved despite using his rescue inhaler 2 puffs every 2 hours with increasing frequency over the last several days. He denies any fevers or chills. His grand children had had recent viral symptoms about 3 weeks ago. Labs in the ER demonstrated hypercalcemia. Patient reports that he has had hypercalcemia for a couple of years and is thought to be due to vitamin-D deficiency. 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 patient continue smoke will give nicotine patch. Review of Systems Review of Systems: 12 systems were reviewed with pertinent positives and negatives per HPI. Except as documented in the HPI, all other systems were reviewed and are negative. He reports chronic weak urinary stream due to history of BPH. He feels that he may have some incomplete bladder emptying. He denies dysuria or hematuria. Exam Narrative: Patient is comfortable, NAD HEENT: eyes are clear and none icteric LUNGS:CTA HEART: RR S1S2 ABD: BS+, Soft and nontender Lower extremities: no edema SKIN: nonjaundiced Neuro: grossly intact. Objective Data Vital Signs Vital Signs: Vital Signs - 24 hr 09/22/24 14:00 09/22/24 16:00 09/22/24 16:34 Temperature 36.9 C Pulse Rate 72 98 102 H Respiratory Rate 18 20 Blood Pressure 146/72 H Pulse Oximetry 100 Oxygen Delivery Oxygen Flow Rate 09/22/24 16:45 09/22/24 20:00 09/22/24 20:15 Temperature Pulse Rate 98 86 Respiratory Rate 20 Blood Pressure Pulse Oximetry 96 Oxygen Delivery Nasal Cannula Oxygen Flow Rate 2 09/22/24 20:16 09/22/24 20:35 09/22/24 21:16 Temperature Pulse Rate 89 77 Respiratory Rate 20 20 Blood Pressure Pulse Oximetry 97 Oxygen Delivery Oxygen Flow Rate 09/22/24 21:44 09/23/24 00:00 09/23/24 03:49 Temperature 36.3 C L Pulse Rate 88 81 80 Respiratory Rate 18 Blood Pressure 124/70 Pulse Oximetry 97 Oxygen Delivery Oxygen Flow Rate 09/23/24 04:53 09/23/24 04:54 09/23/24 04:55 Temperature Pulse Rate 93 Respiratory Rate 20 Blood Pressure Pulse Oximetry 96 95 Oxygen Delivery Nasal Cannula Nasal Cannula Oxygen Flow Rate 2 1 09/23/24 04:58 09/23/24 05:16 09/23/24 08:19 Temperature 36.6 C Pulse Rate 97 98 Respiratory Rate 20 18 Blood Pressure 108/59 L Pulse Oximetry 93 92 Oxygen Delivery Nasal Cannula Oxygen Flow Rate 1 09/23/24 08:19 09/23/24 08:29 09/23/24 09:00 Temperature Pulse Rate 91 96 96 Respiratory Rate 20 20 Blood Pressure Pulse Oximetry Oxygen Delivery Oxygen Flow Rate 09/23/24 09:00 09/23/24 12:00 09/23/24 12:34 Temperature Pulse Rate 94 91 Respiratory Rate 20 Blood Pressure Pulse Oximetry 96 Oxygen Delivery Nasal Cannula Oxygen Flow Rate 1 09/23/24 12:45 Temperature Pulse Rate 92 Respiratory Rate 20 Blood Pressure Pulse Oximetry Oxygen Delivery Oxygen Flow Rate Intake/Output Intake/Output: Intake & Output 09/20/24 09/21/24 09/22/24 09/23/24 23:59 23:59 23:59 23:59 Intake Total 3380 1820 1780 880 Balance 3380 1820 1780 880 Meds/Results Medications: Active Medications Generic Name Dose Route Start Last Admin Trade Name Freq PRN Reason Stop Dose Admin Acetaminophen 650 mg 09/18/24 20:18 09/22/24 11:33 Acetaminophen 325 Mg Tablet PO 650 mg Q4H PRN Administration Mild Pain (1-3) or Fever Albuterol/Ipratropium 3 ml 09/19/24 08:00 09/23/24 12:34 Ipratropium 0.5 Mg/Albuterol Sulfate 2.5 Mg Ampul.Neb 3 Ml INHALATION 3 ml Q4HRT YESY Administration Aspirin 81 mg 09/19/24 09:00 09/23/24 09:00 Aspirin 81 Mg Chewable Tablet PO 81 mg DAILY YESY Administration Dextrose 12.5 gm 09/18/24 19:56 Dextrose 50% 25 Gm/50 Ml Syringe IV PUSH PRN PRN Hypoglycemia Protocol Diclofenac Sodium 75 mg 09/18/24 19:54 09/20/24 08:02 Diclofenac Sod 75 Mg Tablet.Ec PO 75 mg Q12H PRN Administration Arthritis pain Ezetimibe 10 mg 09/19/24 09:00 09/23/24 09:00 Ezetimibe 10 Mg Tablet PO 10 mg DAILY YESY Administration Enoxaparin Sodium 40 mg 09/19/24 09:00 09/23/24 09:01 Enoxaparin 40 Mg/0.4 Ml Syringe SUB-Q 40 mg DAILY YESY Administration Glucagon 1 mg 09/18/24 19:56 Glucagon For Inj 1 Mg Vial IM PRN PRN Hypoglycemia Protocol Glucose 15 gm 09/18/24 19:56 Glucose Oral Gel 15 Gm Of Glucse In 37.5 Gm Tube PO PRN PRN Hypoglycemia Protocol Guaifenesin 1,200 mg 09/18/24 21:00 09/23/24 09:00 Guaifenesin 12 Hr 600 Mg Tabcr PO 1,200 mg Q12HR YESY Administration Dextrose 1,000 mls @ 100 mls/hr 09/18/24 19:56 Dextrose 5% 1,000 Ml IVPB PRN PRN Hypoglycemia Protocol Levofloxacin/Dextrose 750 mg in 150 mls @ 100 mls/hr 09/22/24 09:50 09/23/24 10:31 Levaquin 750 Mg/D5w 150 Ml IVPB Infused DAILY YESY Infusion Insulin Aspart 6 units 09/19/24 08:00 09/23/24 12:24 Insulin Aspart (*Bkc) 100 Units/Ml 0.05 units/kg (6 units) 6 units SUB-Q Administration TIDWM [facility] Insulin Aspart 3 - 6 units 09/19/24 08:00 09/23/24 12:24 Insulin Aspart (*Bkc) 100 Units/Ml SUB-Q 3 units TIDWM YESY Administration Protocol Insulin Aspart 1 - 3 units 09/18/24 21:00 09/22/24 21:32 Insulin Aspart (*Bkc) 100 Units/Ml SUB-Q Not Given HS [facility] Protocol Insulin Glargine 20 units 09/19/24 09:00 09/23/24 09:01 Insulin Glargine (*Bkc) 100 Units/Ml SUB-Q 20 units DAILY YESY Administration Lidocaine 1 patch 09/20/24 18:25 09/23/24 09:02 Lidocaine 5% Patch TRANSDERM Not Given DAILY YESY Losartan Potassium 100 mg 09/19/24 09:00 09/23/24 09:00 Losartan Potassium 100 Mg Tablet PO 100 mg DAILY YESY Administration Metformin HCl 1,000 mg 09/19/24 09:00 09/23/24 09:00 Metformin Hcl 500 Mg Tablet PO 1,000 mg BID YESY Administration Methylprednisolone Sodium Succinate 60 mg 09/18/24 18:00 09/23/24 12:24 Methylprednisolone Sod Succ 125 Mg Vial IV PUSH 60 mg Q6HR YESY Administration Metoprolol Succinate 50 mg 09/19/24 09:00 09/23/24 09:00 Metoprolol Succinate Ext Rel 50 Mg Tabcr PO 50 mg DAILY YESY Administration Nicotine 1 patch 09/18/24 20:15 09/23/24 09:14 Nicotine (*Pbkc) 21 Mg Patch TRANSDERM 1 patch DAILY PRN Administration Nicotine withdrawal Pantoprazole Sodium 40 mg 09/18/24 20:05 09/23/24 09:00 Pantoprazole 40 Mg Tablet PO 40 mg BID YESY Administration Quetiapine Fumarate 50 mg 09/19/24 21:00 09/22/24 20:50 Quetiapine Fumarate 25 Mg Tablet PO 50 mg QHS YESY Administration Rosuvastatin Calcium 40 mg 09/19/24 09:00 09/23/24 09:00 Rosuvastatin 20 Mg Tablet PO 40 mg DAILY YESY Administration Senna 8.6 mg 09/20/24 11:33 09/21/24 08:34 Sennosides 8.6 Mg Tablet PO 8.6 mg DAILY PRN Administration Constipation Sodium Zirconium Cyclosilicate 5 gm 09/22/24 10:00 09/23/24 12:24 Sodium Zirconium Cyclosilicate 5 Gm Powd.Pack PO 5 gm DAILY@1000 YESY Administration Tamsulosin HCl 0.4 mg 09/19/24 09:00 09/23/24 09:00 Tamsulosin Hcl 0.4 Mg Capsule PO 0.4 mg DAILY YESY Administration Tramadol HCl 50 mg 09/20/24 17:14 09/22/24 20:50 Tramadol Hcl (*Crx) 50 Mg Tablet PO 50 mg Q6H PRN Administration Pain Rated 4-6 Radiology Results: ITS Impressions Chest X-Ray 09/21/24 16:55 IMPRESSION: Subsegmental left basilar atelectasis/consolidation. Chest CTA 09/23/24 09:36 Impression: No evidence of pulmonary embolus, aortic dissection, or aortic aneurysm. Clear lungs. Mild bilateral upper lobe emphysema. Labs Labs: Laboratory Results - last 24 hr 09/22/24 09/22/24 09/23/24 17:03 21:25 05:26 WBC 9.1 RBC 5.03 Hgb 14.1 Hct 43.5 MCV 86.5 MCH 28.0 MCHC 32.4 RDW 12.7 Plt Count 217 MPV 10.4 Sodium 136 L Potassium 5.0 Chloride 95 L Carbon Dioxide 32 H Anion Gap 9 BUN 39 H Creatinine 0.95 Estim Creat Clear Calc 87 Estimated GFR > 60 Glucose 186 H POC Capillary Glucose 206 H 175 H Calcium 10.2 Magnesium 2.3 09/23/24 09/23/24 07:56 11:44 WBC RBC Hgb Hct MCV MCH MCHC RDW Plt Count MPV Sodium Potassium Chloride Carbon Dioxide Anion Gap BUN Creatinine Estim Creat Clear Calc Estimated GFR Glucose POC Capillary Glucose 185 H 249 H Calcium Magnesium Quality VTE Prophylaxis VTE prophylaxis: pharmacologic ordered (Lovenox 40 mg subQ daily.)
[2024-09-23 17:06] LABS: Glucose Point of Care 171 mg/dl (65-105)
--- NOTE | 2024-09-23 17:17 | PM.PNPUL ---
Progress Note: A&P Assessment and Plan (1) Acute exacerbation of chronic obstructive pulmonary disease: Code(s): J44.1 - Chronic obstructive pulmonary disease with (acute) exacerbation Status: Acute Assessment and Plan: He was admitted September 18 after 10 days of increased shortness of breath, coughing, wheezing, had a clear CXR, main complaint was that he could not breathe, was treated for COPD exacerbation, feels much improved. He has developed new green sputum production with a chest x-ray September 21 showing atelectasis and volume loss in the left lower lobe. This is new, was not present on admission. His initial white blood cell count was normal 9.9 with increased monocytes 12%. WBC increased with steroids was 20.6k, now 13.3 September 22. This patient does not have frequent episodes of decompensation. He has not been on a ventilator. I do not see pulmonary function test in the system. I told him after discharge he can follow-up with us in the office, he will definitely need pulmonary function tests in 6-8 weeks, consideration for pulmonary rehab. (2) Acute hypoxic respiratory failure: Code(s): J96.01 - Acute respiratory failure with hypoxia Status: Acute Assessment and Plan: O2 is being weaned, now on 1 L/minute his ordered an oximeter, will provide information on how t use this More O2 and higher saturation is not better. Goal is sat up to 94% using supplemental O2. (3) Shortness of Breath: Code(s): R06.02 - Shortness of breath Status: Acute Assessment and Plan: This is being getting worse over the last several months. He has also had extreme fatigue. His says that for the last 6 months he has had no energy and worsening dyspnea. He has known COPD and is on Trelegy, has continued to smoke a pack per day. Prior to admission he was using his rescue inhaler 2 puffs every 2 hours, overuse. He says he does feel better today compared to yesterday. (4) Continuous tobacco abuse: Code(s): Z72.0 - Tobacco use Status: Acute Assessment and Plan: He has a nicotine patch on, currently is not having excessive cravings. He will need information on tobacco cessation prior to discharge to avoid relapse at home. Plan plan: continue Cornet vibratory treatment to bronchodilators to help loosen secretions in the left lower lobe continue Levaquin, CTA an echo are mostly unremarkable. Home O2 study prior to discharge. Tobacco cessation information prior to discharge. Subjective Date/time seen: 09/23/24 17:17 Interval history: 09/23/24; follow up; He is sitting on the side of the bed. Cornet valve seems to be helping him with secretions. He is feeling better. He had a CTA today, no PE. Echo = LV size is normal, LV systolic function lower limits of normal 50-55%. Grade I diastolic dysfunction. Mild increased in LV wall. RV is normal. There is mildly increased left ventricular wall thickness. 09/22/24 new consult; Cat Pettit is a 68 year-old man heavy smoker now at 1 ppd for the last 49 years; he was admitted 09/18 ER with increased shortness of breath for 10 days before presentation. He says that his primary care told him to go to Urgent Care several days earlier, he did not want to, so we increased use of his rescue inhaler 2 puffs every 2 hours in the days leading up to admission. He did not have fever, chills, but his home where he lives with his , daughter son-in-law and 2 grandchildren ages 10 in 15, the grandchildren had viral symptoms 3 weeks earlier. When he finally came in, he was extremely short of breath, could not walk any distance at all before having to stop. He says that he feels much improved compared to when he was initially admitted and his O2 requirement is lower. He did not have any vaccinations this year; normally gets vaccinated. He was admitted with a normal CXR on 09/18. Yesterday 09/21 he had atelectasis in the left base, although I could not see this because the chest x-ray cut off the left base. WBC is now normal, was 9.9 with 12 % monocytes on admission. He is now on 2 L for the last hour. Yesterday on 3 L. saturation was 91%; today on 3 L sat is 96% so this was weaned. He has not been on O2 at home. He developed greenish sputum since he has been in the hospital. He initially had antibiotics on admission but then did not have these continued. Dr Carbajal started antibiotics today with the green sputum. On admission he told the hospitalist that he had some pain in the right posterior ribs, worse with taking a deep breath and with coughing. He has never had a pulmonary embolism. He has been sitting up to breathe at home which is a new finding. His tells me he has been extremely fatigued for the last 6 months. His father of lung cancer at age 58, this is a big concern for her. She also tells me that the patient had some pulmonary nodules found on a chest CT about 8 or 9 years ago when he had a brief episode of hemoptysis. 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 He was exposed to solvents and dust. He was not in the . No other jobs, no other exposure. COPD: He has been on Trelegy for the last 2 years, uses albuterol infrequently. On a normal day he has some cough with small amount of sputum production. He wheezes at times, worse with exertion. Family history: Father age 58, lung cancer. PMH: coronary artery disease, SD with stent placement 2005 in [facility] now followed by Dr Joseph Rios. Insulin-dependent diabetes mellitus for about the last 6 years, GERD, BPH, essential hypertension, hyperlipidemia, COPD and continued tobacco abuse who presented to the ER from home due to increased shortness of breath; anterior cervical diskectomy and fusion, C4-5; December 2022. DATA * 09/23/24; CTA ;There is no evidence of any significant mediastinal, hilar or axillary lymphadenopathy. There is no filling defect in the pulmonary arterial tree to suggest pulmonary embolus. There is no evidence of aortic dissection or aneurysm. There is no evidence of pleural or pericardial effusion. The lungs are clear. No pulmonary nodules or infiltrates are noted. Mild emphysema noted in the upper lobes. Images through the upper abdomen reveal no abnormalities. Impression: No evidence of pulmonary embolus, aortic dissection, or aortic aneurysm. Clear lungs. Mild bilateral upper lobe emphysema. * 09/23/24; echo ; Technically difficult study with limited views. 2. Left ventricular chamber dimension is normal. 3. Left ventricular systolic function is lower limits of normal, estimated at 50-55%. 4. There is mildly increased left ventricular wall thickness. 5. The left ventricular diastolic function is grade I diastolic dysfunction. 6. Right ventricular systolic function is normal. 7. There is trivial posterior pericardial effusion. 8. No significant valvular disease. * 09/19/2024; CXR Subsegmental left basilar atelectasis/consolidation. * white blood cell count 13.3, hemoglobin 13.5, hematocrit 42.9%, platelets 212 k, sodium 137 potassium 5.3 chloride 95 carbon dioxide 37 BUN 42 creatinine 1.04 glucose 240, magnesium 2.5 * 09/18/2024; serology negative flu/RSV/ COVID * 09/18/2024 calcium 10.7, high , normal albumin 4.2. Dr Hamm commented on his mild hypercalcemia, not new, and now this has normalized. * 09/18/24; CXR ; no acute disease Review of Systems Review of Systems: All systems reviewed & are unremarkable except as noted in HPI and below Exam Narrative: GEN: Alert, oriented, not in distress. Nasal cannula 1 liters/minute saturation 96%, lower compared to yesterday at 2 L HEENT: pupils are equal, EOMI, symmetrical face; oral membranes moist, Mallampati III airway, natural teeth. NECK: Trachea is midline CHEST: Equal air entry, symmetric excursion, decreased breath sounds, hyperinflated, clearer CV: Regular S1S2 no m/g/r; no additional sounds. ABD : (+) bowel sounds Extremities : no clubbing, no cyanosis, 1-2+edema in lower legs and feet; skin is warm and dry. PSYCH: normal thought and speech, gait is not tested. Objective Data Vital Signs Vital Signs: Vital Signs - 24 hr 09/22/24 20:00 09/22/24 20:15 09/22/24 20:16 Temperature Pulse Rate 86 89 Respiratory Rate 20 Blood Pressure Pulse Oximetry 96 Oxygen Delivery Nasal Cannula Oxygen Flow Rate 2 09/22/24 20:35 09/22/24 21:16 09/22/24 21:44 Temperature 36.3 C L Pulse Rate 77 88 Respiratory Rate 20 18 Blood Pressure 124/70 Pulse Oximetry 97 97 Oxygen Delivery Oxygen Flow Rate 09/23/24 00:00 09/23/24 03:49 09/23/24 04:53 Temperature Pulse Rate 81 80 93 Respiratory Rate 20 Blood Pressure Pulse Oximetry Oxygen Delivery Oxygen Flow Rate 09/23/24 04:54 09/23/24 04:55 09/23/24 04:58 Temperature Pulse Rate 97 Respiratory Rate 20 Blood Pressure Pulse Oximetry 96 95 Oxygen Delivery Nasal Cannula Nasal Cannula Oxygen Flow Rate 2 1 09/23/24 05:16 09/23/24 08:19 09/23/24 08:19 Temperature 36.6 C Pulse Rate 98 91 Respiratory Rate 18 20 Blood Pressure 108/59 L Pulse Oximetry 93 92 Oxygen Delivery Nasal Cannula Oxygen Flow Rate 1 09/23/24 08:29 09/23/24 09:00 09/23/24 09:00 Temperature Pulse Rate 96 96 Respiratory Rate 20 Blood Pressure Pulse Oximetry 96 Oxygen Delivery Nasal Cannula Oxygen Flow Rate 1 09/23/24 12:00 09/23/24 12:34 09/23/24 12:45 Temperature Pulse Rate 94 91 92 Respiratory Rate 20 20 Blood Pressure Pulse Oximetry Oxygen Delivery Oxygen Flow Rate 09/23/24 13:00 09/23/24 16:00 09/23/24 16:10 Temperature 36.4 C Pulse Rate 96 89 92 Respiratory Rate 16 20 Blood Pressure 140/65 Pulse Oximetry 95 Oxygen Delivery Oxygen Flow Rate 09/23/24 16:20 Temperature Pulse Rate 93 Respiratory Rate 20 Blood Pressure Pulse Oximetry Oxygen Delivery Oxygen Flow Rate Intake/Output Intake/Output: Intake & Output 09/20/24 09/21/24 09/22/24 09/23/24 23:59 23:59 23:59 23:59 Intake Total 3380 0 1779 2079 Balance 3380 0 0 2079 Meds/Results Medications: Active Medications Generic Name Dose Route Start Last Admin Trade Name Freq PRN Reason Stop Dose Admin Acetaminophen 650 mg 09/18/24 20:18 09/22/24 11:33 Acetaminophen 325 Mg Tablet PO 650 mg Q4H PRN Administration Mild Pain (1-3) or Fever Albuterol/Ipratropium 3 ml 09/19/24 08:00 09/23/24 16:09 Ipratropium 0.5 Mg/Albuterol Sulfate 2.5 Mg Ampul.Neb 3 Ml INHALATION 3 ml Q4HRT YESY Administration Aspirin 81 mg 09/19/24 09:00 09/23/24 09:00 Aspirin 81 Mg Chewable Tablet PO 81 mg DAILY YESY Administration Dextrose 12.5 gm 09/18/24 19:56 Dextrose 50% 25 Gm/50 Ml Syringe IV PUSH PRN PRN Hypoglycemia Protocol Diclofenac Sodium 75 mg 09/18/24 19:54 09/20/24 08:02 Diclofenac Sod 75 Mg Tablet.Ec PO 75 mg Q12H PRN Administration Arthritis pain Ezetimibe 10 mg 09/19/24 09:00 09/23/24 09:00 Ezetimibe 10 Mg Tablet PO 10 mg DAILY YESY Administration Enoxaparin Sodium 40 mg 09/19/24 09:00 09/23/24 09:01 Enoxaparin 40 Mg/0.4 Ml Syringe SUB-Q 40 mg DAILY YESY Administration Glucagon 1 mg 09/18/24 19:56 Glucagon For Inj 1 Mg Vial IM PRN PRN Hypoglycemia Protocol Glucose 15 gm 09/18/24 19:56 Glucose Oral Gel 15 Gm Of Glucse In 37.5 Gm Tube PO PRN PRN Hypoglycemia Protocol Guaifenesin 1,200 mg 09/18/24 21:00 09/23/24 09:00 Guaifenesin 12 Hr 600 Mg Tabcr PO 1,200 mg Q12HR YESY Administration Dextrose 1,000 mls @ 100 mls/hr 09/18/24 19:56 Dextrose 5% 1,000 Ml IVPB PRN PRN Hypoglycemia Protocol Levofloxacin/Dextrose 750 mg in 150 mls @ 100 mls/hr 09/22/24 09:50 09/23/24 10:31 Levaquin 750 Mg/D5w 150 Ml IVPB Infused DAILY YESY Infusion Insulin Aspart 6 units 09/19/24 08:00 09/23/24 12:24 Insulin Aspart (*Bkc) 100 Units/Ml 0.05 units/kg (6 units) 6 units SUB-Q Administration TIDWM YESY Insulin Aspart 3 - 6 units 09/19/24 08:00 09/23/24 17:15 Insulin Aspart (*Bkc) 100 Units/Ml SUB-Q Not Given TIDWM [facility] Protocol Insulin Aspart 1 - 3 units 09/18/24 21:00 09/22/24 21:32 Insulin Aspart (*Bkc) 100 Units/Ml SUB-Q Not Given HS [facility] Protocol Insulin Glargine 20 units 09/19/24 09:00 09/23/24 09:01 Insulin Glargine (*Bkc) 100 Units/Ml SUB-Q 20 units DAILY YESY Administration Lidocaine 1 patch 09/20/24 18:25 09/23/24 09:02 Lidocaine 5% Patch TRANSDERM Not Given DAILY YESY Losartan Potassium 100 mg 09/19/24 09:00 09/23/24 09:00 Losartan Potassium 100 Mg Tablet PO 100 mg DAILY YESY Administration Metformin HCl 1,000 mg 09/19/24 09:00 09/23/24 09:00 Metformin Hcl 500 Mg Tablet PO 1,000 mg BID YESY Administration Methylprednisolone Sodium Succinate 60 mg 09/18/24 18:00 09/23/24 12:24 Methylprednisolone Sod Succ 125 Mg Vial IV PUSH 60 mg Q6HR YESY Administration Metoprolol Succinate 50 mg 09/19/24 09:00 09/23/24 09:00 Metoprolol Succinate Ext Rel 50 Mg Tabcr PO 50 mg DAILY YESY Administration Nicotine 1 patch 09/18/24 20:15 09/23/24 09:14 Nicotine (*Pbkc) 21 Mg Patch TRANSDERM 1 patch DAILY PRN Administration Nicotine withdrawal Pantoprazole Sodium 40 mg 09/18/24 20:05 09/23/24 09:00 Pantoprazole 40 Mg Tablet PO 40 mg BID YESY Administration Quetiapine Fumarate 50 mg 09/19/24 21:00 09/22/24 20:50 Quetiapine Fumarate 25 Mg Tablet PO 50 mg QHS YESY Administration Rosuvastatin Calcium 40 mg 09/19/24 09:00 09/23/24 09:00 Rosuvastatin 20 Mg Tablet PO 40 mg DAILY YESY Administration Senna 8.6 mg 09/20/24 11:33 09/21/24 08:34 Sennosides 8.6 Mg Tablet PO 8.6 mg DAILY PRN Administration Constipation Sodium Zirconium Cyclosilicate 5 gm 09/22/24 10:00 09/23/24 12:24 Sodium Zirconium Cyclosilicate 5 Gm Powd.Pack PO 5 gm DAILY@1000 YESY Administration Tamsulosin HCl 0.4 mg 09/19/24 09:00 09/23/24 09:00 Tamsulosin Hcl 0.4 Mg Capsule PO 0.4 mg DAILY YESY Administration Tramadol HCl 50 mg 09/20/24 17:14 09/22/24 20:50 Tramadol Hcl (*Crx) 50 Mg Tablet PO 50 mg Q6H PRN Administration Pain Rated 4-6 Radiology Results: ITS Impressions Chest X-Ray 09/21/24 16:55 IMPRESSION: Subsegmental left basilar atelectasis/consolidation. Chest CTA 09/23/24 09:36 Impression: No evidence of pulmonary embolus, aortic dissection, or aortic aneurysm. Clear lungs. Mild bilateral upper lobe emphysema. Labs Labs: Laboratory Results - last 24 hr 09/22/24 09/23/24 09/23/24 21:25 05:26 07:56 WBC 9.1 RBC 5.03 Hgb 14.1 Hct 43.5 MCV 86.5 MCH 28.0 MCHC 32.4 RDW 12.7 Plt Count 217 MPV 10.4 Sodium 136 L Potassium 5.0 Chloride 95 L Carbon Dioxide 32 H Anion Gap 9 BUN 39 H Creatinine 0.95 Estim Creat Clear Calc 87 Estimated GFR > 60 Glucose 186 H POC Capillary Glucose 175 H 185 H Calcium 10.2 Magnesium 2.3 09/23/24 09/23/24 11:44 17:01 WBC RBC Hgb Hct MCV MCH MCHC RDW Plt Count MPV Sodium Potassium Chloride Carbon Dioxide Anion Gap BUN Creatinine Estim Creat Clear Calc Estimated GFR Glucose POC Capillary Glucose 249 H 171 H Calcium Magnesium
[2024-09-23] MEDS: QUEtiapine FUMARATE 25 MG TABLET 50 MG PO (20:01)
[2024-09-23] MEDS: traMADol HCL (*CRX) 50 MG TABLET PO (20:01)
[2024-09-23 21:21] LABS: Glucose Point of Care 199 mg/dl (65-105)
[2024-09-24] VITALS (20 sets, daily range): BP systolic 109–135; BP diastolic 59–64; PULSE 74–102; RESP 14–22; TEMP 36.3–36.6; O2SAT 93–98
[2024-09-24] MEDS: methylPREDNISolone SOD SUCC 125 MG VIAL 60 MG IV PUSH ×4 (01:08→18:02)
[2024-09-24] MEDS: IPRATROPIUM 0.5 MG/ALBUTEROL SULFATE 2.5 MG AMPUL.NEB 3 ML INHALATION ×5 (04:48→21:06)
[2024-09-24 06:24] LABS: Hematocrit 43.2 % (42.0-52.0); Mean Corpuscular HGB Conc 32.4 g/dl (32-36); Mean Corpuscular Hemoglobin 28.1 pg (26-34); Mean Corpuscular Volume 86.6 fl (80-100); Mean Platelet Volume 10.4 fl (7.4-10.4); Platelet Count Result 197 k/mm3 (150-375); Red Blood Count 4.99 M/mm3 (4.6-6.20); Red Cell Distribution Width 12.6 % (11.5-14.5); White Blood Count 7.4 K/mm3 (4.5-10.0)
[2024-09-24 06:36] LABS: Anion Gap 6 mmol/L (4-12); Blood Urea Nitrogen 38 mg/dL (9-20); Calcium 10.1 mg/dL (8.4-10.2); Carbon Dioxide 30 mmol/L (22-30); Chloride 97 mmol/L (98-107); Estimated CRCL calculation 94 ml/min; Estimated Glomerular Filt Rate > 60; Glucose 222 mg/dL (65-110); Magnesium 2.3 mg/dL (1.6-2.3); Potassium 5.1 mmol/L (3.4-5.0); Sodium 133 mmol/L (137-145)
[2024-09-24 07:38] LABS: Glucose Point of Care 228 mg/dl (65-105)
[2024-09-24] MEDS: INSULIN ASPART (*BKC) 100 UNITS/ML 6 UNITS SUB-Q ×3 (07:44→16:33)
[2024-09-24] MEDS: INSULIN ASPART (*BKC) 100 UNITS/ML SUB-Q ×4 (07:45→20:15)
[2024-09-24] MEDS: NICOTINE (*PBKC) 21 MG PATCH 1 PATCH TRANSDERM (08:18)
[2024-09-24] MEDS: INSULIN GLARGINE (*BKC) 100 UNITS/ML 20 UNITS SUB-Q (08:22)
[2024-09-24] MEDS: ASPIRIN 81 MG CHEWABLE TABLET PO (08:23)
[2024-09-24] MEDS: levoFLOXacin 750 MG/D5W 150 ML 750 MG/150 ML BAG 100 MG IVPB (08:24)
[2024-09-24] MEDS: EZETIMIBE 10 MG TABLET PO (08:24)
[2024-09-24] MEDS: ENOXAPARIN 40 MG/0.4 ML SYRINGE SUB-Q (08:24)
[2024-09-24] MEDS: metFORMIN HCL 500 MG TABLET 1000 MG PO ×2 (08:24→16:32)
[2024-09-24] MEDS: guaiFENesin 12 HR 600 MG TABCR 1200 MG PO ×2 (08:24→20:15)
[2024-09-24] MEDS: LOSARTAN POTASSIUM 100 MG TABLET PO (08:24)
[2024-09-24] MEDS: METOPROLOL SUCCINATE EXT REL 50 MG TABCR PO (08:25)
[2024-09-24] MEDS: PANTOPRAZOLE 40 MG TABLET PO ×2 (08:25→16:32)
[2024-09-24] MEDS: ROSUVASTATIN 20 MG TABLET 40 MG PO (08:25)
[2024-09-24] MEDS: TAMSULOSIN HCL 0.4 MG CAPSULE PO (08:25)
[2024-09-24] MEDS: SODIUM ZIRCONIUM CYCLOSILICATE 5 GM POWD.PACK PO (10:55)
[2024-09-24 11:11] LABS: Glucose Point of Care 320 mg/dl (65-105)
--- NOTE | 2024-09-24 11:51 | P.PNIM_ITS ---
Progress Note: A&P Assessment and Plan (1) Acute exacerbation of chronic obstructive pulmonary disease: Code(s): J44.1 - Chronic obstructive pulmonary disease with (acute) exacerbation Status: Acute Assessment and Plan: * Cornet. * Methylprednisolone 60 mg ivp q6. * Guaifenesin 1,200 mg PO q 12. * Levofloxacin 750 mg PO daily. * Duoneb q4. * WBC 7.4. * Plan PFT's 6-8 weeks after discharge. (2) Acute hypoxic respiratory failure: Code(s): J96.01 - Acute respiratory failure with hypoxia Status: Acute Assessment and Plan: * Improving. * Patient weaned to RA with Sa02 93%. (3) Continuous tobacco abuse: Code(s): Z72.0 - Tobacco use Status: Acute Assessment and Plan: * Discussed with patient decreasing and working on smoking cessation. (4) Type 2 diabetes mellitus with hyperglycemia, with long-term current use of insulin: Code(s): E11.65 - Type 2 diabetes mellitus with hyperglycemia; Z79.4 - long term care administrator (current) use of insulin Status: Acute Assessment and Plan: * SSI, Glargine 20 units subq daily, Aspart 6 units TID WM, and hypoglycemic protocol. Subjective Date/time seen: 09/24/24 11:51 Interval history: Patient reports breathing is improving. Patient denies chest pain, palpitations, headache, dizziness, nausea, or vomiting. Review of Systems Review of Systems: All systems reviewed & are unremarkable except as noted in HPI and below Exam Const: General: comfortable and no acute distress Resp: Effort & Inspection: normal respiratory effort Auscultation: wheezes scattered wheezes and diminished lung sounds Cardio: Rate: regular rate Rhythm: regular rhythm Other: Telemetry- SR 85. GI: GI Palp: Yes Soft to palpation Auscultation: normal bowel sounds Neuro: Speech: normal speech Extrem: General: pedal edema bilaterally 1+ Psych: Mental Status: mental status grossly normal Affect: normal affect Objective Data Vital Signs Vital Signs: Vital Signs - 24 hr 09/23/24 12:00 09/23/24 12:34 09/23/24 12:45 Temperature Pulse Rate 94 91 92 Respiratory Rate 20 20 Blood Pressure Pulse Oximetry Oxygen Delivery Oxygen Flow Rate 09/23/24 13:00 09/23/24 16:00 09/23/24 16:10 Temperature 97.6 F Pulse Rate 96 89 92 Respiratory Rate 16 20 Blood Pressure 140/65 Pulse Oximetry 95 Oxygen Delivery Oxygen Flow Rate 09/23/24 16:20 09/23/24 20:00 09/23/24 20:13 Temperature Pulse Rate 93 78 Respiratory Rate 20 Blood Pressure Pulse Oximetry 94 Oxygen Delivery Nasal Cannula Oxygen Flow Rate 1 09/23/24 20:16 09/23/24 20:24 09/23/24 21:00 Temperature Pulse Rate 92 88 Respiratory Rate 18 16 Blood Pressure Pulse Oximetry 97 Oxygen Delivery Oxygen Flow Rate 09/23/24 21:57 09/24/24 00:00 09/24/24 04:00 Temperature 97.9 F Pulse Rate 90 74 78 Respiratory Rate 20 Blood Pressure 122/69 Pulse Oximetry 94 Oxygen Delivery Oxygen Flow Rate 09/24/24 04:48 09/24/24 04:57 09/24/24 05:00 Temperature 97.3 F L Pulse Rate 90 89 82 Respiratory Rate 16 16 20 Blood Pressure 135/64 Pulse Oximetry 98 Oxygen Delivery Oxygen Flow Rate 09/24/24 08:00 09/24/24 08:00 09/24/24 08:06 Temperature Pulse Rate 101 H Respiratory Rate Blood Pressure Pulse Oximetry 95 95 Oxygen Delivery Nasal Cannula Nasal Cannula Oxygen Flow Rate 2 2 09/24/24 08:06 09/24/24 08:16 09/24/24 08:25 Temperature Pulse Rate 98 97 80 Respiratory Rate 18 18 Blood Pressure Pulse Oximetry Oxygen Delivery Oxygen Flow Rate 09/24/24 11:40 09/24/24 11:49 Temperature Pulse Rate Respiratory Rate Blood Pressure Pulse Oximetry 98 94 Oxygen Delivery Nasal Cannula Room Air Oxygen Flow Rate 2 Intake/Output Intake/Output: Intake & Output 09/21/24 09/22/24 09/23/24 09/24/24 23:59 23:59 23:59 23:59 Intake Total 1820 1780 2320 240 Balance 1820 1780 2320 240 Meds/Results Medications: Active Medications Generic Name Dose Route Start Last Admin Trade Name Freq PRN Reason Stop Dose Admin Acetaminophen 650 mg 09/18/24 20:18 09/22/24 11:33 Acetaminophen 325 Mg Tablet PO 650 mg Q4H PRN Administration Mild Pain (1-3) or Fever Albuterol/Ipratropium 3 ml 09/19/24 08:00 09/24/24 08:05 Ipratropium 0.5 Mg/Albuterol Sulfate 2.5 Mg Ampul.Neb 3 Ml INHALATION 3 ml Q4HRT YESY Administration Aspirin 81 mg 09/19/24 09:00 09/24/24 08:23 Aspirin 81 Mg Chewable Tablet PO 81 mg DAILY YESY Administration Dextrose 12.5 gm 09/18/24 19:56 Dextrose 50% 25 Gm/50 Ml Syringe IV PUSH PRN PRN Hypoglycemia Protocol Diclofenac Sodium 75 mg 09/18/24 19:54 09/20/24 08:02 Diclofenac Sod 75 Mg Tablet.Ec PO 75 mg Q12H PRN Administration Arthritis pain Ezetimibe 10 mg 09/19/24 09:00 09/24/24 08:24 Ezetimibe 10 Mg Tablet PO 10 mg DAILY YESY Administration Enoxaparin Sodium 40 mg 09/19/24 09:00 09/24/24 08:24 Enoxaparin 40 Mg/0.4 Ml Syringe SUB-Q 40 mg DAILY YESY Administration Glucagon 1 mg 09/18/24 19:56 Glucagon For Inj 1 Mg Vial IM PRN PRN Hypoglycemia Protocol Glucose 15 gm 09/18/24 19:56 Glucose Oral Gel 15 Gm Of Glucse In 37.5 Gm Tube PO PRN PRN Hypoglycemia Protocol Guaifenesin 1,200 mg 09/18/24 21:00 09/24/24 08:24 Guaifenesin 12 Hr 600 Mg Tabcr PO 1,200 mg Q12HR YESY Administration Dextrose 1,000 mls @ 100 mls/hr 09/18/24 19:56 Dextrose 5% 1,000 Ml IVPB PRN PRN Hypoglycemia Protocol Levofloxacin/Dextrose 750 mg in 150 mls @ 100 mls/hr 09/22/24 09:50 09/24/24 08:24 Levaquin 750 Mg/D5w 150 Ml IVPB 100 mls/hr DAILY YESY Administration Insulin Aspart 6 units 09/19/24 08:00 09/24/24 11:27 Insulin Aspart (*Bkc) 100 Units/Ml 0.05 units/kg (6 units) 6 units SUB-Q Administration TIDWM [facility] Insulin Aspart 3 - 6 units 09/19/24 08:00 09/24/24 11:27 Insulin Aspart (*Bkc) 100 Units/Ml SUB-Q 5 units TIDWM [facility] Administration Protocol Insulin Aspart 1 - 3 units 09/18/24 21:00 09/23/24 21:56 Insulin Aspart (*Bkc) 100 Units/Ml SUB-Q Not Given HS [facility] Protocol Insulin Glargine 20 units 09/19/24 09:00 09/24/24 08:22 Insulin Glargine (*Bkc) 100 Units/Ml SUB-Q 20 units DAILY YESY Administration Lidocaine 1 patch 09/20/24 18:25 09/24/24 08:18 Lidocaine 5% Patch TRANSDERM Not Given DAILY YESY Losartan Potassium 100 mg 09/19/24 09:00 09/24/24 08:24 Losartan Potassium 100 Mg Tablet PO 100 mg DAILY YESY Administration Metformin HCl 1,000 mg 09/19/24 09:00 09/24/24 08:24 Metformin Hcl 500 Mg Tablet PO 1,000 mg BID YESY Administration Methylprednisolone Sodium Succinate 60 mg 09/18/24 18:00 09/24/24 11:27 Methylprednisolone Sod Succ 125 Mg Vial IV PUSH 60 mg Q6HR YESY Administration Metoprolol Succinate 50 mg 09/19/24 09:00 09/24/24 08:25 Metoprolol Succinate Ext Rel 50 Mg Tabcr PO 50 mg DAILY YESY Administration Nicotine 1 patch 09/18/24 20:15 09/24/24 08:18 Nicotine (*Pbkc) 21 Mg Patch TRANSDERM 1 patch DAILY PRN Administration Nicotine withdrawal Pantoprazole Sodium 40 mg 09/18/24 20:05 09/24/24 08:25 Pantoprazole 40 Mg Tablet PO 40 mg BID YESY Administration Quetiapine Fumarate 50 mg 09/19/24 21:00 09/23/24 20:01 Quetiapine Fumarate 25 Mg Tablet PO 50 mg QHS YESY Administration Rosuvastatin Calcium 40 mg 09/19/24 09:00 09/24/24 08:25 Rosuvastatin 20 Mg Tablet PO 40 mg DAILY YESY Administration Senna 8.6 mg 09/20/24 11:33 09/21/24 08:34 Sennosides 8.6 Mg Tablet PO 8.6 mg DAILY PRN Administration Constipation Sodium Zirconium Cyclosilicate 5 gm 09/22/24 10:00 09/24/24 10:55 Sodium Zirconium Cyclosilicate 5 Gm Powd.Pack PO 5 gm DAILY@1000 YESY Administration Tamsulosin HCl 0.4 mg 09/19/24 09:00 09/24/24 08:25 Tamsulosin Hcl 0.4 Mg Capsule PO 0.4 mg DAILY YESY Administration Tramadol HCl 50 mg 09/20/24 17:14 09/23/24 20:01 Tramadol Hcl (*Crx) 50 Mg Tablet PO 50 mg Q6H PRN Administration Pain Rated 4-6 Radiology Results: ITS Impressions Chest X-Ray 09/21/24 16:55 IMPRESSION: Subsegmental left basilar atelectasis/consolidation. Chest CTA 09/23/24 09:36 Impression: No evidence of pulmonary embolus, aortic dissection, or aortic aneurysm. Clear lungs. Mild bilateral upper lobe emphysema. Labs Labs: Laboratory Results - last 24 hr 09/23/24 09/23/24 09/23/24 11:44 17:01 21:18 WBC RBC Hgb Hct MCV MCH MCHC RDW Plt Count MPV Sodium Potassium Chloride Carbon Dioxide Anion Gap BUN Creatinine Estim Creat Clear Calc Estimated GFR Glucose POC Capillary Glucose 249 H 171 H 199 H Calcium Magnesium 09/24/24 09/24/24 09/24/24 06:14 07:27 11:08 WBC 7.4 RBC 4.99 Hgb 14.0 Hct 43.2 MCV 86.6 MCH 28.1 MCHC 32.4 RDW 12.6 Plt Count 197 MPV 10.4 Sodium 133 L Potassium 5.1 H Chloride 97 L Carbon Dioxide 30 Anion Gap 6 BUN 38 H Creatinine 0.87 Estim Creat Clear Calc 94 Estimated GFR > 60 Glucose 222 H POC Capillary Glucose 228 H 320 H Calcium 10.1 Magnesium 2.3 Quality VTE Prophylaxis VTE prophylaxis: pharmacologic ordered (Lovenox 40 mg subQ daily.)
[2024-09-24 16:16] LABS: Glucose Point of Care 276 mg/dl (65-105)
--- NOTE | 2024-09-24 18:25 | PM.PNPUL ---
Progress Note: A&P Assessment and Plan (1) Acute exacerbation of chronic obstructive pulmonary disease: Code(s): J44.1 - Chronic obstructive pulmonary disease with (acute) exacerbation Status: Acute Assessment and Plan: He was admitted September 18 after 10 days of increased shortness of breath, coughing, wheezing, had a clear CXR, main complaint was that he could not breathe, was treated for COPD exacerbation, feels much improved. He has developed new green sputum production with a chest x-ray September 21 showing atelectasis and volume loss in the left lower lobe. This is new, was not present on admission. His initial white blood cell count was normal 9.9 with increased monocytes 12%. WBC increased with steroids was 20.6k, now 13.3 September 22. This patient does not have frequent episodes of decompensation. He has not been on a ventilator. I do not see pulmonary function test in the system. I told him after discharge he can follow-up with us in the office, he will definitely need pulmonary function tests in 6-8 weeks, consideration for pulmonary rehab. (2) Acute hypoxic respiratory failure: Code(s): J96.01 - Acute respiratory failure with hypoxia Status: Acute Assessment and Plan: Now on home air, 95%. his ordered an oximeter, will provide information on how t use this More O2 and higher saturation is not better. (3) Shortness of Breath: Code(s): R06.02 - Shortness of breath Status: Acute Assessment and Plan: This is being getting worse over the last several months. He has also had extreme fatigue. His says that for the last 6 months he has had no energy and worsening dyspnea. He has known COPD and is on Trelegy, has continued to smoke a pack per day. Prior to admission, he was using his rescue inhaler 2 puffs every 2 hours, overuse. He is much better compared to admission. (4) Continuous tobacco abuse: Code(s): Z72.0 - Tobacco use Status: Acute Assessment and Plan: He has a nicotine patch on, currently is not having excessive cravings. He will need information on tobacco cessation prior to discharge to avoid relapse at home. Plan plan: 1. He is stable for discharge. 2) Stop Solu-Medrol, switch to prednisone 60 mg daily for 3 days, 40 mg daily for 3 days, 20 mg daily for 3 days. He has been on a significant amount of Solu-Medrol 60 IV q.6 hours for 7 days, and this amount of prednisone I am prescribing should be sufficient to avoid adrenal insufficiency. 3) Complete Levaquin p.o. for 5 days total. 4) Re-start Trelegy 100 mg one puff a day. Continue albuterol rescue as his p.r.n. inhaler. 5) Chantix/varenicline: Days 1-3, take 0.5 mg once a day, days 4-7 take 0.5 mg twice a day, days 8 and beyond, take 1 mg twice a day, continue for 11 weeks. He took this in [address], and stayed off tobacco for a year. He wants to go home on this. 5) He has stopped smoking; no smoking since admission 7 days ago. Daughter has cleaned the house, steam cleaned the sofa, removed as much of the smell as possible. He needs his vehicle cleaned as well. Remove all the tobacco from the house. Tobacco cessation information given. Stopping smoking is the most important choice you can make for your health. There is a financial cost, as well as the impact on your health, health of family members and your pets. We recommend picking a quit date, eliminating tobacco from your house, finding alternative activities when you have a craving, and knowing that a craving lasts 5-6 minutes. Nicotine replacement therapy can be helpful, including patches, lozenges, gum and inhalers. 4-982-INSDBXA is a toll free number with a live person who will talk with you about stopping smoking. No vaping. His says that he was coughing when he tried to vape. 6) Continue Cornet vibratory treatment to bronchodilators to help loosen secretions in the left lower lobe 7) Follow up in pulmonary office in about a month. [phone]; will need PFT. He has hx of SARAH. SARAH and COPD overlap, treating together provides more control of each condition. He asked about Xanax. We do not do that anymore. He asked about nebulizer. He is better, has stopped smoking. He can use an albuterol inhaler, and albuterol inhaler and albuterol nebulizers are the exact same drug. Nebulizers are great for people who can not take a big inhalation. He does not appear to be that sick. We decided talking together he did not really want a nebulizer so were not ordering one. He is going to follow up with his primary care [facility] [place]. staff, please obtain his PFTs from [facility] from summer 2023 prior to his office appt. Subjective Date/time seen: 09/25/24 18:25 Interval history: 09/25/24; temperature 36? pulse 79 respiration 18 blood pressure 119/52 saturation 95% on room air is at the bedside. We covered many questions, his follow-up in the office in a month, tobacco cessation and I gave him information from [facility]. We will get his PFTs from [facility] where he had them last summer. He will go home on Trelegy 1 puff a day and p.r.n. albuterol. He wanted to use Chantix the same as he did in [address] his [address] Overall he feels much much improved. 09/23/24; follow up; He is sitting on the side of the bed. Cornet valve seems to be helping him with secretions. He is feeling better. He had a CTA today, no PE. Echo = LV size is normal, LV systolic function lower limits of normal 50-55%. Grade I diastolic dysfunction. Mild increased in LV wall. RV is normal. There is mildly increased left ventricular wall thickness. 09/22/24 new consult; Cat Pettit is a 68 year-old man heavy smoker now at 1 ppd for the last 49 years; he was admitted 09/18 ER with increased shortness of breath for 10 days before presentation. He says that his primary care told him to go to Urgent Care several days earlier, he did not want to, so we increased use of his rescue inhaler 2 puffs every 2 hours in the days leading up to admission. He did not have fever, chills, but his home where he lives with his , daughter son-in-law and 2 grandchildren ages 10 in 15, the grandchildren had viral symptoms 3 weeks earlier. When he finally came in, he was extremely short of breath, could not walk any distance at all before having to stop. He says that he feels much improved compared to when he was initially admitted and his O2 requirement is lower. He did not have any vaccinations this year; normally gets vaccinated. He was admitted with a normal CXR on 09/18. Yesterday 09/21 he had atelectasis in the left base, although I could not see this because the chest x-ray cut off the left base. WBC is now normal, was 9.9 with 12 % monocytes on admission. He is now on 2 L for the last hour. Yesterday on 3 L. saturation was 91%; today on 3 L sat is 96% so this was weaned. He has not been on O2 at home. He developed greenish sputum since he has been in the hospital. He initially had antibiotics on admission but then did not have these continued. Dr Carbajal started antibiotics today with the green sputum. On admission he told the hospitalist that he had some pain in the right posterior ribs, worse with taking a deep breath and with coughing. He has never had a pulmonary embolism. He has been sitting up to breathe at home which is a new finding. His tells me he has been extremely fatigued for the last 6 months. His father of lung cancer at age 58, this is a big concern for her. She also tells me that the patient had some pulmonary nodules found on a chest CT about 8 or 9 years ago when he had a brief episode of hemoptysis. 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 He was exposed to solvents and dust. He was not in the . No other jobs, no other exposure. COPD: He has been on Trelegy for the last 2 years, uses albuterol infrequently. On a normal day he has some cough with small amount of sputum production. He wheezes at times, worse with exertion. Family history: Father age 58, lung cancer. PMH: coronary artery disease, CT with stent placement 2005 in [facility] now followed by Dr Joseph Rios. Insulin-dependent diabetes mellitus for about the last 6 years, GERD, BPH, essential hypertension, hyperlipidemia, COPD and continued tobacco abuse who presented to the ER from home due to increased shortness of breath; anterior cervical diskectomy and fusion, C4-5; December 2022. DATA * 09/23/24; CTA ;There is no evidence of any significant mediastinal, hilar or axillary lymphadenopathy. There is no filling defect in the pulmonary arterial tree to suggest pulmonary embolus. There is no evidence of aortic dissection or aneurysm. There is no evidence of pleural or pericardial effusion. The lungs are clear. No pulmonary nodules or infiltrates are noted. Mild emphysema noted in the upper lobes. Images through the upper abdomen reveal no abnormalities. Impression: No evidence of pulmonary embolus, aortic dissection, or aortic aneurysm. Clear lungs. Mild bilateral upper lobe emphysema. * 09/23/24; echo ; Technically difficult study with limited views. 2. Left ventricular chamber dimension is normal. 3. Left ventricular systolic function is lower limits of normal, estimated at 50-55%. 4. There is mildly increased left ventricular wall thickness. 5. The left ventricular diastolic function is grade I diastolic dysfunction. 6. Right ventricular systolic function is normal. 7. There is trivial posterior pericardial effusion. 8. No significant valvular disease. * 09/19/2024; CXR Subsegmental left basilar atelectasis/consolidation. * white blood cell count 13.3, hemoglobin 13.5, hematocrit 42.9%, platelets 212 k, sodium 137 potassium 5.3 chloride 95 carbon dioxide 37 BUN 42 creatinine 1.04 glucose 240, magnesium 2.5 * 09/18/2024; serology negative flu/RSV/ COVID * 09/18/2024 calcium 10.7, high , normal albumin 4.2. Dr Hamm commented on his mild hypercalcemia, not new, and now this has normalized. * 09/18/24; CXR ; no acute disease Review of Systems Review of Systems: All systems reviewed & are unremarkable except as noted in HPI and below Exam Narrative: temperature 36? pulse 79 respiration 18 blood pressure 119/52 saturation 95% on room air GEN: Alert, oriented, not in distress. NECK: Trachea is midline CHEST: Equal air entry, symmetric excursion, decreased breath sounds, hyperinflated, clear CV: Regular S1S2 no m/g/r; no additional sounds. ABD : (+) bowel sounds Extremities : no clubbing, no cyanosis, trace edema in lower legs and feet; skin is warm and dry. PSYCH: normal thought and speech, gait is not tested. Objective Data Vital Signs Vital Signs: Vital Signs - 24 hr 09/23/24 20:00 09/23/24 20:13 09/23/24 20:16 Temperature Pulse Rate 78 92 Respiratory Rate 18 Blood Pressure Pulse Oximetry 94 Oxygen Delivery Nasal Cannula Oxygen Flow Rate 1 09/23/24 20:24 09/23/24 21:00 09/23/24 21:57 Temperature 36.6 C Pulse Rate 88 90 Respiratory Rate 16 20 Blood Pressure 122/69 Pulse Oximetry 97 94 Oxygen Delivery Oxygen Flow Rate 09/24/24 00:00 09/24/24 04:00 09/24/24 04:48 Temperature Pulse Rate 74 78 90 Respiratory Rate 16 Blood Pressure Pulse Oximetry Oxygen Delivery Oxygen Flow Rate 09/24/24 04:57 09/24/24 05:00 09/24/24 08:00 Temperature 36.3 C L Pulse Rate 89 82 101 H Respiratory Rate 16 20 Blood Pressure 135/64 Pulse Oximetry 98 Oxygen Delivery Oxygen Flow Rate 09/24/24 08:00 09/24/24 08:06 09/24/24 08:06 Temperature Pulse Rate 98 Respiratory Rate 18 Blood Pressure Pulse Oximetry 95 95 Oxygen Delivery Nasal Cannula Nasal Cannula Oxygen Flow Rate 2 2 09/24/24 08:16 09/24/24 08:25 09/24/24 11:40 Temperature Pulse Rate 97 80 Respiratory Rate 18 Blood Pressure Pulse Oximetry 98 Oxygen Delivery Nasal Cannula Oxygen Flow Rate 2 09/24/24 11:49 09/24/24 11:55 09/24/24 11:55 Temperature Pulse Rate 95 Respiratory Rate 18 Blood Pressure Pulse Oximetry 94 93 Oxygen Delivery Room Air Room Air Oxygen Flow Rate 09/24/24 12:00 09/24/24 13:00 09/24/24 15:59 Temperature 36.6 C Pulse Rate 102 H 98 88 Respiratory Rate 14 18 Blood Pressure 121/63 Pulse Oximetry 96 Oxygen Delivery Oxygen Flow Rate 09/24/24 16:00 09/24/24 16:13 Temperature Pulse Rate 87 90 Respiratory Rate 18 Blood Pressure Pulse Oximetry Oxygen Delivery Oxygen Flow Rate Intake/Output Intake/Output: Intake & Output 09/21/24 09/22/24 09/23/24 09/24/24 23:59 23:59 23:59 23:59 Intake Total 1820 1780 2320 1270 Balance 1820 1780 2320 1270 Meds/Results Medications: Active Medications Generic Name Dose Route Start Last Admin Trade Name Freq PRN Reason Stop Dose Admin Acetaminophen 650 mg 09/18/24 20:18 09/22/24 11:33 Acetaminophen 325 Mg Tablet PO 650 mg Q4H PRN Administration Mild Pain (1-3) or Fever Albuterol/Ipratropium 3 ml 09/19/24 08:00 09/24/24 15:59 Ipratropium 0.5 Mg/Albuterol Sulfate 2.5 Mg Ampul.Neb 3 Ml INHALATION 3 ml Q4HRT YESY Administration Aspirin 81 mg 09/19/24 09:00 09/24/24 08:23 Aspirin 81 Mg Chewable Tablet PO 81 mg DAILY YESY Administration Dextrose 12.5 gm 09/18/24 19:56 Dextrose 50% 25 Gm/50 Ml Syringe IV PUSH PRN PRN Hypoglycemia Protocol Diclofenac Sodium 75 mg 09/18/24 19:54 09/20/24 08:02 Diclofenac Sod 75 Mg Tablet.Ec PO 75 mg Q12H PRN Administration Arthritis pain Ezetimibe 10 mg 09/19/24 09:00 09/24/24 08:24 Ezetimibe 10 Mg Tablet PO 10 mg DAILY YESY Administration Enoxaparin Sodium 40 mg 09/19/24 09:00 09/24/24 08:24 Enoxaparin 40 Mg/0.4 Ml Syringe SUB-Q 40 mg DAILY YESY Administration Glucagon 1 mg 09/18/24 19:56 Glucagon For Inj 1 Mg Vial IM PRN PRN Hypoglycemia Protocol Glucose 15 gm 09/18/24 19:56 Glucose Oral Gel 15 Gm Of Glucse In 37.5 Gm Tube PO PRN PRN Hypoglycemia Protocol Guaifenesin 1,200 mg 09/18/24 21:00 09/24/24 08:24 Guaifenesin 12 Hr 600 Mg Tabcr PO 1,200 mg Q12HR YESY Administration Dextrose 1,000 mls @ 100 mls/hr 09/18/24 19:56 Dextrose 5% 1,000 Ml IVPB PRN PRN Hypoglycemia Protocol Insulin Aspart 6 units 09/19/24 08:00 09/24/24 16:33 Insulin Aspart (*Bkc) 100 Units/Ml 0.05 units/kg (6 units) 6 units SUB-Q Administration TIDWM [facility] Insulin Aspart 3 - 6 units 09/19/24 08:00 09/24/24 16:33 Insulin Aspart (*Bkc) 100 Units/Ml SUB-Q 4 units TIDWM YESY Administration Protocol Insulin Aspart 1 - 3 units 09/18/24 21:00 09/23/24 21:56 Insulin Aspart (*Bkc) 100 Units/Ml SUB-Q Not Given HS [facility] Protocol Insulin Glargine 20 units 09/19/24 09:00 09/24/24 08:22 Insulin Glargine (*Bkc) 100 Units/Ml SUB-Q 20 units DAILY YESY Administration Levofloxacin 750 mg 09/25/24 09:00 Levofloxacin 750 Mg Tablet PO 09/26/24 09:01 DAILY [facility] Lidocaine 1 patch 09/20/24 18:25 09/24/24 08:18 Lidocaine 5% Patch TRANSDERM Not Given DAILY YESY Losartan Potassium 100 mg 09/19/24 09:00 09/24/24 08:24 Losartan Potassium 100 Mg Tablet PO 100 mg DAILY YESY Administration Metformin HCl 1,000 mg 09/19/24 09:00 09/24/24 16:32 Metformin Hcl 500 Mg Tablet PO 1,000 mg BID YESY Administration Methylprednisolone Sodium Succinate 60 mg 09/18/24 18:00 09/24/24 18:02 Methylprednisolone Sod Succ 125 Mg Vial IV PUSH 60 mg Q6HR YESY Administration Metoprolol Succinate 50 mg 09/19/24 09:00 09/24/24 08:25 Metoprolol Succinate Ext Rel 50 Mg Tabcr PO 50 mg DAILY YESY Administration Nicotine 1 patch 09/18/24 20:15 09/24/24 08:18 Nicotine (*Pbkc) 21 Mg Patch TRANSDERM 1 patch DAILY PRN Administration Nicotine withdrawal Pantoprazole Sodium 40 mg 09/18/24 20:05 09/24/24 16:32 Pantoprazole 40 Mg Tablet PO 40 mg BID YESY Administration Quetiapine Fumarate 50 mg 09/19/24 21:00 09/23/24 20:01 Quetiapine Fumarate 25 Mg Tablet PO 50 mg QHS YESY Administration Rosuvastatin Calcium 40 mg 09/19/24 09:00 09/24/24 08:25 Rosuvastatin 20 Mg Tablet PO 40 mg DAILY YESY Administration Senna 8.6 mg 09/20/24 11:33 09/21/24 08:34 Sennosides 8.6 Mg Tablet PO 8.6 mg DAILY PRN Administration Constipation Sodium Zirconium Cyclosilicate 5 gm 09/22/24 10:00 09/24/24 10:55 Sodium Zirconium Cyclosilicate 5 Gm Powd.Pack PO 5 gm DAILY@1000 YESY Administration Tamsulosin HCl 0.4 mg 09/19/24 09:00 09/24/24 08:25 Tamsulosin Hcl 0.4 Mg Capsule PO 0.4 mg DAILY YESY Administration Tramadol HCl 50 mg 09/20/24 17:14 09/23/24 20:01 Tramadol Hcl (*Crx) 50 Mg Tablet PO 50 mg Q6H PRN Administration Pain Rated 4-6 Radiology Results: ITS Impressions Chest X-Ray 09/21/24 16:55 IMPRESSION: Subsegmental left basilar atelectasis/consolidation. Chest CTA 09/23/24 09:36 Impression: No evidence of pulmonary embolus, aortic dissection, or aortic aneurysm. Clear lungs. Mild bilateral upper lobe emphysema. Labs Labs: Laboratory Results - last 24 hr 09/23/24 09/24/24 09/24/24 21:18 06:14 07:27 WBC 7.4 RBC 4.99 Hgb 14.0 Hct 43.2 MCV 86.6 MCH 28.1 MCHC 32.4 RDW 12.6 Plt Count 197 MPV 10.4 Sodium 133 L Potassium 5.1 H Chloride 97 L Carbon Dioxide 30 Anion Gap 6 BUN 38 H Creatinine 0.87 Estim Creat Clear Calc 94 Estimated GFR > 60 Glucose 222 H POC Capillary Glucose 199 H 228 H Calcium 10.1 Magnesium 2.3 09/24/24 09/24/24 11:08 16:13 WBC RBC Hgb Hct MCV MCH MCHC RDW Plt Count MPV Sodium Potassium Chloride Carbon Dioxide Anion Gap BUN Creatinine Estim Creat Clear Calc Estimated GFR Glucose POC Capillary Glucose 320 H 276 H Calcium Magnesium
[2024-09-24] MEDS: QUEtiapine FUMARATE 25 MG TABLET 50 MG PO (20:16)
[2024-09-24 20:47] LABS: Glucose Point of Care 232 mg/dl (65-105)
[2024-09-24] MEDS: MELATONIN 5 MG TABLET PO (21:55)
[2024-09-25] VITALS (10 sets, daily range): BP systolic 113–119; BP diastolic 52; PULSE 74–96; RESP 18–20; TEMP 36; O2SAT 94–96
[2024-09-25] MEDS: methylPREDNISolone SOD SUCC 125 MG VIAL 60 MG IV PUSH ×2 (00:46→06:18)
[2024-09-25] MEDS: IPRATROPIUM 0.5 MG/ALBUTEROL SULFATE 2.5 MG AMPUL.NEB 3 ML INHALATION ×2 (03:39→07:06)
[2024-09-25 06:17] LABS: Hematocrit 44.1 % (42.0-52.0); Mean Corpuscular HGB Conc 31.7 g/dl (32-36); Mean Corpuscular Hemoglobin 27.9 pg (26-34); Mean Corpuscular Volume 87.8 fl (80-100); Mean Platelet Volume 10.4 fl (7.4-10.4); Platelet Count Result 224 k/mm3 (150-375); Red Blood Count 5.02 M/mm3 (4.6-6.20); Red Cell Distribution Width 12.8 % (11.5-14.5); White Blood Count 10.3 K/mm3 (4.5-10.0)
[2024-09-25 06:28] LABS: Anion Gap 5 mmol/L (4-12); Blood Urea Nitrogen 38 mg/dL (9-20); Carbon Dioxide 34 mmol/L (22-30); Chloride 96 mmol/L (98-107); Estimated CRCL calculation 88 ml/min; Estimated Glomerular Filt Rate > 60; Glucose 202 mg/dL (65-110); Potassium 4.6 mmol/L (3.4-5.0); Sodium 135 mmol/L (137-145)
[2024-09-25 07:47] LABS: Glucose Point of Care 198 mg/dl (65-105)
[2024-09-25] MEDS: INSULIN ASPART (*BKC) 100 UNITS/ML 6 UNITS SUB-Q ×2 (08:10→11:52)
[2024-09-25] MEDS: INSULIN GLARGINE (*BKC) 100 UNITS/ML 20 UNITS SUB-Q (08:11)
[2024-09-25] MEDS: ASPIRIN 81 MG CHEWABLE TABLET PO (08:15)
[2024-09-25] MEDS: levoFLOXacin 750 MG TABLET PO (08:16)
[2024-09-25] MEDS: ENOXAPARIN 40 MG/0.4 ML SYRINGE SUB-Q (08:16)
[2024-09-25] MEDS: METOPROLOL SUCCINATE EXT REL 50 MG TABCR PO (08:16)
[2024-09-25] MEDS: EZETIMIBE 10 MG TABLET PO (08:16)
[2024-09-25] MEDS: metFORMIN HCL 500 MG TABLET 1000 MG PO (08:16)
[2024-09-25] MEDS: guaiFENesin 12 HR 600 MG TABCR 1200 MG PO (08:16)
[2024-09-25] MEDS: ROSUVASTATIN 20 MG TABLET 40 MG PO (08:17)
[2024-09-25] MEDS: PANTOPRAZOLE 40 MG TABLET PO (08:17)
[2024-09-25] MEDS: NICOTINE (*PBKC) 21 MG PATCH 1 PATCH TRANSDERM (08:17)
[2024-09-25] MEDS: TAMSULOSIN HCL 0.4 MG CAPSULE PO (08:17)
--- NOTE | 2024-09-25 10:22 | PCNWS ---
Weekly nutritional screen. Patient is tolerating current Diabetic consistent carb diet with adequate intake, 90-100%. No weight loss reported. No nutritional needs at this time.
--- NOTE | 2024-09-25 11:20 | P.DS_ITS ---
DS: Admitting Diagnosis Discharge Date 09/25/2024 Admitting Diagnosis Shortness of breath DS: Discharge Diagnosis Discharge Diagnosis (1) Acute exacerbation of chronic obstructive pulmonary disease: Code(s): J44.1 - Chronic obstructive pulmonary disease with (acute) exacerbation Status: Acute (2) Acute hypoxic respiratory failure: Code(s): J96.01 - Acute respiratory failure with hypoxia Status: Acute (3) Continuous tobacco abuse: Code(s): Z72.0 - Tobacco use Status: Acute (4) Type 2 diabetes mellitus with hyperglycemia, with long-term current use of insulin: Code(s): E11.65 - Type 2 diabetes mellitus with hyperglycemia; Z79.4 - long term acute care registered nurse (current) use of insulin Status: Acute DS: Summary Hospital Course Hospital Course: Patient admitted with shortness of breath. Sa02 was 87% RA. Resp panel negative. Patient is a current 1 pack a day smoker. ITS Impressions Chest X-Ray 09/21/24 16:55 IMPRESSION: Subsegmental left basilar atelectasis/consolidation. Chest CTA 09/23/24 09:36 Impression: No evidence of pulmonary embolus, aortic dissection, or aortic aneurysm. Clear lungs. Mild bilateral upper lobe emphysema. Echocardiogram Summary: 1. Technically difficult study with limited views. 2. Left ventricular chamber dimension is normal. 3. Left ventricular systolic function is lower limits of normal, estimated at 50-55%. 4. There is mildly increased left ventricular wall thickness. 5. The left ventricular diastolic function is grade I diastolic dysfunction. 6. Right ventricular systolic function is normal. 7. There is trivial posterior pericardial effusion. 8. No significant valvular disease. Patient seen by Pulmonology. Patient received IV steroids and transitioned to oral for discharge. Patient receiving Levaquin. Patient was able to be weaned off of oxygen. Smoking cessation discussed. Patient to go home on Chantix. Patient to restart Trelegy. Will need outpatient pulmonary function test in 6-8 weeks, consider pulmonary rehab. Status at Discharge Functional status at discharge: independent ambulation Overall status at discharge: patient is progressing back to baseline Time Spent with Patient Time attestation: Total time spent providing and/or coordinating discharge services: Time spent: Greater than 30 minutes Exam Const: General: comfortable and no acute distress Resp: Effort & Inspection: normal respiratory effort Auscultation: diminished lung sounds Cardio: Rate: regular rate Rhythm: regular rhythm Other: Telemetry- SR 77 GI: GI Palp: Yes Soft to palpation Auscultation: normal bowel sounds Extrem: General: pedal edema bilaterally (Trace edema) Psych: Mental Status: mental status grossly normal Affect: normal affect DS: Data Data Completed and Pending Labs on day of discharge: Labs from last 24 hours 09/25/24 09/25/24 09/24/24 07:42 06:07 20:07 WBC 10.3 H RBC 5.02 Hgb 14.0 Hct 44.1 MCV 87.8 MCH 27.9 MCHC 31.7 L RDW 12.8 Plt Count 224 MPV 10.4 Sodium 135 L Potassium 4.6 Chloride 96 L Carbon Dioxide 34 H Anion Gap 5 BUN 38 H Creatinine 0.94 Estim Creat Clear Calc 88 Estimated GFR > 60 Glucose 202 H POC Capillary Glucose 198 H 232 H Calcium 10.0 Magnesium Cancelled 09/24/24 16:13 WBC RBC Hgb Hct MCV MCH MCHC RDW Plt Count MPV Sodium Potassium Chloride Carbon Dioxide Anion Gap BUN Creatinine Estim Creat Clear Calc Estimated GFR Glucose POC Capillary Glucose 276 H Calcium Magnesium Discharge Plan Discharge Attending physician on discharge: [facility] Consulting providers: Debi Mckeon Discharging Clinician: Lisa Jon Anticipated Discharge Date/Time: 09/25/24 13:00 Patient Disposition: Home Activity: may shower and as tolerated Diet: diabetic Discharge Instructions: * Continue using Cornet vibratory treatment to bronchodilators to help loosen secretions in the left lower lobe. * Work on decreasing smoking. * Report to provider any increased shortness of breath not improved with inhalers/rest, fever >101, or sputum with color. * Re-start Trelegy 100 mg one puff a day. Continue albuterol rescue as his p.r.n. inhaler. * Chantix/varenicline: Days 1-3, take 0.5 mg once a day, days 4-7 take 0.5 mg twice a day, days 8 and beyond, take 1 mg twice a day, continue for 11 weeks. * Stopping smoking is the most important choice you can make for your health. There is a financial cost, as well as the impact on your health, health of family members and your pets. We recommend picking a quit date, eliminating tobacco from your house, finding alternative activities when you have a craving, and knowing that a craving lasts 5-6 minutes. Nicotine replacement therapy can be helpful, including patches, lozenges, gum and inhalers. 2-090-[phone] is a toll free number with a live person who will talk with you about stopping smoking. * Follow up in pulmonary office in about a month. [phone] Thank you for entrusting [facility] with your healthcare! Patient Instructions: Antibiotic Form, How to Stop Smoking (DC), Cigarette Smoking and Your Health (GEN), COPD (Chronic Obstructive Pulmonary Disease) (DC) Patient Language: Ecuadorean Stand Alone Forms: General Discharge Information Follow-up/Referrals: Za,Matthew Pink MD [Primary Care Provider] - 1 Week Debi Mckeon MD [Physician] - 4 Weeks Discharge Medications: New varenicline tartrate [Chantix Starting Month Box] 0.5 mg (11)- 1 mg (42) tablets,dose pack See Rx Instructions .ROUTE .COMPLEX Qty: 53 0RF Rx Instructions: orally per package directions Trelegy Ellipta 100-62.5-25 mcg blister with device 1 inh inhalation DAILY Qty: 60 0RF levofloxacin 750 mg tablet 750 mg PO DAILY Qty: 1 0RF Rx Instructions: Take dose on 09/26/2024 prednisone 20 mg tablet 20 mg PO DAILY Qty: 15 0RF Rx Instructions: Take 3 tablets (60 mg) on 09/26 & 09/27. Take 2 tablets (40 mg) on 09/28, 09/29, & 09/30. Take 1 tablet (20 mg) on 10/01, 10/02, & 10/03. Continued hydrochlorothiazide 25 mg tablet 25 mg PO DAILY quetiapine 50 mg tablet 50 mg PO DAILY metoprolol succinate 50 mg tablet extended release 24 hr 50 mg PO DAILY omeprazole 40 mg capsule,delayed release(DR/EC) 40 mg PO DAILY losartan 100 mg tablet 100 mg PO DAILY diclofenac sodium 75 mg tablet,delayed release (DR/EC) 75 mg PO Q12H PRN (Reason: pain) metformin 1,000 mg tablet 1,000 mg PO BID Ozempic 0.25 mg or 0.5 mg(2 mg/1.5 mL) pen injector 0.25 mg subcut WEEKLY Rx Instructions: for 4 doses insulin degludec [Tresiba FlexTouch U-200] 200 unit/mL (3 mL) insulin pen 20 unit subcut DAILY rosuvastatin 40 mg tablet 40 mg PO DAILY aspirin 81 mg tablet,chewable 81 mg PO DAILY ezetimibe [Zetia] 10 mg tablet 10 mg PO DAILY albuterol sulfate [ProAir HFA] 90 mcg/actuation HFA aerosol inhaler 1 inh inhalation Q4H tamsulosin [Flomax] 0.4 mg capsule 0.4 mg PO DAILY Fiasp FlexTouch U-100 Insulin 100 unit/mL (3 mL) insulin pen 16 unit SUBCUT TIDWMEAL Date of admission: 09/19/24 08:51 Primary Care Provider: ZaMatthew Admitting Provider: Moise Luke Attending physician on admission: Moise Luke Condition: Stable Hospitalist MIPS Heart Failure (Exclusion) Patient has history of Heart Transplant or Left Ventricular Assistive Device?: No IF YES, STOP HERE Heart Failure (Qualifier) Patient has current or prior documentation of LVEF less than or equal to 40%, or mod/servere depressed LVSF?: No IF NO, STOP HERE
[2024-09-25 11:47] LABS: Glucose Point of Care 246 mg/dl (65-105)
[2024-09-25] MEDS: INSULIN ASPART (*BKC) 100 UNITS/ML SUB-Q (11:52)
[2024-09-25] MEDS: predniSONE 20 MG TABLET 60 MG PO (11:54)
== END 2024-09-25 12:50 | disposition home or self-care (01) | DRG 190 ==
LOC: ANHED 15:21 → ANH3MEDSUR 16:10
PROVIDERS: Emergency Medicine; Family Medicine; Internal Medicine; Admitting Provider Internal Medicine; Emergency Provider Emergency Medicine; PCP Family Medicine; Visit Provider Nurse Practitioner Family
DX: J44.1 Chronic obstructive pulmonary disease with (acute) exacerbation (principal); J96.01 Acute respiratory failure with hypoxia; J98.11 Atelectasis; E11.65 Type 2 diabetes mellitus with hyperglycemia; E83.52 Hypercalcemia; I25.10 Atherosclerotic heart disease of native coronary artery without angina pectoris; K21.9 Gastro-esophageal reflux disease without esophagitis; N40.0 Benign prostatic hyperplasia without lower urinary tract symptoms; I10 Essential (primary) hypertension; E78.5 Hyperlipidemia, unspecified; E86.0 Dehydration; M47.812 Spondylosis without myelopathy or radiculopathy, cervical region; F17.210 Nicotine dependence, cigarettes, uncomplicated; I25.2 Old myocardial infarction; Z79.4 Long term (current) use of insulin; Z98.1 Arthrodesis status; Z96.1 Presence of intraocular lens; Z98.42 Cataract extraction status, left eye; Z98.41 Cataract extraction status, right eye; Z96.651 Presence of right artificial knee joint; Z95.5 Presence of coronary angioplasty implant and graft
CPT/HCPCS: 36415; 71045; 71046; 71275; 80048; 80053; 82948; 83036; 83735; 85025; 85027; 87637; 93005; 94640; 94667; 96374; 96375; 99285; A9270; C8929; G0378; J1650; J1815; J1956; J2270; J2919; J7030; J7512; Q9957; Q9967

== ENCOUNTER 2025-04-01 12:40 | Outpatient (CLI) | payer MEDICARE, SELFPAY ==
--- NOTE | 2025-04-01 15:10 | WPDSIXMINUTE ---
Six Minute Walk Procedure Procedure Performed Pulmonary Stress Test (6 min walk) Six Minute Walk Six Minute Walk: This is a 6 minute walk test. The test was performed and interpreted in accordance with the 2014 ERS/ATS task force guidelines. Findings: The patient's resting room air oxygen saturation measured by pulse oximetry was 97%, the heart rate was 92 bpm, and the modified Betty dyspnea score was 0.5. Patient ambulated for 366 meters and oxygen saturation remained 94 to 96%. At the end of the study the heart rate was 115 bpm and the modified Betty dyspnea score was 1. The patient did not qualify for supplemental oxygen at rest or with ambulation. There are no prior studies for comparison.
--- NOTE | 2025-04-01 15:11 | WPDPFTINT ---
PFT Procedure Performed PFT Procedure Performed Spirometry with Pre/Post Bronchodilator Plethysmography (Lung Vol) Diffusing Cap (DLCO) Flow Vol Loop PFT Interpretation This is a pulmonary function test with pre and post-bronchodilator spirometry, plethysmography and diffusing capacity. The test was performed and results interpreted in accordance with the 2019 and 2005 ATS/ERS Task Force guidelines respectively using the Global Lung Function Initiative-2012 reference equations. Patient demonstrated good effort and cooperation. Reproducibility criteria were met. The quality of the pre bronchodilator spirometry maneuver was Grade A and post bronchodilator spirometry maneuver was Grade A. Findings: Spirometry: There is decreased maximal expiratory airflow at all lung volumes with a concave expiratory flow tracing. The contour the inspiratory flow tracing is normal. The pre bronchodilator FVC is 3.75 L, 79% predicted. The pre bronchodilator FEV1 is 2.03 L, 57% predicted. The pre bronchodilator FEV1: FVC ratio is 54%. The post bronchodilator FVC is 3.75 L, representing no change. The post bronchodilator FEV1 is 2.12 L, representing a 5% increase. The post bronchodilator FEV1: FVC ratio is 57%. Plethysmography: The total lung capacity is 5.13 L, 68% predicted. The functional residual capacity is 2.11 L, 52% predicted. The residual volume is 1.38 L, 54% predicted. Diffusing capacity: The diffusing capacity unadjusted for hemoglobin and carboxyhemoglobin is 21.3, 77% predicted. The diffusing capacity adjusted for alveolar volume is 3.74, 98% predicted. Impression: There is a combined obstructive and restrictive ventilatory abnormality. There are no guidelines to assign the severity of obstruction and restriction with a combined abnormality. In my opinion, given the concave expiratory flow tracing, decreased FEV1: FVC ratio and mild restrictive abnormality I would state there is a moderate obstructive abnormality and a mild restrictive abnormality resulting in a moderately severe decrease in the FEV1. There is no significant improvement after inhaling a single dose of albuterol. The diffusing capacity is normal. There are no prior studies for comparison
== END 2025-04-01 12:41 | disposition home or self-care (01) ==
LOC: ANHPFT 12:40
PROVIDERS: PCP Family Medicine; Visit Provider Internal Medicine Critical Care Medicine
DX: J44.9 Chronic obstructive pulmonary disease, unspecified (principal); R94.2 Abnormal results of pulmonary function studies
CPT/HCPCS: 94060; 94618; 94726; 94729